=== PATIENT | male | born 1950 | race Caucasian/White ===

== ENCOUNTER 2020-05-14 08:51 | Observation (INO) | payer MEDICARE, SELFPAY ==
[2020-05-14] VITALS (10 sets, daily range): BP systolic 122–142; BP diastolic 54–70; PULSE 54–64; RESP 16–18; TEMP 36.4–36.8; O2SAT 98–100; BMI 31.7
--- NOTE | ~2020-05-14 | US_ITS ---
US renal BI 05/15/2020 07:55 Procedure: Realtime transabdominal ultrasound of the kidneys and bladder. Indication: Renal failure. Comparison: Ultrasound dated 04/18/2019 Findings: Left kidney is congenitally absent. There is compensatory hypertrophy of the right kidney. There are multiple right renal cysts, largest measuring 6.8 cm maximum dimension. There is mild right hydronephrosis. Right renal length is 16 cm. Prostate gland is mildly enlarged. Bladder wall is unre markable, although not well distended. Impression: 1: Mild right hydronephrosis. Multiple right renal cysts. 2: Congenitally absent left kidney. Reviewed, dictated and finalized at location A. Impression: 1: Mild right hydronephrosis. Multiple right renal cysts. 2: Congenitally absent left kidney.
--- NOTE | ~2020-05-14 | XR_ITS ---
EXAMINATION: XR chest 1V portable DATE: 05/14/2020 09:30 INDICATION: Right hemiparesis. Dyspnea. TECHNIQUE: A single frontal view of the chest was obtained. COMPARISON: Chest 2 views 04/18/2019, chest CT 10/20/2019 FINDINGS: There is mild atelectasis in the lower lung zones. No pleural effusion or pneumothorax. The heart size is normal. Calcified right hilar lymph nodes are consistent with old granulomatous diseas e. IMPRESSION: 1. Mild atelectasis in the lower lung zones. Reviewed, dictated and finalized at location A.
--- NOTE | ~2020-05-14 | MR_ITS ---
EXAMINATION: MR brain/brain stem wo con DATE: 05/14/2020 20:36 INDICATION: Weakness. Altered mental status. TECHNIQUE: Magnetic resonance imaging (MRI) of the brain and brainstem was performed without intraven ous contrast. Sequences included sagittal and axial T1-weighted SE, axial diffusion-weighted FS SE, a xial T2*-weighted GRE, axial T2-weighted FLAIR, and axial T2-weighted FSE. Apparent diffusion coeffic ient (ADC) maps were created. COMPARISON: Brain MR dated 04/18/2019 FINDINGS: There are no areas of restricted diffusion to suggest acute infarction. No intracranial hemorrhage or abnormal intracranial mass lesion. There are scattered areas of nonspecific increased T2-weighted si gnal intensity in the cerebral white matter, predominantly involving the deep and periventricular whi te matter. There are no intraparenchymal signal abnormalities seen on the other pulse sequences. The ventricles are symmetric and normal in size. There are no abnormal extra-axial fluid collections. Elmer w voids are seen in the cerebral arteries on the T2-weighted sequences consistent with their expected patency. Changes of right intraocular lens replacement. Visualized orbits and soft tissues are unrem arkable. IMPRESSION: 1. No acute intracranial process. 2. Unchanged moderate nonspecific periventricular predominant cerebral white matter T2 hyperintensity likely sequela of chronic small vessel ischemic disease. Reviewed, dictated and finalized at location A. IMPRESSION: 1. No acute intracranial process. 2. Unchanged moderate nonspecific periventricular predominant cerebral white ma tter T2 hyperintensity likely sequela of chronic small vessel ischemic disease.
--- NOTE | ~2020-05-14 | CT_ITS ---
EXAMINATION: CT brain wo con DATE: 05/14/2020 11:16 INDICATION: Weakness. Altered mental status. TECHNIQUE: Computed tomography (CT) of the head was performed without intravenous contrast. The mA wa s adjusted according to patient size. Iterative reconstruction technique was employed. The dose-lengt h product was 681.00 mGy-cm. COMPARISON: Head CT 04/17/2019 FINDINGS: There is no intracranial hemorrhage, acute infarction, or abnormal intracranial mass lesion . The ventricles are normal in size. There are likely changes of right ocular lens replacement surger y. There is mild mucosal thickening in the paranasal sinuses. The mastoid air cells are normal. IMPRESSION: 1. Normal brain. Reviewed, dictated and finalized at location A. IMPRESSION: 1. Normal brain.
--- NOTE | ~2020-05-14 | US_ITS ---
EXAMINATION: US carotid duplex BI DATE: 05/15/2020 07:55 INDICATION: Carotid stenosis. Weakness. TECHNIQUE: Grayscale, color Doppler, and pulsed Doppler images of the cervical carotid arteries were obtained. The degree of vessel stenosis is placed in one of the following categories: normal, <50%, 5 0-69%, >=70% but less than near-occlusion, near-occlusion, or total occlusion. Note that percent sten osis relative to normal distal artery lumen diameter is indirectly measured from velocity measurement s as described by Brandon, et al. Radiology 2003; 229:340-346. Notes: Normal: Peak systolic velocity <125 centimeters/sec and no plaque <50%. Peak systolic velocity <125 ( EDV <40; ICA/CCA PSV ratio <2.0; used these factors only a tandem lesions or low cardiac output or co ntralateral disease) 50-69 %: PSV 125-230 (EDV 40-100; ratio 2-4) >= 70% but less than near occlusion: PSV greater than 230 (EDV > 100; ratio> 4.0) Near Occlusion: PSV that is variable; markedly narrowed lumen Occlusion: Absent flow on color/spectral Doppler and no lumen on amor scale. COMPARISON: None. FINDINGS: RIGHT: The right common carotid artery (CCA) peak systolic velocity (PSV) is 74 cm/s. The right internal car otid artery (ICA) PSV is 55 cm/s. The right ICA end-diastolic velocity (EDV) is 13 cm/s. The right IC A/CCA PSV ratio is 0.7. The external carotid artery (ECA) PSV is 78 cm/s. There is antegrade flow in the right vertebral artery. LEFT: The left CCA PSV is 95 cm/s. The left ICA PSV is 60 cm/s. The left ICA EDV is 17 cm/s. The left ICA/C CA PSV ratio is 0.6. The ECA PSV is 76 cm/s. There is antegrade flow in the left vertebral artery. IMPRESSION: 1. Less than 50% stenosis in the right internal carotid artery by sonographic criteria. 2. Less than 50% stenosis in the left internal carotid artery by sonographic criteria. Reviewed, dictated and finalized at Location A. Reviewed, dictated and finalized at location A. IMPRESSION: 1. Less than 50% stenosis in the right internal carotid artery by sonographic c cris. 2. Less than 50% stenosis in the left internal carotid artery by sonographic ivonne fernandez.
--- NOTE | 2020-05-14 08:56 | ECG_ITS ---
Measurements Intervals [place] Rate: 55 P: 78 VA: 270 QRS: -33 QRSD: 182 T: 105 QT: 542 QTc: 522 Interpretive Statements SINUS BRADYCARDIA WITH FIRST DEGREE AV BLOCK LEFT AXIS DEVIATION LEFT BUNDLE BRANCH BLOCK ABNORMAL ECG Electronically Signed On 05-14-2020 10:45:34 CDT by Bin Awad D.O.
--- NOTE | 2020-05-14 08:58 | ED.GENADULT ---
HPI - General Adult General Chief complaint: Weakness Stated complaint: weakness Source: RN notes reviewed History of Present Illness HPI narrative: Patient presents emergency department from home via EMS for weakness. Patient states he has been more weak for the past 2 days. States he had lab work done recently and was called and told he was in renal failure need to go the emergency department he states that this was supposed to have happened yesterday. He denies any fevers or chills chest pain shortness of breath abdominal pain nausea vomiting diarrhea or any other symptoms. States he is followed by Dr. Saul for nephrology patient denies any other symptoms at this time Related Data Home Medications Medication Instructions Recorded Confirmed carbidopa 50 mg-levodopa 200 2 tablet PO BID 05/12/20 05/14/20 mg-entacapone 200 mg tablet fluticasone furoate 100 1 inhalation INHALATION DAILY 05/12/20 05/14/20 mcg-vilanterol 25 mcg/dose inhalation powder glipizide 5 mg-metformin 500 mg 2 tablet PO BID 05/12/20 05/14/20 tablet pantoprazole 40 mg tablet,delayed 40 mg PO QAM PRN 05/12/20 05/14/20 release trazodone 100 mg tablet 50 mg PO PRN PRN tablet 05/12/20 05/14/20 albuterol sulfate [ProAir HFA] 2 puff BID 05/14/20 05/14/20 alprazolam See Rx Instructions .ROUTE .COMPLEX 05/14/20 05/14/20 atorvastatin 5 mg HS 05/14/20 05/14/20 carvedilol 12.5 mg PO BID 05/14/20 05/14/20 cholecalciferol (vitamin D3) 1 unit PO DAILY 05/14/20 05/14/20 [D3-1999] donepezil 10 mg PO BID 05/14/20 05/14/20 escitalopram oxalate 20 mg DAILY 05/14/20 05/14/20 lisinopril 10 mg PO DAILY 05/14/20 05/14/20 magnesium oxide 400 mg BID 05/14/20 05/14/20 oxybutynin chloride 5 mg BID 05/14/20 05/14/20 oxycodone 10 mg TID 05/14/20 05/14/20 Allergies Allergy/AdvReac Type Severity Reaction Status Date / Time fentanyl Allergy Unknown Hives Verified 05/14/20 09:24 meperidine Allergy Unknown Hives Verified 05/14/20 09:24 midazolam Allergy Unknown Hives Verified 05/14/20 09:24 diphenhydramine AdvReac Intermediate AGITATION, Verified 05/14/20 09:24 ANTSY Review of Systems Review of Systems: Narrative: Gen.: Denies fevers or chills ENT: Denies congestion Respiratory: Denies shortness of breath or cough CV: Denies chest pain or palpitations GI: Denies abdominal pain nausea, emesis or diarrhea ports history of renal insufficiency Musculoskeletal: Denies back pain or muscle pain Neuro: Denies numbness, tingling, weakness or focal weakness Skin: Denies rash Except as documented, all other systems reviewed and negative [facility] Past Medical History Medical History (Updated 05/14/20 @ 18:26 by Davide Del Real DO) Borderline hyperlipidemia Cardiomyopathy Cataract Chronic narcotic dependence Dementia Depression Previous suicide attempt 2012 DM2 (diabetes mellitus, type 2) GERD (gastroesophageal reflux disease) HTN (hypertension) Kidney congenitally absent, left Migraine DAVID (obstructive sleep apnea) The patient has tried oral apparatus and CPAP and has not been able to tolerated. Parkinsons Pilonidal cyst Prostatic hyperplasia Surgical History Surgical History (Updated 05/14/20 @ 16:52 by Nena Juarez NP) H/O left cataract extraction H/O repair of rotator cuff On the right History of nasal septoplasty History of repair of ACL Bilateral History of surgical removal of pilonidal cyst Hx of cardiac catheterization Hx of cholecystectomy Hx of tonsillectomy Family History Family History Father Family history of cardiovascular disease Malignant neoplasm of prostate Mother Breast cancer Family history of chronic obstructive pulmonary disease Acute myocardial infarction Chronic obstructive pulmonary disease Sibling Prostate carcinoma Social History Social History (Updated 05/14/20 @ 16:55 by Nena Juarez NP) Social History: 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
[2020-05-14 09:29] LABS: Basophils Percent Auto 0.2 % (0.2-1.2); Hematocrit 43.4 % (42.0-52.0); Hemoglobin 14.7 g/dL (14.0-18.0); Immature Granulocyte Absolute 0.07 K/mm3 (0.00-0.031); Immature Granulocyte Percent A 0.6 % (0-0.5); Lymphocytes Absolute Auto 0.81 K/mm3 (0.9-3.2); Lymphocytes Percent Auto 6.6 % (18.3-44.2); Mean Corpuscular HGB Conc 33.9 g/dl (32-36); Mean Corpuscular Hemoglobin 30.9 pg (26-34); Mean Corpuscular Volume 91.2 fl (80-100); Mean Platelet Volume 8.8 fl (7.4-10.4); Monocytes Absolute Auto 0.9 K/mm3 (0.1-0.6); Monocytes Percent Auto 6.9 % (2.6-8.5); Neutrophils Absolute Auto 10.6 K/mm3 (1.3-6.7); Neutrophils Percent Auto 85.7 % (45.5-73.1); Platelet Count Result 330 k/mm3 (150-375); Red Blood Count 4.76 M/mm3 (4.6-6.20); Red Cell Distribution Width 13.5 % (11.5-14.5); White Blood Count 12.3 K/mm3 (4.5-10.0)
[2020-05-14 09:39] LABS: INR 1.3; Prothrombin Time 15.5 Seconds (11.1-14.7)
[2020-05-14 09:40] LABS: Partial Thromboplastin Time 37.1 SECONDS (22.3-36.8)
[2020-05-14 09:43] LABS: Alanine Aminotransferase 12 U/L (4-50); Albumin Level 4.1 g/dL (3.5-5.1); Alkaline Phosphatase 118 U/L (38-126); Aspartate Amino Transferase 206 U/L (17-59); Bilirubin,Total 1.1 mg/dL (0.2-1.3); Blood Urea Nitrogen 51 mg/dL (9-20); Calcium 9.3 mg/dL (8.4-10.2); Carbon Dioxide 18 mmol/L (22-30); Chloride 104 mmol/L (98-107); Estimated Glomerular Filt Rate 24; Glucose 226 mg/dL (75-110); Lactic Acid Reflex 2.5 mmol/L (0.7-2.1); Magnesium 3.1 mg/dL (1.6-2.3); Phosphorus 3.8 mg/dL (2.5-4.5); Potassium 5.3 mmol/L (3.4-5.0); Sodium 135 mmol/L (137-145)
[2020-05-14] MEDS: SODIUM CHLORIDE 0.9% IV 1,000 ML 999 ML IV CONT (10:15)
[2020-05-14 10:43] LABS: Add Urine Microscopic? YES; Appearance Urine Clear (Clear); Bacteria Urine Trace /hpf; Bilirubin Urine Negative (Negative); Blood Urine 3+ (Negative); Color Urine Yellow (Yellow); Glucose Urine UA Negative (Negative); Ketones Urine 1+ mg/dL (Negative); Leukocyte Esterase Ur Negative LEU/UL (Negative); Mucus Urine Rare /lpf; Nitrate Urine Negative (Negative); Protein Urine 2+ mg/dL (Negative); Specific Grav Ur 1.015 (1.001-1.035); Urobilinogen Urine Negative mg/dL (<2.0); WBC Urine 0-3 /hpf
[2020-05-14 12:27] LABS: Reflex Lactic Acid Yes or No Add Lactic
[2020-05-14 13:12] LABS: Lactic Acid 2.1 mmol/L (0.7-2.1)
--- NOTE | 2020-05-14 13:15 | PC.NURSE ---
This patient, Mohamud Diaz, was admitted to 2 Medical Room 251-01. Patient/family oriented to hospital policies and general routines including ID bracelet, bed and alarms, visiting hours, pain management, procedures, bathroom and other care routines, personal items, smoking policy, room service/diet, and visiting hours. Valuables list has been completed. Information on how to activate the Rapid Response Team has been discussed. Patient/Family are encouraged to report perceived risks to care and to ask questions if they do not understand what they are told or what they should do.
[2020-05-14] MEDS: SODIUM CHLORIDE 0.9% IV 1,000 ML 100 ML IV CONT (13:32)
[2020-05-14 14:22] LABS: Glucose Point of Care 178 (65-105)
--- NOTE | 2020-05-14 16:40 | PM.IMHP ---
H&P: HPI History of Present Illness Chief complaint: Acute renal insufficiency/weakness Narrative: Mohamud Diaz is a 69 year old male who lives home alone. He has a history of Parkinson's. He states that he has a call word button and that his son-in-law comes to help him as well. Patient tells me that he has been feeling weak for at least the last 2 days. He had his son-in-law Chris over tried to help him get up off the couch in go to the bathroom. The patient stated that he slid to the floor and has an abrasion to the right side of his head now. He stated that he has had a decreased oral intake. The patient had some lab work done recently and was called was told he is in renal failure and needed to come to the emergency room. Is fungal occurred yesterday and he did come to the hospital at that time. He does not have any fever chills. No chest pain or palpitations. No shortness of breath. No nausea no vomiting no diarrhea. Patient is followed by Dr. Saul for Nephrology. Patient has a pathological absent kidney. White count was noted to be 12.3. Potassium 5.3. BUN 51 creatinine 2.7. Last lab values his BUN was 28 creatinine 1.7 approximately a year ago. GFR is now 20 for and last year was 40. His blood sugars in the 100s. The patient stated he was too weak to ambulate on his own. The patient does have an abrasion to the right side of his temporal area. Mild atelectasis in the lower lung zones. Head CT was read as a normal brain. The patient was started on IV fluids. When I saw the patient the patient had been leaning towards his right side. Date of service 05/14/2020 Review of Systems Review of Systems: All systems reviewed & are unremarkable except as noted in HPI and below Constitutional: Constitutional: Reports as per HPI and Reports no additional constitutional complaints Eyes: Eyes: Reports as per HPI and Reports no additional eye complaints ENT: Reports system reviewed and no additional complaints, except as documented and Reports Normal hearing present Cardiovascular: Cardiovascular: Reports no additional cardiovascular complaints Respiratory: Respiratory: Reports no additional respiratory complaints and Reports no additional respiratory complaints Gastrointestinal: Gastrointestinal: Reports as per HPI and Reports no additional gastrointestinal complaints Musculoskeletal: Musculoskeletal: Reports no additional musculoskeletal complaints Integumentary/Breasts: Skin/Breast: Reports system reviewed and no additional complaints, except as docu and Reports as per HPI Neurologic: Reports system reviewed and no additional complaints, except as documented, Reports as per HPI and Reports Normal hearing present Psychiatric: Psychiatric: Reports no additional psychiatric complaints and Reports as per HPI Endocrine: Endocrine: Reports no additional endocrine complaints Hematologic/Lymphatic: Hematologic/Lymphatic: Reports no additional hematologic/lymphatic complaints Allergic/Immunologic: Allergic/Immunologic: Reports no additional allergic/immunologic complaints [facility] Past Medical History Medical History (Updated 05/14/20 @ 17:06 by Nena Juarez NP) Borderline hyperlipidemia Cardiomyopathy Cataract Chronic narcotic dependence Dementia Depression Previous suicide attempt 2012 DM2 (diabetes mellitus, type 2) GERD (gastroesophageal reflux disease) HTN (hypertension) Kidney congenitally absent, left Migraine DAVID (obstructive sleep apnea) The patient has tried oral apparatus and CPAP and has not been able to tolerated. Parkinsons Pilonidal cyst Prostatic hyperplasia Surgical History Surgical History (Updated 05/14/20 @ 16:52 by Nena Juarez NP) H/O left cataract extraction H/O repair of rotator cuff On the right History of nasal septoplasty History of repair of ACL Bilateral History of surgical removal of pilonidal cyst Hx of cardiac catheterization Hx of cholecystectomy Hx of to
[2020-05-14 16:48] LABS: Glucose Point of Care 252 (65-105)
[2020-05-14] MEDS: INSULIN ASPART (*BKC) 100 UNITS/ML SUB-Q (16:56)
[2020-05-14] MEDS: carvediloL 12.5 MG TABLET PO (17:08)
[2020-05-14] MEDS: CARBIDOPA/LEVODOPA 25/100 MG TABLET 4 TABLET PO (17:08)
[2020-05-14] MEDS: MAGNESIUM OXIDE 400 MG TABLET BY MOUTH (17:08)
[2020-05-14] MEDS: OXYBUTYNIN CHLORIDE 5 MG TABLET BY MOUTH (17:08)
[2020-05-14] MEDS: ENTACAPONE 200 MG TABLET 400 MG PO (17:09)
[2020-05-14] MEDS: ATORVASTATIN 5 MG TABLET PO (20:52)
[2020-05-14] MEDS: DONEPEZIL HCL 10 MG TABLET PO (20:52)
[2020-05-14] MEDS: TRAZODONE HCL 50 MG TABLET PO (20:54)
[2020-05-14 21:31] LABS: Glucose Point of Care 204 (65-105)
[2020-05-15] VITALS (12 sets, daily range): BP systolic 118–151; BP diastolic 55–68; PULSE 51–66; RESP 18–20; TEMP 36.1–36.7; O2SAT 93–99
--- NOTE | 2020-05-15 | ECHO_ITS ---
Patient Info Name: Mohamud Diaz Age: 69 years : 1950 Gender: Male Ht: 72 in Wt: 233 lbs BSA: 2.35 m2 HR: 61 bpm BP: 151 / 56 mmHg Technical Quality: Poor Exam Date: 05/15/2020 8:52 AM Exam Location: [facility] Patient Status: Inpatient Admit Date: 05/14/2020 Staff Ordering Physician: Nena Juarez NP Poacher Operator: Alla Bradford RDCS Attending Provider: Roel Black MD Referring Physician: Ann APODACA; Exam Type: CA echo dop color flow w con Study Info Complete two-dimensional, color flow and Doppler transthoracic echocardiogram is performed with contrast to opacify the left ventricle and to improve the deliniation of the left ventricle endocardial borders. Contrast/Agitated Saline Contrast/Ag. Saline: Definity Amount: 3.00 ml Summary 1. There is mildly increased left ventricular wall thickness. 2. Left ventricular systolic function is normal, estimated at 65-70%. 3. The left ventricular diastolic function is grade I diastolic dysfunction. 4. Right ventricular chamber dimension is normal. 5. Right ventricular systolic function is normal. 6. Normal inferior vena cava with >50% collapse upon inspiration consistent with normal right atrial pressure, 3 mmHg. Left Ventricle Left ventricular chamber dimension is normal. Left ventricular systolic function is normal, estimated at 65-70%. There is mildly increased left ventricular wall thickness. Left ventricular septal wall motion is normal. The left ventricular diastolic function is grade I diastolic dysfunction. Right Ventricle Right ventricular chamber dimension is normal. Right ventricular systolic function is normal. Left Atria Left atrial chamber dimension is normal. Right Atria Right atrial chamber dimension is normal. Aortic Valve The aortic valve is trileaflet. There is no aortic valve stenosis. There is no aortic valve regurgitation. Pulmonic Valve The pulmonic valve is not well visualized. There is no pulmonic valve stenosis. There is no pulmonic regurgitation. Mitral Valve The mitral valve has normal leaflets. There is no mitral valve stenosis. There is no mitral valve regurgitation. Tricuspid Valve The tricuspid valve leaflets are normal. There is no significant tricuspid valve stenosis. There is no tricuspid valve regurgitation. No pulmonary hypertension, estimated pulmonary arterial systolic pressure is 27 mmHg. Pericardium/Pleural There is no pericardial effusion. Inferior Vena Cava Normal inferior vena cava with >50% collapse upon inspiration consistent with normal right atrial pressure, 3 mmHg. Left Ventricular Outflow Tract Name Value Normal LVOT 2D LVOT Diameter 2.45 cm LVOT Doppler LVOT Peak Gradient 3 mmHg LVOT Mean Gradient 1 mmHg LVOT VTI 16.03 cm LVOT VTI/AV VTI Ratio 0.53 LVOT Stroke Volume 75.48 ml LVOT CO 4.16 l/min LVOT CI
[2020-05-15] MEDS: SODIUM CHLORIDE 0.9% IV 1,000 ML 100 ML IV CONT (03:35)
[2020-05-15 06:01] LABS: Basophils Percent Auto 0.4 % (0.2-1.2); Eosinophils Absolute Auto 0.1 K/mm3 (0-0.3); Eosinophils Percent Auto 0.9 % (0-4.4); Hematocrit 38.2 % (42.0-52.0); Hemoglobin 12.9 g/dL (14.0-18.0); Immature Granulocyte Absolute 0.05 K/mm3 (0.00-0.031); Immature Granulocyte Percent A 0.5 % (0-0.5); Lymphocytes Absolute Auto 1.24 K/mm3 (0.9-3.2); Lymphocytes Percent Auto 11.9 % (18.3-44.2); Mean Corpuscular HGB Conc 33.8 g/dl (32-36); Mean Corpuscular Hemoglobin 30.2 pg (26-34); Mean Corpuscular Volume 89.5 fl (80-100); Mean Platelet Volume 8.6 fl (7.4-10.4); Monocytes Absolute Auto 1.2 K/mm3 (0.1-0.6); Monocytes Percent Auto 11.2 % (2.6-8.5); Neutrophils Absolute Auto 7.8 K/mm3 (1.3-6.7); Neutrophils Percent Auto 75.1 % (45.5-73.1); Platelet Count Result 274 k/mm3 (150-375); Red Blood Count 4.27 M/mm3 (4.6-6.20); Red Cell Distribution Width 13.6 % (11.5-14.5); White Blood Count 10.4 K/mm3 (4.5-10.0)
[2020-05-15 07:23] LABS: Alanine Aminotransferase 12 U/L (4-50); Albumin Level 3.1 g/dL (3.5-5.1); Alkaline Phosphatase 94 U/L (38-126); Aspartate Amino Transferase 126 U/L (17-59); Bilirubin,Total 0.7 mg/dL (0.2-1.3); Blood Urea Nitrogen 42 mg/dL (9-20); Calcium 8.9 mg/dL (8.4-10.2); Carbon Dioxide 22 mmol/L (22-30); Chloride 106 mmol/L (98-107); Estimated CRCL calculation 41 ml/min; Estimated Glomerular Filt Rate 33; Glucose 179 mg/dL (75-110); Magnesium 2.6 mg/dL (1.6-2.3); Potassium 4.4 mmol/L (3.4-5.0); Sodium 137 mmol/L (137-145)
[2020-05-15 08:04] LABS: Glucose Point of Care 175 (65-105)
[2020-05-15] MEDS: ESCITALOPRAM OXALATE 10 MG TABLET 20 MG BY MOUTH (08:18)
[2020-05-15] MEDS: DONEPEZIL HCL 10 MG TABLET PO ×2 (08:19→20:30)
[2020-05-15] MEDS: CARBIDOPA/LEVODOPA 25/100 MG TABLET 4 TABLET PO ×2 (08:19→18:04)
[2020-05-15] MEDS: OXYBUTYNIN CHLORIDE 5 MG TABLET BY MOUTH ×2 (08:19→18:03)
[2020-05-15] MEDS: MAGNESIUM OXIDE 400 MG TABLET BY MOUTH ×2 (08:19→18:02)
[2020-05-15] MEDS: CHOLECALCIFEROL 1,000 UNIT TABLET 2000 UNITS PO (08:19)
[2020-05-15] MEDS: carvediloL 12.5 MG TABLET PO ×2 (08:19→18:07)
[2020-05-15] MEDS: ENTACAPONE 200 MG TABLET 400 MG PO ×2 (08:20→18:03)
[2020-05-15 08:31] LABS: Thyroid Stimulating Hormone Reflex 0.608 uIU/mL (0.465-4.68)
--- NOTE | 2020-05-15 09:03 | P.PNIM_ITS ---
Progress Note: A&P Assessment and Plan (1) Weakness: Code(s): R53.1 - Weakness Status: Acute Assessment and Plan: * Patient with Parkinson's presents with worsening generalized weakness x 2 days. * MRI brain shows no acute intracranial findings. Carotid dopplers are within normal limits. Echocardiogram pending. * Worsening of symptoms could be in part related to dehydration vs. progression of Parksinons. * His neurologist is Dr Moffett; neurology consulted and appreciate input. PT/OT dwight appreciated; pt lives home alone. (2) Acute on chronic renal failure: Qualifiers: Acute renal failure type: unspecified Chronic kidney disease stage: stage 3 (moderate) Qualified Code(s): N17.9 - Acute kidney failure, unspecified; N18.3 - Chronic kidney disease, stage 3 (moderate) Code(s): N17.9 - Acute kidney failure, unspecified; N18.9 - Chronic kidney disease, unspecified Status: Acute Assessment and Plan: * Patient notes he had labs drawn outpatient and someone contacted him advising him to present to the ER because he was in kidney failure. * Cr yesterday 2.7 now down to 2.0 this AM with IV hydration. Compared to Cr 1.03 November 2018 he appears to be back near his baseline. * Renal US demonstrates mild hydronephrosis on R, multiple R renal cysts and congenitally absent L kidney. * He follows with Dr Saul at [facility] - recommend following up with him after discharge. * Continue gentle IV hydration; home lisinopril and metformin are held; monitor renal function while he is here. (3) DM2 (diabetes mellitus, type 2): Qualifiers: Diabetes mellitus complication status: without complication Diabetes mellitus care home insulin use: without terminal operator use Qualified Code(s): E11.9 - Type 2 diabetes mellitus without complications Code(s): E11.9 - Type 2 diabetes mellitus without complications Status: Chronic Assessment and Plan: * Home Metformin held due to renal function. Monitor accu-cheks and cover with SSI. (4) Parkinsons: Code(s): G20 - Parkinson's disease Status: Chronic Assessment and Plan: * Maintained on his home Sinemet and donezepil. His neurologist is Dr Moffett. * Appreciate neurology consultation. (5) HTN (hypertension): Qualifiers: Hypertension type: unspecified Qualified Code(s): I10 - Essential (primary) hypertension Code(s): I10 - Essential (primary) hypertension Status: Chronic Assessment and Plan: * Last BP 127/68; his home lisinopril is held. Continue with his home carvedilol. Monitor BP and adjust treatment as needed. (6) GERD (gastroesophageal reflux disease): Qualifiers: Esophagitis presence: without esophagitis Qualified Code(s): K21.9 - Gastro-esophageal reflux disease without esophagitis Code(s): K21.9 - Gastro-esophageal reflux disease without esophagitis Status: Chronic Assessment and Plan: * Continue with Protonix. No acute issues. (7) Depression: Qualifiers: Depression Type: unspecified Qualified Code(s): F32.9 - Major depressive disorder, single episode, unspecified Code(s): F32.9 - Major depressive disorder, single episode, unspecified Status: Chronic Assessment and Plan: * Continue with his home xanax PRN as well as trazodone and Lexapro. (8) Chronic narcotic dependence:
--- NOTE | 2020-05-15 09:03 | PM.IMPN ---
Progress Note: A&P Assessment and Plan (1) Weakness: Code(s): R53.1 - Weakness Status: Acute Assessment and Plan: Patient with Parkinson's presents with worsening generalized weakness x 2 days. MRI brain shows no acute intracranial findings. Carotid dopplers are within normal limits. Echocardiogram pending. Worsening of symptoms could be in part related to dehydration vs. progression of Parksinons. His neurologist is Dr Moffett; neurology consulted and appreciate input. PT/OT evals appreciated; pt lives home alone. (2) Acute on chronic renal failure: Qualifiers: Acute renal failure type: unspecified Chronic kidney disease stage: stage 3 (moderate) Qualified Code(s): N17.9 - Acute kidney failure, unspecified; N18.3 - Chronic kidney disease, stage 3 (moderate) Code(s): N17.9 - Acute kidney failure, unspecified; N18.9 - Chronic kidney disease, unspecified Status: Acute Assessment and Plan: Patient notes he had labs drawn outpatient and someone contacted him advising him to present to the ER because he was in kidney failure. Cr yesterday 2.7 now down to 2.0 this AM with IV hydration. Compared to Cr 1.03 November 2018 he appears to be back near his baseline. Renal US demonstrates mild hydronephrosis on R, multiple R renal cysts and congenitally absent L kidney. He follows with Dr Saul at [facility] - recommend following up with him after discharge. Continue gentle IV hydration; home lisinopril and metformin are held; monitor renal function while he is here. (3) DM2 (diabetes mellitus, type 2): Qualifiers: Diabetes mellitus complication status: without complication Diabetes mellitus usp insulin use: without regional intermodal truck driver use Qualified Code(s): E11.9 - Type 2 diabetes mellitus without complications Code(s): E11.9 - Type 2 diabetes mellitus without complications Status: Chronic Assessment and Plan: Home Metformin held due to renal function. Monitor accu-cheks and cover with SSI. (4) Parkinsons: Code(s): G20 - Parkinson's disease Status: Chronic Assessment and Plan: Maintained on his home Sinemet and donezepil. His neurologist is Dr Moffett. Appreciate neurology consultation. (5) HTN (hypertension): Qualifiers: Hypertension type: unspecified Qualified Code(s): I10 - Essential (primary) hypertension Code(s): I10 - Essential (primary) hypertension Status: Chronic Assessment and Plan: Last BP 127/68; his home lisinopril is held. Continue with his home carvedilol. Monitor BP and adjust treatment as needed. (6) GERD (gastroesophageal reflux disease): Qualifiers: Esophagitis presence: without esophagitis Qualified Code(s): K21.9 - Gastro-esophageal reflux disease without esophagitis Code(s): K21.9 - Gastro-esophageal reflux disease without esophagitis Status: Chronic Assessment and Plan: Continue with Protonix. No acute issues. (7) Depression: Qualifiers: Depression Type: unspecified Qualified Code(s): F32.9 - Major depressive disorder, single episode, unspecified Code(s): F32.9 - Major depressive disorder, single episode, unspecified Status: Chronic Assessment and Plan: Continue with his home xanax PRN as well as trazodone and Lexapro. (8) Chronic narcotic dependence: Code(s): F11.20 - Opioid dependence, uncomplicated Status: Chronic Assessment and Plan: Continue with home oxycodone. (9) Borderline hyperlipidemia: Code(s): E78.5 - Hyperlipidemia, unspecified Status: Chronic Assessment and Plan: Continue with atorvastatin. Subjective
[2020-05-15] MEDS: ALPRAZOLAM 0.5 MG TABLET PO ×3 (10:42→20:30)
[2020-05-15 11:32] LABS: Glucose Point of Care 245 (65-105)
[2020-05-15] MEDS: INSULIN ASPART (*BKC) 100 UNITS/ML SUB-Q (11:41)
--- NOTE | 2020-05-15 15:19 | CONS_ITS ---
DATE OF CONSULTATION: 05/14/2020 HISTORY OF PRESENT ILLNESS: A 69-year-old right-handed male has been admitted to the hospital for the complaint of acute renal insufficiency with generalized weakness. The patient has ongoing history of Parkinson's disease. He has been feeling extremely weak over the last 48 hours. His son-in-law came to help him, get up off the couch and go to the bathroom, but he slid to the floor, sustain an abrasion to the right side of his head. He had decreased oral intake by history. His lab was done recently as an outpatient and was told that he has renal insufficiency. He gave no history of associated chest discomfort, palpitation, or any generalized symptomatology. He was seen by Dr. Saul, the supervisor instrument maintenance. He does have absent kidney, because of the pathological reason. He was noted to have leukocytosis with WBC 12.3, potassium 5.3, BUN 51, creatinine 2.7, though his last lab with BUN 28 with creatinine 1.7 and that was 1 year ago. His GFR now is only 20, though it was 40 last year. He was too weak to ambulate on his own. CT scan of the head was done, which was normal. He was started on the IV fluids. PAST MEDICAL HISTORY: Borderline hyperlipidemia, cardiomyopathy, dementia, depression, type 2 diabetes mellitus, GERD, hypertension, congenitally absent left kidney. migraine, obstructive sleep apnea, Parkinson disease, and prostatic hyperplasia with pilonidal cyst. PAST SURGICAL HISTORY: He has undergone multiple surgeries such as left cataract, right rotator cuff repair, nasal septoplasty, ACL repair bilaterally, pilonidal cyst removal, cardiac catheterization, cholecystectomy, and tonsillectomy. He is a never smoker, former drinker. MEDICATIONS: At the time of admission to the hospital, he was takin. Carbidopa-levodopa 50/200 two tablets b.i.d. along with trazodone 150 mg p.r.n. 2. Donepezil 10 mg twice a day. 3. Escitalopram 20 mg daily. 4. Oxycodone 10 mg 3 times a day in addition to the other medication. ALLERGIES: HE IS ALLERGIC TO FENTANYL, MEPERIDINE, MIDAZOLAM AND DIPHENHYDRAMINE. PHYSICAL EXAMINATION: VITAL SIGNS: He is notedly afebrile with pulse 54, 58, respiration normal, blood pressure 126/62, pulse ox 100%. GENERAL: At this stage, he is awake, alert, cooperative, in no obvious acute distress. HEENT: Head normocephalic with no cranial bruit. He is oriented to x3. His speech not dysphasic, not dysarthric, not dysphonic. Ear, nose, and throat examination is normal. NECK: Supple with no cervical bruit. No thyromegaly. No lymphadenopathy. HEART: Regular. LUNGS: Clear. ABDOMEN: Soft. NEUROLOGICAL: He is awake and alert. Pupils round, regular. Cody of vision full. Extraocular movements full. Face symmetrical. Tongue midline. Motor examination revealed him to have fairly symmetrical strength decrease, sluggish reflexes and plantars are downgoing. There is no evidence of gross cerebellar deficit. LABORATORY DATA: Evaluation includes the CBC which revealed WBC 12.3, hemoglobin 14.7, platelet count 330. Basic metabolic panel with sodium 135, potassium 5.3, BUN 51, creatinine 2.7, and glucose 226. Hepatic enzymes normal, except AST of 206. UA with 2+ protein. Chest x-ray negative, except the mild atelectasis in the left lower lung zone. CT of the brain normal. IMPRESSION: Renal insufficiency with the history of absent left kidney and complained of generalized weakness in addition to the ongoing Parkinson's disease and type 2 diabetes mellitus. The medication what he is taking is carbidopa-levodopa. At this stage, dose is enough, it is not causing any overreaction, dystonia and does not have any significant cogwheeling or rigidity or resting tremor. He will be continued as such. Once the kidney status
[2020-05-15 16:41] LABS: Glucose Point of Care 171 (65-105)
[2020-05-15] MEDS: SODIUM CHLORIDE 0.9% IV 1,000 ML 80 ML IV CONT (20:30)
[2020-05-15] MEDS: ATORVASTATIN 5 MG TABLET PO (20:30)
[2020-05-15] MEDS: TRAZODONE HCL 50 MG TABLET PO (20:30)
[2020-05-15 21:23] LABS: Glucose Point of Care 216 (65-105)
[2020-05-16] VITALS (11 sets, daily range): BP systolic 118–145; BP diastolic 60–73; PULSE 53–81; RESP 18–20; TEMP 36.4–36.8; O2SAT 96–99
[2020-05-16] MEDS: ALPRAZOLAM 0.5 MG TABLET PO (03:00)
[2020-05-16 06:02] LABS: Basophils Percent Auto 0.3 % (0.2-1.2); Eosinophils Absolute Auto 0.2 K/mm3 (0-0.3); Eosinophils Percent Auto 1.9 % (0-4.4); Hematocrit 40.4 % (42.0-52.0); Hemoglobin 13.3 g/dL (14.0-18.0); Immature Granulocyte Absolute 0.07 K/mm3 (0.00-0.031); Immature Granulocyte Percent A 0.7 % (0-0.5); Lymphocytes Percent Auto 12.2 % (18.3-44.2); Mean Corpuscular HGB Conc 32.9 g/dl (32-36); Mean Corpuscular Hemoglobin 30.4 pg (26-34); Mean Corpuscular Volume 92.2 fl (80-100); Mean Platelet Volume 8.9 fl (7.4-10.4); Monocytes Absolute Auto 1.3 K/mm3 (0.1-0.6); Monocytes Percent Auto 11.7 % (2.6-8.5); Neutrophils Absolute Auto 7.8 K/mm3 (1.3-6.7); Neutrophils Percent Auto 73.2 % (45.5-73.1); Platelet Count Result 255 k/mm3 (150-375); Red Blood Count 4.38 M/mm3 (4.6-6.20); Red Cell Distribution Width 13.3 % (11.5-14.5); White Blood Count 10.7 K/mm3 (4.5-10.0)
[2020-05-16 06:20] LABS: Blood Urea Nitrogen 33 mg/dL (9-20); Calcium 9.1 mg/dL (8.4-10.2); Carbon Dioxide 26 mmol/L (22-30); Chloride 101 mmol/L (98-107); Estimated CRCL calculation 47 ml/min; Estimated Glomerular Filt Rate 40; Glucose 172 mg/dL (75-110); Magnesium 2.2 mg/dL (1.6-2.3); Sodium 135 mmol/L (137-145)
[2020-05-16 07:38] LABS: Glucose Point of Care 173 (65-105)
[2020-05-16] MEDS: DONEPEZIL HCL 10 MG TABLET PO ×2 (07:56→20:24)
[2020-05-16] MEDS: CHOLECALCIFEROL 1,000 UNIT TABLET 2000 UNITS PO (07:56)
[2020-05-16] MEDS: CARBIDOPA/LEVODOPA 25/100 MG TABLET 4 TABLET PO ×2 (07:56→16:52)
[2020-05-16] MEDS: ENTACAPONE 200 MG TABLET 400 MG PO ×2 (07:56→16:52)
[2020-05-16] MEDS: ESCITALOPRAM OXALATE 10 MG TABLET 20 MG BY MOUTH (07:57)
[2020-05-16] MEDS: MAGNESIUM OXIDE 400 MG TABLET BY MOUTH ×2 (07:57→16:52)
[2020-05-16] MEDS: OXYBUTYNIN CHLORIDE 5 MG TABLET BY MOUTH ×2 (07:57→16:52)
[2020-05-16] MEDS: carvediloL 12.5 MG TABLET PO ×2 (07:57→16:53)
--- NOTE | 2020-05-16 09:22 | P.PNIM_ITS ---
Progress Note: A&P Assessment and Plan (1) Weakness: Code(s): R53.1 - Weakness Status: Acute Assessment and Plan: * Patient with Parkinson's presents with worsening generalized weakness x 2 days. * MRI brain shows no acute intracranial findings. Carotid dopplers are within normal limits. Echocardiogram reviewed, normal. * Worsening of symptoms could be in part related to dehydration vs. progression of Parksinons. * His neurologist is Dr Moffett; neurology consulted and appreciate input. PT/OT evals appreciated. He describes neck and back pain today. * Pt lives home alone; dispo is SNF. Anticipate discharge 05/16. (2) Acute on chronic renal failure: Qualifiers: Acute renal failure type: unspecified Chronic kidney disease stage: stage 3 (moderate) Qualified Code(s): N17.9 - Acute kidney failure, unspecified; N18.3 - Chronic kidney disease, stage 3 (moderate) Code(s): N17.9 - Acute kidney failure, unspecified; N18.9 - Chronic kidney disease, unspecified Status: Acute Assessment and Plan: * Patient notes he had labs drawn outpatient and someone contacted him advising him to present to the ER because he was in kidney failure. * Cr yesterday 2.7 now down to 1.7 this AM with IV hydration. Compared to Cr 1.03 November 2018 he appears to be back near his baseline. * Renal US demonstrates mild hydronephrosis on R, multiple R renal cysts and congenitally absent L kidney. * He follows with Dr Saul at [facility] - recommend following up with him after discharge. * Tolerating oral intake okay can stop IV fluids; home lisinopril and metformin are held; check BMP in AM. (3) DM2 (diabetes mellitus, type 2): Qualifiers: Diabetes mellitus complication status: without complication Diabetes mellitus residential insulin use: without residential use Qualified Code(s): E11.9 - Type 2 diabetes mellitus without complications Code(s): E11.9 - Type 2 diabetes mellitus without complications Status: Chronic Assessment and Plan: * Home Metformin held due to renal function. Monitor accu-cheks and cover with SSI. (4) Parkinsons: Code(s): G20 - Parkinson's disease Status: Chronic Assessment and Plan: * Maintained on his home Sinemet and donezepil. His neurologist is Dr Moffett. * Appreciate neurology consultation. (5) HTN (hypertension): Qualifiers: Hypertension type: unspecified Qualified Code(s): I10 - Essential (primary) hypertension Code(s): I10 - Essential (primary) hypertension Status: Chronic Assessment and Plan: * Last BP 145/61; his home lisinopril is held. Continue with his home carvedilol. Monitor BP and adjust treatment as needed. (6) GERD (gastroesophageal reflux disease): Qualifiers: Esophagitis presence: without esophagitis Qualified Code(s): K21.9 - Gastro-esophageal reflux disease without esophagitis Code(s): K21.9 - Gastro-esophageal reflux disease without esophagitis Status: Chronic Assessment and Plan: * Continue with Protonix. No acute issues. (7) Depression: Qualifiers: Depression Type: unspecified Qualified Code(s): F32.9 - Major depressive disorder, single episode, unspecified Code(s): F32.9 - Major depressive disorder, single episode, unspecified Status: Chronic Assessment and Plan: * Continue with his home Xanax PRN as well as trazo
--- NOTE | 2020-05-16 09:22 | PM.IMPN ---
Progress Note: A&P Assessment and Plan (1) Weakness: Code(s): R53.1 - Weakness Status: Acute Assessment and Plan: Patient with Parkinson's presents with worsening generalized weakness x 2 days. MRI brain shows no acute intracranial findings. Carotid dopplers are within normal limits. Echocardiogram reviewed, normal. Worsening of symptoms could be in part related to dehydration vs. progression of Parksinons. His neurologist is Dr Moffett; neurology consulted and appreciate input. PT/OT evals appreciated. He describes neck and back pain today. Pt lives home alone; dispo is SNF. Anticipate discharge 05/16. (2) Acute on chronic renal failure: Qualifiers: Acute renal failure type: unspecified Chronic kidney disease stage: stage 3 (moderate) Qualified Code(s): N17.9 - Acute kidney failure, unspecified; N18.3 - Chronic kidney disease, stage 3 (moderate) Code(s): N17.9 - Acute kidney failure, unspecified; N18.9 - Chronic kidney disease, unspecified Status: Acute Assessment and Plan: Patient notes he had labs drawn outpatient and someone contacted him advising him to present to the ER because he was in kidney failure. Cr yesterday 2.7 now down to 1.7 this AM with IV hydration. Compared to Cr 1.03 November 2018 he appears to be back near his baseline. Renal US demonstrates mild hydronephrosis on R, multiple R renal cysts and congenitally absent L kidney. He follows with Dr Saul at [facility] - recommend following up with him after discharge. Tolerating oral intake okay can stop IV fluids; home lisinopril and metformin are held; check BMP in AM. (3) DM2 (diabetes mellitus, type 2): Qualifiers: Diabetes mellitus complication status: without complication Diabetes mellitus fpc insulin use: without fpc use Qualified Code(s): E11.9 - Type 2 diabetes mellitus without complications Code(s): E11.9 - Type 2 diabetes mellitus without complications Status: Chronic Assessment and Plan: Home Metformin held due to renal function. Monitor accu-cheks and cover with SSI. (4) Parkinsons: Code(s): G20 - Parkinson's disease Status: Chronic Assessment and Plan: Maintained on his home Sinemet and donezepil. His neurologist is Dr Moffett. Appreciate neurology consultation. (5) HTN (hypertension): Qualifiers: Hypertension type: unspecified Qualified Code(s): I10 - Essential (primary) hypertension Code(s): I10 - Essential (primary) hypertension Status: Chronic Assessment and Plan: Last BP 145/61; his home lisinopril is held. Continue with his home carvedilol. Monitor BP and adjust treatment as needed. (6) GERD (gastroesophageal reflux disease): Qualifiers: Esophagitis presence: without esophagitis Qualified Code(s): K21.9 - Gastro-esophageal reflux disease without esophagitis Code(s): K21.9 - Gastro-esophageal reflux disease without esophagitis Status: Chronic Assessment and Plan: Continue with Protonix. No acute issues. (7) Depression: Qualifiers: Depression Type: unspecified Qualified Code(s): F32.9 - Major depressive disorder, single episode, unspecified Code(s): F32.9 - Major depressive disorder, single episode, unspecified Status: Chronic Assessment and Plan: Continue with his home Xanax PRN as well as trazodone and Lexapro. (8) Chronic narcotic dependence: Code(s): F11.20 - Opioid dependence, uncomplicated Status: Chronic Assessment and Plan: Continue with home oxycodone. He is having neck and back pain today. (9) Borderline hyperlipidemia: Code(s): E78.5 - Hyperlipidemia, unspecified
[2020-05-16 11:37] LABS: Glucose Point of Care 214 (65-105)
[2020-05-16] MEDS: INSULIN ASPART (*BKC) 100 UNITS/ML SUB-Q (11:57)
[2020-05-16 16:25] LABS: Glucose Point of Care 190 (65-105)
[2020-05-16] MEDS: ATORVASTATIN 5 MG TABLET PO (20:24)
[2020-05-16 20:37] LABS: Glucose Point of Care 196 (65-105)
[2020-05-17] VITALS (7 sets, daily range): BP systolic 129–144; BP diastolic 61–64; PULSE 56–79; RESP 16–20; TEMP 36.7; O2SAT 98
[2020-05-17 05:32] LABS: Blood Urea Nitrogen 32 mg/dL (9-20); Calcium 8.7 mg/dL (8.4-10.2); Carbon Dioxide 29 mmol/L (22-30); Chloride 100 mmol/L (98-107); Estimated CRCL calculation 47 ml/min; Estimated Glomerular Filt Rate 40; Glucose 180 mg/dL (75-110); Magnesium 2.1 mg/dL (1.6-2.3); Potassium 4.2 mmol/L (3.4-5.0); Sodium 132 mmol/L (137-145)
[2020-05-17] MEDS: ALPRAZOLAM 0.5 MG TABLET PO ×2 (08:04→13:05)
[2020-05-17 08:20] LABS: Glucose Point of Care 159 (65-105)
[2020-05-17] MEDS: CHOLECALCIFEROL 1,000 UNIT TABLET 2000 UNITS PO (08:40)
[2020-05-17] MEDS: CARBIDOPA/LEVODOPA 25/100 MG TABLET 4 TABLET PO (08:40)
[2020-05-17] MEDS: carvediloL 12.5 MG TABLET PO (08:40)
[2020-05-17] MEDS: DONEPEZIL HCL 10 MG TABLET PO (08:41)
[2020-05-17] MEDS: ENTACAPONE 200 MG TABLET 400 MG PO (08:41)
[2020-05-17] MEDS: MAGNESIUM OXIDE 400 MG TABLET BY MOUTH (08:42)
[2020-05-17] MEDS: ESCITALOPRAM OXALATE 10 MG TABLET 20 MG BY MOUTH (08:42)
[2020-05-17] MEDS: OXYBUTYNIN CHLORIDE 5 MG TABLET BY MOUTH (08:42)
--- NOTE | 2020-05-17 08:53 | ECG_ITS ---
Measurements Intervals [place] Rate: 66 P: -1 VA: 239 QRS: -34 QRSD: 165 T: 78 QT: 454 QTc: 476 Interpretive Statements SINUS RHYTHM WITH FIRST DEGREE AV BLOCK LEFT AXIS DEVIATION LEFT BUNDLE BRANCH BLOCK ANTEROSEPTAL INFARCT OR DUE TO LBBB INFERIOR INFARCT OR DUE TO LBBB BASELINE ARTIFACT- AVF ABNORMAL ECG Electronically Signed On 05-17-2020 11:23:47 CDT by Bin Awad D.O.
[2020-05-17] MEDS: polyethylene glycoL 3350 17 GM POWD.PACK PO (11:44)
[2020-05-17] MEDS: BISACODYL 5 MG TABLET EC PO (11:44)
--- NOTE | 2020-05-17 14:13 | PM.DS ---
DS: Admitting Diagnosis Admitting Diagnosis Admitting Diagnosis: Weakness DS: Discharge Diagnosis Discharge Diagnosis (1) Weakness: Code(s): R53.1 - Weakness Status: Acute Assessment and Plan: Date of Service 05/17/20 Mr. Diaz is a 69yo M with Parkinson's disease, chronic kidney disease stage 3, type 2 diabetes mellitus, and hypertension who presented to the ED for evaluation of worsening weakness over the last 2 days prior to arrival. He also noted that he recently had outpatient labwork done and his shuttle fixer, Dr Guthrie, called instructing him to go to the hospital since his renal function was worse on this lab work. Dr Guthrie noted to the patient that his creatinine was 3.4 on those outpatient labs. On arrival here, his creatinine was 2.7 and BUN 51. He was treated with IV hydration and creatinine improved to 1.7. MRI brain demonstrated no acute intracranial findings to explain his weakness. Carotid dopplers were within normal limits. Echocardiogram is detailed below. Patient does have chronic back pain. Demonstrated no red flag symptoms including bowel or bladder incontinence/retention or constipation or saddle anesthesia. He was afebrile with no leukocytosis or meningeal signs. His neurologist is Dr Moffett and he was seen by Dr Gandhi here. He was instructed to follow up with Dr Moffett's office after discharge. Ultimately, it is felt that his dehydration in combination with his Parkinsonism contributed to his weakness. At home, he takes a combination glipizide-metformin, which was held due to renal function. He was restarted on glipizide at discharge, follow up with PCP. He worked with PT/OT and was felt to be safest to discharge to SNF for rehabilitation and continued therapy prior to returning home or with family. He was hemodynamically stable for discharge 05/17/20. Patient with Parkinson's presents with worsening generalized weakness x 2 days. MRI brain shows no acute intracranial findings. Carotid dopplers are within normal limits. Echocardiogram reviewed, normal. Worsening of symptoms could be in part related to dehydration vs. progression of Parksinons. His neurologist is Dr Moffett; neurology consulted and appreciate input. PT/OT evals appreciated. PT/OT; discharge to SNF. (2) Acute on chronic renal failure: Qualifiers: Acute renal failure type: unspecified Chronic kidney disease stage: stage 3 (moderate) Qualified Code(s): N17.9 - Acute kidney failure, unspecified; N18.3 - Chronic kidney disease, stage 3 (moderate) Code(s): N17.9 - Acute kidney failure, unspecified; N18.9 - Chronic kidney disease, unspecified Status: Acute Assessment and Plan: Patient notes he had labs drawn outpatient and someone contacted him advising him to present to the ER because he was in kidney failure. Cr on arrival 2.7 now down to 1.7 prior to discharge after IV hydration. Compared to Cr 1.03 November 2018 he appears to be back near his baseline. Renal US demonstrates mild hydronephrosis on R, multiple R renal cysts and congenitally absent L kidney. He follows with Dr Saul at [facility] - recommend following up with him after discharge. (3) DM2 (diabetes mellitus, type 2): Qualifiers: Diabetes mellitus usp insulin use: without terminal operations manager use Diabetes mellitus complication status: without complication Qualified Code(s): E11.9 - Type 2 diabetes mellitus without complications Code(s): E11.9 - Type 2 diabetes mellitus without complications Status: Chronic Assessment and Plan: Home Metformin- glipizide combo held due to renal function. Restart on just glipizide at discharge and follow up with PCP. Blood sugars stable. (4) Parkinsons: Code(s): G20 - Parkinson's disease Status: Chronic Assessment and Plan: Maintained on his home S
--- NOTE | 2020-05-17 15:10 | PCCCNOTE ---
On 05/17/20, the student, [Nani Smith], provided care and [facility]. I have reviewed the student's documentation and agree with the findings.
[2020-05-18 03:43] LABS: Glucose Point of Care 200 (65-105)
== END 2020-05-17 16:02 ==
LOC: ANHED 11:49 → ANH2MED 12:58
PROVIDERS: Nurse Practitioner; Admitting Provider Internal Medicine; Emergency Provider Emergency Medicine; PCP Internal Medicine; Visit Provider Physician Assistant
DX: N17.9 Acute kidney failure, unspecified (principal); E86.0 Dehydration; R53.1 Weakness; G20 Parkinson's disease; F02.80 Dementia in other diseases classified elsewhere, unspecified severity, without behavioral disturbance, psychotic disturbance, mood disturbance, and anxiety; E11.22 Type 2 diabetes mellitus with diabetic chronic kidney disease; I12.9 Hypertensive chronic kidney disease with stage 1 through stage 4 chronic kidney disease, or unspecified chronic kidney disease; N18.3 Chronic kidney disease, stage 3 (moderate); Q60.0 Renal agenesis, unilateral; G47.33 Obstructive sleep apnea (adult) (pediatric); K21.9 Gastro-esophageal reflux disease without esophagitis; F32.9 Major depressive disorder, single episode, unspecified; N40.0 Benign prostatic hyperplasia without lower urinary tract symptoms; F11.20 Opioid dependence, uncomplicated; E78.5 Hyperlipidemia, unspecified; Z79.899 Other long term (current) drug therapy
CPT/HCPCS: 36415; 51701; 70450; 70551; 71045; 76775; 80048; 80053; 81001; 83605; 83735; 84100; 84443; 85025; 85610; 85730; 93005; 93880; 94640; 96360; 96361; 97110; 97161; 97166; 97535; 99285; A9270; C8929; G0378; J1815; J7030; Q9957

== ENCOUNTER 2021-01-28 01:57 | Inpatient (IN) | payer MEDICARE, SELFPAY ==
[2021-01-28] VITALS (17 sets, daily range): BP systolic 102–157; BP diastolic 53–104; PULSE 62–74; RESP 12–20; TEMP 36.1–37.7; O2SAT 91–100; BMI 30.2
--- NOTE | ~2021-01-28 | XR_ITS ---
EXAMINATION: XR femur RT min 2V DATE: 01/28/2021 02:43 INDICATION: Right hip pain. TECHNIQUE: 2 views of right femur on 4 radiographs were obtained. COMPARISON: None. FINDINGS: There is an intertrochanteric fracture of proximal right femur. The distal fracture fragmen t demonstrates 25 degrees varus angulation. There is an interference screw in distal right femur. The re is mild right hip osteoarthritis. There is at least moderate right knee osteoarthritis, but the kn ee is not well evaluated. IMPRESSION: 1. Intertrochanteric fracture of proximal right femur. 2. Polyarticular osteoarthritis. Reviewed, dictated and finalized at location A. S DEPARTMENT SUPERVISOR
--- NOTE | ~2021-01-28 | XR_ITS ---
EXAMINATION: XR hip RT 2V w AP pelvis DATE: 01/28/2021 02:43 INDICATION: Right hip pain. Fall. TECHNIQUE: An anteroposterior view of the pelvis and 3 views of right hip were obtained. COMPARISON: None. FINDINGS: There is an intertrochanteric fracture of proximal right femur. The distal fracture fragmen t demonstrates 25 degrees varus angulation and 9 mm anterior displacement. There is mild osteoarthrit is of the hips. There is moderate lumbar spondylosis. IMPRESSION: 1. Intertrochanteric fracture of proximal right femur. 2. Mild osteoarthritis of the hips. Reviewed, dictated and finalized at location A. TER SKI EDGE
--- NOTE | ~2021-01-28 | XR_ITS ---
EXAMINATION: XR surgery orthopedic EXAM DATE: 01/28/2021 16:33 INDICATION: Right hip gamma nail insertion. TECHNIQUE: Fluoroscopy used during XR surgery orthopedic performed by Dr. Kannan Cortez MD. T he DAP for this procedure was 0.58 mGym2. FINDINGS: Images demonstrate reduction previously seen right hip intertrochanteric fracture, and ins ertion of a gamma nail, hardware in expected position. Correlate with procedure note. IMPRESSION: Fluoroscopy used during right hip gamma nail insertion. Reviewed, dictated and finalized at location A. OENGRAVING HELPER
--- NOTE | ~2021-01-28 | XR_ITS ---
EXAMINATION: XR chest 1V portable DATE: 01/28/2021 03:20 INDICATION: Acute on chronic renal failure. TECHNIQUE: A single frontal view of the chest was obtained. COMPARISON: Chest single view 05/14/2020, chest CT 10/20/2019 FINDINGS: The chest demonstrates clear lungs without pneumonia, pleural effusion, or pneumothorax. Th e heart size is normal. Calcified right hilar lymph nodes are consistent with old granulomatous disea se. IMPRESSION: 1. No acute cardiopulmonary disease. Reviewed, dictated and finalized at location A. ETING OPERATIONS INTERN
--- NOTE | 2021-01-28 02:05 | ECG_ITS ---
Measurements Intervals [place] Rate: 64 P: -65 ME: 234 QRS: -42 QRSD: 174 T: 133 QT: 494 QTc: 511 Interpretive Statements SINUS RHYTHM WITH FIRST DEGREE AV BLOCK LEFT AXIS DEVIATION LEFT BUNDLE BRANCH BLOCK BASELINE ARTIFACT- I, II, III, AVR, AVL, AVF, V1-V6 ABNORMAL ECG Electronically Signed On 01-28-2021 7:00:48 [employer] by Bin Awad D.O.
[2021-01-28] MEDS: ONDANSETRON INJ 4 MG/2 ML VIAL IV PUSH (02:19)
[2021-01-28] MEDS: MORPHINE SULFATE (*CRX) 4 MG/ML INJ IV PUSH (02:19)
[2021-01-28 02:26] LABS: Basophils Percent Auto 0.2 % (0.2-1.2); Eosinophils Percent Auto 0.1 % (0-4.4); Hematocrit 42.5 % (42.0-52.0); Hemoglobin 14.6 g/dL (14.0-18.0); Immature Granulocyte Absolute 0.13 K/mm3 (0.00-0.031); Immature Granulocyte Percent A 0.7 % (0-0.5); Lymphocytes Absolute Auto 0.93 K/mm3 (0.9-3.2); Lymphocytes Percent Auto 5.1 % (18.3-44.2); Mean Corpuscular HGB Conc 34.4 g/dl (32-36); Mean Corpuscular Hemoglobin 31.7 pg (26-34); Mean Corpuscular Volume 92.2 fl (80-100); Monocytes Absolute Auto 1.4 K/mm3 (0.1-0.6); Monocytes Percent Auto 7.7 % (2.6-8.5); Neutrophils Absolute Auto 15.6 K/mm3 (1.3-6.7); Neutrophils Percent Auto 86.2 % (45.5-73.1); Platelet Count Result 302 k/mm3 (150-375); Red Blood Count 4.61 M/mm3 (4.6-6.20); Red Cell Distribution Width 12.6 % (11.5-14.5); White Blood Count 18.1 K/mm3 (4.5-10.0)
[2021-01-28 02:39] LABS: Partial Thromboplastin Time 37.4 SECONDS (22.3-36.8)
[2021-01-28 02:44] LABS: INR 1.2; Prothrombin Time 15.7 Seconds (11.1-14.7)
[2021-01-28 02:53] LABS: Alanine Aminotransferase 13 U/L (4-50); Albumin Level 4.2 g/dL (3.5-5.1); Alkaline Phosphatase 92 U/L (38-126); Anion Gap 14 mmol/L (8-16); Aspartate Amino Transferase 27 U/L (17-59); Bilirubin,Total 1.6 mg/dL (0.2-1.3); Blood Urea Nitrogen 44 mg/dL (9-20); Carbon Dioxide 20 mmol/L (22-30); Chloride 101 mmol/L (98-107); Creatine Kinase 103 U/L (55-170); Estimated CRCL calculation 29 ml/min; Estimated Glomerular Filt Rate 24; Glucose 192 mg/dL (75-110); Potassium 3.9 mmol/L (3.4-5.0); Sodium 135 mmol/L (137-145)
--- NOTE | 2021-01-28 02:58 | ED.LOWEXIN ---
HPI - Extremity Injury (Lower) General Chief Complaint: Extremity Injury, Lower Stated Complaint: fall-r hip pain Time Seen by Provider: 01/28/21 02:00 Source: patient Mode of arrival: EMS Limitations: no limitations History of Present Illness HPI Narrative: This is a 70 year old male who presents from for evaluation of right hip pain s/p fall. He fell in the bathroom and he fell onto his buttocks. He was unable to get up so he was trying to crawl for help since 11p . He reports severe right hip pain. He denies numbness or tingling. He denies hitting his head or LOC. He denies neck pain or back pain. Related Data Home Medications Medication Instructions Recorded Confirmed carbidopa 50 mg-levodopa 200 2 tablet PO BID 05/12/20 09/21/20 mg-entacapone 200 mg tablet pantoprazole 40 mg tablet,delayed 40 mg PO QAM PRN 05/12/20 09/21/20 release trazodone 100 mg tablet 50 mg PO PRN PRN tablet 05/12/20 01/28/21 atorvastatin 5 mg HS 05/14/20 09/21/20 carvedilol 12.5 mg PO BID 05/14/20 09/21/20 cholecalciferol (vitamin D3) 1 unit PO DAILY 05/14/20 09/21/20 [D3-2000] donepezil 10 mg PO BID 05/14/20 01/28/21 escitalopram oxalate 20 mg DAILY 05/14/20 01/28/21 lisinopril 10 mg PO DAILY 05/14/20 09/21/20 magnesium oxide 400 mg BID 05/14/20 01/28/21 oxybutynin chloride 5 mg BID 05/14/20 01/28/21 Allergies Allergy/AdvReac Type Severity Reaction Status Date / Time fentanyl Allergy Unknown Hives Verified 09/21/20 09:30 meperidine Allergy Unknown Hives Verified 09/21/20 09:30 midazolam Allergy Unknown Hives Verified 09/21/20 09:30 diphenhydramine AdvReac Intermediate AGITATION, Verified 09/21/20 09:30 ANTSY Review of Systems Review of Systems: All systems reviewed & are unremarkable except as noted in HPI and below Constitutional: Constitutional: Denies chills and Denies fever(s) PMFSH Past Medical History Medical History Borderline hyperlipidemia Cardiomyopathy Cataract Chronic narcotic dependence Dementia Depression Previous suicide attempt 2012 DM2 (diabetes mellitus, type 2) GERD (gastroesophageal reflux disease) HTN (hypertension) Kidney congenitally absent, left Migraine DAVID (obstructive sleep apnea) The patient has tried oral apparatus and CPAP and has not been able to tolerated. Parkinsons Pilonidal cyst Prostatic hyperplasia Surgical History Surgical History H/O left cataract extraction H/O repair of rotator cuff On the right History of nasal septoplasty History of repair of ACL Bilateral History of surgical removal of pilonidal cyst Hx of cardiac catheterization Hx of cholecystectomy Hx of tonsillectomy Family History Family History Father Family history of cardiovascular disease Malignant neoplasm of prostate Mother Breast cancer Family history of chronic obstructive pulmonary disease Acute myocardial infarction Chronic obstructive pulmonary disease Sibling Prostate carcinoma Social History Social History Social History: The patient is they have 1 son and he has 2 step children as well. 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 Gender identity (if verbalized by the patient): Male Sexual Orientation (if Verbalized by the Patient): Straight or Heterosexual Spiritual care concerns: No Exam Const: General: alert Orientation/consciousness: patient oriented x3 HENMT: Head: normocephalic and atraumatic Face and sinus: face symmetri
[2021-01-28] MEDS: HYDROmorphone HCL INJ (*CRX) 1 MG/ML SYR IV PUSH ×5 (03:25→23:45)
--- NOTE | 2021-01-28 04:52 | ADMGEN ---
This patient, Mohamud Diaz, was admitted to 3 [facility] Surg Room 315-02. Patient/family oriented to hospital policies and general routines including ID bracelet, bed and alarms, visiting hours, pain management, procedures, bathroom and other care routines, personal items, smoking policy, room service/diet, and visiting hours. Information on how to activate the Rapid Response Team has been discussed. Patient/Family are encouraged to report perceived risks to care and to ask questions if they do not understand what they are told or what they should do.
[2021-01-28] MEDS: SODIUM CHLORIDE 0.9% IV 1,000 ML 125 ML IV CONT ×3 (06:08→18:06)
--- NOTE | 2021-01-28 08:14 | PM.IMHP ---
H&P: HPI History of Present Illness Date/Time: 01/28/21 08:14 Chief Complaint: Fall Narrative: Mohamud Diaz is a 70 year old male with PMHx significant for COPD/Asthma well controlled, Parkinson's disease, HTN, T2DM diet and oral meds controlled, hyperlipidemia, has been in his usual state of health was carrying a box around in his house and somehow he trip a fell backwards landed on his bottom when he tried to get up noticed a popping sound coming from his hip and was unable to get up was also very painful he was able to crawl across the room 15 feet or so and got a hold of his phone to call for help, he was brought to ED. Preliminary work up was significant for for a fracture R hip also blood work significant for leukocytosis, chest xr non significant for acute disease. Patient denies any LOC, dizziness, sob, cough, sputum production, n/v/abdominal or diarrhea, no pnd, orthopnea or leg swelling, no syncope or near syncope, no focal weakness, no fevers, rigors or chills. He has been taking all his meds as usual. Review of Systems Review of Systems: Narrative: Mechanical fall. Constitutional: Comments: no fevers, no rigors, no chills. Cardiovascular: Comments: no pnd, orthopnea or leg swelling. Respiratory: Comments: no sob, cough, sputum production Gastrointestinal: Comments: no n/v/abdominal pain Genitourinary: Comments: no pain or burning with urination. Musculoskeletal: Comments: fall, R hip pain, deformity Integumentary/Breasts: Comments: no rashes. Neurologic: Comments: no focal sensory motor deficit. [facility] Past Medical History Medical History Borderline hyperlipidemia Cardiomyopathy Cataract Chronic narcotic dependence Dementia Depression Previous suicide attempt 2012 DM2 (diabetes mellitus, type 2) GERD (gastroesophageal reflux disease) HTN (hypertension) Kidney congenitally absent, left Migraine DAVID (obstructive sleep apnea) The patient has tried oral apparatus and CPAP and has not been able to tolerated. Parkinsons Pilonidal cyst Prostatic hyperplasia Surgical History Surgical History H/O left cataract extraction H/O repair of rotator cuff On the right History of nasal septoplasty History of repair of ACL Bilateral History of surgical removal of pilonidal cyst Hx of cardiac catheterization Hx of cholecystectomy Hx of tonsillectomy Family History Family History Father Family history of cardiovascular disease Malignant neoplasm of prostate Mother Breast cancer Family history of chronic obstructive pulmonary disease Acute myocardial infarction Chronic obstructive pulmonary disease Sibling Prostate carcinoma Social History Social History Social History: The patient is they have 1 son and he has 2 step children as well. 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 Gender identity (if verbalized by the patient): Male Sexual Orientation (if Verbalized by the Patient): Straight or Heterosexual Spiritual care concerns: No Meds Home Medications and Allergies Home Medications Medication Instructions Recorded Confirmed Type carbidopa 50 mg-levodopa 200 2 tablet PO BID 05/12/20 09/21/20 History mg-entacapone 200 mg tablet pantoprazole 40 mg tablet,delayed 40 mg PO QAM PRN 05/12/20 09/21/20 History release trazodone 100 mg tablet 50 mg PO PRN PRN tablet 05/12/20 01/28/21 History atorvastatin 5 mg HS 05/14/20 09/21/20 History carvedilol
--- NOTE | 2021-01-28 10:54 | PC.NURSE ---
Spoke w/Dr. Norton re Dr. Sellers wanting to do surgery this afternoon if Ok w/her. Dr. Norton states she cannot see a reason why he could not have surgery, Dr. Norton reminded of WBC 18.1. Message relayed to Dr. Sellers in OR. States he will call daughter Ghislaine MUELLER and talk w/patient.
--- NOTE | 2021-01-28 11:57 | PM.CNOR ---
Assessment and Plan Additional Plan 70-year-old male with multiple medical comorbidities fell at home yesterday. Complains of acute right hip pain. No previous symptoms. Denies any fever or other medical symptoms prior. The fracture is displaced and unstable. Will benefit from internal fixation. Risks, benefits, and alternatives discussed with the patient and his son and daughter. After thorough discussion they wished to proceed. They understand that due to his multiple medical issues there is a risk of significant complications including infection . Discussed the risks that the bone would not hold the implants reading to collapse and further morbidity or surgery. Proceed with ORIF right hip with cephalomedullary nail. History of Present Illness HPI Consult date: 01/28/21 Chief complaint: right hip fracture, acute on chronic renal failure Narrative: Patient complains of acute hip pain. Fell from standing height. Admitted through the emergency room for definitive managemenet. No previous hip pain. Comfortable at rest. No numbness, tingling, or other associated symptoms. Review of Systems Review of Systems: Narrative: Denies loss of consciousness. Denies fevers chills or sweats. No recent illness. Second COVID-19 vaccination injection given yesterday. No bowel or bladder complaints. Indwelling catheter placed. All systems reviewed & are unremarkable except as noted in HPI and below PMFSH Past Medical History Medical History Borderline hyperlipidemia Cardiomyopathy Cataract Chronic narcotic dependence Dementia Depression Previous suicide attempt 2012 DM2 (diabetes mellitus, type 2) GERD (gastroesophageal reflux disease) HTN (hypertension) Kidney congenitally absent, left Migraine DAVID (obstructive sleep apnea) The patient has tried oral apparatus and CPAP and has not been able to tolerated. Parkinsons Pilonidal cyst Prostatic hyperplasia Surgical History Surgical History H/O left cataract extraction H/O repair of rotator cuff On the right History of nasal septoplasty History of repair of ACL Bilateral History of surgical removal of pilonidal cyst Hx of cardiac catheterization Hx of cholecystectomy Hx of tonsillectomy Family History Family History Father Family history of cardiovascular disease Malignant neoplasm of prostate Mother Breast cancer Family history of chronic obstructive pulmonary disease Acute myocardial infarction Chronic obstructive pulmonary disease Sibling Prostate carcinoma Social History Social History Social History: The patient is they have 1 son and he has 2 step children as well. 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 Gender identity (if verbalized by the patient): Male Sexual Orientation (if Verbalized by the Patient): Straight or Heterosexual Spiritual care concerns: No Meds Home Medications and Allergies Home Medications Medication Instructions Recorded Confirmed Type carbidopa 50 mg-levodopa 200 2 tablet PO BID 05/12/20 09/21/20 History mg-entacapone 200 mg tablet pantoprazole 40 mg tablet,delayed 40 mg PO QAM PRN 05/12/20 09/21/20 History release trazodone 100 mg tablet 50 mg PO PRN PRN tablet 05/12/20 01/28/21 History atorvastatin 5 mg HS 05/14/20 09/21/20 History carvedilol 12.5 mg PO BID 05/14/20 09/21/20 History cholecalciferol (vitamin D3) 1 unit PO DAILY 05/14/20 09/21/20 History [D3
[2021-01-28 12:40] LABS: Glucose Point of Care 145 (65-105)
[2021-01-28] MEDS: lisinopriL 10 MG TABLET PO (13:02)
[2021-01-28] MEDS: carvediloL 12.5 MG TABLET PO ×2 (13:02→17:55)
[2021-01-28] MEDS: ESCITALOPRAM OXALATE 10 MG TABLET 20 MG BY MOUTH (13:02)
[2021-01-28] MEDS: DONEPEZIL HCL 10 MG TABLET PO ×2 (13:02→17:56)
[2021-01-28] MEDS: MAGNESIUM OXIDE 400 MG TABLET BY MOUTH ×2 (13:02→17:57)
--- NOTE | 2021-01-28 13:52 | PHAR ---
PT'S HOME MED SINEMET CR 50-200 MG (CARBIDOPA/LEVODOPA) TABS VERIFIED BY PHARMACY
--- NOTE | 2021-01-28 14:00 | PC.NURSE ---
To OR per bed, IV on standby. Report given to RN, surg SBAR faxed.
[2021-01-28] MEDS: TRANEXAMIC ACID 1,000MG/ISO100 1,000 MG/100 ML BAG 200 MG IVPB (14:37)
--- NOTE | 2021-01-28 14:42 | WPDANESEPPF ---
Anes - Initial Pre Proc Eval Procedure: Operation Date: 01/28/21 15:30 Proposed Procedures p Right Gamma Nail(Right) - Kannan Cotrez MD Date/Time: 01/28/21 14:42 Surgeon: Carlene Johnson DO Pre Op Diagnosis: right hip fracture, acute on chronic renal failure Patient Data Age: 70 Gender: M Height: 6 ft Weight: 101.2 kg Last Vital Signs Temp 37.7 C H 01/28/21 14:25 Pulse 70 01/28/21 14:25 Resp 16 01/28/21 14:25 BP 110/64 01/28/21 14:25 Pulse Ox 93 01/28/21 14:25 Allergies Allergy/AdvReac Type Severity Reaction Status Date / Time fentanyl Allergy Unknown Hives Verified 09/21/20 09:30 meperidine Allergy Unknown Hives Verified 09/21/20 09:30 midazolam Allergy Unknown Hives Verified 09/21/20 09:30 diphenhydramine AdvReac Intermediate AGITATION, Verified 09/21/20 09:30 ANTSY Home Medications Medication Instructions Recorded Confirmed Type carbidopa 50 mg-levodopa 200 2 tablet PO BID 05/12/20 09/21/20 History mg-entacapone 200 mg tablet pantoprazole 40 mg tablet,delayed 40 mg PO QAM PRN 05/12/20 09/21/20 History release trazodone 100 mg tablet 50 mg PO PRN PRN tablet 05/12/20 01/28/21 History atorvastatin 5 mg HS 05/14/20 09/21/20 History carvedilol 12.5 mg PO BID 05/14/20 09/21/20 History cholecalciferol (vitamin D3) 1 unit PO DAILY 05/14/20 09/21/20 History [D3-2000] donepezil 10 mg PO BID 05/14/20 01/28/21 History escitalopram oxalate 20 mg DAILY 05/14/20 01/28/21 History lisinopril 10 mg PO DAILY 05/14/20 09/21/20 History magnesium oxide 400 mg BID 05/14/20 01/28/21 History oxybutynin chloride 5 mg BID 05/14/20 01/28/21 History alprazolam See Rx Instructions .ROUTE 05/17/20 09/21/20 Rx .COMPLEX PRN #30 tablet glipizide 5 mg PO DAILY 30 Days #30 tablet 05/17/20 01/28/21 Rx oxycodone 10 mg PO TID #30 tablet 05/17/20 09/21/20 Rx polyethylene glycol 3350 [Miralax] 17 g PO QAM #30 each 05/17/20 09/21/20 Rx fluticasone furoate 100 1 inh INHALATION DAILY #60 ea 09/21/20 01/28/21 Rx mcg-vilanterol 25 mcg/dose inhalation powder peak flow meter #1 ea 09/21/20 09/21/20 Rx Laboratory Tests 01/28/21 01/28/21 01/28/21 02:15 02:15 02:15 WBC 18.1 K/mm3 H K/mm3 (4.5-10.0) RBC 4.61 M/mm3 M/mm3 (4.6-6.20) Hgb 14.6 g/dL g/dL (14.0-18.0) Hct 42.5 % % (42.0-52.0) MCV 92.2 fl fl (80-100) MCH 31.7 pg pg (26-34) MCHC 34.4 g/dl g/dl (32-36) RDW 12.6 % % (11.5-14.5) Plt Count 302 k/mm3 k/mm3 (150-375) MPV 9.0 fl fl (7.4-10.4) Immature Gran % (Auto) 0.7 % H % (0-0.5) Neut % (Auto) 86.2 % H % (45.5-73.1) Lymph % (Auto) 5.1 % L % (18.3-44.2) [place] % (Auto) 7.7 % % (2.6-8.5) Eos % (Auto) 0.1 % % (0-4.4) Baso % (Auto) 0.2 % % (0.2-1.2) Lymph # (Auto) 0.93 K/mm3 K/mm3 (0.9-3.2) [place] # (Auto) 1.4 K/mm3 H K/mm3 (0.1-0.6) Eos # (Auto) 0.0 K/mm3 K/mm3 (0-0.3) Baso # (Auto) 0.0 K/mm3 K/mm3 (0.0-0.1) Abs Immat Gran (auto) 0.13 K/mm3 H K/mm3 (0.00-0.031) Absolute Neuts (auto) 15.6 K/mm3 H K/mm3 (1.3-6.7) Absolute Nucleated RBC 0.0 K/mm3 K/mm3 (0.0-0.012) Nucleated RBC % 0.0 % % (0.0-0.2) PT 15.7 Seconds H Seconds (11.1-14.7) INR 1.2 APTT 37.4 SECONDS H SECONDS (22.3-36.8) Sodium 135 mmol/L L mmol/L (137-145) Potassium 3.9 mmol/L mmol/L (3.4-5.0) Chloride 101 mmol/L mmol/L (98-107) Carbon Dioxide 20 mmol/L L mmol/L (22-30) Anion Gap 14 mmol/L mmol/L (8-16) BUN 44 mg/dL H D mg/dL (9-20) Creatinine 2.70 mg/dL H mg/dL (0.7-1.3) Estim Creat Clear Calc 29 ml/min ml/min Estimated GFR 24 L (59 - ) Glucose 192 mg/dL H mg/dL (75-110) POC Capillary Glucose
[2021-01-28] MEDS: LACTATED RINGERS 1,000 ML 30 ML IV CONT (14:47)
--- NOTE | 2021-01-28 15:03 | WPDHPUPDATE1 ---
History and Physical Update Update Date/Time: 01/28/21 15:03 History and Physical has been reviewed, including an updated exam of the patient. There are NO changes in the patient's condition. Risks, benefits, and alternatives have been discussed and questions answered. Patient agrees to proceed with procedure.
--- NOTE | 2021-01-28 16:45 | PC.NURSE ---
Returned from OR per bed. Report received from Bon.
--- NOTE | 2021-01-28 16:47 | P.OP_ITS ---
Procedure Note - Detailed Date of procedure: 01/28/21 Pre-op diagnosis: right hip fracture, acute on chronic renal failure Post-op diagnosis: same Procedure performed: ORIF right hip fracture with cephalomedullary nail. Implants: Lyle Gamma nail, short 11mm diameter; 100mm lag screw. Anesthesia: YASMANIA Surgeon: Kannan Cortez MD Jump Iron Machine Presser: Vee Fortune PA-C Estimated blood loss (mL): 200 Drains: No Complications: None Condition: stable Disposition: PACU Findings: Physician resident assistant cna necessary for patient positioning on the fracture table; assistance with fracture reduction and maintenance of bony apposition during the reaming and nail placement; maintaining a dry surgical field; closure of the deep and superficial wounds; assisting transfer of the patient off of the fracture table. Operative details. The patient was given a general anesthetic, then carefully placed in fracture table. Sterile prep and drape performed in the usual fashion. Sterile curtain was used. Gentle traction was utilized to reduce the fracture. Fluoroscopy was used to confirm anatomic reduction and a proper placement of the implants. A longitudinal incision was created at the tip of the trochanter. The deep fascia was incised. The cannulated awl was used to open the proximal femur. The guidewire was placed across the fracture. The reamer was used to open the canal. The gamma nail was placed across the fracture site. A separate incision was made for placement of the cannulated guide sleeve. The guide pin was placed in the center of the femoral head, slightly inferior. Appropriate measurement was taken. The pin was over reamed. The screw was placed with excellent purchase. The set screw was placed proximally and backed out a quater turn. Distal locking was accomplished through the jig. The jig was removed. The wounds were irrigated. The deep fascia was closed with #1 Vicryl suture followed by 2-0 Vicryl suture and lizett. Sterile dressing was applied. The patient was transferred to the recovery room in stable condition. There were no complications.
--- NOTE | 2021-01-28 17:00 | PC.NURSE ---
In room from OR, awake and alert, denies pain or discomfort at present. dsg to right hip d/i, ice placed to area. IVFs restarted at 125ml/hr. sneed patent draining clear yellow urine. sneed clamped to collect urine for c/s. resting quietly, no c/o's.
[2021-01-28] MEDS: DOCUSATE SODIUM 100 MG CAPSULE PO (17:58)
[2021-01-28] MEDS: ENTACAPONE 200 MG TABLET PO (21:21)
[2021-01-28] MEDS: CARBIDOPA/LEVODOPA 25/100 MG CR TABLET 2 TABLET PO (21:25)
[2021-01-28 21:38] LABS: Add Urine Microscopic? YES; Appearance Urine Clear (Clear); Bilirubin Urine Negative (Negative); Blood Urine 1+ (Negative); Color Urine Yellow (Yellow); Glucose Urine UA Negative (Negative); Ketones Urine Trace mg/dL (Negative); Leukocyte Esterase Ur Negative LEU/UL (Negative); Mucus Urine Rare /lpf; Nitrate Urine Negative (Negative); Protein Urine Negative (Negative); Specific Grav Ur 1.016 (1.001-1.035); Urobilinogen Urine Negative mg/dL (<2.0); WBC Urine 0-3 /hpf
[2021-01-29] VITALS (8 sets, daily range): BP systolic 98–110; BP diastolic 45–56; PULSE 58–70; RESP 18; TEMP 36.3–36.7; O2SAT 93–97
[2021-01-29] MEDS: SODIUM CHLORIDE 0.9% IV 1,000 ML 125 ML IV CONT ×3 (03:57→18:45)
[2021-01-29] MEDS: HYDROmorphone HCL INJ (*CRX) 1 MG/ML SYR IV PUSH ×5 (03:57→23:16)
[2021-01-29] MEDS: ALPRAZolam (*CRX) 0.5 MG TABLET BY MOUTH ×3 (06:51→20:44)
[2021-01-29 07:02] LABS: Basophils Percent Auto 0.1 % (0.2-1.2); Hematocrit 36.3 % (42.0-52.0); Hemoglobin 12.2 g/dL (14.0-18.0); Immature Granulocyte Absolute 0.11 K/mm3 (0.00-0.031); Immature Granulocyte Percent A 0.9 % (0-0.5); Lymphocytes Absolute Auto 0.65 K/mm3 (0.9-3.2); Lymphocytes Percent Auto 5.6 % (18.3-44.2); Mean Corpuscular HGB Conc 33.6 g/dl (32-36); Mean Corpuscular Hemoglobin 31.3 pg (26-34); Mean Corpuscular Volume 93.1 fl (80-100); Mean Platelet Volume 9.3 fl (7.4-10.4); Monocytes Percent Auto 8.6 % (2.6-8.5); Neutrophils Absolute Auto 9.8 K/mm3 (1.3-6.7); Neutrophils Percent Auto 84.8 % (45.5-73.1); Platelet Count Result 190 k/mm3 (150-375); Red Cell Distribution Width 12.9 % (11.5-14.5); White Blood Count 11.6 K/mm3 (4.5-10.0)
[2021-01-29 07:19] LABS: Albumin Level 3.1 g/dL (3.5-5.1); Alkaline Phosphatase 69 U/L (38-126); Anion Gap 7 mmol/L (8-16); Aspartate Amino Transferase 16 U/L (17-59); Bilirubin,Total 0.8 mg/dL (0.2-1.3); Blood Urea Nitrogen 36 mg/dL (9-20); Calcium 8.2 mg/dL (8.4-10.2); Carbon Dioxide 23 mmol/L (22-30); Chloride 104 mmol/L (98-107); Estimated CRCL calculation 36 ml/min; Estimated Glomerular Filt Rate 30; Glucose 148 mg/dL (75-110); Potassium 3.8 mmol/L (3.4-5.0); Sodium 134 mmol/L (137-145)
[2021-01-29 07:52] LABS: Alanine Aminotransferase < 6 U/L (4-50)
[2021-01-29] MEDS: CHOLECALCIFEROL 1,000 UNITS TABLET 2000 UNITS PO (08:24)
[2021-01-29] MEDS: CARBIDOPA/LEVODOPA 25/100 MG CR TABLET 2 TABLET PO ×2 (08:24→20:40)
[2021-01-29] MEDS: ENTACAPONE 200 MG TABLET PO ×2 (08:25→20:40)
[2021-01-29] MEDS: DONEPEZIL HCL 10 MG TABLET PO ×2 (08:25→17:29)
[2021-01-29] MEDS: DOCUSATE SODIUM 100 MG CAPSULE PO ×2 (08:25→17:28)
[2021-01-29] MEDS: MAGNESIUM OXIDE 400 MG TABLET BY MOUTH ×2 (08:26→17:29)
[2021-01-29] MEDS: ENOXAPARIN 40 MG/0.4 ML SYRINGE SUB-Q (08:26)
[2021-01-29] MEDS: polyethylene glycoL 3350 17 GM POWD.PACK PO (08:26)
[2021-01-29] MEDS: ESCITALOPRAM OXALATE 10 MG TABLET 20 MG BY MOUTH (08:27)
--- NOTE | 2021-01-29 08:42 | PC.NURSE ---
Shabbir, Pharmacist with poison control called for update.Gave most current INR and PT. Shabbir says will continue to monitor him as long as he is in hospital. No new orders or recommendations.
[2021-01-29 08:46] LABS: Glucose Point of Care 142 (65-105)
--- NOTE | 2021-01-29 10:31 | WPDANESPN ---
Anes - Prog Note Post-Op Date/Time: 01/29/21 10:31 Cardiovascular status: normal Respiratory status: normal Airway patency: baseline Mental status: baseline Post-Op hydration status: normal Vital Signs: Last Vital Signs Temp 36.3 C L 01/29/21 08:00 Pulse 65 01/29/21 08:00 Resp 18 01/29/21 08:00 BP 107/45 L 01/29/21 08:00 Pulse Ox 97 01/29/21 08:00 Pain Score (VAS): 10 I/O: Intake & Output 01/28/21 01/29/21 01/29/21 23:59 07:59 15:59 Intake Total 1050 1550 360 Output Total 450 Balance 1050 1100 360 Laboratory Tests 01/29/21 06:31 01/29/21 06:31 01/28/21 01/28/21 01/29/21 12:30 21:16 06:31 WBC 11.6 H RBC 3.90 L Hgb 12.2 L Hct 36.3 L MCV 93.1 MCH 31.3 MCHC 33.6 RDW 12.9 Plt Count 190 MPV 9.3 Immature Gran % (Auto) 0.9 H Neut % (Auto) 84.8 H Lymph % (Auto) 5.6 L [place] % (Auto) 8.6 H Eos % (Auto) 0.0 Baso % (Auto) 0.1 L Lymph # (Auto) 0.65 L [place] # (Auto) 1.0 H Eos # (Auto) 0.0 Baso # (Auto) 0.0 Abs Immat Gran (auto) 0.11 H Absolute Neuts (auto) 9.8 H Absolute Nucleated RBC 0.0 Nucleated RBC % 0.0 Sodium Potassium Chloride Carbon Dioxide Anion Gap BUN Creatinine Estim Creat Clear Calc Estimated GFR Glucose POC Capillary Glucose 145 H Calcium Total Bilirubin AST ALT Alkaline Phosphatase Total Protein Albumin Urine Color Yellow Urine Appearance Clear Urine pH 5.0 Ur Specific [place] 1.016 Urine Protein Negative Urine Glucose (UA) Negative Urine Ketones Trace Ur Blood (Man) 1+ H Urine Nitrate Negative Urine Bilirubin Negative Urine Urobilinogen Negative Leukocyte Esterase Rfl Negative Urine RBC 3-5 H Urine WBC 0-3 Urine Mucus Rare 01/29/21 01/29/21 06:31 08:42 WBC RBC Hgb Hct MCV MCH MCHC RDW Plt Count MPV Immature Gran % (Auto) Neut % (Auto) Lymph % (Auto) [place] % (Auto) Eos % (Auto) Baso % (Auto) Lymph # (Auto) [place] # (Auto) Eos # (Auto) Baso # (Auto) Abs Immat Gran (auto) Absolute Neuts (auto) Absolute Nucleated RBC Nucleated RBC % Sodium 134 L Potassium 3.8 Chloride 104 Carbon Dioxide 23 Anion Gap 7 L BUN 36 H Creatinine 2.20 H Estim Creat Clear Calc 36 Estimated GFR 30 L Glucose 148 H POC Capillary Glucose 142 H Calcium 8.2 L Total Bilirubin 0.8 AST 16 L ALT < 6 Alkaline Phosphatase 69 Total Protein 6.0 L Albumin 3.1 L Urine Color Urine Appearance Urine pH Ur Specific Dwight Urine Protein Urine Glucose (UA) Urine Ketones Ur Blood (Man) Urine Nitrate Urine Bilirubin Urine Urobilinogen Leukocyte Esterase Rfl Urine RBC Urine WBC Urine Mucus Post-procedural complaints: none Patient Feedback: Patient satisfied with anesthetic care.
[2021-01-29] MEDS: oxyCODONE HCL (*CRX) 5 MG TAB IR 10 MG PO ×3 (11:51→20:40)
[2021-01-29 12:26] LABS: Glucose Point of Care 196 (65-105)
--- NOTE | 2021-01-29 13:52 | PM.PNORT ---
Progress Note: A&P Assessment and Plan (1) Closed intertrochanteric fracture of right femur: Qualifiers: Encounter type: initial encounter Fracture alignment: displaced Qualified Code(s): S72.141A - Displaced intertrochanteric fracture of right femur, initial encounter for closed fracture Code(s): S72.141A - Displaced intertrochanteric fracture of right femur, initial encounter for closed fracture Status: Acute Assessment and Plan: Patient is postoperative day 1 ORIF right hip fracture with cephalomedullary nail. Patient is progressing well. Postoperative pain control is an issue due to patient's chronic narcotic use. Patient's pain is controlled at the time of my visit. Pain is worse with movement. I spoke with the physical therapist who states he is cooperating well with physical therapy and that once he is up on his feet his pain improves. He has been able to take a few small steps. Discussed postoperative expectations and restrictions. Discussed postoperative wound care. Patient shows good understanding. Patient will need to be discharged to [facility] / rehab facility. Subjective Subjective Date/Time Seen: 01/29/21 13:52 Patient is postoperative day 1 ORIF right hip fracture with cephalomedullary nail. Overall patient is doing well. He states he has had trouble with pain control. He has been up with physical therapy. No numbness or tingling in his toes. No calf or thigh tenderness. Review of Systems Review of Systems: All systems reviewed & are unremarkable except as noted in HPI and below Exam Narrative: Exam Narrative: Pleasant 70-year-old male. Patient is alert and oriented X3. Resting comfortably in bed. No acute distress. No erythema or ecchymosis. No rashes or lesions noted. Warm, normal appearing skin. Dressings dry and intact with no drainage. Tenderness at left hip. Leg lengths appear equal. Calf and thigh nontender. Distal pulses palpable. Normal capillary refill. Patient able to move and wiggle toes. Light touch sensation intact. Objective Data Vital Signs Vital Signs: Vital Signs - 24 hr 01/28/21 14:00 01/28/21 14:25 01/28/21 16:48 Temperature 97.8 F 99.9 F H 97 F L Pulse Rate 67 70 72 Respiratory Rate 16 16 14 Blood Pressure 124/66 110/64 102/53 L Pulse Oximetry 94 93 100 01/28/21 17:00 01/28/21 17:15 01/28/21 17:30 Temperature 97.0 F L Pulse Rate 68 66 70 Respiratory Rate 18 12 13 Blood Pressure 130/57 L 122/68 106/57 L Pulse Oximetry 96 97 94 01/28/21 17:36 01/28/21 17:55 01/28/21 18:35 Temperature 97.1 F L Pulse Rate 69 70 73 Respiratory Rate 12 20 Blood Pressure 115/56 L 135/63 Pulse Oximetry 94 94 01/28/21 18:45 01/28/21 19:00 01/28/21 23:42 Temperature 97.6 F 97.7 F 98.0 F Pulse Rate 65 74 62 Respiratory Rate 18 20 18 Blood Pressure 120/58 L 120/62 104/54 L Pulse Oximetry 95 91 94 01/29/21 04:00 01/29/21 08:00 01/29/21 12:00 Temperature 97.9 F 97.4 F L 97.3 F L Pulse Rate 58 L 65 66 Respiratory Rate 18 18 18 Blood Pressure 107/56 L 107/45 L 101/49 L Pulse Oximetry 93 97 95 Intake/Output Intake/Output: Intake & Output 01/26/21 01/27/21 01/28/21 01/29/21 23:59 23:59 23:59 23:59 Intake Total 2150 3200 Output Total 450 Balance 2150 2750 Meds/Results Medications: Active Medications Generic Name Dose Route Start Last Admin Trade Name Freq PRN Reason Stop Dose Admin Alprazolam 0.5 mg 01/28/21 08:41 01/29/21 11:50 Alprazolam (*Crx) 0.5 Mg Tablet BY MOUTH 0.5 mg 5 TIMES DAILY PRN Administration Anxiety Budesonide/Formoterol Fumarate 2 puff 01/28/21 20:00 01/29/21 11:03 Budesonide/Form 160-4.5 Mcg (*Sp) INHALATION 2 puff Q12HRT LAI Administration Carbidopa/Levodopa 2 tablet 01/28/21 21:00 01/29/21 08:24 Carbidopa/Levodopa 25/100 Mg Cr Tablet PO 2 tablet Q12HR LAI Administration Carvedilol 12.5 mg 01/28/21 09:00 01/29/21 11:04 C
--- NOTE | 2021-01-29 15:51 | PM.IMPN ---
Progress Note: A&P Assessment and Plan (1) Closed intertrochanteric fracture of right femur: Qualifiers: Encounter type: initial encounter Fracture alignment: displaced Qualified Code(s): S72.141A - Displaced intertrochanteric fracture of right femur, initial encounter for closed fracture Code(s): S72.141A - Displaced intertrochanteric fracture of right femur, initial encounter for closed fracture Status: Acute Assessment and Plan: Post op S/p ORIF Pain control PT/OT Appreciate Ortho note (2) Leukocytosis: Code(s): D72.829 - Elevated white blood cell count, unspecified Status: Acute Assessment and Plan: Likely reactive will trend Continue to monitor (3) DAVID (obstructive sleep apnea): Code(s): G47.33 - Obstructive sleep apnea (adult) (pediatric) Status: Acute Assessment and Plan: CPAP at night time (4) Acute on chronic renal failure: Code(s): N17.9 - Acute kidney failure, unspecified; N18.9 - Chronic kidney disease, unspecified Status: Acute Assessment and Plan: Will monitor Good po intake Daily BMP (5) Chronic narcotic dependence: Code(s): F11.20 - Opioid dependence, uncomplicated Status: Chronic Assessment and Plan: Unchanged On [place] and Dilaudid (6) DM2 (diabetes mellitus, type 2): Qualifiers: Diabetes mellitus manager terminal insulin use: without snf use Diabetes mellitus complication status: without complication Qualified Code(s): E11.9 - Type 2 diabetes mellitus without complications Code(s): E11.9 - Type 2 diabetes mellitus without complications Status: Chronic Assessment and Plan: Continue to monitor Accu checks ACHS ISS as needed (7) Parkinsons: Code(s): G20 - Parkinson's disease Status: Chronic Assessment and Plan: Continue Levodopa/Carvidopa/Entacapone (8) Prostatic hyperplasia: Code(s): N40.0 - Benign prostatic hyperplasia without lower urinary tract symptoms Status: Chronic Assessment and Plan: Straight cath as needed (9) GERD (gastroesophageal reflux disease): Qualifiers: Esophagitis presence: without esophagitis Qualified Code(s): K21.9 - Gastro-esophageal reflux disease without esophagitis Code(s): K21.9 - Gastro-esophageal reflux disease without esophagitis Status: Chronic Assessment and Plan: On no meds Continue to monitor (10) HTN (hypertension): Qualifiers: Hypertension type: unspecified Qualified Code(s): I10 - Essential (primary) hypertension Code(s): I10 - Essential (primary) hypertension Status: Chronic Assessment and Plan: Continue to monitor Subjective Date/time seen: 01/29/21 15:51 States that he is feeling much better Review of Systems Review of Systems: Narrative: Having some pain in the surgical site, no new issues overnight Exam Narrative: Exam Narrative: lying in bed Const: General: comfortable, no acute distress, alert, awake and Physically active Nutritional Appearance: average body habitus Orientation/consciousness: patient oriented x3 Other: R hip surgery HENMT: Head: normocephalic Ears: hearing grossly normal bilaterally General nose exam: Normal external nose present Face and sinus: normal facial exam Eyes: General: appearance normal, both eyes and all related structures Pupils: Equal, round and reactive pupils present EOM: EOMs intact bilaterally Neck: Neck: no lymphadenopathy, supple and no JVD Resp: Effort & Inspection: normal respiratory effort and able to speak in complete sentences Auscultation: clear to auscultation bilaterally Cardio: Jugular venous distension: no JVD Rate: regular rate Rhythm: regular rhythm GI: GI Palp: Yes Soft to palpation and Yes No hepatosplenomegaly present Skin: Wounds: wounds noted (R hip surical wound) Neuro: General: patient oriented x3 and CN's II-XI intact
[2021-01-29 17:00] LABS: Glucose Point of Care 187 (65-105)
--- NOTE | 2021-01-29 17:56 | PC.NURSE ---
Anne removed at 1730. Pt tolerated well.
[2021-01-29] MEDS: traZODone HCL 50 MG TABLET PO (20:40)
[2021-01-29 21:22] LABS: Glucose Point of Care 209 (65-105)
[2021-01-30] MEDS: HYDROmorphone HCL INJ (*CRX) 1 MG/ML SYR IV PUSH ×5 (03:43→20:42)
[2021-01-30 05:40] VITALS: BP 101/53; PULSE 55; RESP 17; TEMP 36.5; O2SAT 93
[2021-01-30 06:48] LABS: Glucose Point of Care 127 (65-105)
[2021-01-30] MEDS: ENOXAPARIN 40 MG/0.4 ML SYRINGE SUB-Q (08:18)
[2021-01-30] MEDS: oxyCODONE HCL (*CRX) 5 MG TAB IR 10 MG PO ×2 (08:18→20:32)
[2021-01-30] MEDS: CARBIDOPA/LEVODOPA 25/100 MG CR TABLET 2 TABLET PO ×2 (08:18→20:33)
[2021-01-30] MEDS: DONEPEZIL HCL 10 MG TABLET PO ×2 (08:18→17:13)
[2021-01-30] MEDS: DOCUSATE SODIUM 100 MG CAPSULE PO ×2 (08:18→17:13)
[2021-01-30] MEDS: polyethylene glycoL 3350 17 GM POWD.PACK PO (08:18)
[2021-01-30] MEDS: CHOLECALCIFEROL 1,000 UNITS TABLET 2000 UNITS PO (08:19)
[2021-01-30] MEDS: ESCITALOPRAM OXALATE 10 MG TABLET 20 MG BY MOUTH (08:19)
[2021-01-30] MEDS: MAGNESIUM OXIDE 400 MG TABLET BY MOUTH ×2 (08:20→17:13)
[2021-01-30] MEDS: ENTACAPONE 200 MG TABLET PO ×2 (08:20→20:33)
[2021-01-30 08:46] LABS: Glucose Point of Care 117 (65-105)
--- NOTE | 2021-01-30 11:39 | PM.IMPN ---
Progress Note: A&P Assessment and Plan (1) Closed intertrochanteric fracture of right femur: Qualifiers: Encounter type: initial encounter Fracture alignment: displaced Qualified Code(s): S72.141A - Displaced intertrochanteric fracture of right femur, initial encounter for closed fracture Code(s): S72.141A - Displaced intertrochanteric fracture of right femur, initial encounter for closed fracture Status: Acute Assessment and Plan: S/p ORIF Participating with PT/OT in therapy sessions. Supportive care (2) Leukocytosis: Code(s): D72.829 - Elevated white blood cell count, unspecified Status: Acute Assessment and Plan: Will trend Likely to be reactive as clinically no signs of infection (3) DAVID (obstructive sleep apnea): Code(s): G47.33 - Obstructive sleep apnea (adult) (pediatric) Status: Acute Assessment and Plan: CPAP at night time (4) Acute on chronic renal failure: Code(s): N17.9 - Acute kidney failure, unspecified; N18.9 - Chronic kidney disease, unspecified Status: Acute Assessment and Plan: Likely to be pr renal Patient eating and drinking well Will monitor (5) Weakness: Code(s): R53.1 - Weakness Status: Acute Assessment and Plan: PT/OT Likely secondary to debilitating disease patient has Parkinson's (6) Chronic narcotic dependence: Code(s): F11.20 - Opioid dependence, uncomplicated Status: Chronic Assessment and Plan: Unchanged Follow up in the outpatient setting. (7) DM2 (diabetes mellitus, type 2): Qualifiers: Diabetes mellitus long-term insulin use: without rn long term care use Diabetes mellitus complication status: without complication Qualified Code(s): E11.9 - Type 2 diabetes mellitus without complications Code(s): E11.9 - Type 2 diabetes mellitus without complications Status: Chronic Assessment and Plan: Continue to monitor 1800 calorie restricted diet (8) Parkinsons: Code(s): G20 - Parkinson's disease Status: Chronic Assessment and Plan: Continue Carvidopa/Levodopa/Entacapone (9) GERD (gastroesophageal reflux disease): Qualifiers: Esophagitis presence: without esophagitis Qualified Code(s): K21.9 - Gastro-esophageal reflux disease without esophagitis Code(s): K21.9 - Gastro-esophageal reflux disease without esophagitis Status: Chronic Assessment and Plan: PPI as needed (10) HTN (hypertension): Qualifiers: Hypertension type: unspecified Qualified Code(s): I10 - Essential (primary) hypertension Code(s): I10 - Essential (primary) hypertension Status: Chronic Assessment and Plan: Holding meds as BP has been on the lower side. Subjective Date/time seen: 01/30/21 11:39 States that 'he feels well Review of Systems Review of Systems: Narrative: No new issues. Exam Narrative: Exam Narrative: Lying in bed Const: General: comfortable, no acute distress, alert, awake and Physically active Nutritional Appearance: average body habitus Orientation/consciousness: patient oriented x3 HENMT: Head: normal to inspection and normocephalic Ears: hearing grossly normal bilaterally General nose exam: Normal external nose present Face and sinus: normal facial exam Eyes: General: appearance normal, both eyes and all related structures Pupils: Equal, round and reactive pupils present EOM: EOMs intact bilaterally Neck: Neck: no lymphadenopathy, supple and no JVD Resp: Effort & Inspection: normal respiratory effort and able to speak in complete sentences Auscultation: clear to auscultation bilaterally Cardio: Jugular venous distension: no JVD Rate: regular rate Rhythm: regular rhythm GI: Inspection: normal to inspection GI Palp: Yes Soft to palpation and Yes No hepatosplenomegaly present Skin: Rashes: no rashes Trauma: no lacerations or abrasions Wounds: woun
[2021-01-30 12:23] LABS: Basophils Percent Auto 0.2 % (0.2-1.2); Eosinophils Absolute Auto 0.4 K/mm3 (0-0.3); Eosinophils Percent Auto 5.3 % (0-4.4); Hematocrit 33.5 % (42.0-52.0); Hemoglobin 11.3 g/dL (14.0-18.0); Immature Granulocyte Absolute 0.04 K/mm3 (0.00-0.031); Immature Granulocyte Percent A 0.5 % (0-0.5); Lymphocytes Absolute Auto 1.43 K/mm3 (0.9-3.2); Lymphocytes Percent Auto 17.1 % (18.3-44.2); Mean Corpuscular HGB Conc 33.7 g/dl (32-36); Mean Corpuscular Hemoglobin 31.6 pg (26-34); Mean Corpuscular Volume 93.6 fl (80-100); Mean Platelet Volume 9.1 fl (7.4-10.4); Monocytes Absolute Auto 0.9 K/mm3 (0.1-0.6); Monocytes Percent Auto 11.3 % (2.6-8.5); Neutrophils Absolute Auto 5.5 K/mm3 (1.3-6.7); Neutrophils Percent Auto 65.6 % (45.5-73.1); Platelet Count Result 157 k/mm3 (150-375); Red Blood Count 3.58 M/mm3 (4.6-6.20); White Blood Count 8.3 K/mm3 (4.5-10.0)
[2021-01-30 12:32] LABS: Glucose Point of Care 181 (65-105)
[2021-01-30 12:34] LABS: Anion Gap 4 mmol/L (8-16); Blood Urea Nitrogen 32 mg/dL (9-20); Calcium 8.1 mg/dL (8.4-10.2); Carbon Dioxide 26 mmol/L (22-30); Chloride 102 mmol/L (98-107); Estimated CRCL calculation 39 ml/min; Estimated Glomerular Filt Rate 33; Glucose 182 mg/dL (75-110); Potassium 3.3 mmol/L (3.4-5.0); Sodium 132 mmol/L (137-145)
[2021-01-30 14:00] VITALS: BP 103/61; PULSE 68; RESP 18; TEMP 36.4; O2SAT 97
--- NOTE | 2021-01-30 14:14 | PM.PNORT ---
Progress Note: A&P Assessment and Plan (1) Closed intertrochanteric fracture of right femur: Qualifiers: Encounter type: initial encounter Fracture alignment: displaced Qualified Code(s): S72.141A - Displaced intertrochanteric fracture of right femur, initial encounter for closed fracture Code(s): S72.141A - Displaced intertrochanteric fracture of right femur, initial encounter for closed fracture Status: Acute Assessment and Plan: Status post IM nailing intertrochanteric fracture. Progressing well. Mobilizing appropriately. Discharge planning in progress. Subjective Subjective Date/Time Seen: 01/30/21 14:17 Interval history: Exam Narrative: Exam Narrative: Alert oriented. Comfortable. Wound without drainage. Mobilizing well. Neurovascular status intact. Afebrile. Objective Data Vital Signs Vital Signs: Vital Signs - 24 hr 01/30/21 14:00 01/30/21 21:30 01/31/21 05:45 Temperature 36.4 C 36.7 C 36.9 C Pulse Rate 68 63 61 Respiratory Rate 18 20 20 Blood Pressure 103/61 114/63 128/67 Pulse Oximetry 97 93 96 Intake/Output Intake/Output: Intake & Output 01/28/21 01/29/21 01/30/21 01/31/21 23:59 23:59 23:59 23:59 Intake Total 2150 5180 2640 500 Output Total 900 1250 1700 Balance 2150 4280 1390 -1200 Meds/Results Medications: Active Medications Generic Name Dose Route Start Last Admin Trade Name Freq PRN Reason Stop Dose Admin Alprazolam 0.5 mg 01/28/21 08:41 01/29/21 20:44 Alprazolam (*Crx) 0.5 Mg Tablet BY MOUTH 0.5 mg 5 TIMES DAILY PRN Administration Anxiety Budesonide/Formoterol Fumarate 2 puff 01/28/21 20:00 01/30/21 20:33 Budesonide/Form 160-4.5 Mcg (*Sp) INHALATION 2 puff Q12HRT ALI Administration Carbidopa/Levodopa 2 tablet 01/28/21 21:00 01/30/21 20:33 Carbidopa/Levodopa 25/100 Mg Cr Tablet PO 2 tablet Q12HR LAI Administration Carvedilol 12.5 mg 01/28/21 09:00 01/30/21 16:21 Carvedilol 12.5 Mg Tablet PO Not Given BID [facility] Docusate Sodium 100 mg 01/28/21 17:00 01/30/21 17:13 Docusate Sodium 100 Mg Capsule PO 100 mg BID [facility] Administration Donepezil HCl 10 mg 01/28/21 09:00 01/30/21 17:13 Donepezil Hcl 10 Mg Tablet PO 10 mg BID [facility] Administration Enoxaparin Sodium 40 mg 01/29/21 09:00 01/30/21 08:18 Enoxaparin 40 Mg/0.4 Ml Syringe SUB-Q 40 mg DAILY [facility] Administration Entacapone 200 mg 01/28/21 21:00 01/30/21 20:33 Entacapone 200 Mg Tablet PO 200 mg Q12HR [facility] Administration Escitalopram Oxalate 20 mg 01/28/21 09:00 01/30/21 08:19 Escitalopram Oxalate 10 Mg Tablet BY MOUTH 20 mg DAILY [facility] Administration Hydromorphone HCl 1 mg 01/28/21 03:32 01/31/21 05:30 Hydromorphone Hcl Inj (*Crx) 1 Mg/Ml Syr IV PUSH 1 mg Q4H PRN Administration Pain Rated 7-10 Lisinopril 10 mg 01/28/21 09:00 01/30/21 08:20 Lisinopril 10 Mg Tablet PO Not Given DAILY [facility] Magnesium Hydroxide 30 ml 01/28/21 15:03 Magnesium Hydroxide Susp 30 Ml Udc PO BID PRN Constipation Magnesium Oxide 400 mg 01/28/21 09:00 01/30/21 17:13 Magnesium Oxide 400 Mg Tablet BY MOUTH 400 mg BID [facility] Administration Naloxone HCl 0.1 mg 01/28/21 15:03 Naloxone Hcl 0.4 Mg/Ml Vial IV PUSH Q2M PRN Opiate Reversal Ondansetron HCl 4 mg 01/28/21 03:32 Ondansetron Inj 4 Mg/2 Ml Vial IV PUSH Q4H PRN Nausea Oxycodone HCl 10 mg 01/28/21 09:00 01/30/21 20:32 Oxycodone Hcl (*Crx) 5 Mg Tab Ir PO 10 mg Q12HR LAI Administration Pantoprazole Sodium 40 mg 01/28/21 08:41 Pantoprazole 40 Mg Tablet PO QAM PRN acid reflux Polyethylene Glycol 17 gm 01/28/21 09:00 01/30/21 08:18 Polyethylene Glycol 3350 17 Gm Powd.Pack PO 17 gm QAM LAI Administration Tobramycin/Dexamethasone 1 drop 01/30/21 13:00 01/30/21 20:33 Tobramycin/Dexamethasone Op 2.5 Ml Btl EACH EYE 1 drop QID LAI Admini
[2021-01-30] MEDS: TOBRAMYCIN/DEXAMETHASONE OP 2.5 ML BTL 1 DROP EACH EYE ×3 (16:03→20:33)
[2021-01-30 17:45] LABS: Glucose Point of Care 155 (65-105)
[2021-01-30 21:30] VITALS: BP 114/63; PULSE 63; RESP 20; TEMP 36.7; O2SAT 93
[2021-01-30 21:41] LABS: Glucose Point of Care 180 (65-105)
[2021-01-31] MEDS: HYDROmorphone HCL INJ (*CRX) 1 MG/ML SYR IV PUSH ×5 (01:34→21:45)
[2021-01-31 05:45] VITALS: BP 128/67; PULSE 61; RESP 20; TEMP 36.9; O2SAT 96
[2021-01-31 07:43] LABS: Glucose Point of Care 135 (65-105)
[2021-01-31 08:16] VITALS: PULSE 80
[2021-01-31] MEDS: carvediloL 12.5 MG TABLET PO ×2 (08:16→17:06)
[2021-01-31] MEDS: CARBIDOPA/LEVODOPA 25/100 MG CR TABLET 2 TABLET PO ×2 (08:16→20:58)
[2021-01-31] MEDS: DONEPEZIL HCL 10 MG TABLET PO ×2 (08:17→17:06)
[2021-01-31] MEDS: CHOLECALCIFEROL 1,000 UNITS TABLET 2000 UNITS PO (08:17)
[2021-01-31] MEDS: DOCUSATE SODIUM 100 MG CAPSULE PO ×2 (08:17→17:06)
[2021-01-31] MEDS: ENOXAPARIN 40 MG/0.4 ML SYRINGE SUB-Q (08:17)
[2021-01-31] MEDS: ESCITALOPRAM OXALATE 10 MG TABLET 20 MG BY MOUTH (08:18)
[2021-01-31] MEDS: lisinopriL 10 MG TABLET PO (08:18)
[2021-01-31] MEDS: oxyCODONE HCL (*CRX) 5 MG TAB IR 10 MG PO (08:18)
[2021-01-31] MEDS: ENTACAPONE 200 MG TABLET PO ×2 (08:18→20:59)
[2021-01-31] MEDS: MAGNESIUM OXIDE 400 MG TABLET BY MOUTH ×2 (08:18→17:07)
[2021-01-31] MEDS: polyethylene glycoL 3350 17 GM POWD.PACK PO (08:19)
[2021-01-31] MEDS: TOBRAMYCIN/DEXAMETHASONE OP 2.5 ML BTL 1 DROP EACH EYE ×4 (08:19→20:59)
[2021-01-31 09:42] VITALS: BMI 10.0
[2021-01-31 14:00] VITALS: BP 125/61; PULSE 87; RESP 18; TEMP 36.7; O2SAT 100
--- NOTE | 2021-01-31 16:49 | PM.PNORT ---
Progress Note: A&P Assessment and Plan (1) Closed intertrochanteric fracture of right femur: Qualifiers: Encounter type: initial encounter Fracture alignment: displaced Qualified Code(s): S72.141A - Displaced intertrochanteric fracture of right femur, initial encounter for closed fracture Code(s): S72.141A - Displaced intertrochanteric fracture of right femur, initial encounter for closed fracture Status: Acute Assessment and Plan: Patient is postoperative day 3 ORIF right hip fracture with cephalomedullary nail. Patient is progressing well. Postoperative pain control is an issue due to patient's chronic narcotic use. Patient's pain is controlled at the time of my visit. Pain is worse with movement. He has been able to take a few steps. Discussed postoperative expectations and restrictions. Discussed postoperative wound care. Patient shows good understanding. Discharge planning in progress. Patient will need to be discharged to [facility] / rehab facility. Subjective Subjective Date/Time Seen: 01/31/21 12:49 Patient is postoperative day 3 ORIF right hip fracture with cephalomedullary nail. Overall patient is doing well. He states he has had trouble with pain control. He has been up with physical therapy. No numbness or tingling in his toes. No calf or thigh tenderness. He has had multiple bowel movements. Review of Systems Review of Systems: All systems reviewed & are unremarkable except as noted in HPI and below Exam Narrative: Exam Narrative: Pleasant 70-year-old male. Patient is alert and oriented X3. Resting comfortably in bed. No acute distress. No erythema or ecchymosis. No rashes or lesions noted. Warm, normal appearing skin. Dressings dry and intact with no drainage. Tenderness at left hip. Leg lengths appear equal. Calf and thigh nontender. Distal pulses palpable. Normal capillary refill. Patient able to move and wiggle toes. Light touch sensation intact. Objective Data Vital Signs Vital Signs: Vital Signs - 24 hr 01/30/21 21:30 01/31/21 05:45 01/31/21 08:16 Temperature 98.0 F 98.4 F Pulse Rate 63 61 80 Respiratory Rate 20 20 Blood Pressure 114/63 128/67 Pulse Oximetry 93 96 Intake/Output Intake/Output: Intake & Output 01/28/21 01/29/21 01/30/21 01/31/21 23:59 23:59 23:59 23:59 Intake Total 2150 5180 2640 980 Output Total 900 1250 1700 Balance 2150 4280 1390 -635 Meds/Results Medications: Active Medications Generic Name Dose Route Start Last Admin Trade Name Freq PRN Reason Stop Dose Admin Alprazolam 0.5 mg 01/28/21 08:41 01/29/21 20:44 Alprazolam (*Crx) 0.5 Mg Tablet BY MOUTH 0.5 mg 5 TIMES DAILY PRN Administration Anxiety Budesonide/Formoterol Fumarate 2 puff 01/28/21 20:00 01/31/21 08:23 Budesonide/Form 160-4.5 Mcg (*Sp) INHALATION 2 puff Q12HRT LAI Administration Carbidopa/Levodopa 2 tablet 01/28/21 21:00 01/31/21 08:16 Carbidopa/Levodopa 25/100 Mg Cr Tablet PO 2 tablet Q12HR LAI Administration Carvedilol 12.5 mg 01/28/21 09:00 01/31/21 08:16 Carvedilol 12.5 Mg Tablet PO 12.5 mg BID LAI Administration Docusate Sodium 100 mg 01/28/21 17:00 01/31/21 08:17 Docusate Sodium 100 Mg Capsule PO 100 mg BID LAI Administration Donepezil HCl 10 mg 01/28/21 09:00 01/31/21 08:17 Donepezil Hcl 10 Mg Tablet PO 10 mg BID LAI Administration Enoxaparin Sodium 40 mg 01/29/21 09:00 01/31/21 08:17 Enoxaparin 40 Mg/0.4 Ml Syringe SUB-Q 40 mg DAILY LAI Administration Entacapone 200 mg 01/28/21 21:00 01/31/21 08:18 Entacapone 200 Mg Tablet PO 200 mg Q12HR LAI Administration Escitalopram Oxalate 20 mg 01/28/21 09:00 01/31/21 08:18 Escitalopram Oxalate 10 Mg Tablet BY MOUTH 20 mg DAILY LAI Administration Hydromorphone HCl 1 mg 01/28/21 03:32 01/31/21 13:37 Hydromorphone Hcl Inj (*Crx) 1 Mg/Ml Syr IV PUSH 1 mg Q4H PRN
[2021-01-31 17:06] VITALS: PULSE 68
[2021-01-31 17:17] LABS: Glucose Point of Care 165 (65-105)
--- NOTE | 2021-01-31 17:17 | PM.IMPN ---
Progress Note: A&P Assessment and Plan (1) Closed intertrochanteric fracture of right femur: Qualifiers: Encounter type: initial encounter Fracture alignment: displaced Qualified Code(s): S72.141A - Displaced intertrochanteric fracture of right femur, initial encounter for closed fracture Code(s): S72.141A - Displaced intertrochanteric fracture of right femur, initial encounter for closed fracture Status: Acute Assessment and Plan: S/p ORIF Participating with PT/OT in therapy sessions Rehabilitation upon discharge Appreciate Ortho note. (2) Leukocytosis: Code(s): D72.829 - Elevated white blood cell count, unspecified Status: Acute Assessment and Plan: Likely reactive Will repeat. No clinical signs of infection (3) DAVID (obstructive sleep apnea): Code(s): G47.33 - Obstructive sleep apnea (adult) (pediatric) Status: Acute Assessment and Plan: CPAP at night (4) Acute on chronic renal failure: Code(s): N17.9 - Acute kidney failure, unspecified; N18.9 - Chronic kidney disease, unspecified Status: Acute Assessment and Plan: Bun/Cr at patient's baseline. (5) Chronic narcotic dependence: Code(s): F11.20 - Opioid dependence, uncomplicated Status: Chronic Assessment and Plan: Started Toradol (6) DM2 (diabetes mellitus, type 2): Qualifiers: Diabetes mellitus intermediate insulin use: without intermediate use Diabetes mellitus complication status: without complication Qualified Code(s): E11.9 - Type 2 diabetes mellitus without complications Code(s): E11.9 - Type 2 diabetes mellitus without complications Status: Chronic Assessment and Plan: Continue to monitor ISS as needed (7) Parkinsons: Code(s): G20 - Parkinson's disease Status: Chronic Assessment and Plan: Continue Levodopa/Carvidopa/Entacapone. (8) GERD (gastroesophageal reflux disease): Qualifiers: Esophagitis presence: without esophagitis Qualified Code(s): K21.9 - Gastro-esophageal reflux disease without esophagitis Code(s): K21.9 - Gastro-esophageal reflux disease without esophagitis Status: Chronic Assessment and Plan: PPI (9) HTN (hypertension): Qualifiers: Hypertension type: unspecified Qualified Code(s): I10 - Essential (primary) hypertension Code(s): I10 - Essential (primary) hypertension Status: Chronic Assessment and Plan: Continue home meds. Subjective Date/time seen: 01/31/21 17:17 States that he feels ok. Review of Systems Review of Systems: Narrative: Having pain. No other issues. Exam Narrative: Exam Narrative: Lying in bed Const: General: comfortable, no acute distress, alert and awake Nutritional Appearance: average body habitus Orientation/consciousness: patient oriented x3 HENMT: Head: normal to inspection and normocephalic Ears: hearing grossly normal bilaterally General nose exam: Normal external nose present Face and sinus: normal facial exam Eyes: General: appearance normal, both eyes and all related structures Pupils: Equal, round and reactive pupils present EOM: EOMs intact bilaterally Neck: Neck: no lymphadenopathy, supple and no JVD Resp: Effort & Inspection: able to speak in complete sentences Auscultation: clear to auscultation bilaterally Cardio: Jugular venous distension: no JVD Rate: regular rate Rhythm: regular rhythm GI: GI Palp: Yes Soft to palpation Skin: Rashes: no rashes Wounds: wounds noted (R hip surgical wound.) Neuro: General: patient oriented x3 and CN's II-XI intact bilaterally Cranial nerves: Yes CN's II-XII intact bilaterally and Yes Equal, round and reactive pupils present Cognition (Neuro): normal cognition Gait exam (Neuro): Normal gait present Motor exam (neuro): 5/5 motor strength present throughout Extrem: General: no pedal edema Objective Data Vital Signs Vital S
[2021-01-31 17:28] LABS: Glucose Point of Care 155 (65-105)
[2021-01-31 17:45] LABS: Basophils Percent Auto 0.5 % (0.2-1.2); Eosinophils Absolute Auto 0.4 K/mm3 (0-0.3); Hematocrit 35.1 % (42.0-52.0); Hemoglobin 11.6 g/dL (14.0-18.0); Immature Granulocyte Absolute 0.02 K/mm3 (0.00-0.031); Immature Granulocyte Percent A 0.3 % (0-0.5); Lymphocytes Absolute Auto 1.24 K/mm3 (0.9-3.2); Lymphocytes Percent Auto 21.4 % (18.3-44.2); Mean Corpuscular Hemoglobin 31.3 pg (26-34); Mean Corpuscular Volume 94.6 fl (80-100); Mean Platelet Volume 9.5 fl (7.4-10.4); Monocytes Absolute Auto 0.8 K/mm3 (0.1-0.6); Monocytes Percent Auto 14.5 % (2.6-8.5); Neutrophils Absolute Auto 3.3 K/mm3 (1.3-6.7); Neutrophils Percent Auto 57.3 % (45.5-73.1); Platelet Count Result 179 k/mm3 (150-375); Red Blood Count 3.71 M/mm3 (4.6-6.20); Red Cell Distribution Width 13.2 % (11.5-14.5); White Blood Count 5.8 K/mm3 (4.5-10.0)
[2021-01-31 17:58] LABS: Anion Gap 4 mmol/L (8-16); Blood Urea Nitrogen 28 mg/dL (9-20); Calcium 8.4 mg/dL (8.4-10.2); Carbon Dioxide 27 mmol/L (22-30); Chloride 103 mmol/L (98-107); Estimated CRCL calculation 43 ml/min; Estimated Glomerular Filt Rate 38; Glucose 134 mg/dL (75-110); Sodium 134 mmol/L (137-145)
[2021-01-31 18:02] LABS: SARS-CoV-2 RNA PCR Negative
[2021-01-31 21:50] LABS: Glucose Point of Care 175 (65-105)
[2021-01-31 22:00] VITALS: BP 122/62; PULSE 64; RESP 18; TEMP 36.3; O2SAT 96
[2021-02-01] MEDS: HYDROmorphone HCL INJ (*CRX) 1 MG/ML SYR IV PUSH ×2 (02:03→06:03)
[2021-02-01 06:00] VITALS: BP 145/71; PULSE 62; RESP 18; TEMP 36.3; O2SAT 95
[2021-02-01 08:10] LABS: Glucose Point of Care 125 (65-105)
[2021-02-01 08:31] VITALS: PULSE 60
[2021-02-01] MEDS: CARBIDOPA/LEVODOPA 25/100 MG CR TABLET 2 TABLET PO ×2 (08:31→20:39)
[2021-02-01] MEDS: carvediloL 12.5 MG TABLET PO ×2 (08:31→16:26)
[2021-02-01] MEDS: CHOLECALCIFEROL 1,000 UNITS TABLET 2000 UNITS PO (08:32)
[2021-02-01] MEDS: MAGNESIUM OXIDE 400 MG TABLET BY MOUTH ×2 (08:33→16:27)
[2021-02-01] MEDS: ENTACAPONE 200 MG TABLET PO ×2 (08:33→20:38)
[2021-02-01] MEDS: DONEPEZIL HCL 10 MG TABLET PO ×2 (08:33→16:27)
[2021-02-01] MEDS: ENOXAPARIN 40 MG/0.4 ML SYRINGE SUB-Q (08:33)
[2021-02-01] MEDS: ESCITALOPRAM OXALATE 10 MG TABLET 20 MG BY MOUTH (08:33)
[2021-02-01] MEDS: lisinopriL 10 MG TABLET PO (08:33)
[2021-02-01] MEDS: TOBRAMYCIN/DEXAMETHASONE OP 2.5 ML BTL 1 DROP EACH EYE ×4 (08:34→20:38)
[2021-02-01] MEDS: oxyCODONE HCL (*CRX) 5 MG TAB IR 10 MG PO ×4 (08:34→20:39)
[2021-02-01 08:42] LABS: Hematocrit 34.3 % (42.0-52.0); Hemoglobin 11.5 g/dL (14.0-18.0); Mean Corpuscular HGB Conc 33.5 g/dl (32-36); Mean Corpuscular Hemoglobin 31.3 pg (26-34); Mean Corpuscular Volume 93.5 fl (80-100); Mean Platelet Volume 9.2 fl (7.4-10.4); Platelet Count Result 186 k/mm3 (150-375); Red Blood Count 3.67 M/mm3 (4.6-6.20); Red Cell Distribution Width 13.1 % (11.5-14.5); White Blood Count 6.2 K/mm3 (4.5-10.0)
[2021-02-01 08:50] LABS: Anion Gap 3 mmol/L (8-16); Blood Urea Nitrogen 24 mg/dL (9-20); Calcium 8.4 mg/dL (8.4-10.2); Carbon Dioxide 30 mmol/L (22-30); Chloride 103 mmol/L (98-107); Estimated CRCL calculation 43 ml/min; Estimated Glomerular Filt Rate 38; Glucose 127 mg/dL (75-110); Potassium 3.9 mmol/L (3.4-5.0); Sodium 136 mmol/L (137-145)
--- NOTE | 2021-02-01 11:54 | PM.DS ---
DS: Admitting Diagnosis Admitting Diagnosis Admitting Diagnosis: Right hip fracture DS: Discharge Diagnosis Discharge Diagnosis (1) Closed intertrochanteric fracture of right femur: Qualifiers: Encounter type: initial encounter Fracture alignment: displaced Qualified Code(s): S72.141A - Displaced intertrochanteric fracture of right femur, initial encounter for closed fracture Code(s): S72.141A - Displaced intertrochanteric fracture of right femur, initial encounter for closed fracture Status: Acute Assessment and Plan: POD 4 S/p ORIF. Patient tells me today has been his best day yet in regards to pain. Plan for discharge to SNF, hopefully today or tomorrow if okay with Ortho Post op care, pain management, PT/OT, DVT ppx per orthopedic surgery Discharge to SNF hopefully today or tomorrow if okay with ortho F/u with Ortho (2) Leukocytosis: Code(s): D72.829 - Elevated white blood cell count, unspecified Status: Acute Assessment and Plan: Likely reactive. Resolved. No clinical signs of infection (3) DAVID (obstructive sleep apnea): Code(s): G47.33 - Obstructive sleep apnea (adult) (pediatric) Status: Acute Assessment and Plan: CPAP at night (4) Acute on chronic renal failure: Code(s): N17.9 - Acute kidney failure, unspecified; N18.9 - Chronic kidney disease, unspecified Status: Acute Assessment and Plan: Bun/Cr at patient's baseline. Cr 2.00 today F/u with PCP or Computer Operations Analyst if established (5) Chronic narcotic dependence: Code(s): F11.20 - Opioid dependence, uncomplicated Status: Chronic Assessment and Plan: Further management per Ortho in setting of recent right hip repair (6) DM2 (diabetes mellitus, type 2): Qualifiers: Diabetes mellitus complication status: without complication Diabetes mellitus group home insulin use: without director long term care use Qualified Code(s): E11.9 - Type 2 diabetes mellitus without complications Code(s): E11.9 - Type 2 diabetes mellitus without complications Status: Chronic Assessment and Plan: BGL 120s today. Glipizide held during stay Accuchecks ACHS, hypoglycemia protocol, correctional insulin, diabetic diet during stay Resume home medications at discharge (7) Parkinsons: Code(s): G20 - Parkinson's disease Status: Chronic Assessment and Plan: Continue Levodopa/Carvidopa/Entacapone. (8) GERD (gastroesophageal reflux disease): Qualifiers: Esophagitis presence: without esophagitis Qualified Code(s): K21.9 - Gastro-esophageal reflux disease without esophagitis Code(s): K21.9 - Gastro-esophageal reflux disease without esophagitis Status: Chronic Assessment and Plan: Continue PPI (9) HTN (hypertension): Qualifiers: Hypertension type: unspecified Qualified Code(s): I10 - Essential (primary) hypertension Code(s): I10 - Essential (primary) hypertension Status: Chronic Assessment and Plan: BP 140s sys most recently, otherwise has been well controlled during stay Continue home meds. DS: Summary Hospital Course Reason for hospitalization: Right Hip fracture Hospital Course: Date of arrival: 01/28/21 Date of discharge: 02/01/21 Patient is a 70 year old male with PMHx significant for COPD/Asthma well controlled, Parkinson's disease, HTN, T2DM, hyperlipidemia, who presented to the ED on 01/28 after having right hip pain after sustaining a mechanical fall when he tripped and fell backwards, landing on his bottom at home. While in the ED, he was found to have a
[2021-02-01 12:10] LABS: Glucose Point of Care 172 (65-105)
--- NOTE | 2021-02-01 12:13 | PM.PNORT ---
Progress Note: A&P Assessment and Plan (1) Closed intertrochanteric fracture of right femur: Qualifiers: Encounter type: initial encounter Fracture alignment: displaced Qualified Code(s): S72.141A - Displaced intertrochanteric fracture of right femur, initial encounter for closed fracture Code(s): S72.141A - Displaced intertrochanteric fracture of right femur, initial encounter for closed fracture Status: Acute Assessment and Plan: Patient is postoperative day 4 ORIF right hip fracture with cephalomedullary nail. Patient is progressing well. Postoperative pain control is an issue due to patient's chronic narcotic use. He will stop IV Dilaudid today and switch to oral Oxycodone. He is unable to take Tylenol due to Kidney function. Patient's pain is controlled at the time of my visit. Pain is worse with movement. He has been able to take a few steps. Discussed postoperative expectations and restrictions. Discussed postoperative wound care. Patient shows good understanding. Discharge planning in progress. Okay for d/c from Ortho. Patient will need to be discharged to snf / rehab facility. Will give Oxycodone at discharge. Lovenox for DVT prophylaxis. F/u in office in 4-6 weeks. Subjective Subjective Date/Time Seen: 02/01/21 07:55 Patient is postoperative day 4 ORIF right hip fracture with cephalomedullary nail. Overall patient is doing well. He states he has had trouble with pain control. He has been up with physical therapy. No numbness or tingling in his toes. No calf or thigh tenderness. He has had multiple bowel movements. Review of Systems Review of Systems: All systems reviewed & are unremarkable except as noted in HPI and below Exam Narrative: Exam Narrative: Pleasant 70-year-old male. Patient is alert and oriented X3. Resting comfortably in bed. No acute distress. No erythema or ecchymosis. No rashes or lesions noted. Warm, normal appearing skin. Dressings dry and intact with no drainage. Tenderness at left hip. Leg lengths appear equal. Calf and thigh nontender. Distal pulses palpable. Normal capillary refill. Patient able to move and wiggle toes. Light touch sensation intact. Objective Data Vital Signs Vital Signs: Vital Signs - 24 hr 01/31/21 14:00 01/31/21 17:06 01/31/21 22:00 Temperature 98.0 F 97.4 F L Pulse Rate 87 68 64 Respiratory Rate 18 18 Blood Pressure 125/61 122/62 Pulse Oximetry 100 96 02/01/21 06:00 02/01/21 08:31 Temperature 97.4 F L Pulse Rate 62 60 Respiratory Rate 18 Blood Pressure 145/71 H Pulse Oximetry 95 Intake/Output Intake/Output: Intake & Output 01/29/21 01/30/21 01/31/21 02/01/21 23:59 23:59 23:59 23:59 Intake Total 5180 2640 1645 390 Output Total 900 1250 2300 500 Balance 4280 1390 -655 -110 Meds/Results Medications: Active Medications Generic Name Dose Route Start Last Admin Trade Name Freq PRN Reason Stop Dose Admin Alprazolam 0.5 mg 01/28/21 08:41 01/29/21 20:44 Alprazolam (*Crx) 0.5 Mg Tablet BY MOUTH 0.5 mg 5 TIMES DAILY PRN Administration Anxiety Budesonide/Formoterol Fumarate 2 puff 01/28/21 20:00 02/01/21 08:30 Budesonide/Form 160-4.5 Mcg (*Sp) INHALATION 2 puff Q12HRT LAI Administration Carbidopa/Levodopa 2 tablet 01/28/21 21:00 02/01/21 08:31 Carbidopa/Levodopa 25/100 Mg Cr Tablet PO 2 tablet Q12HR LAI Administration Carvedilol 12.5 mg 01/28/21 09:00 02/01/21 08:31 Carvedilol 12.5 Mg Tablet PO 12.5 mg BID LAI Administration Docusate Sodium 100 mg 01/28/21 17:00 02/01/21 08:32 Docusate Sodium 100 Mg Capsule PO Not Given BID LAI Donepezil HCl 10 mg 01/28/21 09:00 02/01/21 08:33 Donepezil Hcl 10 Mg Tablet PO 10 mg BID LAI Administration Enoxaparin Sodium 40 mg 01/29/21 09:00 02/01/21 08:33 Enoxaparin 40 Mg/0.4 Ml Syringe SUB-Q 40 mg DAILY LAI Administration Entacapone 200 mg 01/28/21
[2021-02-01] MEDS: ALPRAZolam (*CRX) 0.5 MG TABLET BY MOUTH ×3 (12:29→21:51)
--- NOTE | 2021-02-01 13:36 | PC.NURSE ---
Report called to [facility] at [place].
[2021-02-01 14:00] VITALS: BP 113/61; PULSE 55; RESP 18; TEMP 36.4; O2SAT 98
[2021-02-01 16:26] VITALS: PULSE 68
[2021-02-01 17:45] LABS: Glucose Point of Care 149 (65-105)
--- NOTE | 2021-02-01 23:37 | PC.NURSE ---
Patient discharged via ambulance. Patient loaded with belongings and medication. Patient states readiness for discharge. Pt has no questions or concerns at this time.
[2021-02-02 02:48] LABS: Glucose Point of Care 154 (65-105)
== END 2021-02-01 23:35 | DRG 481 ==
LOC: ANHED 03:16 → ANH3MEDSUR 06:48
PROVIDERS: Internal Medicine; Orthopaedic Surgery; Admitting Provider Internal Medicine; Emergency Provider General Practice; PCP Internal Medicine; Visit Provider Physician Assistant
PROC: 0QS606Z Reposition Right Upper Femur with Intramedullary Internal Fixation Device, Open Approach (ICD-10-PCS; CPT 27245; principal; 2021-01-28 15:30)
DX: S72.141A Displaced intertrochanteric fracture of right femur, initial encounter for closed fracture (principal); N17.9 Acute kidney failure, unspecified; W19.XXXA Unspecified fall, initial encounter; G20 Parkinson's disease; J44.9 Chronic obstructive pulmonary disease, unspecified; E78.5 Hyperlipidemia, unspecified; E11.9 Type 2 diabetes mellitus without complications; G47.33 Obstructive sleep apnea (adult) (pediatric); F03.90 Unspecified dementia, unspecified severity, without behavioral disturbance, psychotic disturbance, mood disturbance, and anxiety; K21.9 Gastro-esophageal reflux disease without esophagitis; I12.9 Hypertensive chronic kidney disease with stage 1 through stage 4 chronic kidney disease, or unspecified chronic kidney disease; E11.22 Type 2 diabetes mellitus with diabetic chronic kidney disease; N18.9 Chronic kidney disease, unspecified; Z20.822 Contact with and (suspected) exposure to COVID-19
CPT/HCPCS: 36415; 71045; 73502; 73552; 80048; 80053; 81001; 82550; 82948; 83735; 85025; 85027; 85610; 85730; 93005; 94640; 96374; 96375; 97110; 97116; 97161; 97166; 97530; 97535; 99285; A9270; C1713; C1769; C9803; J0330; J0690; J1100; J1170; J1650; J2270; J2370; J2405; J2704; J3010; J7030; J7120; U0003; U0005

== ENCOUNTER 2021-03-06 21:07 | Observation (INO) | payer MEDICARE, SELFPAY ==
[2021-03-06] VITALS (14 sets, daily range): BP systolic 111–130; BP diastolic 57–69; PULSE 63–72; RESP 11–20; TEMP 36.5; O2SAT 93–100
--- NOTE | ~2021-03-06 | XR_ITS ---
EXAMINATION: XR shoulder LT min 2V EXAM DATE: 03/06/2021 21:43 INDICATION: Fall today with left shoulder pain. TECHNIQUE: The following left shoulder projections obtained: frontal projection with internal rotatio n, frontal projection with external rotation, Grashey, and scapular Y view (4+ views). Comparison is made to prior examination from 10/04/2019. FINDINGS: No evidence of left shoulder rotator cuff calcific tendinosis. There is moderate left latoya ulder primary osteoarthritis. There are no acute fractures or dislocations identified. There is no s ubcutaneous gas. The soft tissue is unremarkable. There are no radiopaque foreign bodies. IMPRESSION: 1. Left shoulder exam without acute osseous findings. 2. Moderate osteoarthritis. Reviewed, dictated and finalized at location A.
--- NOTE | ~2021-03-06 | XR_ITS ---
EXAMINATION: XR chest 1V portable EXAM DATE: 03/06/2021 22:30 INDICATION: fall, left shoulder, right hip pain. Initial encounter. TECHNIQUE: Portable AP frontal chest x-ray was obtained. Comparison is made to prior examination from 01/28/2021. FINDINGS: The lungs are clear. There are no pleural effusions. Cardiomediastinal silhouette is norm al. There is no pneumothorax suspected. There are bony degenerative changes. IMPRESSION: No acute cardiopulmonary findings. Reviewed, dictated and finalized at location A.
--- NOTE | ~2021-03-06 | CT_ITS ---
EXAMINATION: CT brain wo con EXAM DATE: 03/06/2021 21:47 INDICATION: Fall, head injury. Confusion. TECHNIQUE: Spiral CT of the head was performed without contrast. Axial, coronal and sagittal images were reviewed. The dose-length product (DLP) for this examination was 681.00 mGy-cm. The exposure w as tailored according to patient size, and iterative reconstruction (ASIR) was used as additional dos e reduction technique. Comparison is made to prior examination from 05/14/2020. FINDINGS: There is no acute intraparenchymal hemorrhage. No evidence of intraparenchymal brain mass lesion. No evidence of acute infarction. Please note that initial head CT has limited sensitivity f or small or acute infarctions. There is mild periventricular and subcortical hypodensity, nonspecific but probably related to small vessel ischemic disease. There is mild prominence of the sulci and v entricles related to cerebral atrophy. There is intracranial carotid arteriosclerosis. There are n o extra-axial collections. There is no mass effect or midline shift. Patient has had right-sided oc ular lens surgery. Soft tissue is unremarkable. The visualized sinuses and mastoid air cells are we ll aerated. IMPRESSION: 1. No acute intracranial findings. 2. Chronic age related findings. Reviewed, dictated and finalized at location A.
--- NOTE | ~2021-03-06 | XR_ITS ---
EXAMINATION: XR hip RT 2V w AP pelvis EXAM DATE: 03/06/2021 21:43 INDICATION: Fall, recent right hip fracture, generalized pain. TECHNIQUE: Right hip frontal, 'frog leg' projections for interpretation. Frontal projection pelvis. There is no prior study for comparison. FINDINGS: There is a right hip gamma nail intact. Healing right hip intertrochanteric fracture in donna tomic alignment. No new fracture identified. Pelvis is intact. Moderate bilateral hip primary osteoar thritis. IMPRESSION: Surgically fixed healing right hip intertrochanteric fracture. Reviewed, dictated and finalized at location A.
--- NOTE | 2021-03-06 21:34 | ED.FALL ---
HPI - Fall General Chief Complaint: Fall Stated Complaint: fall hip pain Time Seen by Provider: 03/06/21 21:18 Source: RN notes reviewed History of Present Illness HPI Narrative: Patient presents emergency department from home via EMS for fall. Patient states that he had had his right hip fractured and surgically repaired approximately a week ago. He states he was at home today and wheelchair and gotten up to get something when he tripped and fell he states that on the fall he injured his left shoulder and is complaining of pain in his left upper shoulder he denies striking his head or loss of consciousness he does not believe he injured his right hip he denies any chest pain shortness of breath abdominal pain numbness or tingling in the extremities or any other symptoms denies any use of blood thinner Related Data Home Medications Medication Instructions Recorded Confirmed carbidopa 50 mg-levodopa 200 2 tablet PO BID 05/12/20 09/21/20 mg-entacapone 200 mg tablet pantoprazole 40 mg tablet,delayed 40 mg PO QAM PRN 05/12/20 09/21/20 release trazodone 100 mg tablet 50 mg PO PRN PRN tablet 05/12/20 01/28/21 atorvastatin 5 mg PO HS 05/14/20 01/29/21 carvedilol 12.5 mg PO BID 05/14/20 09/21/20 cholecalciferol (vitamin D3) 1 unit PO DAILY 05/14/20 09/21/20 [D3-2000] donepezil 10 mg PO BID 05/14/20 01/28/21 escitalopram oxalate 20 mg DAILY 05/14/20 01/28/21 lisinopril 10 mg PO DAILY 05/14/20 09/21/20 magnesium oxide 400 mg BID 05/14/20 01/28/21 oxybutynin chloride 5 mg BID 05/14/20 01/28/21 Allergies Allergy/AdvReac Type Severity Reaction Status Date / Time fentanyl Allergy Unknown Hives Verified 09/21/20 09:30 meperidine Allergy Unknown Hives Verified 09/21/20 09:30 midazolam Allergy Unknown Hives Verified 09/21/20 09:30 diphenhydramine AdvReac Intermediate AGITATION, Verified 09/21/20 09:30 ANTSY Review of Systems Review of Systems: Narrative: Gen.: Denies fevers or chills Eyes: Denies eye pain or visual change ENT: Denies congestion Respiratory: Denies shortness of breath or cough CV: Denies chest pain or palpitations GI: Denies abdominal pain nausea, emesis or diarrhea Musculoskeletal: See HPI Neuro: Denies numbness, tingling, weakness or focal weakness Skin: Denies rash Except as documented, all other systems reviewed and negative [facility] Past Medical History Medical History Borderline hyperlipidemia Cardiomyopathy Cataract Chronic narcotic dependence Dementia Depression Previous suicide attempt 2012 DM2 (diabetes mellitus, type 2) GERD (gastroesophageal reflux disease) HTN (hypertension) Kidney congenitally absent, left Migraine DAVID (obstructive sleep apnea) The patient has tried oral apparatus and CPAP and has not been able to tolerated. Parkinsons Pilonidal cyst Prostatic hyperplasia Surgical History Surgical History H/O left cataract extraction H/O repair of rotator cuff On the right History of nasal septoplasty History of repair of ACL Bilateral History of surgical removal of pilonidal cyst Hx of cardiac catheterization Hx of cholecystectomy Hx of tonsillectomy Family History Family History Father Family history of cardiovascular disease Malignant neoplasm of prostate Mother Breast cancer Family history of chronic obstructive pulmonary disease Acute myocardial infarction Chronic obstructive pulmonary disease Sibling Prostate carcinoma Social History Social History Social History: The patient is they have 1 son and he has 2 step children as well. 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
--- NOTE | 2021-03-06 22:04 | PC.NURSE ---
Pt resting comfortably with eyes closed. No distress. No shortening or rotation of extremity.
[2021-03-06 22:44] LABS: Basophils Percent Auto 0.2 % (0.2-1.2); Eosinophils Absolute Auto 0.1 K/mm3 (0-0.3); Eosinophils Percent Auto 0.7 % (0-4.4); Hematocrit 32.5 % (42.0-52.0); Hemoglobin 10.9 g/dL (14.0-18.0); Immature Granulocyte Absolute 0.02 K/mm3 (0.00-0.031); Immature Granulocyte Percent A 0.2 % (0-0.5); Lymphocytes Absolute Auto 1.84 K/mm3 (0.9-3.2); Lymphocytes Percent Auto 20.8 % (18.3-44.2); Mean Corpuscular HGB Conc 33.5 g/dl (32-36); Mean Corpuscular Hemoglobin 30.4 pg (26-34); Mean Corpuscular Volume 90.5 fl (80-100); Mean Platelet Volume 8.9 fl (7.4-10.4); Monocytes Absolute Auto 1.1 K/mm3 (0.1-0.6); Neutrophils Absolute Auto 5.9 K/mm3 (1.3-6.7); Neutrophils Percent Auto 66.1 % (45.5-73.1); Platelet Count Result 267 k/mm3 (150-375); Red Blood Count 3.59 M/mm3 (4.6-6.20); Red Cell Distribution Width 12.5 % (11.5-14.5); White Blood Count 8.9 K/mm3 (4.5-10.0)
[2021-03-06 22:54] LABS: INR 1.4; Prothrombin Time 17.5 Seconds (11.1-14.7)
[2021-03-06 22:56] LABS: Alanine Aminotransferase 10 U/L (4-50); Albumin Level 3.4 g/dL (3.5-5.1); Alkaline Phosphatase 98 U/L (38-126); Anion Gap 5 mmol/L (8-16); Aspartate Amino Transferase 36 U/L (17-59); Blood Urea Nitrogen 38 mg/dL (9-20); Calcium 9.7 mg/dL (8.4-10.2); Carbon Dioxide 29 mmol/L (22-30); Chloride 103 mmol/L (98-107); Estimated CRCL calculation 32 ml/min; Estimated Glomerular Filt Rate 26; Glucose 124 mg/dL (75-110); Partial Thromboplastin Time 45.8 SECONDS (22.3-36.8); Potassium 3.3 mmol/L (3.4-5.0); Sodium 137 mmol/L (137-145)
[2021-03-06 23:03] LABS: Add Urine Microscopic? YES; Appearance Urine Clear (Clear); Bilirubin Urine Negative (Negative); Blood Urine Negative (Negative); Color Urine Yellow (Yellow); Glucose Urine UA Negative (Negative); Ketones Urine Trace mg/dL (Negative); Leukocyte Esterase Ur Negative LEU/UL (Negative); Mucus Urine Rare /lpf; Nitrate Urine Negative (Negative); Protein Urine 1+ mg/dL (Negative); RBC Urine 0-2 /hpf (0-2); Specific Grav Ur 1.017 (1.001-1.035); Urobilinogen Urine Negative mg/dL (<2.0); WBC Urine 0-3 /hpf
[2021-03-06] MEDS: POTASSIUM CHLORIDE 20 MEQ TABLET PO (23:33)
[2021-03-06] MEDS: SODIUM CHLORIDE 0.9% IV 1,000 ML 999 ML IV CONT (23:33)
[2021-03-07] VITALS (8 sets, daily range): BP systolic 105–150; BP diastolic 54–66; PULSE 56–74; RESP 16–20; TEMP 36.3–36.7; O2SAT 93–100; BMI 30.7
--- NOTE | 2021-03-07 00:30 | PC.NURSE ---
Pt was asked what he has eaten today. Pt reports no food in the fridge at home but his son in law brought him a sandwich. Pt reports he usually orders food for delivery.
--- NOTE | 2021-03-07 01:52 | PC.NURSE ---
This patient, Mohamud Daiz, was admitted to 3 Med Surg Room 306-01 @ 00:52. Patient/family oriented to hospital policies and general routines including ID bracelet, bed and alarms, visiting hours, pain management, procedures, bathroom and other care routines, personal items, smoking policy, room service/diet, and visiting hours. Information on how to activate the Rapid Response Team has been discussed. Patient/Family are encouraged to report perceived risks to care and to ask questions if they do not understand what they are told or what they should do. Medications taken from external med rec based on last filled prescriptions due to patients exhausted state. -DENA FIGUEROA
[2021-03-07] MEDS: SODIUM CHLORIDE 0.9% IV 1,000 ML 125 ML IV CONT ×3 (02:24→22:28)
[2021-03-07 06:18] LABS: Basophils Percent Auto 0.4 % (0.2-1.2); Eosinophils Absolute Auto 0.2 K/mm3 (0-0.3); Eosinophils Percent Auto 1.8 % (0-4.4); Hematocrit 34.1 % (42.0-52.0); Immature Granulocyte Absolute 0.03 K/mm3 (0.00-0.031); Immature Granulocyte Percent A 0.4 % (0-0.5); Lymphocytes Absolute Auto 2.24 K/mm3 (0.9-3.2); Lymphocytes Percent Auto 27.5 % (18.3-44.2); Mean Corpuscular HGB Conc 32.3 g/dl (32-36); Mean Corpuscular Hemoglobin 29.7 pg (26-34); Mean Corpuscular Volume 92.2 fl (80-100); Mean Platelet Volume 9.1 fl (7.4-10.4); Monocytes Absolute Auto 0.9 K/mm3 (0.1-0.6); Monocytes Percent Auto 10.9 % (2.6-8.5); Neutrophils Absolute Auto 4.8 K/mm3 (1.3-6.7); Platelet Count Result 284 k/mm3 (150-375); Red Cell Distribution Width 12.6 % (11.5-14.5); White Blood Count 8.2 K/mm3 (4.5-10.0)
[2021-03-07 06:32] LABS: Anion Gap 6 mmol/L (8-16); Blood Urea Nitrogen 39 mg/dL (9-20); Carbon Dioxide 27 mmol/L (22-30); Chloride 106 mmol/L (98-107); Estimated CRCL calculation 38 ml/min; Estimated Glomerular Filt Rate 31; Glucose 119 mg/dL (75-110); Potassium 3.5 mmol/L (3.4-5.0); Sodium 139 mmol/L (137-145)
--- NOTE | 2021-03-07 07:22 | PM.IMHP ---
H&P: HPI History of Present Illness Date/Time: 03/07/21 07:22 This is a 70-year-old male with past medical history significant for Parkinson's disease, dyslipidemia, COPD/asthma, hip fracture status post hip replacement recently patient went to rehabilitation center and then home patient was using a wheelchair and walker states that things are not going well he has not been able to walk on his own yesterday while he was trying to get up from his wheelchair he fell there was no loss of consciousness, no dizziness, no chest pain, no palpitations, no syncope or near syncope no fevers, no chills, no cough, no sputum production, no shortness of breath, no nausea, no vomiting, no diarrhea, no abdominal pain, he states that he might and struck his shoulder on the way down as well. He is complaining of neck pain and hip pain on the side of the total arthroplasty. Preliminary workup performed in emergency room was significant for slight elevation of creatinine shoulder x-ray and hip x-ray and CT scan of the head where irrelevant in regards to fracture or acute abnormality. Patient has been admitted to regular medical floor. Chief Complaint: Fall Review of Systems Review of Systems: Narrative: Patient was brought to the emergency room after he fell while trying to get up from his wheelchair Constitutional: Constitutional: Reports frequent falls and Reports weakness Comments: No fevers no rigors no chills Eyes: Comments: No vision change ENT: Comments: No earache no nasal discharge no sore throat Cardiovascular: Comments: No chest pain no palpitations no PND no orthopnea Respiratory: Comments: No cough no sputum production no shortness of breath Gastrointestinal: Comments: No nausea no vomiting no abdominal pain no diarrhea Genitourinary: Comments: No pain or burning with urination Musculoskeletal: Musculoskeletal: Reports arthralgias ( right hip) Integumentary/Breasts: Comments: No rashes Neurologic: Comments: No sensorimotor deficit Endocrine: Comments: No heat or cold intolerance no polydipsia polyphagia polyuria Hematologic/Lymphatic: Comments: No lymphadenopathy PMFSH Past Medical History Medical History Borderline hyperlipidemia Cardiomyopathy Cataract Chronic narcotic dependence Dementia Depression Previous suicide attempt 2012 DM2 (diabetes mellitus, type 2) GERD (gastroesophageal reflux disease) HTN (hypertension) Kidney congenitally absent, left Migraine DAVID (obstructive sleep apnea) The patient has tried oral apparatus and CPAP and has not been able to tolerated. Parkinsons Pilonidal cyst Prostatic hyperplasia Surgical History Surgical History H/O left cataract extraction H/O repair of rotator cuff On the right History of nasal septoplasty History of repair of ACL Bilateral History of surgical removal of pilonidal cyst Hx of cardiac catheterization Hx of cholecystectomy Hx of tonsillectomy Family History Family History Father Family history of cardiovascular disease Malignant neoplasm of prostate Mother Breast cancer Family history of chronic obstructive pulmonary disease Acute myocardial infarction Chronic obstructive pulmonary disease Sibling Prostate carcinoma Social History Social History Social History: The patient is they have 1 son and he has 2 step children as well. 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 Gender identity (if verbalized by the patient):
[2021-03-07 07:54] LABS: Glucose Point of Care 124 (65-105)
[2021-03-07] MEDS: oxyCODONE HCL (*CRX) 5 MG TAB IR 10 MG PO ×3 (09:57→17:25)
[2021-03-07] MEDS: carvediloL 12.5 MG TABLET PO ×2 (10:22→20:48)
[2021-03-07] MEDS: DONEPEZIL HCL 10 MG TABLET PO ×2 (10:22→20:48)
[2021-03-07] MEDS: OXYBUTYNIN CHLORIDE 5 MG TABLET BY MOUTH ×2 (10:22→20:48)
[2021-03-07] MEDS: ESCITALOPRAM OXALATE 10 MG TABLET 20 MG BY MOUTH (10:22)
[2021-03-07] MEDS: CARBIDOPA/LEVODOPA 25/100 MG TABLET 4 TABLET PO ×2 (10:22→20:48)
[2021-03-07] MEDS: MAGNESIUM OXIDE 400 MG TABLET BY MOUTH ×2 (10:23→17:25)
[2021-03-07] MEDS: ENTACAPONE 200 MG TABLET 400 MG PO ×2 (10:23→20:48)
[2021-03-07] MEDS: ALPRAZolam (*CRX) 0.5 MG TABLET PO ×2 (12:08→20:53)
[2021-03-07 13:12] LABS: Glucose Point of Care 178 (65-105)
[2021-03-07 17:33] LABS: Glucose Point of Care 130 (65-105)
[2021-03-07] MEDS: BUDESONIDE/FORMOTEROL (*SP) 160-4.5 MCG 6 GM INH 2 PUFF INHALATION (20:47)
--- NOTE | 2021-03-07 22:21 | PC.NURSE ---
patient called front end web developer x4 since 20:00 asking for his q4 pain meds, unclear as to why they are not on his MAR, talked to Nena Juarez and due to low BP we are doing 1x tramadol order to alleviate patients pain and will go from there. -DENA RN
[2021-03-07] MEDS: traMADol HCL (*CRX) 25 MG TABLET PO (22:28)
--- NOTE | 2021-03-08 03:58 | PC.NURSE ---
patient woke up requesting pain pill, did not want IV tylenol ordered at 00:00 due to fear over kidney complications, he is VERY frustrated that he cannot have his q4 oxycodone but stated he won't complain to me (Katherin) about it since I am just the messenger.. . Nena ordered another 1x dose of ultram to get him through the night.. Will discuss with AM nurse on better plan to manage pain starting tomorrow. -AEW RN
[2021-03-08] MEDS: ALPRAZolam (*CRX) 0.5 MG TABLET PO ×3 (04:06→20:06)
[2021-03-08] MEDS: traMADol HCL (*CRX) 25 MG TABLET PO ×2 (04:06→21:39)
[2021-03-08 06:00] VITALS: BP 125/56; PULSE 60; RESP 20; TEMP 36.9; O2SAT 96
[2021-03-08] MEDS: SODIUM CHLORIDE 0.9% IV 1,000 ML 125 ML IV CONT ×2 (06:29→17:09)
[2021-03-08 08:28] LABS: Glucose Point of Care 113 (65-105)
[2021-03-08 08:52] VITALS: PULSE 60
[2021-03-08] MEDS: oxyCODONE HCL (*CRX) 5 MG TAB IR 10 MG PO ×3 (08:52→17:09)
[2021-03-08] MEDS: carvediloL 12.5 MG TABLET PO (08:52)
[2021-03-08] MEDS: CARBIDOPA/LEVODOPA 25/100 MG TABLET 4 TABLET PO ×2 (08:52→19:53)
[2021-03-08] MEDS: ESCITALOPRAM OXALATE 10 MG TABLET 20 MG BY MOUTH (08:52)
[2021-03-08] MEDS: ENTACAPONE 200 MG TABLET 400 MG PO ×2 (08:52→19:58)
[2021-03-08] MEDS: OXYBUTYNIN CHLORIDE 5 MG TABLET BY MOUTH ×2 (08:52→19:58)
[2021-03-08] MEDS: DONEPEZIL HCL 10 MG TABLET PO ×2 (08:52→19:58)
[2021-03-08] MEDS: MAGNESIUM OXIDE 400 MG TABLET BY MOUTH ×2 (08:52→17:09)
[2021-03-08] MEDS: BUDESONIDE/FORMOTEROL (*SP) 160-4.5 MCG 6 GM INH 2 PUFF INHALATION ×2 (08:55→19:59)
[2021-03-08 09:03] LABS: Hematocrit 29.4 % (42.0-52.0); Hemoglobin 9.7 g/dL (14.0-18.0); Mean Corpuscular Hemoglobin 30.4 pg (26-34); Mean Corpuscular Volume 92.2 fl (80-100); Mean Platelet Volume 8.8 fl (7.4-10.4); Platelet Count Result 198 k/mm3 (150-375); Red Blood Count 3.19 M/mm3 (4.6-6.20); Red Cell Distribution Width 12.6 % (11.5-14.5); White Blood Count 7.6 K/mm3 (4.5-10.0)
[2021-03-08 09:23] LABS: Anion Gap 2 mmol/L (8-16); Blood Urea Nitrogen 30 mg/dL (9-20); Calcium 8.3 mg/dL (8.4-10.2); Carbon Dioxide 28 mmol/L (22-30); Chloride 108 mmol/L (98-107); Estimated CRCL calculation 41 ml/min; Estimated Glomerular Filt Rate 35; Glucose 109 mg/dL (75-110); Potassium 3.6 mmol/L (3.4-5.0); Sodium 138 mmol/L (137-145)
--- NOTE | 2021-03-08 10:24 | PM.IMPN ---
Progress Note: A&P Assessment and Plan (1) Fall: Code(s): W19.XXXA - Unspecified fall, initial encounter Status: Acute Assessment and Plan: The patient is status post right hip total arthroplasty after hip fracture Patient had been discharged to rehabilitation however patient has been unable to walk and fell while trying to get out of the wheelchair PT OT Will likely benefit from going to nursing home home facility with rehabilitation Continue to participate in therapies sessions (2) Weakness: Code(s): R53.1 - Weakness Status: Acute Assessment and Plan: Likely secondary to being unable to walk is status post right hip surgery due to hip fracture and arthroplasty Patient has been using wheelchair and walker at home (3) Gait instability: Code(s): R26.81 - Unsteadiness on feet Status: Acute Assessment and Plan: Patient with Parkinson's disease as well Continue physical therapy and occupational therapy (4) Contusion of left shoulder: Code(s): S40.012A - Contusion of left shoulder, initial encounter Status: Acute Assessment and Plan: X-ray noted no fracture (5) Closed intertrochanteric fracture of right femur: Qualifiers: Encounter type: initial encounter Fracture alignment: displaced Qualified Code(s): S72.141A - Displaced intertrochanteric fracture of right femur, initial encounter for closed fracture Code(s): S72.141A - Displaced intertrochanteric fracture of right femur, initial encounter for closed fracture Status: Acute Assessment and Plan: Status post arthroplasty (6) DAVID (obstructive sleep apnea): Code(s): G47.33 - Obstructive sleep apnea (adult) (pediatric) Status: Acute Assessment and Plan: CPAP at nighttime (7) Acute on chronic renal failure: Code(s): N17.9 - Acute kidney failure, unspecified; N18.9 - Chronic kidney disease, unspecified Status: Acute Assessment and Plan: BUN and creatinine now is back to patient's baseline Chlorthalidone has been resumed however patient with borderline hypotensive episode yesterday Continue to monitor (8) Parkinsons: Code(s): G20 - Parkinson's disease Status: Chronic Assessment and Plan: Continue levodopa and carbidopa (9) GERD (gastroesophageal reflux disease): Qualifiers: Esophagitis presence: without esophagitis Qualified Code(s): K21.9 - Gastro-esophageal reflux disease without esophagitis Code(s): K21.9 - Gastro-esophageal reflux disease without esophagitis Status: Chronic Assessment and Plan: PPI as needed (10) HTN (hypertension): Qualifiers: Hypertension type: unspecified Qualified Code(s): I10 - Essential (primary) hypertension Code(s): I10 - Essential (primary) hypertension Status: Chronic Assessment and Plan: Continue to monitor Resume home meds Subjective Date/time seen: 03/08/21 10:25 I feel much better Review of Systems Review of Systems: Narrative: Patient was brought to the hospital after he had a fall while trying to get up from his wheelchair patient is status post right hip total arthroplasty after fracture states that he has not really been doing well after the has not been able to has been using walker and wheelchair at home there was no loss of consciousness Constitutional: Comments: No fevers no rigors no chills Eyes: Comments: No vision changes ENT: Comments: No earache no nose discharge no sore throat Cardiovascular: Comments: No chest pain no PND no orthopnea Respiratory: Comments: No shortness of breath no cough no sputum production Gastrointestinal: Comments: No nausea no vomiting no diarrhea no constipation no abdominal pain Musculoskeletal: Comments: Right hip pain, muscle weakness. Integumentary/Breasts: Comments: No rashes Neurologic: Comments: Tremors Exam Narrative: Exam Narrative: Patien
[2021-03-08 12:15] LABS: Glucose Point of Care 155 (65-105)
[2021-03-08 14:00] VITALS: BP 100/51; PULSE 59; RESP 16; TEMP 36.2; O2SAT 100
[2021-03-08 15:48] LABS: SARS-CoV-2 RNA PCR Negative
--- NOTE | 2021-03-08 20:01 | PC.NURSE ---
HR at 54 during 20:00 med pass, holding Coreg until later in the evening and will reassess accordingly. -DENA RN
[2021-03-08 21:38] VITALS: PULSE 52
[2021-03-08 22:00] VITALS: BP 118/64; PULSE 72; RESP 16; TEMP 36.3; O2SAT 98
[2021-03-08 22:49] VITALS: PULSE 57; O2SAT 98
[2021-03-09] MEDS: SODIUM CHLORIDE 0.9% IV 1,000 ML 125 ML IV CONT ×2 (01:31→09:46)
[2021-03-09] MEDS: traMADol HCL (*CRX) 25 MG TABLET PO (02:50)
[2021-03-09] MEDS: ALPRAZolam (*CRX) 0.5 MG TABLET PO ×2 (02:50→12:54)
[2021-03-09 06:00] VITALS: BP 124/62; PULSE 64; RESP 18; TEMP 36.4; O2SAT 99
[2021-03-09 08:01] LABS: Glucose Point of Care 102 (65-105)
[2021-03-09 08:02] VITALS: PULSE 62; O2SAT 98
[2021-03-09] MEDS: MAGNESIUM OXIDE 400 MG TABLET BY MOUTH ×2 (09:40→16:30)
[2021-03-09] MEDS: CARBIDOPA/LEVODOPA 25/100 MG TABLET 4 TABLET PO (09:40)
[2021-03-09] MEDS: ENTACAPONE 200 MG TABLET 400 MG PO (09:40)
[2021-03-09] MEDS: oxyCODONE HCL (*CRX) 5 MG TAB IR 10 MG PO ×2 (09:40→13:58)
[2021-03-09 09:41] VITALS: PULSE 56
[2021-03-09] MEDS: carvediloL 12.5 MG TABLET PO (09:41)
[2021-03-09] MEDS: ESCITALOPRAM OXALATE 10 MG TABLET 20 MG BY MOUTH (09:41)
[2021-03-09] MEDS: DONEPEZIL HCL 10 MG TABLET PO (09:41)
[2021-03-09] MEDS: CHLORTHALIDONE 25 MG TABLET PO (09:41)
[2021-03-09] MEDS: OXYBUTYNIN CHLORIDE 5 MG TABLET BY MOUTH (09:44)
[2021-03-09] MEDS: BUDESONIDE/FORMOTEROL (*SP) 160-4.5 MCG 6 GM INH 2 PUFF INHALATION (09:45)
--- NOTE | 2021-03-09 10:49 | PM.DS ---
DS: Admitting Diagnosis Admitting Diagnosis Admitting Diagnosis: (1) Fall: (2) Gait instability: (3) Contusion of left shoulder: (4) Aftercare following surgery of the musculoskeletal system: (5) Weakness: (6) Acute on chronic renal failure: (7) GERD (gastroesophageal reflux disease): (8) Prostatic hyperplasia: (9) HTN (hypertension): (10) Depression: (11) DAVID (obstructive sleep apnea): (12) DM2 (diabetes mellitus, type 2): DS: Discharge Diagnosis Discharge Diagnosis (1) Fall: Code(s): W19.XXXA - Unspecified fall, initial encounter Status: Acute Assessment and Plan: Patient has been participating with PT OT in therapy sessions (2) Weakness: Code(s): R53.1 - Weakness Status: Acute Assessment and Plan: Likely secondary to fall with hip fracture status post arthroplasty patient went to rehabilitation center however when back and was not able to walk was mainly using a walker and wheelchair (3) Gait instability: Code(s): R26.81 - Unsteadiness on feet Status: Acute Assessment and Plan: Likely secondary to Parkinson's disease (4) Contusion of left shoulder: Code(s): S40.012A - Contusion of left shoulder, initial encounter Status: Acute Assessment and Plan: X-ray show no fractures (5) DAVID (obstructive sleep apnea): Code(s): G47.33 - Obstructive sleep apnea (adult) (pediatric) Status: Acute Assessment and Plan: CPAP at night time (6) Acute on chronic renal failure: Code(s): N17.9 - Acute kidney failure, unspecified; N18.9 - Chronic kidney disease, unspecified Status: Acute Assessment and Plan: Patient received IV fluid hydration and has improved to patient's baseline (7) DM2 (diabetes mellitus, type 2): Qualifiers: Diabetes mellitus care home insulin use: without care home use Diabetes mellitus complication status: without complication Qualified Code(s): E11.9 - Type 2 diabetes mellitus without complications Code(s): E11.9 - Type 2 diabetes mellitus without complications Status: Chronic Assessment and Plan: Patient on oral agents Continue to monitor Accu-Cheks AC and HS (8) Parkinsons: Code(s): G20 - Parkinson's disease Status: Chronic Assessment and Plan: Continue carbidopa -levodopa (9) GERD (gastroesophageal reflux disease): Qualifiers: Esophagitis presence: without esophagitis Qualified Code(s): K21.9 - Gastro-esophageal reflux disease without esophagitis Code(s): K21.9 - Gastro-esophageal reflux disease without esophagitis Status: Chronic Assessment and Plan: PPI as needed (10) HTN (hypertension): Qualifiers: Hypertension type: unspecified Qualified Code(s): I10 - Essential (primary) hypertension Code(s): I10 - Essential (primary) hypertension Status: Chronic Assessment and Plan: Well controlled DS: Summary Hospital Course Reason for hospitalization: Fall Hospital Course: This is a 70-year-old male with past medical history significant for Parkinson's disease, patient had fall on a prior admission to the hospice where he was found to have right hip fracture patient underwent arthroplasty and was discharged to rehabilitation center. Patient comes back after he was at home he had not been walking and he had been using a wheelchair and a walker he stated that things were not really going well. This time around he was found to have some acute on chronic renal failure he received gentle hydration for this and his BUN and creatinine returned to his usual. He participated in therapy sessions with PT and OT He had some issues with pain control for which he has being started on gabapentin will be monitored in the outpatient. Consults obtained: No consults Procedures: No procedures Pat
[2021-03-09 11:53] LABS: Glucose Point of Care 125 (65-105)
[2021-03-09 14:00] VITALS: BP 127/58; PULSE 57; RESP 24; TEMP 36.4; O2SAT 96
[2021-03-09 17:37] LABS: Glucose Point of Care 117 (65-105)
== END 2021-03-09 18:30 | disposition home health service (06) ==
LOC: ANHED 23:29 → ANH3MEDSUR 03-07 02:07
PROVIDERS: Admitting Provider Internal Medicine; Emergency Provider Emergency Medicine; PCP Internal Medicine; Visit Provider Internal Medicine
DX: R53.1 Weakness (principal); W19.XXXA Unspecified fall, initial encounter; S40.012A Contusion of left shoulder, initial encounter; R26.81 Unsteadiness on feet; I12.9 Hypertensive chronic kidney disease with stage 1 through stage 4 chronic kidney disease, or unspecified chronic kidney disease; N17.9 Acute kidney failure, unspecified; N18.9 Chronic kidney disease, unspecified; G20 Parkinson's disease; Z96.641 Presence of right artificial hip joint; E11.22 Type 2 diabetes mellitus with diabetic chronic kidney disease; E78.5 Hyperlipidemia, unspecified; G47.33 Obstructive sleep apnea (adult) (pediatric); J44.9 Chronic obstructive pulmonary disease, unspecified; Z20.822 Contact with and (suspected) exposure to COVID-19
CPT/HCPCS: 36415; 51701; 70450; 71045; 73030; 73502; 80048; 80053; 81001; 82948; 85025; 85027; 85610; 85730; 96361; 96374; 97110; 97116; 97161; 97166; 97530; 97535; 99285; A9270; C9803; G0378; J0131; J7030; U0003; U0005

== ENCOUNTER 2021-09-14 12:02 | Emergency (ER) | payer MEDICARE, SELFPAY ==
--- NOTE | ~2021-09-14 | XR_ITS ---
EXAMINATION: XR chest 2V DATE: 09/14/2021 13:16 INDICATION: Cough and fever. TECHNIQUE: Frontal and lateral views of the chest were obtained. COMPARISON: Chest single view 03/06/2021, chest CT 10/20/2019 FINDINGS: There is no pneumonia, pleural effusion, or pneumothorax. The heart size is normal. Calcifi ed right hilar lymph nodes are consistent with old granulomatous disease. There is a small hiatal her karine. IMPRESSION: 1. No acute cardiopulmonary disease. 2. Small hiatal hernia. Reviewed, dictated and finalized at location A.
[2021-09-14 12:28] VITALS: BP 104/59; PULSE 72; RESP 20; TEMP 37.9; O2SAT 99
--- NOTE | 2021-09-14 12:43 | ED.URI ---
HPI - URI/Sore Throat General Chief Complaint: Upper Respiratory Infection Stated Complaint: Chest Congestion,Cough Time Seen by Provider: 09/14/21 12:44 Source: patient Mode of arrival: ambulatory Limitations: no limitations History of Present Illness HPI Narrative: Mohamud Diaz is a 71-year-old male with a PMH of COPD, high cholesterol, Parkinson's, depression, who comes with general complaints of feel like he might have pneumonia and today complains about shortness of breath and just not feeling well he has a low grade fever. He has been ill since Sunday Related Data Home Medications Medication Instructions Recorded Confirmed carbidopa 50 mg-levodopa 200 2.5 tablet PO TID 05/12/20 09/14/21 mg-entacapone 200 mg tablet atorvastatin 5 mg PO HS 05/14/20 09/14/21 carvedilol 12.5 mg PO BID 05/14/20 09/14/21 cholecalciferol (vitamin D3) 2,000 unit PO DAILY 05/14/20 09/14/21 [D3-1999] escitalopram oxalate 20 mg DAILY 05/14/20 09/14/21 magnesium oxide 400 mg BID 05/14/20 09/14/21 oxybutynin chloride 5 mg BID 05/14/20 09/14/21 chlorthalidone 25 mg PO DAILY 03/07/21 09/14/21 donepezil 10 mg PO BID 03/07/21 09/14/21 hydrocodone-acetaminophen 1 tablet PO TID 09/14/21 09/14/21 Allergies Allergy/AdvReac Type Severity Reaction Status Date / Time fentanyl Allergy Unknown Hives Verified 09/14/21 13:01 meperidine Allergy Unknown Hives Verified 09/14/21 13:01 midazolam Allergy Unknown Hives Verified 09/14/21 13:01 diphenhydramine AdvReac Intermediate AGITATION, Verified 09/14/21 13:01 ANTSY Review of Systems Review of Systems: CONSTITUTIONAL: Denies fever, chills, sweats. He looks ill but is pretty nondescript about symptoms EYES: Denies visual changes, redness, discharge. ENT: Denies rhinorrhea, mild congestion, mild sore throat, otalgia. CARDIOVASCULAR: Mild chest pain-states feels like pneumonia, palpitations, edema. RESPIRATORY: Denies dyspnea, denies wheezing, mild cough GASTROINTESTINAL: Denies abdominal pain, nausea, vomiting, diarrhea. GENITOURINARY: Denies dysuria, hematuria, abnormal discharge SKIN: Denies rash or itching. NEUROLOGIC: Denies numbness, or focal weakness. PSYCHIATRIC: Denies anxiety or depression. [facility] Past Medical History Medical History (Updated 09/14/21 @ 13:54 by Mignon Pereyra CNP) Borderline hyperlipidemia Cardiomyopathy Cataract Chronic narcotic dependence COPD (chronic obstructive pulmonary disease) Dementia Depression Previous suicide attempt 2012 DM2 (diabetes mellitus, type 2) GERD (gastroesophageal reflux disease) HTN (hypertension) Kidney congenitally absent, left Migraine DAVID (obstructive sleep apnea) The patient has tried oral apparatus and CPAP and has not been able to tolerated. Parkinsons Pilonidal cyst Prostatic hyperplasia Surgical History Surgical History H/O left cataract extraction H/O repair of rotator cuff On the right History of nasal septoplasty History of repair of ACL Bilateral History of surgical removal of pilonidal cyst Hx of cardiac catheterization Hx of cholecystectomy Hx of tonsillectomy Family History Family History Father Family history of cardiovascular disease Malignant neoplasm of prostate Mother Breast cancer Family history of chronic obstructive pulmonary disease Acute myocardial infarction Chronic obstructive pulmonary disease Sibling Prostate carcinoma Social History Social History Social History: The patient is they have 1 son and he has 2 step children as well. 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
== END 2021-09-14 13:57 | disposition home or self-care (01) ==
PROVIDERS: Emergency Provider Nurse Practitioner; PCP Internal Medicine
DX: R05.9 Cough, unspecified (principal); R50.9 Fever, unspecified; Z20.822 Contact with and (suspected) exposure to COVID-19; I42.9 Cardiomyopathy, unspecified; J44.9 Chronic obstructive pulmonary disease, unspecified; F32.A Depression, unspecified; E11.9 Type 2 diabetes mellitus without complications; K21.9 Gastro-esophageal reflux disease without esophagitis; G47.33 Obstructive sleep apnea (adult) (pediatric); G20 Parkinson's disease; F02.80 Dementia in other diseases classified elsewhere, unspecified severity, without behavioral disturbance, psychotic disturbance, mood disturbance, and anxiety; Z98.42 Cataract extraction status, left eye
CPT/HCPCS: 71046; 87426; 87804; 99213; C9803; G0463

== ENCOUNTER 2021-09-21 11:16 | Inpatient (IN) | payer MEDICARE, SELFPAY ==
[2021-09-21] VITALS (18 sets, daily range): BP systolic 88–126; BP diastolic 46–59; PULSE 53–74; RESP 11–20; TEMP 36.1–36.7; O2SAT 93–100; BMI 31.8
--- NOTE | 2021-09-21 | ECG_ITS ---
Measurements Intervals [place] Rate: 55 P: 80 GA: 282 QRS: -35 QRSD: 180 T: 69 QT: 558 QTc: 537 Interpretive Statements SINUS BRADYCARDIA WITH FIRST DEGREE AV BLOCK LEFT AXIS DEVIATION LEFT BUNDLE BRANCH BLOCK ABNORMAL ECG Electronically Signed On 09-21-2021 16:01:53 CDT by Bin Awad D.O.
--- NOTE | ~2021-09-21 | XR_ITS ---
EXAMINATION: XR chest 1V DATE: 09/21/2021 13:15 INDICATION: Cough. TECHNIQUE: A single frontal view of the chest was obtained. COMPARISON: Chest 2 views 09/14/2021, CT abdomen and pelvis 04/07/2019 FINDINGS: There is no pneumonia, pleural effusion, or pneumothorax. The heart size is normal. Calcifi ed right hilar lymph nodes are consistent with old granulomatous disease. There is a small hiatal her karine. IMPRESSION: 1. Small hiatal hernia. Reviewed, dictated and finalized at location A. IMPRESSION: 1. Small hiatal hernia.
--- NOTE | ~2021-09-21 | XR_ITS ---
EXAMINATION: XR femur RT min 2V DATE: 09/21/2021 13:14 INDICATION: Right thigh erythema and wound. TECHNIQUE: 2 views of right femur on 5 radiographs were obtained. COMPARISON: Pelvis and right hip radiographs 06/24/2021 FINDINGS: There is a healed intertrochanteric fracture of right femoral neck with internal fixation w ith antegrade intramedullary uri, distal interlocking screw, and femoral head/neck screw. There are c hanges of anterior cruciate ligament reconstruction with interference screw in distal femur and stapl e in proximal tibia. There is severe right knee osteoarthritis and mild right hip osteoarthritis. No knee joint effusion. IMPRESSION: 1. Polyarticular osteoarthritis. Reviewed, dictated and finalized at location A.
--- NOTE | ~2021-09-21 | US_ITS ---
EXAMINATION: US venous doppler LE EXAM DATE: 09/21/2021 12:05 INDICATION: Right leg pain. TECHNIQUE: Multiple grayscale, color flow and Doppler images of the right lower extremity deep venous system were obtained and reviewed. Comparison is made to prior examination from 04/18/2019. FINDINGS: The right common femoral, femoral and profunda veins demonstrate normal color flow, respira tory variation, augmentation and compressibility. Compressibility, color flow confirmed within the r ight popliteal, posterior tibial, peroneal, and greater saphenous veins. IMPRESSION: 1. No right lower extremity deep venous thrombosis. Reviewed, dictated and finalized at location B.
[2021-09-21] MEDS: SODIUM CHLORIDE 0.9% IV 1,000 ML 999 ML IV CONT ×2 (12:18→14:50)
[2021-09-21 12:25] LABS: Basophils Absolute Auto 0.1 K/mm3 (0.0-0.1); Basophils Percent Auto 0.3 % (0.2-1.2); Hematocrit 30.9 % (42.0-52.0); Hemoglobin 10.1 g/dL (14.0-18.0); Immature Granulocyte Absolute 0.63 K/mm3 (0.00-0.031); Immature Granulocyte Percent A 2.3 % (0-0.5); Lymphocytes Absolute Auto 1.68 K/mm3 (0.9-3.2); Lymphocytes Percent Auto 6.3 % (18.3-44.2); Mean Corpuscular HGB Conc 32.7 g/dl (32-36); Mean Corpuscular Hemoglobin 30.7 pg (26-34); Mean Corpuscular Volume 93.9 fl (80-100); Mean Platelet Volume 8.2 fl (7.4-10.4); Monocytes Absolute Auto 2.3 K/mm3 (0.1-0.6); Monocytes Percent Auto 8.5 % (2.6-8.5); Neutrophils Absolute Auto 22.1 K/mm3 (1.3-6.7); Neutrophils Percent Auto 82.6 % (45.5-73.1); Platelet Count Result 411 k/mm3 (150-375); Red Blood Count 3.29 M/mm3 (4.6-6.20); Red Cell Distribution Width 13.8 % (11.5-14.5); White Blood Count 26.8 K/mm3 (4.5-10.0)
[2021-09-21 12:36] LABS: Lactic Acid Reflex 1.4 mmol/L (0.7-2.1)
[2021-09-21 12:37] LABS: Alanine Aminotransferase 8 U/L (4-50); Albumin Level 3.8 g/dL (3.5-5.1); Alkaline Phosphatase 114 U/L (38-126); Anion Gap 12 mmol/L (8-16); Aspartate Amino Transferase 30 U/L (17-59); Bilirubin,Total 0.7 mg/dL (0.2-1.3); Blood Urea Nitrogen 39 mg/dL (9-20); Calcium 9.5 mg/dL (8.4-10.2); Carbon Dioxide 21 mmol/L (22-30); Chloride 100 mmol/L (98-107); Estimated CRCL calculation 27 ml/min; Estimated Glomerular Filt Rate 25; Glucose 177 mg/dL (65-110); INR 1.3; Potassium 4.2 mmol/L (3.4-5.0); Prothrombin Time 16.1 Seconds (11.1-14.7); Sodium 133 mmol/L (137-145)
--- NOTE | 2021-09-21 13:52 | ED.WEAKNESS ---
HPI - Weakness General Chief complaint: Weakness Stated complaint: WEAKNESS,CELLULITIS Time Seen by Provider: 09/21/21 11:18 Source: RN notes reviewed History of Present Illness HPI Narrative: Patient presents emergency department from home via EMS for weakness. Patient states he been feeling progressively more weak for the past 1 week he also states for the past 3 days he has been having redness to his right leg with swelling he states he has a history of cellulitis in that leg and feels like is similar episodes of cellulitis he denies any fevers or chills chest pain shortness of breath abdominal pain nausea vomiting. Patient states he is on antibiotics at this time states he normally walks with a cane Related Data Home Medications Medication Instructions Recorded Confirmed alprazolam 09/21/21 atorvastatin 09/21/21 carbidopa-levodopa tablet PO 09/21/21 chlorthalidone 09/21/21 cholecalciferol (vitamin D3) 09/21/21 [Vitamin D3] donepezil mg 09/21/21 escitalopram oxalate mg 09/21/21 fluticasone furoate-vilanterol INHALATION 09/21/21 [Breo Ellipta] glipizide-metformin tablet 09/21/21 hydrocodone-acetaminophen tablet 09/21/21 magnesium oxide mg 09/21/21 oxybutynin chloride mg PO 09/21/21 Allergies Allergy/AdvReac Type Severity Reaction Status Date / Time No Known Allergies Allergy Verified 09/21/21 11:25 Review of Systems Review of Systems: Gen.: Denies fevers or chills ENT: Denies congestion Respiratory: Denies shortness of breath or cough CV: Denies chest pain or palpitations GI: Denies abdominal pain nausea, emesis or diarrhea Musculoskeletal: Denies back pain or muscle pain Neuro: Reports weakness Skin: Reports redness of right leg Except as documented, all other systems reviewed and negative [facility] Past Medical History Medical History Borderline hyperlipidemia Cardiomyopathy Cataract Chronic narcotic dependence COPD (chronic obstructive pulmonary disease) Dementia Depression Previous suicide attempt 2012 DM2 (diabetes mellitus, type 2) GERD (gastroesophageal reflux disease) HTN (hypertension) Kidney congenitally absent, left Migraine DAVID (obstructive sleep apnea) The patient has tried oral apparatus and CPAP and has not been able to tolerated. Parkinsons Pilonidal cyst Prostatic hyperplasia Surgical History Surgical History H/O left cataract extraction H/O repair of rotator cuff On the right History of nasal septoplasty History of repair of ACL Bilateral History of surgical removal of pilonidal cyst Hx of cardiac catheterization Hx of cholecystectomy Hx of tonsillectomy Family History Family History Father Family history of cardiovascular disease Malignant neoplasm of prostate Mother Breast cancer Family history of chronic obstructive pulmonary disease Acute myocardial infarction Chronic obstructive pulmonary disease Sibling Prostate carcinoma Social History Social History Social History: The patient is they have 1 son and he has 2 step children as well. 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 Gender identity (if verbalized by the patient): Male Sexual Orientation (if Verbalized by the Patient): Straight or Heterosexual Spiritual care concerns: No Exam Narrative: APPEARANCE: No acute distress, nontoxic, resting in bed EYES: EOMI HEENT: Normocephalic, atraumatic, OMM RESPIRATORY: No respiratory distress Clear to
[2021-09-21 14:13] LABS: Add Urine Microscopic? YES; Appearance Urine Cloudy (Clear); Bilirubin Urine Negative (Negative); Blood Urine Negative (Negative); Color Urine Amber (Yellow); Glucose Urine UA Negative (Negative); Ketones Urine Trace mg/dL (Negative); Leukocyte Esterase Ur Negative LEU/UL (Negative); Mucus Urine Rare /lpf; Nitrate Urine Negative (Negative); Protein Urine 1+ mg/dL (Negative); Squamous Epithelial Cell Urine Rare /hpf (Few); Urobilinogen Urine Negative mg/dL (<2.0); WBC Urine 0-3 /hpf
--- NOTE | 2021-09-21 16:23 | PM.IMHP ---
H&P: HPI History of Present Illness Date/Time: 09/21/21 16:23 this is a 71-year-old male patient who resides home alone with Alzheimer's and dementia. The patient came to the emergency room for complaints of weakness. The patient was seen in the urgent care 1 week ago for an upper respiratory infection but states he was never given any antibiotics. The patient stated that he had redness and swelling to his right leg but never showed of his right leg in the urgent care. The patient has multiple bruising and redness to his right leg. Patient has bruises to his left leg is well-known. The patient apparently has been falling. He denies any fever chills. His white count is noted to be 26.8. Blood cultures were obtained. 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 Chest x-ray was read as small hiatal hernia. Venous Doppler was read as no right lower extremity DVT. The patient is diabetic therefore he was started on Primaxin and vancomycin as per diabetic cellulitis antibiotic stewardship. H&H is 10.1 and 30.9. Creatinine is 2.6 with a baseline somewhere between 1.8 and 2.7. Glucose is 177. Patient is being admitted to observation status the date of service of 09/21/2020 Chief Complaint: Weakness Review of Systems Review of Systems: All systems reviewed & are unremarkable except as noted in HPI and below Constitutional: Constitutional: Reports as per HPI and Reports no additional constitutional complaints Eyes: Eyes: Reports as per HPI and Reports no additional eye complaints ENT: Reports system reviewed and no additional complaints, except as documented and Reports Normal hearing present Cardiovascular: Cardiovascular: Reports no additional cardiovascular complaints Respiratory: Respiratory: Reports no additional respiratory complaints and Reports no additional respiratory complaints Gastrointestinal: Gastrointestinal: Reports as per HPI and Reports no additional gastrointestinal complaints Musculoskeletal: Musculoskeletal: Reports no additional musculoskeletal complaints Integumentary/Breasts: Skin/Breast: Reports system reviewed and no additional complaints, except as docu and Reports as per HPI Neurologic: Reports system reviewed and no additional complaints, except as documented, Reports as per HPI and Reports Normal hearing present Psychiatric: Psychiatric: Reports no additional psychiatric complaints and Reports as per HPI Endocrine: Endocrine: Reports no additional endocrine complaints Hematologic/Lymphatic: Hematologic/Lymphatic: Reports no additional hematologic/lymphatic complaints Allergic/Immunologic: Allergic/Immunologic: Reports no additional allergic/immunologic complaints [facility] Past Medical History Medical History Borderline hyperlipidemia Cardiomyopathy Cataract Chronic narcotic dependence COPD (chronic obstructive pulmonary disease) Dementia Depression Previous suicide attempt 2012 DM2 (diabetes mellitus, type 2) GERD (gastroesophageal reflux disease) HTN (hypertension) Kidney congenitally absent, left Migraine DAVID (obstructive sleep apnea) The patient has tried oral apparatus and CPAP and has not been able to tolerated. Parkinsons Pilonidal cyst Prostatic hyperplasia Surgical History Surgical History H/O left cataract extraction H/O repair of rotator cuff On the right History of nasal septoplasty History of repair of ACL Bilateral History of surgical removal of pilonidal cyst Hx of cardiac catheterization Hx of cholecystectomy Hx of tonsillectomy Family History Family History Father Family history of cardiovascular disease Malignant neoplasm of prostate Mother Breast cancer Family history of chronic obstructive pulmonary disease Acute myocardial infarction Chronic obstructive pulmonary disease Sib
[2021-09-21] MEDS: SODIUM CHLORIDE 0.9% IV 1,000 ML 100 ML IV CONT (18:43)
[2021-09-21 22:10] LABS: Glucose Point of Care 163 mg/dl (65-105)
[2021-09-22] MEDS: HYDROcodone/acetaminophen (*CRX) 10-325 MG TABLET 1 TAB PO ×3 (00:31→13:39)
[2021-09-22] MEDS: ALPRAZolam (*CRX) 0.5 MG TABLET PO ×4 (00:32→20:39)
[2021-09-22] MEDS: CARBIDOPA/LEVODOPA 25/100 MG CR TABLET 2 TABLET PO ×3 (01:58→17:07)
[2021-09-22 05:27] LABS: Glucose Point of Care 143 mg/dl (65-105)
[2021-09-22] MEDS: SODIUM CHLORIDE 0.9% IV 1,000 ML 100 ML IV CONT ×2 (05:45→17:17)
[2021-09-22 06:00] VITALS: BP 113/65; PULSE 65; RESP 18; TEMP 36.4; O2SAT 97
[2021-09-22 06:23] LABS: Basophils Absolute Auto 0.1 K/mm3 (0.0-0.1); Basophils Percent Auto 0.2 % (0.2-1.2); Eosinophils Absolute Auto 0.1 K/mm3 (0-0.3); Eosinophils Percent Auto 0.3 % (0-4.4); Hematocrit 27.9 % (42.0-52.0); Hemoglobin 8.7 g/dL (14.0-18.0); Immature Granulocyte Percent A 1.8 % (0-0.5); Lymphocytes Absolute Auto 2.08 K/mm3 (0.9-3.2); Lymphocytes Percent Auto 9.6 % (18.3-44.2); Mean Corpuscular HGB Conc 31.2 g/dl (32-36); Mean Corpuscular Hemoglobin 30.1 pg (26-34); Mean Corpuscular Volume 96.5 fl (80-100); Mean Platelet Volume 8.4 fl (7.4-10.4); Monocytes Absolute Auto 1.9 K/mm3 (0.1-0.6); Monocytes Percent Auto 8.6 % (2.6-8.5); Neutrophils Absolute Auto 17.3 K/mm3 (1.3-6.7); Neutrophils Percent Auto 79.5 % (45.5-73.1); Platelet Count Result 361 k/mm3 (150-375); Red Blood Count 2.89 M/mm3 (4.6-6.20); White Blood Count 21.8 K/mm3 (4.5-10.0)
[2021-09-22 06:25] LABS: Albumin Level 2.7 g/dL (3.5-5.1); Alkaline Phosphatase 83 U/L (38-126); Anion Gap 12 mmol/L (8-16); Aspartate Amino Transferase 19 U/L (17-59); Bilirubin,Total 0.4 mg/dL (0.2-1.3); Blood Urea Nitrogen 34 mg/dL (9-20); Calcium 8.8 mg/dL (8.4-10.2); Carbon Dioxide 18 mmol/L (22-30); Chloride 104 mmol/L (98-107); Estimated CRCL calculation 38 ml/min; Estimated Glomerular Filt Rate 31; Glucose 139 mg/dL (65-110); Potassium 4.2 mmol/L (3.4-5.0); Sodium 134 mmol/L (137-145)
[2021-09-22 07:39] LABS: Alanine Aminotransferase < 4 U/L (4-50)
[2021-09-22 07:44] LABS: Glucose Point of Care 139 mg/dl (65-105)
[2021-09-22] MEDS: MAGNESIUM OXIDE 400 MG TABLET PO ×2 (08:46→17:08)
[2021-09-22] MEDS: ESCITALOPRAM OXALATE 10 MG TABLET 20 MG PO (08:46)
[2021-09-22] MEDS: CHOLECALCIFEROL 1,000 UNITS TABLET 2000 UNITS PO (08:46)
[2021-09-22] MEDS: DONEPEZIL HCL 10 MG TABLET PO ×2 (08:47→17:07)
[2021-09-22 11:50] LABS: Glucose Point of Care 181 mg/dl (65-105)
--- NOTE | 2021-09-22 12:14 | WPDNEURCNPN ---
Assessment and Plan Additional Plan in addition to multiple comorbid condition patient is Parkinson has been taking carbidopa levodopa 50/200 ER 2 tablets b.i.d. in addition to donepezil 10 mg b.i.d. for the memory dysfunction and decided low prime 20 mg daily for ongoing depression medications will be continued as such further adjustment will be made accordingly if on repeat examination he is found to have need for 8 Consult date: 09/22/21 HPI: Mohamud Diaz is a 71 year old male admitted to the hospital for the complaints of generalized weakness reportedly he was in the urgent care 1 week ago for an upper respiratory infection though he never received the antibiotics he was noted to have the redness and swelling to his right lower extremity which he had never show to the urgent care he was found here multiple bruising redness to the right lower extremity and bruises to his left lower extremity were also known before gave no history of fever or chills white cell count was 26.8 blood cultures were obtained the x-ray of the femur on the right side revealed polyarticular osteoarthritis chest x-ray was with small hiatal hernia Doppler study of the right lower extremity were negative for DVT was started on primaxin because he is diabetic also vancomycin. Patient does have in in the past history of cardiomyopathy chronic narcotic dependence COPD dementia or depression type 2 diabetes mellitus hypertension congenitally absent left kidney obstructive sleep apnea Parkinson's disease paranoid will cyst and prostatic hyperplasia, x-ray of the femur compatible with poly articular osteoarthritis, negative did Doppler study of the veins and chest x-ray with small hiatal hernia Review of Systems Review of Systems: All systems reviewed & are unremarkable except as noted in HPI and below PMFSH Past Medical History Medical History Borderline hyperlipidemia Cardiomyopathy Cataract Chronic narcotic dependence COPD (chronic obstructive pulmonary disease) Dementia Depression Previous suicide attempt 2012 DM2 (diabetes mellitus, type 2) GERD (gastroesophageal reflux disease) HTN (hypertension) Kidney congenitally absent, left Migraine DAVID (obstructive sleep apnea) The patient has tried oral apparatus and CPAP and has not been able to tolerated. Parkinsons Pilonidal cyst Prostatic hyperplasia Surgical History Surgical History H/O left cataract extraction H/O repair of rotator cuff On the right History of nasal septoplasty History of repair of ACL Bilateral History of surgical removal of pilonidal cyst Hx of cardiac catheterization Hx of cholecystectomy Hx of tonsillectomy Family History Family History Father Family history of cardiovascular disease Malignant neoplasm of prostate Mother Breast cancer Family history of chronic obstructive pulmonary disease Acute myocardial infarction Chronic obstructive pulmonary disease Sibling Prostate carcinoma Social History Social History Social History: The patient is they have 1 son and he has 2 step children as well. 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 Lifelong nonsmoker Code status full code Smoking status: Never smoker Second hand tobacco smoke exposure: No Alcohol intake: former Substance use: never Substance use type: does not use Last use: 08/2019 Additional living arrangements comments: He states that his son comes and checks up on him. Gender identity (if verbalized by the patient): Male Sexual Orientation (if Verbalized by the Patient): Straight or Heterosexual Spiritual care concerns: No Meds Home Medications and Allergies Home Medications Medication Instructions Recorded Con
[2021-09-22] MEDS: MUPIROCIN 2% OINT 22 GM TUBE 1 APPLIC TOPICAL ×2 (13:38→20:39)
[2021-09-22 14:00] VITALS: BP 112/60; PULSE 89; RESP 18; TEMP 36.4; O2SAT 100
--- NOTE | 2021-09-22 15:40 | PM.IMPN ---
Progress Note: A&P Assessment and Plan (1) Cellulitis of leg, right: Code(s): L03.115 - Cellulitis of right lower limb Status: Acute Assessment and Plan: Patient was started on Primaxin and Rocephin. Pending blood cultures. 09/22 Interval history patient with history of Parkinson's and has been taking carbidopa levodopa 50/200 ER 2 tabs twice a day and donepezil 10 mg b.i.d. patient with his memory dysfunction and unsteady gaite, patient is seen by neurologist and further recommendation to follow, has been folling presented emergency depart with redness swelling of right lower extremity, DVT is negative, for cellulitis was started on primaxin because he is diabetic also vancomycin. patient blood sugar close to normal will do the hemoglobin A1c, will have PT OT evaluate the patient and further recommendation to follow (2) Acute on chronic renal insufficiency: Code(s): N28.9 - Disorder of kidney and ureter, unspecified; N18.9 - Chronic kidney disease, unspecified Status: Acute Assessment and Plan: Continue with IV fluids for tonight please re-evaluate the need for IV fluids tomorrow. Repeat labs in the a.m.. Patient's creatinine is slightly worse than normal. Avoid any nephrotoxic medication. Hold diuretic (3) DM2 (diabetes mellitus, type 2): Qualifiers: Diabetes mellitus nursing home insulin use: without nursing home use Diabetes mellitus complication status: without complication Qualified Code(s): E11.9 - Type 2 diabetes mellitus without complications Code(s): E11.9 - Type 2 diabetes mellitus without complications Status: Chronic Assessment and Plan: Accu-Cheks AC and HS. Sliding scale insulin. Hold metformin. (4) Parkinsons: Code(s): G20 - Parkinson's disease Status: Chronic Assessment and Plan: Continue with Parkinson's medicine. The patient has been falling at home and did ask for chronic care nurse consult for possible rehab placement. PT and OT evaluation with greatly be appreciated. (5) Prostatic hyperplasia: Code(s): N40.0 - Benign prostatic hyperplasia without lower urinary tract symptoms Status: Chronic Assessment and Plan: Continue with home medications. (6) GERD (gastroesophageal reflux disease): Qualifiers: Esophagitis presence: without esophagitis Qualified Code(s): K21.9 - Gastro-esophageal reflux disease without esophagitis Code(s): K21.9 - Gastro-esophageal reflux disease without esophagitis Status: Chronic Assessment and Plan: Continue with home medications. (7) HTN (hypertension): Qualifiers: Hypertension type: unspecified Qualified Code(s): I10 - Essential (primary) hypertension Code(s): I10 - Essential (primary) hypertension Status: Chronic Assessment and Plan: Hold diuretics (8) Depression: Qualifiers: Depression Type: unspecified Qualified Code(s): F32.9 - Major depressive disorder, single episode, unspecified Code(s): F32.9 - Major depressive disorder, single episode, unspecified Status: Chronic Assessment and Plan: Continue with Lexapro Subjective Date/time seen: 09/22/21 15:40 this is a 71-year-old male patient who resides home alone with Alzheimer's and dementia. The patient came to the emergency room for complaints of weakness. The patient was seen in the urgent care 1 week ago for an upper respiratory infection but states he was never given any antibiotics. The patient stated that he had redness and swelling to his right leg but never showed of his right leg in the urgent care. The patient has multiple bruising and redness to his right leg. Patient has bruises to his left leg is well-known. The patient apparently has been falling. He denies any fever chills. His white count is noted to be 26.8. Blood cultures were obtained. 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
[2021-09-22 16:50] LABS: Glucose Point of Care 230 mg/dl (65-105)
[2021-09-22] MEDS: INSULIN ASPART (*BKC) 100 UNITS/ML SUB-Q (17:09)
[2021-09-22] MEDS: MORPHINE SULFATE (*CRX) 2 MG/ML INJ IV PUSH ×2 (17:16→22:26)
[2021-09-22 20:25] VITALS: O2SAT 94
[2021-09-22] MEDS: ATORVASTATIN 5 MG TABLET PO (20:39)
[2021-09-22 22:00] VITALS: BP 121/62; PULSE 56; RESP 21; TEMP 36.2; O2SAT 100
[2021-09-22 22:01] LABS: Glucose Point of Care 130 mg/dl (65-105)
[2021-09-23] MEDS: MORPHINE SULFATE (*CRX) 2 MG/ML INJ IV PUSH ×4 (02:27→18:40)
[2021-09-23] MEDS: HYDROcodone/acetaminophen (*CRX) 10-325 MG TABLET 1 TAB PO (04:48)
[2021-09-23] MEDS: SODIUM CHLORIDE 0.9% IV 1,000 ML 100 ML IV CONT ×2 (04:49→15:02)
[2021-09-23 06:00] VITALS: BP 115/59; PULSE 57; RESP 20; TEMP 36.7; O2SAT 98
[2021-09-23 06:27] LABS: Hematocrit 27.2 % (42.0-52.0); Hemoglobin 8.7 g/dL (14.0-18.0); Mean Corpuscular Hemoglobin 30.5 pg (26-34); Mean Corpuscular Volume 95.4 fl (80-100); Mean Platelet Volume 8.6 fl (7.4-10.4); Platelet Count Result 366 k/mm3 (150-375); Red Blood Count 2.85 M/mm3 (4.6-6.20); White Blood Count 14.3 K/mm3 (4.5-10.0)
[2021-09-23 07:06] LABS: Anion Gap 11 mmol/L (8-16); Blood Urea Nitrogen 30 mg/dL (9-20); Calcium 8.3 mg/dL (8.4-10.2); Carbon Dioxide 18 mmol/L (22-30); Chloride 104 mmol/L (98-107); Estimated CRCL calculation 46 ml/min; Estimated Glomerular Filt Rate 40; Glucose 146 mg/dL (65-110); Potassium 4.5 mmol/L (3.4-5.0); Sodium 133 mmol/L (137-145)
[2021-09-23 07:50] LABS: Glucose Point of Care 120 mg/dl (65-105)
[2021-09-23 08:00] VITALS: PULSE 57; RESP 20; O2SAT 98
[2021-09-23] MEDS: CHOLECALCIFEROL 1,000 UNITS TABLET 2000 UNITS PO (09:32)
[2021-09-23] MEDS: CARBIDOPA/LEVODOPA 25/100 MG CR TABLET 2 TABLET PO ×2 (09:32→16:58)
[2021-09-23] MEDS: MUPIROCIN 2% OINT 22 GM TUBE 1 APPLIC TOPICAL ×2 (09:32→21:03)
[2021-09-23] MEDS: DONEPEZIL HCL 10 MG TABLET PO ×2 (09:32→17:10)
[2021-09-23] MEDS: ESCITALOPRAM OXALATE 10 MG TABLET 20 MG PO (09:32)
[2021-09-23] MEDS: ALPRAZolam (*CRX) 0.5 MG TABLET PO ×3 (09:33→16:58)
[2021-09-23] MEDS: MAGNESIUM OXIDE 400 MG TABLET PO ×2 (09:33→16:59)
[2021-09-23 12:33] LABS: Glucose Point of Care 160 mg/dl (65-105)
--- NOTE | 2021-09-23 12:51 | WPDNEUROPN ---
Progress Note: A&P Additional Plan considering the stable status as far as the Parkinson's is concern treatment will be continued as such he will benefit from the conditioning exercises for the ongoing Parkinson's disease Time Spent With Patient Time with patient: less than 15 minutes Subjective Date/time seen: 09/23/21 12:51 71 years old with ongoing diagnosis of Parkinson's disease for which he is taking carbidopa levodopa 50/200 extended release 2 tablets twice a day in addition to donepezil 10 mg b.i.d. for the memory dysfunction ultrasound of the venous Doppler right lower extremity revealed no DVT, routine labs with leukocytosis hemoglobin 8.7, SARS-CoV-2 COVID negative, Review of Systems Review of Systems: All systems reviewed & are unremarkable except as noted in HPI and below Exam Narrative: remains awake alert cooperative follows instructions very well, his speech not dysphasic not dysarthric nor dysphonic extraocular movements are full with no nystagmus, no restriction of the gaze in the vertical directions face symmetric tongue midline with no fasciculation motor examination revealed him to have generalized deconditioning with subtle cogwheeling reflexes are symmetrical Objective Data Vital Signs Vital Signs: Vital Signs - 24 hr 09/22/21 14:00 09/22/21 20:25 09/22/21 22:00 Temperature 36.4 C L 36.2 C L Pulse Rate 89 56 L Respiratory Rate 18 21 H Blood Pressure 112/60 121/62 Pulse Oximetry 100 94 100 09/23/21 06:00 09/23/21 08:00 Temperature 36.7 C Pulse Rate 57 L 57 L Respiratory Rate 20 20 Blood Pressure 115/59 L Pulse Oximetry 98 98 Intake/Output Intake/Output: Intake & Output 09/20/21 09/21/21 09/22/21 09/23/21 23:59 23:59 23:59 23:59 Intake Total 2890 3812 1810 Output Total 400 950 Balance 2890 3412 860 Meds/Results Medications: Active Medications Generic Name Dose Route Start Last Admin Trade Name Freq PRN Reason Stop Dose Admin Hydrocodone Bitart/Acetaminophen 1 tab 09/22/21 00:22 09/23/21 04:48 Hydrocodone/Acetaminophen (*Crx) 10-325 Mg Tablet PO 1 tab TID PRN Administration Pain Rated 4-6 Alprazolam 0.5 mg 09/21/21 22:58 09/23/21 09:33 Alprazolam (*Crx) 0.5 Mg Tablet PO 0.5 mg TID PRN Administration Anxiety Atorvastatin Calcium 5 mg 09/22/21 21:00 09/22/21 20:39 Atorvastatin 5 Mg Tablet PO 5 mg HS LAI Administration Budesonide/Formoterol Fumarate 2 puff 09/22/21 08:00 09/23/21 10:25 Budesonide/Form 160-4.5 Mcg (*Sp) INHALATION 2 puff Q12HRT LAI Administration Carbidopa/Levodopa 2 tablet 09/22/21 08:00 09/23/21 09:32 Carbidopa/Levodopa 25/100 Mg Cr Tablet PO 2 tablet BIDWM LAI Administration Dextrose 12.5 gm 09/21/21 16:56 Dextrose 50% 25 Gm/50 Ml Syringe IV PUSH PRN PRN Hypoglycemia Protocol Donepezil HCl 10 mg 09/22/21 09:00 09/23/21 09:32 Donepezil Hcl 10 Mg Tablet PO 10 mg BID LAI Administration Escitalopram Oxalate 20 mg 09/22/21 09:00 09/23/21 09:32 Escitalopram Oxalate 10 Mg Tablet PO 20 mg DAILY LAI Administration Glucagon 1 mg 09/21/21 16:56 Glucagon For Inj 1 Mg Vial IM PRN PRN Hypoglycemia Protocol Glucose 15 gm 09/21/21 16:56 Glucose Oral Gel 15 Gm Of Glucse In 37.5 Gm Tube PO PRN PRN Hypoglycemia Protocol Imipenem/Cilastatin Sodium 500 mg in 100 mls @ 300 mls/hr 09/22/21 02:00 09/23/21 02:55 Primaxin 500 Mg/D5w 100 Ml IVPB Infused Q12H LAI Infusion Sodium Chloride 1,000 mls @ 100 mls/hr 09/21/21 13:40 09/23/21 04:49 Normal Saline Iv IV CONT 100 mls/hr .Q10H LAI Administration Vancomycin HCl 1,500 mg in 500 mls @ 333.333 mls/hr 09/22/21 14:00 09/22/21 16:00 Vancomycin 1,500 Mg/D5w 500 Ml IVPB Infused Q24H LAI Infusion Dextrose 1,000 mls @ 100 mls/hr 09/21/21 16:56 Dextrose 5% 1,000 Ml IVPB PRN PRN Hypoglycemia Protocol Insulin Aspart 2 - 5 un
--- NOTE | 2021-09-23 13:37 | PM.IMPN ---
Progress Note: A&P Assessment and Plan (1) Cellulitis of leg, right: Code(s): L03.115 - Cellulitis of right lower limb Status: Acute Assessment and Plan: Patient was started on Primaxin and Rocephin. Pending blood cultures. 09/22 Interval history patient with history of Parkinson's and has been taking carbidopa levodopa 50/200 ER 2 tabs twice a day and donepezil 10 mg b.i.d. patient with his memory dysfunction and unsteady gaite, patient is seen by neurologist and further recommendation to follow, has been folling presented emergency depart with redness swelling of right lower extremity, DVT is negative, for cellulitis was started on primaxin because he is diabetic also vancomycin. patient blood sugar close to normal will do the hemoglobin A1c, will have PT OT evaluate the patient and further recommendation to follow. 09/23 Interval history patient states pain, redness and swelling has not improved much, x-ray of the femur showed polyarticular arthritis, patient being treated with a imipenem and vancomycin, his white counts are trending down he has no fever and blood culture no growth so far, seen by neurologist recommending continue present management for Parkinson disease, and patient will benefit with PT OT, will continue to monitor and further recommendation to follow (2) Acute on chronic renal insufficiency: Code(s): N28.9 - Disorder of kidney and ureter, unspecified; N18.9 - Chronic kidney disease, unspecified Status: Acute Assessment and Plan: Continue with IV fluids for tonight please re-evaluate the need for IV fluids tomorrow. Repeat labs in the a.m.. Patient's creatinine is slightly worse than normal. Avoid any nephrotoxic medication. 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 Sliding scale insulin. Hold metformin. (4) Parkinsons: Code(s): G20 - Parkinson's disease Status: Chronic Assessment and Plan: Continue with Parkinson's medicine. The patient has been falling at home and did ask for career resource technician consult for possible rehab placement. PT and OT evaluation with greatly be appreciated. (5) Prostatic hyperplasia: Code(s): N40.0 - Benign prostatic hyperplasia without lower urinary tract symptoms Status: Chronic Assessment and Plan: Continue with home medications. (6) GERD (gastroesophageal reflux disease): Qualifiers: Esophagitis presence: without esophagitis Qualified Code(s): K21.9 - Gastro-esophageal reflux disease without esophagitis Code(s): K21.9 - Gastro-esophageal reflux disease without esophagitis Status: Chronic Assessment and Plan: Continue with home medications. (7) HTN (hypertension): Qualifiers: Hypertension type: unspecified Qualified Code(s): I10 - Essential (primary) hypertension Code(s): I10 - Essential (primary) hypertension Status: Chronic Assessment and Plan: Hold diuretics (8) Depression: Qualifiers: Depression Type: unspecified Qualified Code(s): F32.9 - Major depressive disorder, single episode, unspecified Code(s): F32.9 - Major depressive disorder, single episode, unspecified Status: Chronic Assessment and Plan: Continue with Lexapro Subjective Date/time seen: 09/23/21 13:37 09/22 Interval history patient with history of Parkinson's and has been taking carbidopa levodopa 50/200 ER 2 tabs twice a day and donepezil 10 mg b.i.d. patient with his memory dysfunction and unsteady gaite, patient is seen by neurologist and further recommendation t
[2021-09-23 14:00] VITALS: BP 143/69; PULSE 58; RESP 20; TEMP 36.3; O2SAT 99
[2021-09-23 15:28] LABS: Vancomycin Trough 11.3 ug/mL (10.0-20.0)
[2021-09-23] MEDS: INSULIN ASPART (*BKC) 100 UNITS/ML SUB-Q (17:00)
[2021-09-23 17:02] LABS: Glucose Point of Care 212 mg/dl (65-105)
[2021-09-23 20:12] VITALS: PULSE 62; RESP 20
[2021-09-23] MEDS: ATORVASTATIN 5 MG TABLET PO (21:03)
[2021-09-23 22:00] VITALS: BP 126/63; PULSE 63; RESP 16; TEMP 36.3; O2SAT 99
[2021-09-24] MEDS: MORPHINE SULFATE (*CRX) 2 MG/ML INJ IV PUSH ×5 (00:36→22:30)
[2021-09-24] MEDS: SODIUM CHLORIDE 0.9% IV 1,000 ML 100 ML IV CONT ×2 (03:20→16:40)
[2021-09-24 06:00] VITALS: BP 150/66; PULSE 59; RESP 16; TEMP 36.2; O2SAT 99
[2021-09-24] MEDS: ALPRAZolam (*CRX) 0.5 MG TABLET PO ×3 (06:17→21:22)
[2021-09-24 07:17] LABS: Hematocrit 29.5 % (42.0-52.0); Hemoglobin 9.3 g/dL (14.0-18.0); Mean Corpuscular HGB Conc 31.5 g/dl (32-36); Mean Corpuscular Hemoglobin 30.1 pg (26-34); Mean Corpuscular Volume 95.5 fl (80-100); Mean Platelet Volume 8.2 fl (7.4-10.4); Platelet Count Result 428 k/mm3 (150-375); Red Blood Count 3.09 M/mm3 (4.6-6.20); Red Cell Distribution Width 13.9 % (11.5-14.5); White Blood Count 12.4 K/mm3 (4.5-10.0)
[2021-09-24 07:29] LABS: Anion Gap 9 mmol/L (8-16); Blood Urea Nitrogen 27 mg/dL (9-20); Calcium 8.9 mg/dL (8.4-10.2); Carbon Dioxide 21 mmol/L (22-30); Chloride 107 mmol/L (98-107); Estimated CRCL calculation 52 ml/min; Estimated Glomerular Filt Rate 46; Glucose 124 mg/dL (65-110); Potassium 4.7 mmol/L (3.4-5.0); Sodium 137 mmol/L (137-145)
[2021-09-24 07:47] LABS: Glucose Point of Care 120 mg/dl (65-105)
[2021-09-24] MEDS: ESCITALOPRAM OXALATE 10 MG TABLET 20 MG PO (09:43)
[2021-09-24] MEDS: CHOLECALCIFEROL 1,000 UNITS TABLET 2000 UNITS PO (09:44)
[2021-09-24] MEDS: MAGNESIUM OXIDE 400 MG TABLET PO ×2 (09:44→16:13)
[2021-09-24] MEDS: CARBIDOPA/LEVODOPA 25/100 MG CR TABLET 2 TABLET PO ×2 (09:44→16:13)
[2021-09-24] MEDS: MUPIROCIN 2% OINT 22 GM TUBE 1 APPLIC TOPICAL ×2 (09:44→20:45)
[2021-09-24] MEDS: DONEPEZIL HCL 10 MG TABLET PO ×2 (09:44→16:13)
--- NOTE | 2021-09-24 09:57 | PM.IMPN ---
Progress Note: A&P Assessment and Plan (1) Cellulitis of leg, right: Code(s): L03.115 - Cellulitis of right lower limb Status: Acute Assessment and Plan: 09/24/21 09:58 09/22 Interval history patient with history of Parkinson's and has been taking carbidopa levodopa 50/200 ER 2 tabs twice a day and donepezil 10 mg b.i.d. patient with his memory dysfunction and unsteady gaite, patient is seen by neurologist and further recommendation to follow, has been folling presented emergency depart with redness swelling of right lower extremity, DVT is negative, for cellulitis was started on primaxin because he is diabetic also vancomycin. patient blood sugar close to normal will do the hemoglobin A1c, will have PT OT evaluate the patient and further recommendation to follow. 09/23 Interval history patient states pain, redness and swelling has not improved much, x-ray of the femur showed polyarticular arthritis, patient being treated with a imipenem and vancomycin, his white counts are trending down he has no fever and blood culture no growth so far, seen by neurologist recommending continue present management for Parkinson disease, and patient will benefit with PT OT, will continue to monitor and further recommendation to follow. 09/24 Interval history today patient states the pain, redness and swelling is much better, denies any fever or chills, patient white counts are trending down, culture no growth so far. patient is participating in physical therapy, if remains clinically stable has no new complaint will discharge the patient on Sunday. (2) Acute on chronic renal insufficiency: Code(s): N28.9 - Disorder of kidney and ureter, unspecified; N18.9 - Chronic kidney disease, unspecified Status: Acute Assessment and Plan: Continue with IV fluids for tonight please re-evaluate the need for IV fluids tomorrow. Repeat labs in the a.m.. Patient's creatinine is slightly worse than normal. Avoid any nephrotoxic medication. Hold diuretic (3) DM2 (diabetes mellitus, type 2): Qualifiers: Diabetes mellitus terminal operations supervisor insulin use: without terminal operations supervisor use Diabetes mellitus complication status: without complication Qualified Code(s): E11.9 - Type 2 diabetes mellitus without complications Code(s): E11.9 - Type 2 diabetes mellitus without complications Status: Chronic Assessment and Plan: Accu-Cheks AC and HS. Sliding scale insulin. Hold metformin. (4) Parkinsons: Code(s): G20 - Parkinson's disease Status: Chronic Assessment and Plan: Continue with Parkinson's medicine. The patient has been falling at home and did ask for team primary care physician consult for possible rehab placement. PT and OT evaluation with greatly be appreciated. (5) Prostatic hyperplasia: Code(s): N40.0 - Benign prostatic hyperplasia without lower urinary tract symptoms Status: Chronic Assessment and Plan: Continue with home medications. (6) GERD (gastroesophageal reflux disease): Qualifiers: Esophagitis presence: without esophagitis Qualified Code(s): K21.9 - Gastro-esophageal reflux disease without esophagitis Code(s): K21.9 - Gastro-esophageal reflux disease without esophagitis Status: Chronic Assessment and Plan: Continue with home medications. (7) HTN (hypertension): Qualifiers: Hypertension type: unspecified Qualified Code(s): I10 - Essential (primary) hypertension Code(s): I10 - Essential (primary) hypertension Status: Chronic Assessment and Plan: Hold diuretics (8) Depression: Qualifiers: Depression Type: unspecified Qualified Code(s): F32.9 - Major depressive disorder, single episode, unspecified Code(s): F32.9 - Major depressive disorder, single episode, unspecified Status: Chronic Assessment and Plan: Continue with Lexapro Subjective Date/time seen: 09/24/21 09:58 09/22
[2021-09-24 11:32] LABS: Glucose Point of Care 249 mg/dl (65-105)
[2021-09-24] MEDS: INSULIN ASPART (*BKC) 100 UNITS/ML SUB-Q (12:18)
[2021-09-24 14:00] VITALS: BP 131/72; PULSE 71; RESP 20; TEMP 36.3; O2SAT 97
[2021-09-24 16:04] LABS: Glucose Point of Care 134 mg/dl (65-105)
[2021-09-24 20:30] VITALS: PULSE 74
[2021-09-24 20:31] VITALS: O2SAT 96
[2021-09-24] MEDS: ATORVASTATIN 5 MG TABLET PO (20:44)
[2021-09-24] MEDS: HYDROcodone/acetaminophen (*CRX) 10-325 MG TABLET 1 TAB PO (20:45)
[2021-09-24 22:00] VITALS: BP 147/69; PULSE 57; RESP 16; TEMP 36.5; O2SAT 98
[2021-09-25 02:27] LABS: Glucose Point of Care 129 mg/dl (65-105)
[2021-09-25] MEDS: SODIUM CHLORIDE 0.9% IV 1,000 ML 100 ML IV CONT ×2 (03:37→14:13)
[2021-09-25] MEDS: MORPHINE SULFATE (*CRX) 2 MG/ML INJ IV PUSH ×5 (04:18→22:32)
[2021-09-25 06:00] VITALS: BP 135/73; PULSE 56; RESP 16; TEMP 36.4; O2SAT 98
[2021-09-25 06:21] LABS: Hematocrit 30.5 % (42.0-52.0); Hemoglobin 9.7 g/dL (14.0-18.0); Mean Corpuscular HGB Conc 31.8 g/dl (32-36); Mean Corpuscular Hemoglobin 29.7 pg (26-34); Mean Corpuscular Volume 93.3 fl (80-100); Mean Platelet Volume 8.2 fl (7.4-10.4); Platelet Count Result 465 k/mm3 (150-375); Red Blood Count 3.27 M/mm3 (4.6-6.20); Red Cell Distribution Width 13.7 % (11.5-14.5); White Blood Count 12.2 K/mm3 (4.5-10.0)
[2021-09-25 06:35] LABS: Anion Gap 7 mmol/L (8-16); Blood Urea Nitrogen 25 mg/dL (9-20); Calcium 9.1 mg/dL (8.4-10.2); Carbon Dioxide 25 mmol/L (22-30); Chloride 103 mmol/L (98-107); Estimated CRCL calculation 52 ml/min; Estimated Glomerular Filt Rate 46; Glucose 157 mg/dL (65-110); Potassium 4.4 mmol/L (3.4-5.0); Sodium 135 mmol/L (137-145)
[2021-09-25 07:46] LABS: Glucose Point of Care 91 mg/dl (65-105)
[2021-09-25] MEDS: CHOLECALCIFEROL 1,000 UNITS TABLET 2000 UNITS PO (09:00)
[2021-09-25] MEDS: ESCITALOPRAM OXALATE 10 MG TABLET 20 MG PO (09:00)
[2021-09-25] MEDS: DONEPEZIL HCL 10 MG TABLET PO ×2 (09:01→18:11)
[2021-09-25] MEDS: CARBIDOPA/LEVODOPA 25/100 MG CR TABLET 2 TABLET PO ×2 (09:01→18:10)
[2021-09-25] MEDS: MAGNESIUM OXIDE 400 MG TABLET PO ×2 (09:01→18:09)
[2021-09-25] MEDS: MUPIROCIN 2% OINT 22 GM TUBE 1 APPLIC TOPICAL ×2 (09:01→21:55)
--- NOTE | 2021-09-25 10:03 | PM.IMPN ---
Progress Note: A&P Assessment and Plan (1) Cellulitis of leg, right: Code(s): L03.115 - Cellulitis of right lower limb Status: Acute Assessment and Plan: 09/25/21 10:03 09/22 Interval history patient with history of Parkinson's and has been taking carbidopa levodopa 50/200 ER 2 tabs twice a day and donepezil 10 mg b.i.d. patient with his memory dysfunction and unsteady gaite, patient is seen by neurologist and further recommendation to follow, has been folling presented emergency depart with redness swelling of right lower extremity, DVT is negative, for cellulitis was started on primaxin because he is diabetic also vancomycin. patient blood sugar close to normal will do the hemoglobin A1c, will have PT OT evaluate the patient and further recommendation to follow. 09/23 Interval history patient states pain, redness and swelling has not improved much, x-ray of the femur showed polyarticular arthritis, patient being treated with a imipenem and vancomycin, his white counts are trending down he has no fever and blood culture no growth so far, seen by neurologist recommending continue present management for Parkinson disease, and patient will benefit with PT OT, will continue to monitor and further recommendation to follow. 09/24 Interval history today patient states the pain, redness and swelling is much better, denies any fever or chills, patient white counts are trending down, culture no growth so far. patient is participating in physical therapy, if remains clinically stable has no new complaint will discharge the patient on Sunday. 09/25 Interval history: today patient states the pain, redness and swelling is much better, he is able to do his ADLs, and he able to do things he use to before coming to the hospital, denies any fever or chills, patient white counts are trending down, culture no growth so far. patient is participating in physical therapy, if remains clinically stable has no new complaint will discharge the patient on Sunday. (2) Acute on chronic renal insufficiency: Code(s): N28.9 - Disorder of kidney and ureter, unspecified; N18.9 - Chronic kidney disease, unspecified Status: Acute Assessment and Plan: Continue with IV fluids for tonight please re-evaluate the need for IV fluids tomorrow. Repeat labs in the a.m.. Patient's creatinine is slightly worse than normal. Avoid any nephrotoxic medication. Hold diuretic (3) DM2 (diabetes mellitus, type 2): Qualifiers: Diabetes mellitus intermission coordinator insulin use: without intermission coordinator use Diabetes mellitus complication status: without complication Qualified Code(s): E11.9 - Type 2 diabetes mellitus without complications Code(s): E11.9 - Type 2 diabetes mellitus without complications Status: Chronic Assessment and Plan: Accu-Cheks AC and HS. Sliding scale insulin. Hold metformin. (4) Parkinsons: Code(s): G20 - Parkinson's disease Status: Chronic Assessment and Plan: Continue with Parkinson's medicine. The patient has been falling at home and did ask for respiratory care instructor consult for possible rehab placement. PT and OT evaluation with greatly be appreciated. (5) Prostatic hyperplasia: Code(s): N40.0 - Benign prostatic hyperplasia without lower urinary tract symptoms Status: Chronic Assessment and Plan: Continue with home medications. (6) GERD (gastroesophageal reflux disease): Qualifiers: Esophagitis presence: without esophagitis Qualified Code(s): K21.9 - Gastro-esophageal reflux disease without esophagitis Code(s): K21.9 - Gastro-esophageal reflux disease without esophagitis Status: Chronic Assessment and Plan: Continue with home medications. (7) HTN (hypertension): Qualifiers: Hypertension type: unspecified Qualified Code(s): I10 - Essential (primary) hypertension Code(s): I10 - Essential (primary) hypertension Status:
[2021-09-25] MEDS: ALPRAZolam (*CRX) 0.5 MG TABLET PO ×2 (10:42→18:10)
[2021-09-25 12:03] LABS: Glucose Point of Care 131 mg/dl (65-105)
[2021-09-25 14:00] VITALS: BP 145/74; PULSE 65; RESP 21; TEMP 36.4; O2SAT 95
[2021-09-25 16:29] LABS: Glucose Point of Care 159 mg/dl (65-105)
[2021-09-25 20:00] VITALS: PULSE 59; RESP 18; O2SAT 98
[2021-09-25 21:22] VITALS: BP 145/72; PULSE 59; RESP 18; TEMP 36.7; O2SAT 98
[2021-09-25 21:27] LABS: Vancomycin Trough 21.4 ug/mL (10.0-20.0)
[2021-09-25] MEDS: ATORVASTATIN 5 MG TABLET PO (21:55)
[2021-09-26 00:31] LABS: Glucose Point of Care 114 mg/dl (65-105)
[2021-09-26] MEDS: SODIUM CHLORIDE 0.9% IV 1,000 ML 100 ML IV CONT (03:17)
[2021-09-26] MEDS: MORPHINE SULFATE (*CRX) 2 MG/ML INJ IV PUSH (03:18)
[2021-09-26] MEDS: ALPRAZolam (*CRX) 0.5 MG TABLET PO ×2 (03:18→09:43)
[2021-09-26 05:54] LABS: Hematocrit 28.6 % (42.0-52.0); Hemoglobin 9.1 g/dL (14.0-18.0); Mean Corpuscular HGB Conc 31.8 g/dl (32-36); Mean Corpuscular Hemoglobin 29.9 pg (26-34); Mean Corpuscular Volume 94.1 fl (80-100); Platelet Count Result 411 k/mm3 (150-375); Red Blood Count 3.04 M/mm3 (4.6-6.20); Red Cell Distribution Width 13.6 % (11.5-14.5); White Blood Count 12.2 K/mm3 (4.5-10.0)
[2021-09-26 05:56] VITALS: BP 170/84; PULSE 59; RESP 18; TEMP 36.2; O2SAT 99
[2021-09-26 06:07] LABS: Anion Gap 6 mmol/L (8-16); Blood Urea Nitrogen 22 mg/dL (9-20); Calcium 8.8 mg/dL (8.4-10.2); Carbon Dioxide 24 mmol/L (22-30); Chloride 106 mmol/L (98-107); Estimated CRCL calculation 52 ml/min; Estimated Glomerular Filt Rate 46; Glucose 130 mg/dL (65-110); Potassium 4.5 mmol/L (3.4-5.0); Sodium 136 mmol/L (137-145)
[2021-09-26 08:27] LABS: Glucose Point of Care 140 mg/dl (65-105)
[2021-09-26 08:32] VITALS: O2SAT 97
--- NOTE | 2021-09-26 09:40 | P.CDI_ITS ---
CDI Query Clarification Request 1) -Cellulitis of right leg has been documented -Diabetes Mellitus has been documented Please clarify if cellulitis: * Is a diabetic skin complication * Not a skin complication of diabetes * Unable to determine 2) -Acute on chronic renal insufficiency has been documented -On arrival, creatinine 2.60. 11 creatinine is 1.50 which is greater than 1.5 times increase -Renal insufficiency codes to a non specific code with low risk or mortality With a change in creatinine of greater than 1.5 times, please clarify if a more specific diagnosis might be appropriate.
[2021-09-26] MEDS: HYDROcodone/acetaminophen (*CRX) 10-325 MG TABLET 1 TAB PO ×2 (09:42→14:33)
[2021-09-26] MEDS: DONEPEZIL HCL 10 MG TABLET PO (09:42)
[2021-09-26] MEDS: ESCITALOPRAM OXALATE 10 MG TABLET 20 MG PO (09:43)
[2021-09-26] MEDS: MAGNESIUM OXIDE 400 MG TABLET PO (09:43)
[2021-09-26] MEDS: CHOLECALCIFEROL 1,000 UNITS TABLET 2000 UNITS PO (09:43)
[2021-09-26] MEDS: CARBIDOPA/LEVODOPA 25/100 MG CR TABLET 2 TABLET PO (09:43)
[2021-09-26] MEDS: MUPIROCIN 2% OINT 22 GM TUBE 1 APPLIC TOPICAL (09:44)
[2021-09-26 14:00] LABS: Glucose Point of Care 156 mg/dl (65-105)
[2021-09-26 15:04] VITALS: BP 138/77; PULSE 61; RESP 18; TEMP 36.3; O2SAT 97
--- NOTE | 2021-09-26 15:18 | PM.DS ---
DS: Admitting Diagnosis Discharge Date 12/06/2020 Admitting Diagnosis Right lower extremity cellulitis DS: Discharge Diagnosis Discharge Diagnosis (1) Cellulitis of leg, right: Code(s): L03.115 - Cellulitis of right lower limb Status: Acute (2) Acute on chronic renal insufficiency: Code(s): N28.9 - Disorder of kidney and ureter, unspecified; N18.9 - Chronic kidney disease, unspecified Status: Acute (3) Obesity (BMI 30-39.9): Code(s): E66.9 - Obesity, unspecified Status: Acute DS: Summary Hospital Course Reason for hospitalization: Cellulitis Hospital Course: 71-year-old male with past medical history significant for hypertension, hyperlipidemia, type 2 diabetes mellitus, CKD, BPH, GERD and depression presented with complaints of weakness. Was managed as a case of right lower extremity cellulitis possibly secondary to diabetic skin complications and DEEPTHI on CKD. Continue to improve and was receiving IV vancomycin and imipenem. He is now being discharged in stable condition on p.o. clindamycin and p.o. levofloxacin q.48h (adjusted to renal function). He is being discharged and suggested to go home with home health care however he is refusing any would like to go home by himself. Status at Discharge Overall status at discharge: patient is progressing back to baseline Time Spent with Patient Time attestation: Total time spent providing and/or coordinating discharge services: Time spent: Greater than 30 minutes Exam Narrative: Moderately obese Patient is comfortable, NAD HEENT: eyes are clear and none icteric LUNGS:CTA HEART: RR S1S2 ABD: distended Lower extremities: right lower extremity with edema and erythematous SKIN: nonjaundiced Neuro: grossly intact DS: Data Data Completed and Pending Labs on day of discharge: Labs from last 24 hours 09/26/21 09/26/21 09/26/21 11:44 08:00 05:22 WBC RBC Hgb Hct MCV MCH MCHC RDW Plt Count MPV Sodium 136 L Potassium 4.5 Chloride 106 Carbon Dioxide 24 Anion Gap 6 L BUN 22 H Creatinine 1.50 H Estim Creat Clear Calc 52 Estimated GFR 46 L Glucose 130 H POC Capillary Glucose 156 H 140 H Calcium 8.8 Vancomycin Trough 09/26/21 09/25/21 09/25/21 05:22 22:05 20:45 WBC 12.2 H RBC 3.04 L Hgb 9.1 L Hct 28.6 L MCV 94.1 MCH 29.9 MCHC 31.8 L RDW 13.6 Plt Count 411 H MPV 8.0 Sodium Potassium Chloride Carbon Dioxide Anion Gap BUN Creatinine Estim Creat Clear Calc Estimated GFR Glucose POC Capillary Glucose 114 H Calcium Vancomycin Trough 21.4 H 09/25/21 16:17 WBC RBC Hgb Hct MCV MCH MCHC RDW Plt Count MPV Sodium Potassium Chloride Carbon Dioxide Anion Gap BUN Creatinine Estim Creat Clear Calc Estimated GFR Glucose POC Capillary Glucose 159 H Calcium Vancomycin Trough Preliminary micro results at discharge 09/21/21 12:13 Blood Culture - Preliminary Blood 09/21/21 12:14 Blood Culture - Preliminary Blood Discharge Plan Discharge Attending physician on discharge: Samara Pierre Consulting providers: Augie Gandhi Discharging Clinician: Samara Pierre Anticipated Discharge Date/Time: 09/26/21 14:16 Patient Disposition: Home, Self-Care Activity: as tolerated Diet: heart healthy and diabetic Patient Instructions: Antibiotic Form, Heart Failure (DC), Pain Management in Older Adults (DC) Stand Alone Forms: General Discharge Information Follow-up/Referrals: Tucker,Lyo Mehta MD [Primary Care Provider] - 1 Week Discharge Medications: New mupirocin 2 % Ointment 1 applic topical Q12HR 30 Days Qty: 1 RF: 3 clindamycin HCl 300 mg capsule 300 mg PO Q6H 14 Days Qty: 56 RF: 0 levofloxacin 750 mg tablet 750 mg PO Q48H 14 Days Qty: 7 RF: 0 oxycodone 10 mg tablet 10 mg PO Q6H AK
== END 2021-09-26 15:51 | disposition home or self-care (01) | DRG 638 ==
LOC: ANHED 11:26 → ANH3MEDSUR 14:33
PROVIDERS: Internal Medicine; Admitting Provider Internal Medicine; Emergency Provider Emergency Medicine; PCP Internal Medicine; Visit Provider Family Medicine
DX: E11.628 Type 2 diabetes mellitus with other skin complications (principal); I42.9 Cardiomyopathy, unspecified; Q60.0 Renal agenesis, unilateral; L03.115 Cellulitis of right lower limb; E78.5 Hyperlipidemia, unspecified; H26.9 Unspecified cataract; J44.9 Chronic obstructive pulmonary disease, unspecified; K21.9 Gastro-esophageal reflux disease without esophagitis; G43.909 Migraine, unspecified, not intractable, without status migrainosus; G47.33 Obstructive sleep apnea (adult) (pediatric); G20 Parkinson's disease; N40.0 Benign prostatic hyperplasia without lower urinary tract symptoms; E11.22 Type 2 diabetes mellitus with diabetic chronic kidney disease; N18.9 Chronic kidney disease, unspecified; G30.9 Alzheimer's disease, unspecified; F02.80 Dementia in other diseases classified elsewhere, unspecified severity, without behavioral disturbance, psychotic disturbance, mood disturbance, and anxiety; M15.9 Polyosteoarthritis, unspecified; K44.9 Diaphragmatic hernia without obstruction or gangrene; F32.9 Major depressive disorder, single episode, unspecified; I12.9 Hypertensive chronic kidney disease with stage 1 through stage 4 chronic kidney disease, or unspecified chronic kidney disease; E66.9 Obesity, unspecified; Z68.31 Body mass index [BMI] 31.0-31.9, adult; Z91.81 History of falling; Z79.84 Long term (current) use of oral hypoglycemic drugs
CPT/HCPCS: 36415; 71045; 73552; 80048; 80053; 80202; 81001; 82948; 83605; 85025; 85027; 85610; 85730; 87040; 93005; 93971; 94640; 96361; 96365; 96366; 96375; 96376; 97110; 97116; 97161; 97166; 97535; 99285; A9270; G0378; J0743; J1815; J2270; J3370; J7030

== ENCOUNTER 2021-11-06 10:39 | Inpatient (IN) | payer MEDICARE, SELFPAY ==
--- NOTE | ~2021-11-06 | CT_ITS ---
EXAMINATION: CT brain wo con EXAM DATE: 11/06/2021 15:20 INDICATION: confusion TECHNIQUE: Spiral CT of the head was performed without contrast. Axial, coronal and sagittal images were reviewed. The dose-length product (DLP) for this examination was 756.67 mGy-cm. The exposure w as tailored according to patient size, and iterative reconstruction (ASIR) was used as additional dos e reduction technique. Comparison is made to prior examination from 03/06/2021. FINDINGS: There is no acute intraparenchymal hemorrhage. No evidence of intraparenchymal brain mass lesion. No evidence of acute infarction. Please note that initial head CT has limited sensitivity f or small or acute infarctions. There is mild periventricular and subcortical hypodensity, nonspecific but probably related to small vessel ischemic disease. There is mild prominence of the sulci and v entricles related to cerebral atrophy. There is intracranial carotid arteriosclerosis. There are n o extra-axial collections. There is no mass effect or midline shift. Patient has had right-sided oc ular lens surgery. Soft tissue is unremarkable. The visualized sinuses and mastoid air cells are we ll aerated. IMPRESSION: 1. No acute intracranial findings. 2. Chronic age related findings. Reviewed, dictated and finalized at location A. MAINFRAME DEVELOPER
--- NOTE | ~2021-11-06 | XR_ITS ---
EXAMINATION: XR lumbar spine 2-3V EXAM DATE: 11/06/2021 16:46 INDICATION: fall,confusion, chronic back pain. TECHNIQUE: Lumber spine frontal, lateral, lateral L5-S1 projections for interpretation. Comparison is made to prior examination from 12/28/2014. FINDINGS: Development of mild to moderate burst fracture of L2 without significant retropulsion. This had sclerosis on CT consistent with subacute age. There is advanced mid and lower cervical arthropat hy. There is 3 mm retrolisthesis L2 on L3 and L3 on L4. No acute fracture line identified. Mild to mo derate lumbar disc disease. Sacrum, sacroiliac joints, sacral arcuate lines are intact. Paraspinal so ft tissue is unremarkable. IMPRESSION: 1. Subacute L2 burst fracture. 2. Advanced lumbar spondylosis. Reviewed, dictated and finalized at location A. R HELPER
--- NOTE | ~2021-11-06 | XR_ITS ---
EXAMINATION: XR chest 1V portable EXAM DATE: 11/06/2021 14:22 INDICATION: Confusion. Poor historian. TECHNIQUE: Portable AP frontal chest x-ray was obtained. Comparison is made to prior examination from 09/21/21. FINDINGS: The lungs are clear. There are no pleural effusions. Cardiac silhouette is prominent but magnified on this AP technique. There is no pneumothorax suspected. There is moderate sliding gastr oesophageal hiatal hernia. The bones are osteopenic. There are bony degenerative changes. IMPRESSION: Moderate hiatal hernia. Reviewed, dictated and finalized at location A. URNIST PHYSICIAN IMPRESSION: Moderate hiatal hernia.
--- NOTE | ~2021-11-06 | CT_ITS ---
EXAMINATION: CT cervical spine wo con EXAM DATE: 11/06/2021 16:49 INDICATION: Fall, confusion. TECHNIQUE: Spiral CT of the cervical spine was performed without contrast. Axial images were reviewe d. Coronal and sagittal reformatted images cervical spine were also reviewed. The dose-length produc t (DLP) for this examination was 625.67 mGy-cm. The exposure was tailored according to patient size (auto mA exposure control), and iterative reconstruction (ASIR) was used as additional dose reduction technique. Comparison is made to prior examination from 12/28/2014. FINDINGS: There is no evidence of acute cervical fracture. The odontoid process is intact. Pre-dens space is normal. Prevertebral soft tissue is normal. There are no soft tissue abnormalities identi fied. There is no disc space widening or traumatic vertebral body subluxation suspected. Moderate c ervical spondylosis. A detailed level by level evaluation of spondylosis can be added as addendum if requested. IMPRESSION: No acute cervical fracture. Moderate spondylosis. Reviewed, dictated and finalized at location A. ING ENFORCEMENT SPECIALIST
--- NOTE | ~2021-11-06 | XR_ITS ---
MODIFIED ESOPHAGRAM HISTORY: Dysphagia. TECHNIQUE: Modified barium esophagram was performed on 11/07/2021. I administered fluoroscopy and per formed the exam with speech pathologist. Patient was seated for lateral fluoroscopic imaging for ing estion of thin liquids, pudding, solids and quantified amounts, followed by thin liquids in uncontrol led amounts. This was recorded on tape. A single fluoroscopic spot image was also recorded. The DAP f or this procedure was 1.939 Gycm2. The amount of fluoroscopy time used during this procedure was 2.1 minutes. FINDINGS: Oral stage: Adequate function. Pharyngeal stage: Adequate function. Cervical/esophageal stage: Adequate function. IMPRESSION: Patient tolerated regular consistency oral feedings in the upright position. Please elham elate with speech pathologist findings and specific feeding recommendations. Reviewed, dictated and finalized at location A. ENSER OPERATOR IMPRESSION: Patient tolerated regular consistency oral feedings in the upright position. Please correlate with speech pathologist findings and specific feedi ng recommendations.
--- NOTE | ~2021-11-06 | CT_ITS ---
EXAMINATION: CT abdomen pelvis wo con EXAM DATE: 11/06/2021 16:49 INDICATION: Abdominal, pelvic pain after fall. Confusion. TECHNIQUE: Spiral CT of the abdomen and pelvis was performed without contrast. Axial, coronal and s agittal images of the abdomen and pelvis were reviewed. The dose-length product (DLP) for this exami [facility] was 1487.71 mGy-cm. The exposure was tailored according to patient size (auto mA exposure con trol), and iterative reconstruction (ASIR) was used as additional dose reduction technique. Compariso n is made to prior examination from 04/07/2019. FINDINGS: No solid organ laceration. The liver, spleen, adrenal glands and pancreas are unremarkable . Gallbladder is unremarkable. No biliary obstruction. There is absent left kidney. There are mult iple left renal lesions, some fluid density and some higher in density consistent with hemorrhagic cy st. Some are intermediate density probably also hemorrhagic cysts although solid mass not excludable. Many of these have increased in size compared to prior study. The prostate is unremarkable. The bl adder is unremarkable. There is no retroperitoneal or pelvic lymphadenopathy. There is mild scatte red arteriosclerotic disease. The appendix is normal. There is mild scattered colonic diverticulosis. There is no adjacent inflamm atory change to suggest diverticulitis. There is moderate-sized gastroesophageal hiatal hernia. Ther e is colonic fluid, correlate for diarrhea. No free intraperitoneal gas. The heart is normal in s ize. There are no pericardial or pleural effusions. The lung bases are unremarkable. There is suba cute burst fracture of the L2 vertebral body, mild loss of the height posteriorly, mild to moderate l oss centrally and anteriorly. Minimal if any retropulsion. There is subacute left L2 transverse proce ss fracture. Sacrum, hips are intact. Right hip gamma nail. Old left rib fractures posteriorly. IMPRESSION: 1. No posttraumatic intra-abdominal findings. 2. Subacute L2 burst fracture without significant retropulsion. Subacute left L2 transverse process fracture. 3. Colonic fluid. Mild diverticulosis. 4. Moderate hiatal hernia. Reviewed, dictated and finalized at location A. TAL CONTENT MARKETING MANAGER
--- NOTE | ~2021-11-06 | XR_ITS ---
EXAMINATION: XR thoracic spine 2V EXAM DATE: 11/06/2021 16:45 INDICATION: Multiple falls, confusion, hx chronic back pain. TECHNIQUE: Frontal and lateral projections of the thoracic spine as well as lateral swimmers projecti on of the upper thoracic spine for interpretation. There is no prior study for comparison. FINDINGS: Patient has diffuse idiopathic skeletal hyperostosis (DISH). No acute fracture line identi fied through this enthesopathy or of the vertebral bodies which have heights maintained. Disc heights also maintained. Paraspinal soft tissue is unremarkable. IMPRESSION: Diffuse idiopathic skeletal hyperostosis. Reviewed, dictated and finalized at location A. MATCHER
--- NOTE | ~2021-11-06 | XR_ITS ---
EXAMINATION: XR hip RT 2V w AP pelvis EXAM DATE: 11/06/2021 16:46 INDICATION: fall,pain when in lateral position,hip surgery date unknown. TECHNIQUE: Right hip frontal, 'frog leg' no prior projections for interpretation. Frontal projection pelvis. There is no prior study for comparison. FINDINGS: There is right hip gamma nail, intact. There is moderate symmetric bilateral hip primary os teoarthritis. There are no acute fractures identified. IMPRESSION: Intact right hip gamma nail. Reviewed, dictated and finalized at location A. RVISOR STENO POOL
[2021-11-06 10:48] VITALS: BP 142/99; PULSE 91; RESP 16; TEMP 36.3; O2SAT 100
[2021-11-06 14:42] VITALS: BP 168/94; PULSE 85; RESP 16; O2SAT 100
[2021-11-06] MEDS: SODIUM CHLORIDE 0.9% IV 1,000 ML 999 ML IV CONT ×2 (14:43→16:05)
--- NOTE | 2021-11-06 14:46 | ECG_ITS ---
Measurements Intervals [place] Rate: 83 P: 16 CA: 216 QRS: -40 QRSD: 167 T: 126 QT: 417 QTc: 490 Interpretive Statements SINUS RHYTHM WITH FIRST DEGREE AV BLOCK LEFT AXIS DEVIATION LEFT BUNDLE BRANCH BLOCK BASELINE ARTIFACT- II, III, V6 ABNORMAL ECG Electronically Signed On 11-08-2021 14:16:54 [employer] SUPERVIS[employer] by Bin Awad D.O.
[2021-11-06 15:01] LABS: Basophils Percent Auto 0.1 % (0.2-1.2); Hematocrit 46.5 % (42.0-52.0); Hemoglobin 14.8 g/dL (14.0-18.0); Immature Granulocyte Absolute 0.04 K/mm3 (0.00-0.031); Immature Granulocyte Percent A 0.3 % (0-0.5); Lymphocytes Absolute Auto 1.51 K/mm3 (0.9-3.2); Lymphocytes Percent Auto 10.9 % (18.3-44.2); Mean Corpuscular HGB Conc 31.8 g/dl (32-36); Mean Corpuscular Hemoglobin 30.1 pg (26-34); Mean Corpuscular Volume 94.5 fl (80-100); Mean Platelet Volume 9.2 fl (7.4-10.4); Monocytes Absolute Auto 1.5 K/mm3 (0.1-0.6); Monocytes Percent Auto 10.9 % (2.6-8.5); Neutrophils Absolute Auto 10.7 K/mm3 (1.3-6.7); Neutrophils Percent Auto 77.8 % (45.5-73.1); Platelet Count Result 402 k/mm3 (150-375); Red Blood Count 4.92 M/mm3 (4.6-6.20); Red Cell Distribution Width 14.3 % (11.5-14.5); White Blood Count 13.8 K/mm3 (4.5-10.0)
[2021-11-06 15:08] LABS: Add Urine Microscopic? YES; Appearance Urine Clear (Clear); Bilirubin Urine Negative (Negative); Blood Urine Negative (Negative); Color Urine Yellow (Yellow); Glucose Urine UA Negative (Negative); Ketones Urine Negative (Negative); Leukocyte Esterase Ur Negative LEU/UL (Negative); Mucus Urine Rare /lpf; Nitrate Urine Negative (Negative); Protein Urine 2+ mg/dL (Negative); RBC Urine 0-2 /hpf (0-2); Specific Grav Ur 1.023 (1.001-1.035); Squamous Epithelial Cell Urine Rare /hpf (Few); Urobilinogen Urine Negative mg/dL (<2.0); WBC Urine 0-3 /hpf
[2021-11-06 15:30] LABS: Alanine Aminotransferase 20 U/L (4-50); Albumin Level 5.1 g/dL (3.5-5.1); Alkaline Phosphatase 100 U/L (38-126); Anion Gap 16 mmol/L (8-16); Aspartate Amino Transferase 45 U/L (17-59); Bilirubin,Total 1.4 mg/dL (0.2-1.3); Blood Urea Nitrogen 71 mg/dL (9-20); Calcium 10.3 mg/dL (8.4-10.2); Carbon Dioxide 16 mmol/L (22-30); Chloride 109 mmol/L (98-107); Estimated CRCL calculation 27 ml/min; Estimated Glomerular Filt Rate 22; Glucose 194 mg/dL (65-110); Potassium 5.1 mmol/L (3.4-5.0); Sodium 141 mmol/L (137-145)
--- NOTE | 2021-11-06 15:56 | ED.GENADULT ---
HPI - General Adult General Chief complaint: Altered Mental Status Stated complaint: increased confusion Time Seen by Provider: 11/06/21 14:09 Source: patient and RN notes reviewed History of Present Illness HPI narrative: Patient brought to the emergency room by ambulance from home because of confusion of unknown duration. Patient lives alone. No significant other at the bedside. Patient is telling me that he have chronic back pain and abdominal pain Related Data Home Medications Medication Instructions Recorded Confirmed Breo Ellipta 1 ea INHALATION DAILY 09/21/21 09/21/21 alprazolam 0.5 mg PO TID PRN 09/21/21 09/21/21 atorvastatin 5 mg PO HS 09/21/21 09/21/21 carbidopa-levodopa 2 tablet PO BID 09/21/21 09/21/21 cholecalciferol (vitamin D3) 50 mcg PO DAILY 09/21/21 09/21/21 [Vitamin D3] donepezil 10 mg PO BID 09/21/21 09/21/21 escitalopram oxalate 20 mg PO DAILY 09/21/21 09/21/21 glipizide-metformin 1 tablet PO BID 09/21/21 09/21/21 hydrocodone-acetaminophen 1 tablet PO TID PRN 09/21/21 09/21/21 magnesium oxide 400 mg PO BID 09/21/21 09/21/21 oxybutynin chloride 10 mg PO BID 09/21/21 09/21/21 Allergies Allergy/AdvReac Type Severity Reaction Status Date / Time No Known Allergies Allergy Verified 09/21/21 15:52 Review of Systems Review of Systems: ROS unobtainable: Yes unobtainable due to mental status PMFSH Past Medical History Medical History Borderline hyperlipidemia Cardiomyopathy Cataract Chronic narcotic dependence COPD (chronic obstructive pulmonary disease) Dementia Depression Previous suicide attempt 2012 DM2 (diabetes mellitus, type 2) GERD (gastroesophageal reflux disease) HTN (hypertension) Kidney congenitally absent, left Migraine DAVID (obstructive sleep apnea) The patient has tried oral apparatus and CPAP and has not been able to tolerated. Parkinsons Pilonidal cyst Prostatic hyperplasia Surgical History Surgical History H/O left cataract extraction H/O repair of rotator cuff On the right History of nasal septoplasty History of repair of ACL Bilateral History of surgical removal of pilonidal cyst Hx of cardiac catheterization Hx of cholecystectomy Hx of tonsillectomy Family History Family History Father Family history of cardiovascular disease Malignant neoplasm of prostate Mother Breast cancer Family history of chronic obstructive pulmonary disease Acute myocardial infarction Chronic obstructive pulmonary disease Sibling Prostate carcinoma Social History Social History Social History: The patient is and lives in his own home in [place]. 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 Lifelong nonsmoker. No alcohol or illicit substance abuse. Smoking status: Never smoker Second hand tobacco smoke exposure: No Alcohol intake: former Substance use: never Substance use type: does not use Last use: 08/2019 Additional living arrangements comments: He states that his son comes and checks up on him. Gender identity (if verbalized by the patient): Male Sexual Orientation (if Verbalized by the Patient): Straight or Heterosexual Spiritual care concerns: No Exam Narrative: General appearance: Well-developed, well-nourished, poor hygiene, Skin: Normal color Head: Normocephalic, nontraumatic Eyes: Clear conjunctiva ENT: Dry mouth Neck: Supple Chest and respiratory: Airway patent, no respiratory distress, no accessory muscle use Heart: Regular rate/rhythm Abdomen: Soft, mild tenderness lower abdomen, no guarding or rebound, quiet bowel sounds Vascular: Normal peripheral pulses, normal capillary refill. Musculoskeletal: Difficulty, painful, moving lower extremity mainly right hip Neurologic: Alert and oriented ?3, NOTCH GRINDER
--- NOTE | 2021-11-06 16:12 | PC.NURSE ---
Called Lab at 1613 spoke with Bernie, agreed to add CK to tubes in lab
[2021-11-06 16:32] LABS: EDCOVIDSCREEN Negative (Negative)
[2021-11-06 16:32] LABS: Creatine Kinase 49 U/L (55-170)
--- NOTE | 2021-11-06 17:20 | PM.IMHP ---
H&P: HPI History of Present Illness Date/Time: 11/06/21 17:20 Chief Complaint: Confusion. Narrative: This is a 71-year-old male with Parkinson's disease, diabetes, chronic kidney disease, and COPD presented to the emergency department earlier today via EMS from home for evaluation of confusion. According to family members he has been increasingly confused and weak over the past couple of days and today he was much more confused and he was brought in for evaluation. Family members were concerned that perhaps he had a urinary tract infection as he reportedly smelled heavily of malodorous urine on EMS arrival though his urinalysis was unremarkable aside from 2+ protein. The patient tells me that there were cats in the house urinating all over him though I can not confirm whether not there are indeed cats in his home. He has multiple bruises on his upper extremities and a large healing abrasion on his right forearm and he tells me that he fell in the bathroom within the last week. At the time my evaluation his only complaint is of that of his chronic back pain and he is asking for his hydrocodone (he has been on oxycodone for many years due to chronic pain but patient reports his doctor has been trying to wean him off of opiates). His back pain is not any worse than usual any does not think he has injured his back recently. He denies fever, chills, sweats, cold and flu symptoms, chest pain, shortness of breath, nausea, vomiting, diarrhea, dysuria, saddle anesthesia, urinary retention, incontinence, head trauma, and loss of consciousness. Review of Systems Review of Systems: Twelve systems were reviewed and are negative except for as per HPI. [facility] Past Medical History Medical History (Updated 11/07/21 @ 00:43 by Gwendolyn Taylor PA-C) Anxiety Benign prostatic hyperplasia Borderline hyperlipidemia Cardiomyopathy Poorly documented history. Chronic back pain Chronic kidney disease Creatinine has fluctuated over the years in baseline seems to be between 1.50 and 2.10. Chronic narcotic dependence Chronic obstructive pulmonary disease Congenital absence of left kidney Dementia Depression Previous suicide attempt in 2012. Gastroesophageal reflux disease History of aspiration pneumonia Hypertension Kidney congenitally absent, left Left bundle branch block Migraine Obstructive sleep apnea The patient has tried oral apparatus and CPAP and has not been able to tolerated. Parkinsons Prostatic hyperplasia Type 2 diabetes mellitus Surgical History Surgical History (Updated 11/06/21 @ 17:29 by Gwendolyn Taylor PA-C) History of cardiac catheterization History of cholecystectomy History of left cataract extraction History of nasal septoplasty History of open reduction and internal fixation (ORIF) procedure Gamma nail right hip fracture. History of repair of ACL Bilateral History of repair of right rotator cuff History of surgical removal of pilonidal cyst History of tonsillectomy Family History Family History Father Family history of cardiovascular disease Malignant neoplasm of prostate Mother Breast cancer Family history of chronic obstructive pulmonary disease Acute myocardial infarction Chronic obstructive pulmonary disease Sibling Prostate carcinoma Social History Social History (Updated 11/07/21 @ 00:36 by Gwendolyn Taylor PA-C) Social History: The patient is and lives in his own home in [place]. 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 Lifelong nonsmoker. Former heavy drinker, has not drank in years. No drug use. Healthcare power of civil rights attorney: Kristie Sousa, daughter. Code status: Full code. Meds Home Medications and Allergies Home Medications Medication Instructions Recorded Confirmed Type Breo Ellipta 1 ea INHALATION DAILY 09/21/21 09/21/21 History alprazolam 0.5
--- NOTE | 2021-11-06 18:26 | ADMGEN ---
This patient, Mohamud Diaz, was admitted to 2 Medical Room 240-01. Patient/family oriented to hospital policies and general routines including ID bracelet, bed and alarms, visiting hours, pain management, procedures, bathroom and other care routines, personal items, smoking policy, room service/diet, and visiting hours. Information on how to activate the Rapid Response Team has been discussed. Patient/Family are encouraged to report perceived risks to care and to ask questions if they do not understand what they are told or what they should do.
[2021-11-06 18:43] LABS: Hemoglobin A1C 5.5 % (<5.7)
[2021-11-06 18:47] LABS: Anion Gap 12 mmol/L (8-16); Blood Urea Nitrogen 65 mg/dL (9-20); Calcium 9.6 mg/dL (8.4-10.2); Carbon Dioxide 17 mmol/L (22-30); Chloride 115 mmol/L (98-107); Estimated CRCL calculation 29 ml/min; Estimated Glomerular Filt Rate 23; Glucose 154 mg/dL (65-110); Magnesium 2.5 mg/dL (1.6-2.3); Potassium 3.8 mmol/L (3.4-5.0); Sodium 144 mmol/L (137-145)
[2021-11-06 19:20] LABS: Thyroid Stimulating Hormone Reflex 0.326 uIU/mL (0.465-4.68)
[2021-11-06] MEDS: SODIUM CHLORIDE 0.9% IV 1,000 ML 125 ML IV CONT (19:31)
[2021-11-06 19:52] LABS: Free T4 Free Thyroxine Reflex 1.58 ng/dL (0.78-2.19)
[2021-11-06 20:32] VITALS: BMI 32.1
[2021-11-06 20:50] LABS: Total Triiodothyronine (T3) 0.96 NG/ML (0.97-1.69)
[2021-11-06 21:13] VITALS: PULSE 74
[2021-11-06 21:15] LABS: Glucose Point of Care 167 mg/dl (65-105)
[2021-11-06 22:00] VITALS: BP 152/74; PULSE 74; RESP 20; TEMP 36.8; O2SAT 99
[2021-11-07] VITALS (9 sets, daily range): BP systolic 160–168; BP diastolic 75–86; PULSE 66–90; RESP 16–20; TEMP 36.3–36.7; O2SAT 99–100
[2021-11-07] MEDS: SODIUM CHLORIDE 0.9% IV 1,000 ML 125 ML IV CONT (03:19)
[2021-11-07 06:32] LABS: Alanine Aminotransferase 13 U/L (4-50); Albumin Level 3.8 g/dL (3.5-5.1); Alkaline Phosphatase 90 U/L (38-126); Anion Gap 14 mmol/L (8-16); Aspartate Amino Transferase 18 U/L (17-59); Bilirubin,Total 0.8 mg/dL (0.2-1.3); Blood Urea Nitrogen 57 mg/dL (9-20); Calcium 9.4 mg/dL (8.4-10.2); Carbon Dioxide 15 mmol/L (22-30); Chloride 118 mmol/L (98-107); Estimated CRCL calculation 34 ml/min; Estimated Glomerular Filt Rate 28; Glucose 160 mg/dL (65-110); Magnesium 2.4 mg/dL (1.6-2.3); Potassium 3.5 mmol/L (3.4-5.0); Sodium 147 mmol/L (137-145)
[2021-11-07 07:27] LABS: Hematocrit 38.3 % (42.0-52.0); Hemoglobin 12.3 g/dL (14.0-18.0); Mean Corpuscular HGB Conc 32.1 g/dl (32-36); Mean Corpuscular Hemoglobin 29.9 pg (26-34); Mean Platelet Volume 9.1 fl (7.4-10.4); Platelet Count Result 315 k/mm3 (150-375); Red Blood Count 4.12 M/mm3 (4.6-6.20); White Blood Count 10.3 K/mm3 (4.5-10.0)
[2021-11-07 07:57] LABS: Glucose Point of Care 133 mg/dl (65-105)
--- NOTE | 2021-11-07 10:28 | PCSTNOTE ---
Please refer to the Bedside Swallow Evaluation in the EMR. Please note, silent aspiration cannot be ruled out at bedside.
[2021-11-07] MEDS: SODIUM CHLORIDE 0.9% IV 1,000 ML 100 ML IV CONT (11:47)
[2021-11-07 11:55] LABS: Glucose Point of Care 195 mg/dl (65-105)
--- NOTE | 2021-11-07 13:12 | PM.IMPN ---
Progress Note: A&P Assessment and Plan (1) Metabolic encephalopathy: Code(s): G93.41 - Metabolic encephalopathy Status: Acute Assessment and Plan: No obvious source of infection at this time. May be due to worsening renal function and uremia. There is no documented history of dementia however he is on donepezil at home. Head CT unremarkable. Seems to be improving, he is A&Ox3 on my evaluation. Continue to monitor neurologic status closely (2) Acute on chronic renal failure: Code(s): N17.9 - Acute kidney failure, unspecified; N18.9 - Chronic kidney disease, unspecified Status: Acute Assessment and Plan: Baseline creatinine appears fluctuant, 1.5-1.7. Creatinine elevated at 2.9 on presentation and has improved with IV fluids down to 2.3 today. IV fluid rehydration. Monitor renal function closely. Renally dose medications and avoid nephrotoxins. Monitor intake and output. Consider renal ultrasound if no further improvement with fluid (3) Dehydration: Code(s): E86.0 - Dehydration Status: Acute Assessment and Plan: Continue with IV fluid hydration as above (4) Burst fracture of lumbar vertebra: Code(s): S32.001A - Stable burst fracture of unspecified lumbar vertebra, initial encounter for closed fracture Status: Acute Assessment and Plan: CT a/p showed subacute L2 burst fracture without significant retropulsion, also evident on lumbar x-ray. Thoracic x-ray without acute findings. He does have chronic back pain and it is unclear if there has been any change. Etiology for this fracture is unclear but was likely related to a fall. Supportive care. Ice or heat as needed. Analgesics prn. PT/OT eval appreciated. (5) Type 2 diabetes mellitus: Code(s): E11.9 - Type 2 diabetes mellitus without complications Status: Acute Assessment and Plan: A1c is 5.5. Continue Accu-Cheks, sliding scale insulin, hypoglycemic protocol. Home metformin-glipizide is on hold. (6) Chronic obstructive pulmonary disease: Code(s): J44.9 - Chronic obstructive pulmonary disease, unspecified Status: Acute Assessment and Plan: No acute issues. Albuterol as needed (7) Parkinsons: Code(s): G20 - Parkinson's disease Status: Chronic Assessment and Plan: Continue carbidopa levodopa. He had a bedside swallow study this morning and will proceed with modified barium swallow. Continue fall precautions and aspiration precautions. Noted to have Bedside swallow in a.m.. Fall precautions initiated. (8) Chronic pain: Code(s): G89.29 - Other chronic pain Status: Acute Assessment and Plan: Continue hydrocodone as needed. Doubt confusion related to narcotics as he has been on these for quite some time. Subjective Date/time seen: 11/07/21 13:12 Interval history: Date of service: 11/07/2021 Mohamud Diaz is 71-year-old male with a history of Parkinson's disease, BPH, CKD with congenital absence of left kidney, COPD, dementia, hypertension, DAVID, type 2 diabetes mellitus. He is a very unreliable historian. When I was asking him questions, he at 1 point responded with ?I could answer yes to anything? and then he stated that all of his symptoms have been ?so fleeting. From what I could gather, his main complaint is pain in his lower back but he reports is 7/10, but has been up to a 10/10. Since improved to about 4/10 pain medication. He stated the pain radiated towards his right side. He is unsure about pain his buttocks or legs. He endorses chronic tingling of his lower extremities secondary to neuropathy but denies numbness, saddle anesthesia, loss of bowel or bladder control. He tells me he thinks he is feeling a little confused. He does answer all questions appropriately but as noted I am unsure how much of his history if accurate. He denies shortness of breath, cough, chest pain, or palpitat
--- NOTE | 2021-11-07 14:54 | PCPTNOTE ---
gone for testing.
--- NOTE | 2021-11-07 15:28 | PCSTNOTE ---
Please refer to the Modified Barium Swallow Evaluation in the EMR.
[2021-11-07 17:06] LABS: Glucose Point of Care 146 mg/dl (65-105)
[2021-11-07] MEDS: HYDROcodone/acetaminophen (*CRX) 5-325 MG TABLET 1 TAB PO (17:20)
[2021-11-07] MEDS: ATORVASTATIN 5 MG TABLET PO (21:11)
[2021-11-07] MEDS: DONEPEZIL HCL 10 MG TABLET PO (21:11)
[2021-11-07] MEDS: CARBIDOPA/LEVODOPA 25/100 MG CR TABLET 2 TABLET PO (21:11)
[2021-11-07] MEDS: FLUTICASONE/SALMETEROL 115-21 MCG INHALER 1 PUFF 2 PUFF INHALATION (22:27)
[2021-11-08] VITALS (10 sets, daily range): BP systolic 156–167; BP diastolic 73–87; PULSE 65–108; RESP 17–20; TEMP 36–36.6; O2SAT 96–98
[2021-11-08] MEDS: SODIUM CHLORIDE 0.9% IV 1,000 ML 100 ML IV CONT ×3 (00:20→22:48)
[2021-11-08 00:33] LABS: Glucose Point of Care 132 mg/dl (65-105)
[2021-11-08 05:30] LABS: Hematocrit 35.7 % (42.0-52.0); Hemoglobin 11.3 g/dL (14.0-18.0); Mean Corpuscular HGB Conc 31.7 g/dl (32-36); Mean Corpuscular Hemoglobin 30.2 pg (26-34); Mean Corpuscular Volume 95.5 fl (80-100); Mean Platelet Volume 9.3 fl (7.4-10.4); Platelet Count Result 246 k/mm3 (150-375); Red Blood Count 3.74 M/mm3 (4.6-6.20); Red Cell Distribution Width 13.9 % (11.5-14.5); White Blood Count 9.1 K/mm3 (4.5-10.0)
[2021-11-08] MEDS: HYDROcodone/acetaminophen (*CRX) 5-325 MG TABLET 1 TAB PO ×3 (05:46→18:55)
[2021-11-08 05:55] LABS: Alanine Aminotransferase 7 U/L (4-50); Albumin Level 3.4 g/dL (3.5-5.1); Alkaline Phosphatase 77 U/L (38-126); Anion Gap 10 mmol/L (8-16); Aspartate Amino Transferase 20 U/L (17-59); Bilirubin,Total 0.7 mg/dL (0.2-1.3); Blood Urea Nitrogen 40 mg/dL (9-20); Calcium 9.1 mg/dL (8.4-10.2); Carbon Dioxide 16 mmol/L (22-30); Chloride 114 mmol/L (98-107); Estimated CRCL calculation 41 ml/min; Estimated Glomerular Filt Rate 35; Glucose 150 mg/dL (65-110); Potassium 3.4 mmol/L (3.4-5.0); Sodium 140 mmol/L (137-145)
[2021-11-08 07:49] LABS: Glucose Point of Care 138 mg/dl (65-105)
[2021-11-08] MEDS: ESCITALOPRAM OXALATE 10 MG TABLET 20 MG PO (08:27)
[2021-11-08] MEDS: DONEPEZIL HCL 10 MG TABLET PO ×2 (08:27→22:48)
[2021-11-08] MEDS: CARBIDOPA/LEVODOPA 25/100 MG CR TABLET 2 TABLET PO ×2 (08:27→22:49)
[2021-11-08] MEDS: CHOLECALCIFEROL 1,000 UNITS TABLET 2000 UNITS PO (08:27)
[2021-11-08] MEDS: FLUTICASONE/SALMETEROL 115-21 MCG INHALER 1 PUFF 2 PUFF INHALATION ×2 (08:52→20:45)
[2021-11-08 11:24] LABS: Glucose Point of Care 227 mg/dl (65-105)
[2021-11-08] MEDS: INSULIN ASPART (*BKC) 100 UNITS/ML SUB-Q (11:55)
--- NOTE | 2021-11-08 14:25 | PM.IMPN ---
Progress Note: A&P Assessment and Plan (1) Metabolic encephalopathy: Code(s): G93.41 - Metabolic encephalopathy Status: Acute Assessment and Plan: Resolved. May have been related to worsening renal function and uremia. No evidence of underlying infectious etiology. There is no documented history of dementia however he is on donepezil at home. Head CT unremarkable. He is A&O x4 today and answering all questions appropriately (2) Acute on chronic renal failure: Code(s): N17.9 - Acute kidney failure, unspecified; N18.9 - Chronic kidney disease, unspecified Status: Acute Assessment and Plan: Likely prerenal secondary to dehydration. Baseline creatinine appears fluctuant, 1.5-1.7. Creatinine elevated at 2.9 on presentation and has improved with IV fluids down to 1.9 today. BUN has improved from 70-40. Continue IV fluid rehydration, monitoring volume status closely. Monitor intake and output. Repeat BMP tomorrow. (3) Dehydration: Code(s): E86.0 - Dehydration Status: Acute Assessment and Plan: Resolving. Continue with IV fluid hydration as above (4) Burst fracture of lumbar vertebra: Code(s): S32.001A - Stable burst fracture of unspecified lumbar vertebra, initial encounter for closed fracture Status: Acute Assessment and Plan: CT a/p showed subacute L2 burst fracture without significant retropulsion, also evident on lumbar x-ray. Thoracic x-ray without acute findings. This may have been related to a fall, the patient states he fell in the shower. He does have chronic back pain and at this time, his pain is consistent with his baseline. Supportive care. Ice or heat as needed. Analgesics prn. Continue PT/OT. (5) Type 2 diabetes mellitus: Code(s): E11.9 - Type 2 diabetes mellitus without complications Status: Acute Assessment and Plan: A1c is 5.5. Continue Accu-Cheks, sliding scale insulin, hypoglycemic protocol. Home metformin-glipizide is on hold. (6) Chronic obstructive pulmonary disease: Code(s): J44.9 - Chronic obstructive pulmonary disease, unspecified Status: Acute Assessment and Plan: No acute issues. Albuterol as needed (7) Parkinsons: Code(s): G20 - Parkinson's disease Status: Chronic Assessment and Plan: Continue carbidopa levodopa. Bedside swallow study and modified barium swallow study performed, with no evidence of aspiration and no dietary changes recommended. He was provided with safe swallowing exercises. Continue fall precautions and aspiration precautions. (8) Chronic pain: Code(s): G89.29 - Other chronic pain Status: Acute Assessment and Plan: Continue hydrocodone as needed. Additional Plan Home health was discussed, however patient declined. He does have a private duty caregiver who comes in 2-3 times per week. 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 He seems to be doing much better today. He is no longer exhibiting any confusion and is able to provide clear history. He states that he is feeling better. His back pain is less severe than yesterday, though he still rates it as 7/10. States it has improved with medication. He was able to get up and walk around with therapy today and felt that he did well with this. He says that he still needs a little bit of assistance to get up from the bed prior to going to the bathroom, but he is able to ambulate to the restroom. He denies pain in the legs. Denies nausea, vomiting, fevers, or chills. He is eating well. Denies dizziness or lightheadedness. Denies shortness of breath or cough, chest pain, palpitations. He denies dysuria, hematuri
[2021-11-08 16:33] LABS: Glucose Point of Care 129 mg/dl (65-105)
[2021-11-08] MEDS: ATORVASTATIN 5 MG TABLET PO (22:48)
[2021-11-09] VITALS (8 sets, daily range): BP systolic 148–164; BP diastolic 72–94; PULSE 58–81; RESP 17; TEMP 36.6–37.1; O2SAT 98–100
[2021-11-09] MEDS: HYDROcodone/acetaminophen (*CRX) 5-325 MG TABLET 1 TAB PO ×2 (01:04→08:33)
[2021-11-09 01:11] LABS: Glucose Point of Care 108 mg/dl (65-105)
[2021-11-09 06:33] LABS: Hematocrit 35.5 % (42.0-52.0); Hemoglobin 11.3 g/dL (14.0-18.0); Mean Corpuscular HGB Conc 31.8 g/dl (32-36); Mean Corpuscular Hemoglobin 29.7 pg (26-34); Mean Corpuscular Volume 93.2 fl (80-100); Mean Platelet Volume 9.4 fl (7.4-10.4); Platelet Count Result 236 k/mm3 (150-375); Red Blood Count 3.81 M/mm3 (4.6-6.20); Red Cell Distribution Width 13.6 % (11.5-14.5); White Blood Count 8.4 K/mm3 (4.5-10.0)
[2021-11-09 06:44] LABS: Anion Gap 9 mmol/L (8-16); Blood Urea Nitrogen 31 mg/dL (9-20); Calcium 8.8 mg/dL (8.4-10.2); Carbon Dioxide 16 mmol/L (22-30); Chloride 117 mmol/L (98-107); Estimated CRCL calculation 47 ml/min; Estimated Glomerular Filt Rate 43; Glucose 139 mg/dL (65-110); Potassium 3.3 mmol/L (3.4-5.0); Sodium 142 mmol/L (137-145)
[2021-11-09 08:02] LABS: Glucose Point of Care 123 mg/dl (65-105)
[2021-11-09] MEDS: FLUTICASONE/SALMETEROL 115-21 MCG INHALER 1 PUFF 2 PUFF INHALATION ×2 (08:15→21:46)
[2021-11-09] MEDS: CHOLECALCIFEROL 1,000 UNITS TABLET 2000 UNITS PO (08:29)
[2021-11-09] MEDS: ESCITALOPRAM OXALATE 10 MG TABLET 20 MG PO (08:29)
[2021-11-09] MEDS: DONEPEZIL HCL 10 MG TABLET PO ×2 (08:29→20:09)
[2021-11-09] MEDS: CARBIDOPA/LEVODOPA 25/100 MG CR TABLET 2 TABLET PO ×2 (08:29→20:09)
[2021-11-09] MEDS: SODIUM BICARBONATE TAB 650 MG TABLET PO ×2 (09:45→16:57)
[2021-11-09] MEDS: POTASSIUM CHLORIDE 20 MEQ TABLET 40 MEQ PO (09:45)
[2021-11-09] MEDS: LACTATED RINGERS 1,000 ML 100 ML IV CONT (09:45)
--- NOTE | 2021-11-09 10:33 | PM.IMPN ---
Progress Note: A&P Assessment and Plan (1) Metabolic encephalopathy: Code(s): G93.41 - Metabolic encephalopathy Status: Acute Assessment and Plan: Resolved. Likely due to worsening renal function and uremia. -No evidence of underlying infectious etiology. CXR no acute abnormalities, UA neg for infection. (no blood cx indicated). Pt has been afebrile -There is no documented history of dementia however he is on donepezil at home. Head CT unremarkable - He is A&O x4 today and answering all questions appropriately (2) Acute on chronic renal failure: Code(s): N17.9 - Acute kidney failure, unspecified; N18.9 - Chronic kidney disease, unspecified Status: Acute Assessment and Plan: Resolved. Likely prerenal secondary to dehydration - Baseline creatinine appears fluctuant, 1.5-1.7. -Creatinine elevated at 2.9 on presentation and has improved with IV fluids. Okay to stop this afternoon -BUN has improved from 70 to 31 -Co2 has been quiet low likely due to DEEPTHI. Will stop NaCL and switched to LR and add oral bicarb. okay to d/c once this has improved. (3) Dehydration: Code(s): E86.0 - Dehydration Status: Acute Assessment and Plan: resolved (4) Burst fracture of lumbar vertebra: Code(s): S32.001A - Stable burst fracture of unspecified lumbar vertebra, initial encounter for closed fracture Status: Acute Assessment and Plan: CT a/p showed subacute L2 burst fracture without significant retropulsion, also evident on lumbar x-ray. Thoracic x-ray without acute findings. This may have been related to a fall, the patient states he fell in the shower. -He continues to have significant pain and request something different. Will up norco from 5mg to 7.5 -Will order heating pad (5) Type 2 diabetes mellitus: Code(s): E11.9 - Type 2 diabetes mellitus without complications Status: Acute Assessment and Plan: A1c is 5.5 -will stop metformin due to CKD at d/c and continue with diet control (6) Chronic obstructive pulmonary disease: Code(s): J44.9 - Chronic obstructive pulmonary disease, unspecified Status: Acute Assessment and Plan: No acute issues. Albuterol as needed (7) Parkinsons: Code(s): G20 - Parkinson's disease Status: Chronic Assessment and Plan: Continue carbidopa levodopa. Bedside swallow study and modified barium swallow study performed, with no evidence of aspiration and no dietary changes recommended. He was provided with safe swallowing exercises. Continue fall precautions and aspiration precautions. (8) Chronic pain: Code(s): G89.29 - Other chronic pain Status: Acute Assessment and Plan: Continue hydrocodone as needed. (9) Metabolic acidosis: Code(s): E87.2 - Acidosis Status: Acute Assessment and Plan: Likely due to DEEPTHI +/- metformin at home (but has not been taking it while hospitalized and it is still low) -will stop NaCl and do LR. Add oral bicarb -stop metformin at d/c -once improved okay to go home Additional Plan Home health was discussed, however patient declined. He does have a private duty caregiver who comes in 2-3 times per week. Time Spent With Patient Time with patient: 25 - 35 minutes Subjective Date/time seen: 11/09/21 10:33 Interval history: Pt is a 71-year-old male here for altered mental status and DEEPTHI. Patient was seen today and is doing okay. He says he still has significant back pain from his fall and the medication helps but does not take it away. He has no numbness or tingling with this. He states he is eating and drinking okay. He denies SOB, CP, fevers, chills, nausea, vomiting, or abdominal pain. Review of Systems Review of Systems: All systems reviewed & are unremarkable except as noted in HPI and below Exam Narrative: General: Well developed well nourished
[2021-11-09] MEDS: INSULIN ASPART (*BKC) 100 UNITS/ML SUB-Q (11:43)
[2021-11-09 11:49] LABS: Glucose Point of Care 209 mg/dl (65-105)
--- NOTE | 2021-11-09 13:02 | PCOTNOTE ---
On 11/09/21, the student, Rosa Maria Maravilla, provided care and completed [facility] documentation on this patient. I have reviewed the student's documentation and agree with the findings.
[2021-11-09] MEDS: HYDROcodone/acetaminophen (*CRX) 7.5-325 MG TABLET 1 TAB PO (14:29)
[2021-11-09 16:35] LABS: Glucose Point of Care 161 mg/dl (65-105)
[2021-11-09] MEDS: ATORVASTATIN 5 MG TABLET PO (20:09)
[2021-11-09 21:27] LABS: Glucose Point of Care 146 mg/dl (65-105)
[2021-11-10] MEDS: HYDROcodone/acetaminophen (*CRX) 7.5-325 MG TABLET 1 TAB PO ×2 (02:30→13:46)
[2021-11-10 02:36] VITALS: BP 159/85; PULSE 94; RESP 18; TEMP 36.8; O2SAT 95
[2021-11-10 06:11] LABS: Anion Gap 5 mmol/L (8-16); Blood Urea Nitrogen 24 mg/dL (9-20); Calcium 9.1 mg/dL (8.4-10.2); Carbon Dioxide 18 mmol/L (22-30); Chloride 113 mmol/L (98-107); Estimated CRCL calculation 48 ml/min; Estimated Glomerular Filt Rate 43; Glucose 141 mg/dL (65-110); Magnesium 1.5 mg/dL (1.6-2.3); Potassium 3.5 mmol/L (3.4-5.0); Sodium 136 mmol/L (137-145)
[2021-11-10 06:27] LABS: Vitamin D 25 Hydroxy 50.4 ng/mL
[2021-11-10 07:48] LABS: Glucose Point of Care 132 mg/dl (65-105)
[2021-11-10 07:57] VITALS: O2SAT 95
[2021-11-10] MEDS: FLUTICASONE/SALMETEROL 115-21 MCG INHALER 1 PUFF 2 PUFF INHALATION (07:57)
[2021-11-10] MEDS: MAGNESIUM SULF 2 GM/WATER 50ML 2 GM/50 ML BAG IVPB (08:37)
[2021-11-10] MEDS: CHOLECALCIFEROL 1,000 UNITS TABLET 2000 UNITS PO (08:37)
[2021-11-10] MEDS: ESCITALOPRAM OXALATE 10 MG TABLET 20 MG PO (08:37)
[2021-11-10] MEDS: SODIUM BICARBONATE TAB 650 MG TABLET PO (08:37)
[2021-11-10] MEDS: CARBIDOPA/LEVODOPA 25/100 MG CR TABLET 2 TABLET PO (08:37)
[2021-11-10] MEDS: DONEPEZIL HCL 10 MG TABLET PO (08:37)
[2021-11-10] MEDS: POTASSIUM CHLORIDE 20 MEQ TABLET PO (08:37)
--- NOTE | 2021-11-10 09:39 | PM.DS ---
DS: Admitting Diagnosis Discharge Date 11/10/21 Admitting Diagnosis confusion, deepthi DS: Discharge Diagnosis Discharge Diagnosis (1) Metabolic encephalopathy: Code(s): G93.41 - Metabolic encephalopathy Status: Acute Assessment and Plan: Resolved. Likely due to worsening renal function and uremia. -No evidence of underlying infectious etiology. CXR no acute abnormalities, UA neg for infection. (no blood cx indicated). Pt has been afebrile -There is no documented history of dementia however he is on donepezil at home. Head CT unremarkable - He is A&O x4 today and answering all questions appropriately (2) Acute on chronic renal failure: Code(s): N17.9 - Acute kidney failure, unspecified; N18.9 - Chronic kidney disease, unspecified Status: Acute Assessment and Plan: Resolved. Likely prerenal secondary to dehydration - Baseline creatinine appears fluctuant, 1.5-1.7. -Creatinine elevated at 2.9 on presentation and has improved with IV fluids. -BUN has improved from 70 to 24 -Co2 has been quiet low likely due to DEEPTHI. He was given a few days of sodium bicarb until his renal function recovers. (3) Dehydration: Code(s): E86.0 - Dehydration Status: Acute Assessment and Plan: resolved (4) Burst fracture of lumbar vertebra: Code(s): S32.001A - Stable burst fracture of unspecified lumbar vertebra, initial encounter for closed fracture Status: Acute Assessment and Plan: CT a/p showed subacute L2 burst fracture without significant retropulsion, also evident on lumbar x-ray. Thoracic x-ray without acute findings. This may have been related to a fall, the patient states he fell in the shower. -spoke with ortho who recommended brace -follow up with Dr. Cortez outpt (5) Type 2 diabetes mellitus: Code(s): E11.9 - Type 2 diabetes mellitus without complications Status: Acute Assessment and Plan: A1c is 5.5 -these medications stopped at discharge and will continue with diabetic diet only. I spoke with the primary care physician about this plan and he agrees. (6) Chronic obstructive pulmonary disease: Code(s): J44.9 - Chronic obstructive pulmonary disease, unspecified Status: Acute Assessment and Plan: No acute issues. Albuterol as needed (7) Parkinsons: Code(s): G20 - Parkinson's disease Status: Chronic Assessment and Plan: Continue carbidopa levodopa. Bedside swallow study and modified barium swallow study performed, with no evidence of aspiration and no dietary changes recommended. He was provided with safe swallowing exercises. Continue fall precautions and aspiration precautions. (8) Chronic pain: Code(s): G89.29 - Other chronic pain Status: Acute Assessment and Plan: Continue hydrocodone as needed. (9) Metabolic acidosis: Code(s): E87.2 - Acidosis Status: Acute Assessment and Plan: Improving, Likely due to DEEPTHI +/- metformin at home (but has not been taking it while hospitalized and it is still low) -metformin stopped at discharge -he was given a few days of sodium bicarb until his renal function improves DS: Summary Hospital Course Hospital Course: DOS 11/10/21 Patient is a 71-year-old male with a history of diabetes chronic kidney disease and Parkinson's who presented to the emergency room on 11/06/2021 for confusion. Labs revealed significant dehydration with DEEPTHI with a creatinine of 2.9 and a BUN of 71. Electrolytes were sodium 141, potassium 5.1, chloride 109, CO2 16. Chest x-ray was negative for acute pathology. Head CT and cervical spine CT showed no acute findings. Abdominal pelvis CT showed a subacute L2 burst fracture without significant retropulsion in the subacute left L2 transverse process fracture. Patient was admitted to the hospitalist service and given IV fluids. His kidney functi
[2021-11-10 11:48] LABS: Glucose Point of Care 162 mg/dl (65-105)
--- NOTE | 2021-11-10 13:09 | PCOTNOTE ---
On 11/10/21, the student, Rosa Maria Maravilla, provided care and completed [facility] documentation on this patient. I have reviewed the student's documentation and agree with the findings.
[2021-11-10 14:30] VITALS: BP 151/83; PULSE 83; RESP 18; TEMP 37.3; O2SAT 98
== END 2021-11-10 16:40 | disposition home or self-care (01) | DRG 682 ==
LOC: ANHED 17:05 → ANH2MED 17:16
PROVIDERS: Physician Assistant; Admitting Provider Internal Medicine; Emergency Provider Emergency Medicine; PCP Internal Medicine; Visit Provider Internal Medicine
DX: N17.9 Acute kidney failure, unspecified (principal); G93.41 Metabolic encephalopathy; S32.021A Stable burst fracture of second lumbar vertebra, initial encounter for closed fracture; E87.2 Acidosis; W18.2XXA Fall in (into) shower or empty bathtub, initial encounter; Z20.822 Contact with and (suspected) exposure to COVID-19; N18.9 Chronic kidney disease, unspecified; E86.0 Dehydration; J44.9 Chronic obstructive pulmonary disease, unspecified; E11.22 Type 2 diabetes mellitus with diabetic chronic kidney disease; I12.9 Hypertensive chronic kidney disease with stage 1 through stage 4 chronic kidney disease, or unspecified chronic kidney disease; S40.022A Contusion of left upper arm, initial encounter; S40.021A Contusion of right upper arm, initial encounter; S50.811A Abrasion of right forearm, initial encounter; G20 Parkinson's disease; G89.29 Other chronic pain; F03.90 Unspecified dementia, unspecified severity, without behavioral disturbance, psychotic disturbance, mood disturbance, and anxiety; G47.33 Obstructive sleep apnea (adult) (pediatric); N40.0 Benign prostatic hyperplasia without lower urinary tract symptoms; K21.9 Gastro-esophageal reflux disease without esophagitis; Z90.49 Acquired absence of other specified parts of digestive tract; Z98.42 Cataract extraction status, left eye
CPT/HCPCS: 36415; 51701; 70450; 71045; 72070; 72100; 72125; 73502; 74176; 80048; 80053; 80076; 81001; 82306; 82550; 82607; 82948; 83036; 83735; 84439; 84443; 84480; 85025; 85027; 87426; 92610; 92611; 93005; 94640; 96361; 96374; 97110; 97116; 97161; 97165; 97530; 97535; 99285; A9270; C9803; G0378; J0131; J1815; J2060; J3475; J7030; J7120

== ENCOUNTER 2022-06-28 12:04 | Inpatient (IN) | payer MEDICARE, SELFPAY ==
[2022-06-28] VITALS (22 sets, daily range): BP systolic 101–134; BP diastolic 57–73; PULSE 69–92; RESP 11–24; TEMP 36.6; O2SAT 95–100
--- NOTE | ~2022-06-28 | CT_ITS ---
EXAMINATION: CT brain wo con DATE: 06/28/2022 12:49 INDICATION: Weakness. TECHNIQUE: Computed tomography (CT) of the head was performed without intravenous contrast. The mA wa s adjusted according to patient size. Iterative reconstruction technique was employed. The dose-lengt h product was 681.00 mGy-cm. COMPARISON: Head CT 11/06/2021, brain MRI 05/14/2020. FINDINGS: There are scattered areas of low attenuation in the cerebral white matter. There is no intr acranial hemorrhage, acute infarction, or abnormal intracranial mass lesion. The ventricles are wilberto l in size. There are likely changes of right ocular lens replacement surgery. There is mild mucosal t hickening in the paranasal sinuses. The mastoid air cells are normal. There is cerumen in the externa l auditory canals. IMPRESSION: 1. Stable moderate nonspecific cerebral white matter disease, which likely represents chronic small v essel ischemic disease. Reviewed, dictated and finalized at location A. IMPRESSION: 1. Stable moderate nonspecific cerebral white matter disease, which likely repr esents chronic small vessel ischemic disease.
--- NOTE | ~2022-06-28 | XR_ITS ---
EXAMINATION: XR chest 1V portable DATE: 06/28/2022 13:10 INDICATION: Altered mental status. Weakness and diarrhea. TECHNIQUE: A single frontal view of the chest was obtained. COMPARISON: Chest single view 11/06/2021, CT abdomen and pelvis 11/06/2021 FINDINGS: There is no pneumonia, pleural effusion, or pneumothorax. The heart size is normal. There i s a moderate-sized hiatal hernia. IMPRESSION: 1. Moderate-sized hiatal hernia. Reviewed, dictated and finalized at location A.
--- NOTE | ~2022-06-28 | US_ITS ---
US renal BI 06/29/2022 09:48 Procedure: Realtime transabdominal ultrasound of the kidneys and bladder. Indication: Acute renal insufficiency Comparison: Ultrasound dated 05/15/2020 Findings: Renal echotexture is normal bilaterally without hydronephrosis, contour deforming mass or r enal calculus. There are right renal cysts, largest measuring 8.7 x 7.4 x 8.3 cm. There is a mild pel viectasis. The left kidney is congenitally absent. Bladder not well evaluated due to Anne catheteriz ation. Impression: 1: Enlarged right kidney containing multiple cysts measuring up to 8.7 cm. Mild right pelviectasis. Reviewed, dictated and finalized at location A. Impression: 1: Enlarged right kidney containing multiple cysts measuring up to 8.7 cm. Mild right pelviectasis.
--- NOTE | ~2022-06-28 | CT_ITS ---
EXAMINATION: CT abdomen pelvis wo con DATE: 06/28/2022 14:22 INDICATION: abd pain TECHNIQUE: Computed tomography (CT) of the abdomen and pelvis was performed without intravenous contr ast. Automated exposure control and iterative reconstruction technique were employed. The dose-length product was 1450.64 mGy-cm. COMPARISON: 11/06/2021. FINDINGS: Lower thorax: Stable scattered granulomas. Large hiatal hernia. Coronary artery calcification. Liver: Normal. Biliary/Gallbladder: Gallbladder is absent. No bile duct dilation. Pancreas: No mass or duct dilation. Spleen: Normal. Adrenals:No mass. Kidneys: Left kidney absent. Multiple right simple renal cysts, largest measuring 9.3 cm. Multiple ad ditional intermediate density and hypodense cysts/renal lesions, several exhibit interval growth. GI tract: No small or large bowel dilation. Normal appendix. Diverticulosis without diverticulitis. Mesentery/Peritoneum: No ascites, mass, or free air. Retroperitoneum: No mass. Pelvis: Mild prostatomegaly. Tubular dilated structure in the left pelvis associated with the left se hitesh vesicles, possibly a dilated gonadal vein and/or residual ureter, unchanged since 2018. Soft Tissues: Soft tissues and body wall unremarkable. Bones: No acute osseous finding. Mildly increased concave osteoporotic superior endplate deformity o f L4. Left proximal femoral fixation hardware. Stable L2 burst fracture. IMPRESSION: Large hiatal hernia. No acute abdominopelvic process. Multiple indeterminate density right renal lesi ons, may represent hemorrhagic cysts but a solid renal mass cannot be excluded with this examination. Reviewed, dictated and finalized at location K. IMPRESSION: Large hiatal hernia. No acute abdominopelvic process. Multiple indeterminate de nsity right renal lesions, may represent hemorrhagic cysts but a solid renal ma ss cannot be excluded with this examination.
--- NOTE | 2022-06-28 12:07 | ECG_ITS ---
Measurements Intervals [place] Rate: 85 P: -39 [place]: 268 QRS: -49 QRSD: 190 T: 126 QT: 437 QTc: 521 Interpretive Statements SINUS RHYTHM WITH FIRST DEGREE AV BLOCK WITH OCCASIONAL SUPRAVENTRICULAR PREMATURE COMPLEXES LEFT AXIS DEVIATION LEFT BUNDLE BRANCH BLOCK ABNORMAL ECG COMPARED TO ECG 11/06/2021 14:46:35 NO SIGNIFICANT CHANGES Electronically Signed On 06-28-2022 13:03:59 CDT by Chester Cantor M.D.
--- NOTE | 2022-06-28 12:32 | ED.WEAKNESS ---
HPI - Weakness General Chief complaint: Weakness Stated complaint: weakness, high bs Time Seen by Provider: 06/28/22 12:14 Source: RN notes reviewed History of Present Illness HPI Narrative: Patient presents emergency department from home via EMS for weakness. Patient states has been feeling generally weak for the past 3 days with progressively worsening weakness he is called for lift assist today and at that time was transported for further evaluation his blood sugar was noted to be high. Patient states he does have diabetes but does not believe he is on any medication at this time states he has been having several loose bowel movements but denies having any fevers or chills chest pain shortness of breath abdominal pain nausea vomiting or any other symptoms. He denies any unilateral weakness Related Data Home Medications Medication Instructions Recorded Confirmed atorvastatin 10 mg tablet 5 mg PO HS 09/21/21 12/19/21 cholecalciferol (vitamin D3) 50 50 mcg PO DAILY 09/21/21 12/19/21 mcg (2,000 unit) capsule (Vitamin D3) donepezil 10 mg tablet 10 mg PO BID 09/21/21 12/19/21 escitalopram oxalate 20 mg tablet 20 mg PO DAILY 09/21/21 12/19/21 fluticasone furoate 100 1 ea inhalation DAILY 09/21/21 12/19/21 mcg-vilanterol 25 mcg/dose inhalation powder (Breo Ellipta) magnesium oxide 400 mg (241.3 mg 400 mg PO BID 09/21/21 12/19/21 magnesium) tablet oxybutynin chloride 10 mg 10 mg PO BID 09/21/21 12/19/21 tablet,extended release 24 hr alprazolam 0.5 mg tablet mg 06/28/22 carvedilol 12.5 mg tablet mg 06/28/22 oxycodone 10 mg tablet mg 06/28/22 sodium bicarbonate 650 mg tablet mg 06/28/22 Allergies Allergy/AdvReac Type Severity Reaction Status Date / Time No Known Allergies Allergy Verified 06/28/22 14:03 Review of Systems Review of Systems: Gen.: Denies fevers or chills ENT: Denies congestion Respiratory: Denies shortness of breath or cough CV: Denies chest pain or palpitations reports Abdomen: Denies abdominal pain nausea or vomiting: Reports diarrhea Musculoskeletal: Denies back pain or muscle pain Neuro: Reports weakness Skin: Denies rash Except as documented, all other systems reviewed and negative PMFSH Past Medical History Medical History Anxiety Benign prostatic hyperplasia Borderline hyperlipidemia Cardiomyopathy Poorly documented history. Chronic back pain Chronic kidney disease Creatinine has fluctuated over the years in baseline seems to be between 1.50 and 2.10. Chronic narcotic dependence Chronic obstructive pulmonary disease Congenital absence of left kidney Dementia Depression Previous suicide attempt in 2013. Gastroesophageal reflux disease History of aspiration pneumonia Hypertension Kidney congenitally absent, left Left bundle branch block Migraine Obstructive sleep apnea The patient has tried oral apparatus and CPAP and has not been able to tolerated. Parkinsons Prostatic hyperplasia Type 2 diabetes mellitus Surgical History Surgical History History of cardiac catheterization History of cholecystectomy History of left cataract extraction History of nasal septoplasty History of open reduction and internal fixation (ORIF) procedure Gamma nail right hip fracture. History of repair of ACL Bilateral History of repair of right rotator cuff History of surgical removal of pilonidal cyst History of tonsillectomy Family History Family History Father Family history of cardiovascular disease Malignant neoplasm of prostate Mother Breast cancer Family history of chronic obstructive pulmonary disease Acute myocardial infarction Chronic obstructive pulmonary disease Sibling Prostate carcinoma Social History Social History Social His
[2022-06-28] MEDS: SODIUM CHLORIDE 0.9% IV 1,000 ML 999 ML IV CONT ×3 (12:41→15:00)
[2022-06-28 12:43] LABS: Basophils Percent Auto 0.1 % (0.2-1.2); Hemoglobin 12.4 g/dL (14.0-18.0); Immature Granulocyte Absolute 0.09 K/mm3 (0.00-0.031); Immature Granulocyte Percent A 0.6 % (0-0.5); Lymphocytes Absolute Auto 0.65 K/mm3 (0.9-3.2); Lymphocytes Percent Auto 4.6 % (18.3-44.2); Mean Corpuscular HGB Conc 32.6 g/dl (32-36); Mean Corpuscular Volume 82.6 fl (80-100); Mean Platelet Volume 10.5 fl (7.4-10.4); Monocytes Absolute Auto 0.8 K/mm3 (0.1-0.6); Monocytes Percent Auto 5.6 % (2.6-8.5); Neutrophils Absolute Auto 12.5 K/mm3 (1.3-6.7); Neutrophils Percent Auto 89.1 % (45.5-73.1); Platelet Count Result 402 k/mm3 (150-375); Red Cell Distribution Width 13.8 % (11.5-14.5)
[2022-06-28 12:43] LABS: Glucose Point of Care > 500 mg/dl (65-105)
[2022-06-28 12:46] LABS: Appearance Urine Clear (Clear); Bilirubin Urine Negative (Negative); Blood Urine 1+ (Negative); Color Urine Yellow (Yellow); Glucose Urine UA 3+ mg/dL (Negative); Ketones Urine Negative (Negative); Leukocyte Esterase Ur Negative LEU/UL (Negative); Nitrate Urine Negative (Negative); Protein Urine 1+ mg/dL (Negative); Specific Grav Ur <= 1.005 (1.001-1.035); Urobilinogen Urine 0.2 mg/dL (<2.0); pH Urine 5.5 (5.0-9.0)
[2022-06-28 12:54] LABS: Mucus Urine Rare /lpf; RBC Urine 0-2 /hpf (0-2); WBC Urine 0-3 /hpf
[2022-06-28 12:56] LABS: Add Urine Microscopic? YES
[2022-06-28 13:31] LABS: Alanine Aminotransferase 19 U/L (6-50); Albumin Level 3.9 g/dL (3.5-5.1); Alkaline Phosphatase 227 U/L (38-126); Anion Gap 21 mmol/L (8-16); Aspartate Amino Transferase 20 U/L (17-59); Bilirubin,Total 1.1 mg/dL (0.2-1.3); Blood Urea Nitrogen 45 mg/dL (9-20); Calcium 8.2 mg/dL (8.4-10.2); Carbon Dioxide 17 mmol/L (22-30); Chloride 70 mmol/L (98-107); Creatine Kinase 162 U/L (55-170); Estimated CRCL calculation 25 ml/min; Estimated Glomerular Filt Rate 19; Glucose 1423 mg/dL (65-110); Lipase 133 U/L (23-300); Magnesium 2.2 mg/dL (1.6-2.3); Potassium 4.9 mmol/L (3.4-5.0); Sodium 108 mmol/L (137-145)
[2022-06-28 13:38] LABS: Partial Thromboplastin Time 35.4 SECONDS (22.3-36.8); Prothrombin Time 21.9 Seconds (11.1-14.7)
[2022-06-28] MEDS: INSULIN HUMAN REGULAR (*BKC) 100 UNITS in SODIUM CHLORIDE 0.9% IV 99 ML 27 UNITS IV CONT (13:53)
[2022-06-28] MEDS: SODIUM CHLORIDE 0.9% IV 1,000 ML 125 ML IV CONT (13:54)
[2022-06-28 13:55] LABS: Alveolar/Arterial O2 Gradient 39.8 mmHg; Base Excess ABG -7.7 mEq/l (+/-2.0); Carboxyhemoglobin 0.3 % THb (0-2.0); Fractional Inspired Oxygen 21 %; HCO3 ABG 17.2 mEq/l (22.0-26.0); Methemoglobin ABG 0.3 %THb (0-1.5); Oxygen Content ABG 15.8 %vol (16.0-22.0); Oxygen Saturation ABG 93.2 % (95.0-100.0); Oxyhemoglobin 91.6 % THb (90.0-100.0); PCO2 ABG 33.3 mmHg (35.0-45.0); PO2 ABG 70.1 mmHg (80.0-100.0); PO2 FiO2 Ratio Arterial Blood 3.34 %; Reduced Hemoglobin 7.8 %THb (0-5.0); Total Hemoglobin 12.2 g/dL (12.0-18.0); pH ABG 7.332 (7.350-7.450)
[2022-06-28 13:56] LABS: Device ROOM AIR; Modified Allen's Test Pass; Site Drawn RIGHT RADIAL
--- NOTE | 2022-06-28 14:16 | PC.NURSE ---
Pt in CT
[2022-06-28 14:48] LABS: Beta-Hydroxybutyrate/Acetoacetate 0.95 mmol/L (0.02-0.27)
[2022-06-28 15:06] LABS: Glucose Point of Care > 500 mg/dl (65-105)
--- NOTE | 2022-06-28 15:12 | PM.IMHP ---
H&P: HPI History of Present Illness Date/Time: 06/28/22 15:12 Chief Complaint: Nausea with vomiting Narrative: 71-year-old male with past medical history significant for Parkinson's, diabetes, chronic foot drop, lumbar spondylosis, GERD and hyperlipidemia is presenting with nausea, vomiting, malaise generalized fatigue. He states the symptoms started about 2-3 days ago and have gotten progressively worse. He noted some associated diarrhea, but no fevers or chills, shortness of breath or chest pain. He did not have any abdominal pain. In the ER, he was found to have a glucose greater than a 1000 with ketones at 0.9. pH was 7.33. He was started on an insulin drip and admitted to the ICU with critical care consultation. Sodium was 118 but when it was corrected for the glucose that was 129. Potassium was 3 and creatinine was 2.9 with a baseline closer to 1.5. Lactic acid was also elevated at 5. Urinalysis and chest x-ray were not indicative of infection. There was a renal abnormality noted on CT of the abdomen and pelvis concerning for underlying mass. Renal ultrasound was ordered and is pending. EKG did show a left axis deviation with left bundle-branch block as well as first-degree AV block, this is not new when compared to an EKG from October 2021. Review of Systems Review of Systems: 12 point review of systems was assessed and was negative except as noted in the HPI [facility] Past Medical History Medical History Anxiety Benign prostatic hyperplasia Borderline hyperlipidemia Cardiomyopathy Poorly documented history. Chronic back pain Chronic kidney disease Creatinine has fluctuated over the years in baseline seems to be between 1.50 and 2.10. Chronic narcotic dependence Chronic obstructive pulmonary disease Congenital absence of left kidney Dementia Depression Previous suicide attempt in 2013. Gastroesophageal reflux disease History of aspiration pneumonia Hypertension Kidney congenitally absent, left Left bundle branch block Migraine Obstructive sleep apnea The patient has tried oral apparatus and CPAP and has not been able to tolerated. Parkinsons Prostatic hyperplasia Type 2 diabetes mellitus Surgical History Surgical History History of cardiac catheterization History of cholecystectomy History of left cataract extraction History of nasal septoplasty History of open reduction and internal fixation (ORIF) procedure Gamma nail right hip fracture. History of repair of ACL Bilateral History of repair of right rotator cuff History of surgical removal of pilonidal cyst History of tonsillectomy Family History Family History Father Family history of cardiovascular disease Malignant neoplasm of prostate Mother Breast cancer Family history of chronic obstructive pulmonary disease Acute myocardial infarction Chronic obstructive pulmonary disease Sibling Prostate carcinoma Social History Social History Social History: The patient is and lives in his own home in [place]. 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 Lifelong nonsmoker. Former heavy drinker, has not drank in years. No drug use. Healthcare power of trademark attorney: Kristie Sousa, daughter. Code status: Full code. Smoking status: Never smoker Spiritual care concerns: Yes Meds Home Medications and Allergies Home Medications Medication Instructions Recorded Confirmed Type atorvastatin 10 mg tablet 10 mg PO DAILY 09/21/21 06/28/22 History cholecalciferol (vitamin D3) 50 5,000 unit PO DAILY 09/21/21 06/28/22 History mcg (2,000 unit) capsule (Vitamin D3) donepezil 10 mg tablet 10 mg PO BID 09/21/21 06/28/22 History escitalopram oxalate 20 mg
[2022-06-28 15:28] LABS: SARS-CoV-2 RNA PCR Negative
[2022-06-28 16:10] LABS: Anion Gap 20 mmol/L (8-16); Blood Urea Nitrogen 41 mg/dL (9-20); Calcium 7.7 mg/dL (8.4-10.2); Carbon Dioxide 12 mmol/L (22-30); Chloride 86 mmol/L (98-107); Estimated CRCL calculation 27 ml/min; Estimated Glomerular Filt Rate 22; Glucose 925 mg/dL (65-110); Sodium 118 mmol/L (137-145)
[2022-06-28] MEDS: SODIUM CHLORIDE 0.9% IV 1,000 ML 150 ML IV CONT (16:20)
[2022-06-28 16:23] LABS: Reflex Lactic Acid Yes or No Add Lactic
--- NOTE | 2022-06-28 16:25 | ADMGEN ---
This patient, Mohamud Diaz, was admitted to Intensive Care Unit-2 at 1456. Patient/family oriented to hospital policies and general routines including ID bracelet, bed and alarms, visiting hours, pain management, procedures, bathroom and other care routines, personal items, smoking policy, room service/diet, and visiting hours. Information on how to activate the Rapid Response Team has been discussed. Patient/Family are encouraged to report perceived risks to care and to ask questions if they do not understand what they are told or what they should do.
[2022-06-28] MEDS: POTASSIUM CHLORIDE 20 MEQ TABLET 40 MEQ PO (16:53)
[2022-06-28] MEDS: POTASSIUM CHLORIDE INJ 40 MEQ in SODIUM CHLORIDE 0.9% IV 500 ML 130 MEQ IVPB (16:54)
[2022-06-28 17:18] LABS: Glucose Point of Care > 500 mg/dl (65-105)
[2022-06-28 17:47] LABS: Lactic Acid 5.1 mmol/L (0.7-2.0)
--- NOTE | 2022-06-28 17:50 | PC.NURSE ---
Obtained POC Glucose at 1500, resulted as >500, so we obtained a BMP that didn't result until 1555. Adjusted insulin drip at 1600.
[2022-06-28 17:56] LABS: Anion Gap 17 mmol/L (8-16); Blood Urea Nitrogen 41 mg/dL (9-20); Calcium 8.4 mg/dL (8.4-10.2); Carbon Dioxide 15 mmol/L (22-30); Chloride 90 mmol/L (98-107); Estimated CRCL calculation 28 ml/min; Estimated Glomerular Filt Rate 23; Phosphorus 3.9 mg/dL (2.5-4.5); Potassium 2.9 mmol/L (3.4-5.0); Sodium 122 mmol/L (137-145)
[2022-06-28 18:01] LABS: Glucose 624 mg/dL (65-110)
[2022-06-28] MEDS: INSULIN HUMAN REGULAR (*BKC) 100 UNITS in SODIUM CHLORIDE 0.9% IV 99 ML 16.9 UNITS IV CONT ×2 (18:20→18:34)
[2022-06-28] MEDS: LACTATED RINGERS 500 ML 999 ML IV CONT (18:30)
[2022-06-28] MEDS: LACTATED RINGERS 500 ML 999 ML (18:30)
[2022-06-28 18:58] LABS: Glucose Point of Care > 500 mg/dl (65-105)
[2022-06-28] MEDS: DONEPEZIL HCL 10 MG TABLET PO (20:03)
[2022-06-28] MEDS: PRIMIDONE 50 MG TABLET PO (20:03)
[2022-06-28 20:04] LABS: Glucose Point of Care 333 mg/dl (65-105)
[2022-06-28] MEDS: ALPRAZolam (*CRX) 0.5 MG TABLET PO (20:05)
[2022-06-28] MEDS: oxyCODONE HCL (*CRX) 5 MG TAB IR 10 MG PO (20:05)
[2022-06-28 21:10] LABS: Glucose Point of Care 201 mg/dl (65-105)
[2022-06-28] MEDS: KCL 20 MEQ/D5/0.45% SOD CHL 1,000 ML 150 ML IV CONT (21:32)
[2022-06-28 22:06] LABS: Glucose Point of Care 192 mg/dl (65-105)
[2022-06-28 22:24] LABS: Appearance Urine Clear (Clear); Bilirubin Urine Negative (Negative); Blood Urine 2+ (Negative); Color Urine Yellow (Yellow); Glucose Urine UA 3+ mg/dL (Negative); Ketones Urine Negative (Negative); Leukocyte Esterase Ur Negative LEU/UL (NEGATIVE); Nitrate Urine Negative (Negative); Protein Urine 1+ mg/dL (Negative); Urobilinogen Urine 0.2 mg/dL (<2.0)
[2022-06-28 22:27] LABS: Bacteria Urine Trace /hpf; Mucus Urine Rare /lpf; RBC Urine 0-2 /hpf (0-2); WBC Urine 0-3 /hpf (0-3)
[2022-06-28 22:39] LABS: Add Urine Microscopic? YES
[2022-06-28 23:06] LABS: Glucose Point of Care 169 mg/dl (65-105)
[2022-06-29] VITALS (13 sets, daily range): BP systolic 102–159; BP diastolic 57–75; PULSE 62–81; RESP 13–21; TEMP 36.6–37.1; O2SAT 97–100; BMI 33.3
[2022-06-29 00:09] LABS: Glucose Point of Care 167 mg/dl (65-105)
[2022-06-29 00:38] LABS: Anion Gap 14 mmol/L (8-16); Blood Urea Nitrogen 41 mg/dL (9-20); Calcium 8.4 mg/dL (8.4-10.2); Carbon Dioxide 17 mmol/L (22-30); Chloride 99 mmol/L (98-107); Estimated CRCL calculation 28 ml/min; Estimated Glomerular Filt Rate 23; Glucose 129 mg/dL (65-110); Potassium 3.7 mmol/L (3.4-5.0); Sodium 130 mmol/L (137-145)
[2022-06-29 01:18] LABS: Glucose Point of Care 116 mg/dl (65-105)
[2022-06-29 02:13] LABS: Glucose Point of Care 89 mg/dl (65-105)
[2022-06-29 03:12] LABS: Glucose Point of Care 104 mg/dl (65-105)
[2022-06-29] MEDS: KCL 20 MEQ/D5/0.45% SOD CHL 1,000 ML 150 ML IV CONT (04:17)
[2022-06-29 04:21] LABS: Glucose Point of Care 124 mg/dl (65-105)
[2022-06-29] MEDS: ALPRAZolam (*CRX) 0.5 MG TABLET PO ×3 (04:25→22:08)
[2022-06-29] MEDS: oxyCODONE HCL (*CRX) 5 MG TAB IR 10 MG PO ×3 (04:26→22:06)
[2022-06-29 05:17] LABS: Glucose Point of Care 157 mg/dl (65-105)
[2022-06-29 05:32] LABS: Hemoglobin A1C > 14.0 % (<5.7)
[2022-06-29 05:37] LABS: Basophils Absolute Auto 0.1 K/mm3 (0.0-0.1); Basophils Percent Auto 0.4 % (0.2-1.2); Eosinophils Absolute Auto 0.2 K/mm3 (0-0.3); Eosinophils Percent Auto 1.2 % (0-4.4); Hematocrit 32.4 % (42.0-52.0); Immature Granulocyte Absolute 0.07 K/mm3 (0.00-0.031); Immature Granulocyte Percent A 0.4 % (0-0.5); Lymphocytes Absolute Auto 3.43 K/mm3 (0.9-3.2); Lymphocytes Percent Auto 20.8 % (18.3-44.2); Mean Corpuscular Hemoglobin 27.5 pg (26-34); Mean Platelet Volume 9.7 fl (7.4-10.4); Monocytes Absolute Auto 1.7 K/mm3 (0.1-0.6); Monocytes Percent Auto 10.4 % (2.6-8.5); Neutrophils Percent Auto 66.8 % (45.5-73.1); Platelet Count Result 362 k/mm3 (150-375); Red Cell Distribution Width 13.2 % (11.5-14.5); White Blood Count 16.5 K/mm3 (4.5-10.0)
[2022-06-29 05:51] LABS: Alanine Aminotransferase 6 U/L (6-50); Alkaline Phosphatase 129 U/L (38-126); Anion Gap 9 mmol/L (8-16); Aspartate Amino Transferase 17 U/L (17-59); Bilirubin,Total 0.6 mg/dL (0.2-1.3); Blood Urea Nitrogen 42 mg/dL (9-20); Calcium 8.4 mg/dL (8.4-10.2); Carbon Dioxide 21 mmol/L (22-30); Chloride 97 mmol/L (98-107); Estimated CRCL calculation 27 ml/min; Estimated Glomerular Filt Rate 22; Glucose 154 mg/dL (65-110); Magnesium 2.1 mg/dL (1.6-2.3); Potassium 3.7 mmol/L (3.4-5.0); Sodium 127 mmol/L (137-145)
[2022-06-29 06:13] LABS: Glucose Point of Care 154 mg/dl (65-105)
[2022-06-29] MEDS: INSULIN GLARGINE (*BKC) 100 UNITS/ML 20 UNITS SUB-Q (06:26)
[2022-06-29 07:28] LABS: Glucose Point of Care 163 mg/dl (65-105)
[2022-06-29 07:50] LABS: Creatine Kinase 103 U/L (55-170)
[2022-06-29] MEDS: FLUTICASONE/SALMETEROL 115-21 MCG INHALER 1 PUFF 2 PUFF INHALATION ×3 (08:11→20:30)
--- NOTE | 2022-06-29 08:23 | WPDCNINT ---
Assessment and Plan Assessment and plan (1) Diabetic hyperosmolar non-ketotic state: Code(s): E11.00 - Type 2 diabetes mellitus with hyperosmolarity without nonketotic hyperglycemic-hyperosmolar coma ([facility]) Status: Acute Assessment and Plan: Patient presented with generalized weakness, diarrhea, history of diabetes not on any medications. -blood sugars were > 1400 with and gap metabolic acidosis -adequately fluid-resuscitated, was started insulin infusion -this morning anion gap has closed, patient was transitioned to long-acting insulin and sliding scale insulin -will discontinue insulin infusion per protocol, -will start diabetic diet -hemoglobin A1c >14.0 (5.5 in October 2021) -dietitian and assistant health educator to evaluate the patient (2) Acute renal failure: Code(s): N17.9 - Acute kidney failure, unspecified Status: Acute Assessment and Plan: Patient presented with acute renal failure likely related to hypovolemia from polyuria and diarrhea secondary to hyperglycemia -elevated BUN and creatinine, likely related to hypovolemia/dehydration -patient was adequately fluid resuscitated -Anne catheter in place -low urine output -renal ultrasound is pending, will check urine lytes, CK level and urine eosinophils -nephrology has been consulted 06/28/2022 CT scan of the abdomen and pelvis on admission: Large hiatal hernia. No acute abdominopelvic process. Multiple indeterminate density right renal lesions, may represent hemorrhagic cysts but a solid renal mass cannot be excluded with this examination (3) Acidosis, lactic: Code(s): E87.2 - Acidosis Status: Acute Assessment and Plan: Lactic acidosis could be secondary to hypovolemia, decreased end organ perfusion, could be related to decreased clearance secondary to acute kidney injury -patient has been adequately fluid-resuscitated, blood pressures have been stable -will repeat lactic acid this morning (4) Generalized weakness: Code(s): R53.1 - Weakness Status: Acute Assessment and Plan: Patient states his weakness is improving -will have PT/OT evaluate the patient (5) Diarrhea: Code(s): R19.7 - Diarrhea, unspecified Status: Acute Assessment and Plan: Resolved per patient -could be related to hyperglycemia and hyperosmolar nonketotic state Plan Transition insulin infusion to long-acting insulin sliding scale insulin PT/OT has been ordered Consult assistant health educator and dietitian Check lactic acid Nephrology has been consulted Additional Plan DVT prophylaxis: Lovenox, renally dosed Nutrition, diabetic diet Discussed with patient updated with his condition and plan of care. He is aware that in the insulin infusion has been stopped and patient was given long-acting insulin. Code status: Full code Critical care time spent: 47 minutes This dictation may have been done utilizing a voice recognition system. Attempts have been made to correct errors. However, there may be uncorrected grammatical, spelling, and recognition errors present. Due to a high probability of clinically significant, life threatening deterioration, the patient required my highest level of preparedness to intervene emergently and I personally spent this critical care time directly and personally managing the patient. This critical care time included obtaining a history; examining the patient; pulse oximetry; ordering and review of studies; arranging urgent treatment with development of a management plan; evaluation of patient's response to treatment; frequent reassessment; and discussions with other providers. It was exclusive of separately billable procedures and treating other patients and teaching time. Please see Assessment and Plan section and the rest of the note for further information on patient assessment and treatment Clinical Research Analyst Consult Note Consult date: 06/29/22 Reason for consult: Hyperglycemia, diabetic hyper
[2022-06-29] MEDS: ENOXAPARIN 30 MG/0.3 ML SYRINGE SUB-Q (09:05)
[2022-06-29] MEDS: CHOLECALCIFEROL 1,000 UNITS TABLET 5000 UNITS PO (09:05)
[2022-06-29] MEDS: DONEPEZIL HCL 10 MG TABLET PO ×2 (09:06→17:48)
[2022-06-29] MEDS: PRIMIDONE 50 MG TABLET PO ×3 (09:06→17:48)
[2022-06-29] MEDS: MAGNESIUM OXIDE 400 MG TABLET PO ×2 (09:06→17:48)
[2022-06-29] MEDS: ESCITALOPRAM OXALATE 10 MG TABLET 20 MG PO (09:06)
[2022-06-29 09:39] LABS: Lactic Acid Reflex 1.5 mmol/L (0.7-2.0)
[2022-06-29 09:44] LABS: Anion Gap 11 mmol/L (8-16); Blood Urea Nitrogen 41 mg/dL (9-20); Calcium 8.5 mg/dL (8.4-10.2); Carbon Dioxide 20 mmol/L (22-30); Chloride 97 mmol/L (98-107); Estimated CRCL calculation 27 ml/min; Estimated Glomerular Filt Rate 22; Glucose 169 mg/dL (65-110); Potassium 3.8 mmol/L (3.4-5.0); Sodium 128 mmol/L (137-145)
[2022-06-29 09:48] LABS: Potassium Urine Random 37.3 meq/L; Sodium Urine Random 7 meq/L
[2022-06-29 09:55] LABS: Glucose Point of Care 170 mg/dl (65-105)
[2022-06-29 10:30] LABS: Eosinophil Urine None Seen % (None Seen)
[2022-06-29] MEDS: ATORVASTATIN 10 MG TABLET PO (11:13)
[2022-06-29] MEDS: carvediloL 3.125 MG TABLET PO ×2 (11:13→17:48)
[2022-06-29 11:53] LABS: Glucose Point of Care 356 mg/dl (65-105)
[2022-06-29 12:54] LABS: Anion Gap 10 mmol/L (8-16); Blood Urea Nitrogen 42 mg/dL (9-20); Calcium 7.9 mg/dL (8.4-10.2); Carbon Dioxide 19 mmol/L (22-30); Chloride 95 mmol/L (98-107); Estimated CRCL calculation 28 ml/min; Estimated Glomerular Filt Rate 22; Glucose 363 mg/dL (65-110); Sodium 124 mmol/L (137-145)
[2022-06-29] MEDS: INSULIN ASPART (*BKC) 100 UNITS/ML SUB-Q (12:56)
[2022-06-29 12:57] LABS: Glucose Point of Care 372 mg/dl (65-105)
--- NOTE | 2022-06-29 14:07 | PC.NURSE ---
This patient, Mohamud Diaz, was transferred to [[facility] ] on 06/29/22 at 1400. Personal belongings sent with patient. Report given to [ Chen]. Appropriate documentation sent with patient.
--- NOTE | 2022-06-29 14:11 | PM.CNNEP ---
Assessment and Plan Additional Plan 1. Mohamud has chronic kidney disease. This is most likely due to diabetes and hypertension. He does only have 1 kidney, however before 2018 his creatinine was normal and he only had 1 kidney then as well. It seems like his creatinine is around 1.6 normally. He is followed by Dr. Jorgito guthrie in [place]. 2. The patient has acute kidney injury. His urine sodium is only 7. His renal ultrasound shows no hydronephrosis. His CPK is normal. Most likely this is due to dehydration because of his diarrhea. If he has some sort of a toxic or infectious diarrhea than that could play a role as well. the patient could have disorder regulation as his blood pressure was a bit soft in the ER. 3. The patient has diabetes. He is on Accu-Cheks and sliding-scale insulin. 4. Patient's blood pressure is Running between 101 60. Much of the time during the last admission is blood pressure was in the 140s to 170s. Dysautoregulation could also cause an elevation of creatinine if he is not used to these blood pressures between 100 and 120. 5. The patient has hyponatremia. He had very low sodium on admission but that was because his sugar was over a 1000. After that sugar corrected his sodium level was up to 130. Now his dropped gradually to 124. He has received a lot of fluid, however most of it has been isotonic. The acute aspect of his hyponatremia is probably from renal failure and dehydration. 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 He is also on Lexapro which can do this. Will check a TSH and cortisol level. Will also check a serum protein electrophoresis. Imaging does not demonstrate anything in his lungs or brain that would cause hyponatremia. He has no history of cancer. Will put him on fluid restriction for now and check a sodium later today. History of Present Illness Reason for Consult Consult date: 06/29/22 Chief Complaint Chief complaint: hyperosmolar hyperglycemic nonketotic sydrome,acut History of Present Illness Narrative: Mohamud is a very pleasant 71-year-old gentleman who has multiple medical problems including Parkinson's disease, diabetes, chronic foot drop, GERD, hyperlipidemia, chronic kidney disease with only one kidney on the right followed by Dr. Guthrie in [place], anxiety, BPH, diabetes, sleep apnea but does not use a CPAP machine, hypertension, GERD, depression, COPD, and chronic back pain. Apparently October the patient stopped his diabetic medications. It is unclear how his sugars have been since then. In the last few days patient has been having diarrhea. He has had a large amount every day. It is been getting worse. He does not have any nausea or vomiting or belly pain. No fevers or chills. No black or bloody stools. He lives alone. He has had no sick contacts that he knows of. He did go to a neurologist who prescribed prima done but that is his only new medication. He does take escitalopram. Review of Systems Constitutional: Constitutional: Reports no additional constitutional complaints Eyes: Eyes: Reports no additional eye complaints ENT: Reports system reviewed and no additional complaints, except as documented Cardiovascular: Cardiovascular: Reports no additional cardiovascular complaints Respiratory: Respiratory: Reports no additional respiratory complaints Gastrointestinal: Gastrointestinal: Reports no additional gastrointestinal complaints Genitourinary: Genitourinary: Reports no additional male genitourinary complaints Musculoskeletal: Musculoskeletal: Reports no additional musculoskeletal complaints Integumentary/Breasts: Skin/Breast: Reports system reviewed and no additional complaints, except as docu Neurologic: Reports system reviewed and no additional complaints, except as documented Psychiatric: Psychiatric: Reports no angela
--- NOTE | 2022-06-29 15:36 | PM.IMPN ---
Progress Note: A&P Assessment and Plan (1) Diabetic hyperosmolar non-ketotic state: Code(s): E11.00 - Type 2 diabetes mellitus with hyperosmolarity without nonketotic hyperglycemic-hyperosmolar coma ([facility]) Status: Acute Assessment and Plan: DKA resolved at this time, started on long-acting insulin, anticipate discharge tomorrow with close outpatient follow-up of his insulin dose and blood glucose levels (2) Acute renal failure: Code(s): N17.9 - Acute kidney failure, unspecified Status: Acute Assessment and Plan: renal ultrasound pending, appreciate nephrology consultation, creatinine has not trended down as expected with fluid resuscitation (3) Acidosis, lactic: Code(s): E87.2 - Acidosis Status: Acute Assessment and Plan: resolved (4) Generalized weakness: Code(s): R53.1 - Weakness Status: Acute Assessment and Plan: appreciate PT/ OT assistance, improving (5) Diarrhea: Code(s): R19.7 - Diarrhea, unspecified Status: Acute Assessment and Plan: resolved, likely secondary to DKA which is now resolved (6) Depression: Qualifiers: Depression Type: unspecified Qualified Code(s): F32.9 - Major depressive disorder, single episode, unspecified Code(s): F32.9 - Major depressive disorder, single episode, unspecified Status: Chronic (7) DAVID (obstructive sleep apnea): Code(s): G47.33 - Obstructive sleep apnea (adult) (pediatric) Status: Acute (8) Prostatic hyperplasia: Code(s): N40.0 - Benign prostatic hyperplasia without lower urinary tract symptoms Status: Chronic (9) Parkinsons: Code(s): G20 - Parkinson's disease Status: Chronic (10) Hypertension: Code(s): I10 - Essential (primary) hypertension Status: Acute (11) Gastroesophageal reflux disease: Code(s): K21.9 - Gastro-esophageal reflux disease without esophagitis Status: Acute (12) Chronic obstructive pulmonary disease: Code(s): J44.9 - Chronic obstructive pulmonary disease, unspecified Status: Acute (13) Chronic pain: Code(s): G89.29 - Other chronic pain Status: Acute (14) Anxiety: Code(s): F41.9 - Anxiety disorder, unspecified Status: Acute Plan Transition insulin infusion to long-acting insulin sliding scale insulin PT/OT has been ordered Consult ems educator and dietitian Check lactic acid Nephrology has been consulted Additional Plan DVT prophylaxis: Lovenox, renally dosed Nutrition, diabetic diet Subjective Date/time seen: 06/29/22 15:36 Interval history: Patient feels much better than yesterday. Most symptoms resolved. No overnight events noted. No chest pain or shortness of breath. No nausea, vomiting or diarrhea. No fevers or chills. Review of Systems Review of Systems: All systems reviewed & are unremarkable except as noted in HPI and below Exam Narrative: General: No acute distress, alert and oriented per baseline HEENT: Atraumatic, normocephalic, mucous membranes moist CV: Regular rate and rhythm, S1, S2 Lungs: Clear to auscultation bilaterally, no rales or crackles noted, no wheezes, good air entry Abdomen: Soft, nontender, nondistended Extremities: Normal to inspection Skin: No rashes noted, no lesions or wounds seen Psych: Euthymic, normal affect Objective Data Vital Signs Vital Signs: Vital Signs - 24 hr 06/28/22 16:00 06/28/22 16:00 06/28/22 18:00 Temperature Pulse Rate 85 79 Respiratory Rate Blood Pressure Pulse Oximetry 99 Oxygen Delivery Room Air 06/28/22 16:00 06/28/22 18:00 06/28/22 20:00 Temperature 97.9 F Pulse Rate 83 79 75 Respiratory Rate 19 18 16 Blood Pressure 113/66 101/57 L 102/57 L Pulse Oximetry 100 99 99 Oxygen Delivery 06/28/22 20:00 06/28/22 20:00 06/28/22 22:00 Temperature Pulse Rate 74 69 Respiratory Rate Blood Pr
--- NOTE | 2022-06-29 15:40 | PC.NURSE ---
This patient, Mohamud Diaz, was received from ICU on 06/29/22 at 1405. Report received from HENRY Lauren. Patient/family oriented to unit policies and routines
[2022-06-29 16:48] LABS: Glucose Point of Care 500 mg/dl (65-105)
[2022-06-29 17:29] LABS: Procalcitonin 0.3 ng/mL
[2022-06-29 17:42] LABS: Thyroid Stimulating Hormone Reflex 0.178 uIU/mL (0.465-4.68)
[2022-06-29] MEDS: INSULIN ASPART (*BKC) 100 UNITS/ML 15 UNITS SUB-Q (17:47)
[2022-06-29] MEDS: CARBIDOPA/LEVODOPA 25/100 MG CR TABLET 2 TABLET PO (17:48)
[2022-06-29] MEDS: SODIUM BICARBONATE TAB 650 MG TABLET BY MOUTH (17:48)
[2022-06-29 18:16] LABS: Free T4 Free Thyroxine Reflex 1.38 ng/dL (0.78-2.19)
[2022-06-29 19:11] LABS: Total Triiodothyronine (T3) 0.69 NG/ML (0.97-1.69)
[2022-06-29 20:36] LABS: Sodium 122 mmol/L (137-145)
[2022-06-29 21:34] LABS: Glucose Point of Care > 500 mg/dl (65-105)
[2022-06-29] MEDS: INSULIN GLARGINE (*BKC) 100 UNITS/ML 22 UNITS SUB-Q (22:06)
[2022-06-29] MEDS: SODIUM CHLORIDE 0.9% IV 1,000 ML 75 ML IV CONT (22:08)
[2022-06-29] MEDS: INSULIN ASPART (*BKC) 100 UNITS/ML 25 UNITS SUB-Q (22:35)
[2022-06-29] MEDS: SODIUM CHLORIDE 0.9% IV 250 ML BAG 500 ML IVPB (22:38)
[2022-06-30] VITALS (8 sets, daily range): BP systolic 97–99; BP diastolic 42–59; PULSE 65–90; RESP 16–20; TEMP 37.1–37.2; O2SAT 97–98; BMI 34.9
[2022-06-30 00:07] LABS: Glucose Point of Care 434 mg/dl (65-105)
[2022-06-30] MEDS: INSULIN ASPART (*BKC) 100 UNITS/ML 30 UNITS SUB-Q (01:23)
[2022-06-30 03:05] LABS: Glucose Point of Care 137 mg/dl (65-105)
[2022-06-30] MEDS: SODIUM CHLORIDE 0.9% IV 1,000 ML 75 ML IV CONT ×2 (03:08→20:56)
[2022-06-30 06:16] LABS: Glucose Point of Care 25 mg/dl (65-105)
[2022-06-30 06:16] LABS: Glucose Point of Care 106 mg/dl (65-105)
[2022-06-30 06:55] LABS: Albumin Level 3.1 g/dL (3.5-5.1); Anion Gap 13 mmol/L (8-16); Blood Urea Nitrogen 44 mg/dL (9-20); Carbon Dioxide 17 mmol/L (22-30); Chloride 101 mmol/L (98-107); Estimated CRCL calculation 31 ml/min; Estimated Glomerular Filt Rate 23; Glucose 96 mg/dL (65-110); Phosphorus 1.8 mg/dL (2.5-4.5); Potassium 3.3 mmol/L (3.4-5.0); Sodium 131 mmol/L (137-145)
[2022-06-30] MEDS: FLUTICASONE/SALMETEROL 115-21 MCG INHALER 1 PUFF 2 PUFF INHALATION ×2 (07:41→20:24)
[2022-06-30 08:11] LABS: Glucose Point of Care 101 mg/dl (65-105)
[2022-06-30] MEDS: ACETAMINOPHEN 325 MG TABLET 650 MG PO (09:06)
[2022-06-30] MEDS: MAGNESIUM OXIDE 400 MG TABLET PO ×2 (09:07→17:52)
[2022-06-30] MEDS: DONEPEZIL HCL 10 MG TABLET PO ×2 (09:07→17:52)
[2022-06-30] MEDS: CARBIDOPA/LEVODOPA 25/100 MG CR TABLET 2 TABLET PO ×2 (09:07→17:52)
[2022-06-30] MEDS: ENOXAPARIN 30 MG/0.3 ML SYRINGE SUB-Q (09:07)
[2022-06-30] MEDS: SODIUM BICARBONATE TAB 650 MG TABLET BY MOUTH ×2 (09:07→17:52)
[2022-06-30] MEDS: ESCITALOPRAM OXALATE 10 MG TABLET 20 MG PO (09:08)
[2022-06-30] MEDS: ATORVASTATIN 10 MG TABLET PO (09:08)
[2022-06-30] MEDS: CHOLECALCIFEROL 1,000 UNITS TABLET 5000 UNITS PO (09:08)
[2022-06-30] MEDS: carvediloL 3.125 MG TABLET PO ×2 (09:08→17:53)
[2022-06-30] MEDS: PRIMIDONE 50 MG TABLET PO ×3 (09:08→17:52)
[2022-06-30 11:36] LABS: Glucose Point of Care 309 mg/dl (65-105)
[2022-06-30] MEDS: INSULIN ASPART (*BKC) 100 UNITS/ML SUB-Q ×2 (12:39→17:53)
--- NOTE | 2022-06-30 15:52 | PM.PNNEP ---
Progress Note: A&P Additional Plan 1. Mohamud has chronic kidney disease. This is most likely due to diabetes and hypertension. He does only have 1 kidney; however before 2018 his creatinine was normal and he only had 1 kidney then as well. It seems like his creatinine is around 1.6 normally. He is followed by Dr. Jorgito Guthrie in [place]. 2. The patient has acute kidney injury. His urine sodium is only 7. His renal ultrasound shows no hydronephrosis. His CPK is normal. Most likely this is due to dehydration because of his diarrhea. his creatinine seems to be slowly better. 3. The patient has diabetes. He is on Accu-Cheks and sliding-scale insulin. 4. Patient's blood pressure is running between 90 to 120 for the most part. he is on a low dose of carvedilol, mostly for the heart. 5. The patient has hyponatremia. this seems to rise and fall with his sugars, but corrected sodium level is relative stable in the 128 to 131 range. The acute aspect of his hyponatremia is probably from renal failure and dehydration. 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 He is also on Lexapro which can do this. TSH is low, T4 is normal, T3 is low. ?significance? cortisol level is okay Imaging does not demonstrate anything in his lungs or brain that would cause hyponatremia. He has no history of cancer. he is uptodate with is cancer surveillance he says. continue fluid restriction. Subjective Date/time seen: 06/30/22 15:52 Interval history: home caregiver in the room. pt is feeling better. no cp or sob. Review of Systems Cardiovascular: Cardiovascular: Reports no additional cardiovascular complaints Respiratory: Respiratory: Reports no additional respiratory complaints Gastrointestinal: Gastrointestinal: Reports no additional gastrointestinal complaints Genitourinary: Genitourinary: Reports no additional male genitourinary complaints Exam Narrative: WDWN in NAD skin no rash head ncat lungs clear cor reg no rub abd BS+ nontender and soft ext 1+ edema. Objective Data Vital Signs Vital Signs: Vital Signs - 24 hr 06/29/22 22:35 06/29/22 20:00 06/30/22 06:20 Temperature 36.7 C Pulse Rate 69 69 Respiratory Rate 17 17 Blood Pressure 117/68 98/42 L Pulse Oximetry 98 98 Oxygen Delivery Room Air 06/30/22 07:44 06/30/22 09:08 06/30/22 08:00 Temperature 37.1 C Pulse Rate 87 84 84 Respiratory Rate 18 20 Blood Pressure 97/53 L Pulse Oximetry 98 Oxygen Delivery 06/30/22 08:00 Temperature Pulse Rate Respiratory Rate Blood Pressure Pulse Oximetry 98 Oxygen Delivery Room Air Intake/Output Intake/Output: Intake & Output 06/27/22 06/28/22 06/29/22 06/30/22 23:59 23:59 23:59 23:59 Intake Total 4200 2782 1000 Output Total 100 650 450 Balance 4100 2132 550 Meds/Results Medications: Active Medications Generic Name Dose Route Start Last Admin Trade Name Freq PRN Reason Stop Dose Admin Acetaminophen 650 mg 06/29/22 15:40 06/30/22 09:06 Acetaminophen 325 Mg Tablet PO 650 mg Q4-6H PRN Administration Pain 1-3 Alprazolam 0.5 mg 06/28/22 18:54 06/29/22 22:08 Alprazolam (*Crx) 0.5 Mg Tablet PO 0.5 mg PRN PRN Administration Anxiety Atorvastatin Calcium 10 mg 06/29/22 09:00 06/30/22 09:08 Atorvastatin 10 Mg Tablet PO 10 mg DAILY LAI Administration Carbidopa/Levodopa 2 tablet 06/29/22 17:00 06/30/22 09:07 Carbidopa/Levodopa 25/100 Mg Cr Tablet PO 2 tablet BID LAI Administration Carvedilol 3.125 mg 06/29/22 10:45 06/30/22 09:08 Carvedilol 3.125 Mg Tablet PO 3.125 mg BID LAI Administration Dextrose 12.5 gm 06/28/22 15:58 Dextrose 50% 25 Gm/50 Ml Syringe IV PUSH PRN PRN Hypoglycemia Protocol Donepezil HCl 10 mg 06/28/22 19:00 06/30/22 09:07 Donepezil Hcl 10 Mg Tablet
[2022-06-30 16:35] LABS: Glucose Point of Care 393 mg/dl (65-105)
[2022-06-30] MEDS: oxyCODONE HCL (*CRX) 5 MG TAB IR 10 MG PO (17:50)
[2022-06-30] MEDS: ALPRAZolam (*CRX) 0.5 MG TABLET PO (17:52)
--- NOTE | 2022-06-30 18:42 | PM.IMPN ---
Progress Note: A&P Assessment and Plan (1) Diabetic hyperosmolar non-ketotic state: Code(s): E11.00 - Type 2 diabetes mellitus with hyperosmolarity without nonketotic hyperglycemic-hyperosmolar coma ([facility]) Status: Acute Assessment and Plan: Appears resolved, now difficulty managing blood sugars, appreciate diabetic Education consult (2) Acute renal failure: Code(s): N17.9 - Acute kidney failure, unspecified Status: Acute Assessment and Plan: Appreciate nephrology consultation, concern for SIADH compounded with dehydration from DKA, currently placed on fluid restriction per Dr. Franco (3) Acidosis, lactic: Code(s): E87.2 - Acidosis Status: Acute Assessment and Plan: resolved (4) Generalized weakness: Code(s): R53.1 - Weakness Status: Acute Assessment and Plan: appreciate PT/ OT assistance, improving (5) Diarrhea: Code(s): R19.7 - Diarrhea, unspecified Status: Acute Assessment and Plan: resolved, likely secondary to DKA which is now resolved (6) Depression: Qualifiers: Depression Type: unspecified Qualified Code(s): F32.9 - Major depressive disorder, single episode, unspecified Code(s): F32.9 - Major depressive disorder, single episode, unspecified Status: Chronic (7) DAVID (obstructive sleep apnea): Code(s): G47.33 - Obstructive sleep apnea (adult) (pediatric) Status: Acute (8) Prostatic hyperplasia: Code(s): N40.0 - Benign prostatic hyperplasia without lower urinary tract symptoms Status: Chronic (9) Parkinsons: Code(s): G20 - Parkinson's disease Status: Chronic (10) Hypertension: Code(s): I10 - Essential (primary) hypertension Status: Acute (11) Gastroesophageal reflux disease: Code(s): K21.9 - Gastro-esophageal reflux disease without esophagitis Status: Acute (12) Chronic obstructive pulmonary disease: Code(s): J44.9 - Chronic obstructive pulmonary disease, unspecified Status: Acute (13) Chronic pain: Code(s): G89.29 - Other chronic pain Status: Acute (14) Anxiety: Code(s): F41.9 - Anxiety disorder, unspecified Status: Acute Plan Will add 10 units of NovoLog with meals tomorrow and continue Lantus 30 units tonight Additional Plan DVT prophylaxis: Lovenox, renally dosed Nutrition, diabetic diet Subjective Date/time seen: 06/30/22 18:42 Objective Data Vital Signs Vital Signs: Vital Signs - 24 hr 06/29/22 22:35 06/29/22 20:00 06/30/22 06:20 Temperature 98.1 F Pulse Rate 69 69 Respiratory Rate 17 17 Blood Pressure 117/68 98/42 L Pulse Oximetry 98 98 Oxygen Delivery Room Air 06/30/22 07:44 06/30/22 09:08 06/30/22 08:00 Temperature 98.7 F Pulse Rate 87 84 84 Respiratory Rate 18 20 Blood Pressure 97/53 L Pulse Oximetry 98 Oxygen Delivery 06/30/22 08:00 06/30/22 17:53 Temperature Pulse Rate 90 Respiratory Rate Blood Pressure Pulse Oximetry 98 Oxygen Delivery Room Air Intake/Output Intake/Output: Intake & Output 06/27/22 06/28/22 06/29/22 06/30/22 23:59 23:59 23:59 23:59 Intake Total 4200 2782 2590 Output Total 100 650 450 Balance 4100 2132 2140 Meds/Results Medications: Active Medications Generic Name Dose Route Start Last Admin Trade Name Freq PRN Reason Stop Dose Admin Acetaminophen 650 mg 06/29/22 15:40 06/30/22 09:06 Acetaminophen 325 Mg Tablet PO 650 mg Q4-6H PRN Administration Pain 1-3 Alprazolam 0.5 mg 06/28/22 18:54 06/30/22 17:52 Alprazolam (*Crx) 0.5 Mg Tablet PO 0.5 mg PRN PRN Administration Anxiety Atorvastatin Calcium 10 mg 06/29/22 09:00 06/30/22 09:08 Atorvastatin 10 Mg Tablet PO 10 mg DAILY LAI Administration Carbidopa/Levodopa 2 tablet 06/29/22 17:00 06/30/22 17:52 Carbidopa/Levodopa 25/100 Mg Cr Tablet PO 2 tablet BID LAI Ad
[2022-06-30] MEDS: INSULIN GLARGINE (*BKC) 100 UNITS/ML 30 UNITS SUB-Q (21:01)
[2022-06-30 21:34] LABS: Glucose Point of Care 336 mg/dl (65-105)
[2022-07-01] VITALS (11 sets, daily range): BP systolic 110–116; BP diastolic 58–71; PULSE 54–78; RESP 14–20; TEMP 36.8–37.2; O2SAT 97–100
[2022-07-01] MEDS: oxyCODONE HCL (*CRX) 5 MG TAB IR 10 MG PO ×3 (04:36→20:56)
[2022-07-01] MEDS: ALPRAZolam (*CRX) 0.5 MG TABLET PO ×2 (04:37→16:59)
[2022-07-01] MEDS: MAGNESIUM OXIDE 400 MG TABLET PO ×2 (07:45→17:00)
[2022-07-01] MEDS: CARBIDOPA/LEVODOPA 25/100 MG CR TABLET 2 TABLET PO ×2 (07:45→17:00)
[2022-07-01] MEDS: ESCITALOPRAM OXALATE 10 MG TABLET 20 MG PO (07:45)
[2022-07-01] MEDS: DONEPEZIL HCL 10 MG TABLET PO ×2 (07:45→17:00)
[2022-07-01] MEDS: CHOLECALCIFEROL 1,000 UNITS TABLET 5000 UNITS PO (07:48)
[2022-07-01] MEDS: SODIUM BICARBONATE TAB 650 MG TABLET BY MOUTH ×2 (07:48→17:02)
[2022-07-01] MEDS: ENOXAPARIN 30 MG/0.3 ML SYRINGE SUB-Q (07:48)
[2022-07-01] MEDS: PRIMIDONE 50 MG TABLET PO ×3 (07:48→17:00)
[2022-07-01] MEDS: ATORVASTATIN 10 MG TABLET PO (07:48)
[2022-07-01] MEDS: FLUTICASONE/SALMETEROL 115-21 MCG INHALER 1 PUFF 2 PUFF INHALATION ×2 (07:54→20:02)
[2022-07-01 08:01] LABS: Glucose Point of Care 280 mg/dl (65-105)
[2022-07-01] MEDS: INSULIN ASPART (*BKC) 100 UNITS/ML 10 UNITS SUB-Q ×3 (08:26→17:01)
--- NOTE | 2022-07-01 09:46 | PM.IMPN ---
Progress Note: A&P Assessment and Plan (1) Diabetic hyperosmolar non-ketotic state: Code(s): E11.00 - Type 2 diabetes mellitus with hyperosmolarity without nonketotic hyperglycemic-hyperosmolar coma ([facility]) Status: Acute Assessment and Plan: Appears resolved, now difficulty managing blood sugars, appreciate diabetic education consult Currently receiving lantus 40 units QHS + novolog 10 units WM (2) Acute renal failure: Code(s): N17.9 - Acute kidney failure, unspecified Status: Acute Assessment and Plan: Appreciate nephrology consultation, concern for SIADH compounded with dehydration from DKA, currently placed on fluid restriction per Dr. Franco (3) Acidosis, lactic: Code(s): E87.2 - Acidosis Status: Acute Assessment and Plan: resolved (4) Generalized weakness: Code(s): R53.1 - Weakness Status: Acute Assessment and Plan: appreciate PT/ OT assistance, improving (5) Diarrhea: Code(s): R19.7 - Diarrhea, unspecified Status: Acute Assessment and Plan: resolved, likely secondary to DKA which is now resolved (6) Depression: Qualifiers: Depression Type: unspecified Qualified Code(s): F32.9 - Major depressive disorder, single episode, unspecified Code(s): F32.9 - Major depressive disorder, single episode, unspecified Status: Chronic (7) DAVID (obstructive sleep apnea): Code(s): G47.33 - Obstructive sleep apnea (adult) (pediatric) Status: Acute (8) Prostatic hyperplasia: Code(s): N40.0 - Benign prostatic hyperplasia without lower urinary tract symptoms Status: Chronic (9) Parkinsons: Code(s): G20 - Parkinson's disease Status: Chronic (10) Hypertension: Code(s): I10 - Essential (primary) hypertension Status: Acute (11) Gastroesophageal reflux disease: Code(s): K21.9 - Gastro-esophageal reflux disease without esophagitis Status: Acute (12) Chronic obstructive pulmonary disease: Code(s): J44.9 - Chronic obstructive pulmonary disease, unspecified Status: Acute (13) Chronic pain: Code(s): G89.29 - Other chronic pain Status: Acute (14) Anxiety: Code(s): F41.9 - Anxiety disorder, unspecified Status: Acute Plan 06/30: Will add 10 units of NovoLog with meals tomorrow and continue Lantus 30 units tonight 07/01: BG still elevated, add additional lantus 10 units this morning in addition to the 30 units last night, will watch sugars today with mealtime coverage and higher dose of lantus, anticipate d/c tomorrow on new insulin regimen. Care coordination states there is a neighbor who can assist with BG testing and insulin administration Additional Plan DVT prophylaxis: Lovenox, renally dosed Nutrition, diabetic diet Subjective Date/time seen: 07/01/22 09:46 Interval history: No overnight events noted. No chest pain or shortness of breath. No nausea, vomiting or diarrhea. No fevers or chills. Review of Systems Review of Systems: 12 point review of systems was assessed and was negative except as noted in the HPI Exam Narrative: General: No acute distress, alert and oriented per baseline HEENT: Atraumatic, normocephalic, mucous membranes moist CV: Regular rate and rhythm, S1, S2 Lungs: Clear to auscultation bilaterally, no rales or crackles noted, no wheezes, good air entry Abdomen: Soft, nontender, nondistended Extremities: Normal to inspection Skin: No rashes noted, no lesions or wounds seen Psych: Euthymic, normal affect Objective Data Vital Signs Vital Signs: Vital Signs - 24 hr 06/30/22 17:53 06/30/22 20:20 06/30/22 20:25 Temperature Pulse Rate 90 69 69 Respiratory Rate 16 16 Blood Pressure Pulse Oximetry Oxygen Delivery 06/30/22 21:44 06/30/22 21:00 07/01/22 06:00 Temperature 98.9 F 98.9 F Pulse Rate 65 58 L Respiratory Rate 17 18 Blood Pressure 9
[2022-07-01] MEDS: carvediloL 3.125 MG TABLET PO ×2 (10:45→17:01)
[2022-07-01 11:40] LABS: Basophils Percent Auto 0.3 % (0.2-1.2); Eosinophils Absolute Auto 0.2 K/mm3 (0-0.3); Eosinophils Percent Auto 1.6 % (0-4.4); Hemoglobin 9.7 g/dL (14.0-18.0); Immature Granulocyte Percent A 0.9 % (0-0.5); Lymphocytes Absolute Auto 1.93 K/mm3 (0.9-3.2); Lymphocytes Percent Auto 17.5 % (18.3-44.2); Mean Corpuscular HGB Conc 32.3 g/dl (32-36); Mean Corpuscular Hemoglobin 26.9 pg (26-34); Mean Corpuscular Volume 83.1 fl (80-100); Mean Platelet Volume 9.8 fl (7.4-10.4); Monocytes Absolute Auto 0.9 K/mm3 (0.1-0.6); Monocytes Percent Auto 8.1 % (2.6-8.5); Neutrophils Absolute Auto 7.9 K/mm3 (1.3-6.7); Neutrophils Percent Auto 71.6 % (45.5-73.1); Platelet Count Result 243 k/mm3 (150-375); Red Blood Count 3.61 M/mm3 (4.6-6.20); Red Cell Distribution Width 14.2 % (11.5-14.5)
[2022-07-01 12:02] LABS: Alanine Aminotransferase 9 U/L (6-50); Albumin Level 2.8 g/dL (3.5-5.1); Alkaline Phosphatase 114 U/L (38-126); Anion Gap 8 mmol/L (8-16); Aspartate Amino Transferase 16 U/L (17-59); Bilirubin,Total 0.2 mg/dL (0.2-1.3); Blood Urea Nitrogen 42 mg/dL (9-20); Calcium 7.6 mg/dL (8.4-10.2); Carbon Dioxide 19 mmol/L (22-30); Chloride 100 mmol/L (98-107); Estimated CRCL calculation 35 ml/min; Estimated Glomerular Filt Rate 27; Glucose 292 mg/dL (65-110); Potassium 3.7 mmol/L (3.4-5.0); Sodium 127 mmol/L (137-145)
[2022-07-01 12:06] LABS: Glucose Point of Care 296 mg/dl (65-105)
[2022-07-01] MEDS: INSULIN ASPART (*BKC) 100 UNITS/ML SUB-Q ×2 (12:19→17:02)
[2022-07-01 16:32] LABS: Glucose Point of Care 315 mg/dl (65-105)
[2022-07-01] MEDS: SODIUM CHLORIDE 0.9% IV 1,000 ML 75 ML IV CONT (17:06)
[2022-07-01] MEDS: INSULIN GLARGINE (*BKC) 100 UNITS/ML 10 UNITS SUB-Q (20:56)
[2022-07-01 21:17] LABS: Glucose Point of Care 291 mg/dl (65-105)
[2022-07-02] VITALS (7 sets, daily range): BP systolic 90–112; BP diastolic 55–79; PULSE 65–103; RESP 18–20; TEMP 36.6–39; O2SAT 92–97
[2022-07-02] MEDS: ALPRAZolam (*CRX) 0.5 MG TABLET PO ×3 (00:27→21:09)
[2022-07-02] MEDS: ACETAMINOPHEN 325 MG TABLET 650 MG PO ×2 (05:29→21:09)
[2022-07-02 06:31] LABS: Basophils Percent Auto 0.2 % (0.2-1.2); Eosinophils Percent Auto 0.2 % (0-4.4); Hematocrit 31.9 % (42.0-52.0); Hemoglobin 10.3 g/dL (14.0-18.0); Immature Granulocyte Absolute 0.13 K/mm3 (0.00-0.031); Lymphocytes Absolute Auto 0.51 K/mm3 (0.9-3.2); Mean Corpuscular HGB Conc 32.3 g/dl (32-36); Mean Corpuscular Volume 83.7 fl (80-100); Monocytes Absolute Auto 1.2 K/mm3 (0.1-0.6); Monocytes Percent Auto 9.1 % (2.6-8.5); Neutrophils Absolute Auto 10.8 K/mm3 (1.3-6.7); Neutrophils Percent Auto 85.5 % (45.5-73.1); Platelet Count Result 242 k/mm3 (150-375); Red Blood Count 3.81 M/mm3 (4.6-6.20); Red Cell Distribution Width 14.1 % (11.5-14.5); White Blood Count 12.7 K/mm3 (4.5-10.0)
[2022-07-02 06:47] LABS: Alanine Aminotransferase 6 U/L (6-50); Albumin Level 2.9 g/dL (3.5-5.1); Alkaline Phosphatase 133 U/L (38-126); Anion Gap 7 mmol/L (8-16); Aspartate Amino Transferase 17 U/L (17-59); Bilirubin,Total 0.4 mg/dL (0.2-1.3); Blood Urea Nitrogen 37 mg/dL (9-20); Calcium 7.8 mg/dL (8.4-10.2); Carbon Dioxide 21 mmol/L (22-30); Chloride 103 mmol/L (98-107); Estimated CRCL calculation 38 ml/min; Estimated Glomerular Filt Rate 30; Glucose 239 mg/dL (65-110); Potassium 3.9 mmol/L (3.4-5.0); Sodium 131 mmol/L (137-145)
[2022-07-02 07:59] LABS: Glucose Point of Care 237 mg/dl (65-105)
[2022-07-02] MEDS: SODIUM CHLORIDE 0.9% IV 1,000 ML 75 ML IV CONT (08:59)
[2022-07-02] MEDS: INSULIN ASPART (*BKC) 100 UNITS/ML 10 UNITS SUB-Q ×3 (08:59→18:04)
[2022-07-02] MEDS: INSULIN ASPART (*BKC) 100 UNITS/ML SUB-Q ×2 (08:59→12:02)
[2022-07-02] MEDS: FLUTICASONE/SALMETEROL 115-21 MCG INHALER 1 PUFF 2 PUFF INHALATION ×2 (09:00→20:44)
[2022-07-02] MEDS: ENOXAPARIN 30 MG/0.3 ML SYRINGE SUB-Q (09:00)
[2022-07-02] MEDS: MAGNESIUM OXIDE 400 MG TABLET PO ×2 (09:00→18:03)
[2022-07-02] MEDS: PRIMIDONE 50 MG TABLET PO ×3 (09:00→18:03)
[2022-07-02] MEDS: ESCITALOPRAM OXALATE 10 MG TABLET 20 MG PO (09:00)
[2022-07-02] MEDS: SODIUM BICARBONATE TAB 650 MG TABLET BY MOUTH ×2 (09:01→18:03)
[2022-07-02] MEDS: CARBIDOPA/LEVODOPA 25/100 MG CR TABLET 2 TABLET PO ×2 (09:01→18:03)
[2022-07-02] MEDS: CHOLECALCIFEROL 1,000 UNITS TABLET 5000 UNITS PO (09:01)
[2022-07-02] MEDS: DONEPEZIL HCL 10 MG TABLET PO ×2 (09:01→18:03)
[2022-07-02] MEDS: carvediloL 3.125 MG TABLET PO ×2 (09:01→18:03)
[2022-07-02] MEDS: ATORVASTATIN 10 MG TABLET PO (09:01)
--- NOTE | 2022-07-02 11:30 | PM.PNNEP ---
Progress Note: A&P Additional Plan 1. Mohamud has chronic kidney disease. This is most likely due to diabetes and hypertension. He does only have 1 kidney; however before 2018 his creatinine was normal and he only had 1 kidney then as well. It seems like his creatinine is around 1.6 normally. He is followed by Dr. Jorgito Guthrie in [place]. 2. The patient has acute kidney injury. His urine electrolytes are pre renal. His renal ultrasound shows no hydronephrosis. His CPK is normal. Most likely this is due to dehydration because of his diarrhea. his creatinine Is down to 2.2 3. The patient has diabetes. He is on Accu-Cheks and sliding-scale insulin. 4. Patient's blood pressure is running between 90 to 120 for the most part. he is on a low dose of carvedilol, mostly for the heart. 5. The patient has hyponatremia. this seems to rise and fall with his sugars, but corrected sodium level is relative stable in the 128 to 131 range. The acute aspect of his hyponatremia is probably from renal failure and dehydration. 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 He is also on Lexapro which can do this. TSH is low, T4 is normal, T3 is low. ?significance? cortisol level is okay Imaging does not demonstrate anything in his lungs or brain that would cause hyponatremia. He has no history of cancer. he is uptodate with is cancer surveillance he says. continue fluid restriction. will increase the fluid allotment to 1500cc Subjective Date/time seen: 07/02/22 11:30 Interval history: Patient is resting comfortably in bed. No chest pain or shortness of breath. Exam Narrative: WDWN in NAD skin no rash head ncat lungs clear bilaterally cor reg no rub or gallop abd BS+ nontender and soft ext 1+ edema and no cyanosis. Objective Data Vital Signs Vital Signs: Vital Signs - 24 hr 07/01/22 17:01 07/01/22 14:00 07/01/22 20:04 Temperature 37.1 C Pulse Rate 65 65 75 Respiratory Rate 20 14 Blood Pressure 115/65 Pulse Oximetry 97 Oxygen Delivery 07/01/22 20:14 07/01/22 21:44 07/01/22 20:56 Temperature 36.8 C Pulse Rate 78 55 L Respiratory Rate 17 18 Blood Pressure 116/71 Pulse Oximetry 99 99 Oxygen Delivery Room Air 07/02/22 05:29 07/02/22 05:47 07/02/22 06:16 Temperature 39.0 C H 39.0 C H 38.6 C H Pulse Rate 103 H Respiratory Rate 18 Blood Pressure 99/59 L Pulse Oximetry 92 Oxygen Delivery Intake/Output Intake/Output: Intake & Output 06/29/22 06/30/22 07/01/22 07/02/22 23:59 23:59 23:59 23:59 Intake Total 2782 3590 1600 1240 Output Total 650 802 600 6553 Balance 2132 3140 950 240 Meds/Results Medications: Active Medications Generic Name Dose Route Start Last Admin Trade Name Freq PRN Reason Stop Dose Admin Acetaminophen 650 mg 06/29/22 15:40 07/02/22 05:29 Acetaminophen 325 Mg Tablet PO 650 mg Q4-6H PRN Administration Pain 1-3 Alprazolam 0.5 mg 06/28/22 18:54 07/02/22 00:27 Alprazolam (*Crx) 0.5 Mg Tablet PO 0.5 mg PRN PRN Administration Anxiety Atorvastatin Calcium 10 mg 06/29/22 09:00 07/02/22 09:01 Atorvastatin 10 Mg Tablet PO 10 mg DAILY LAI Administration Carbidopa/Levodopa 2 tablet 06/29/22 17:00 07/02/22 09:01 Carbidopa/Levodopa 25/100 Mg Cr Tablet PO 2 tablet BID LAI Administration Carvedilol 3.125 mg 06/29/22 10:45 07/02/22 09:01 Carvedilol 3.125 Mg Tablet PO 3.125 mg BID LAI Administration Dextrose 12.5 gm 06/28/22 15:58 Dextrose 50% 25 Gm/50 Ml Syringe IV PUSH PRN PRN Hypoglycemia Protocol Donepezil HCl 10 mg 06/28/22 19:00 07/02/22 09:01 Donepezil Hcl 10 Mg Tablet PO 10 mg BID LAI Administration Enoxaparin Sodium 30 mg 06/29/22 09:00 07/02/22 09:00 Enoxaparin 30 Mg/0.3 Ml Syringe SUB-Q 30 mg DAILY LAI Administration
[2022-07-02 11:38] LABS: Glucose Point of Care 293 mg/dl (65-105)
[2022-07-02] MEDS: oxyCODONE HCL (*CRX) 5 MG TAB IR 10 MG PO (12:01)
--- NOTE | 2022-07-02 14:45 | PM.IMPN ---
Progress Note: A&P Assessment and Plan (1) Diabetic hyperosmolar non-ketotic state: Code(s): E11.00 - Type 2 diabetes mellitus with hyperosmolarity without nonketotic hyperglycemic-hyperosmolar coma ([facility]) Status: Acute Assessment and Plan: Appears resolved, now difficulty managing blood sugars, appreciate diabetic education consult Currently receiving lantus 40 units QHS + novolog 10 units WM (2) Acute renal failure: Code(s): N17.9 - Acute kidney failure, unspecified Status: Acute Assessment and Plan: Appreciate nephrology consultation, concern for SIADH compounded with dehydration from DKA, currently placed on fluid restriction per Dr. Franco (3) Acidosis, lactic: Code(s): E87.2 - Acidosis Status: Acute Assessment and Plan: resolved (4) Generalized weakness: Code(s): R53.1 - Weakness Status: Acute Assessment and Plan: appreciate PT/ OT assistance, improving (5) Diarrhea: Code(s): R19.7 - Diarrhea, unspecified Status: Acute Assessment and Plan: resolved, likely secondary to DKA which is now resolved (6) Depression: Qualifiers: Depression Type: unspecified Qualified Code(s): F32.9 - Major depressive disorder, single episode, unspecified Code(s): F32.9 - Major depressive disorder, single episode, unspecified Status: Chronic (7) DAVID (obstructive sleep apnea): Code(s): G47.33 - Obstructive sleep apnea (adult) (pediatric) Status: Acute (8) Prostatic hyperplasia: Code(s): N40.0 - Benign prostatic hyperplasia without lower urinary tract symptoms Status: Chronic (9) Parkinsons: Code(s): G20 - Parkinson's disease Status: Chronic (10) Hypertension: Code(s): I10 - Essential (primary) hypertension Status: Acute (11) Gastroesophageal reflux disease: Code(s): K21.9 - Gastro-esophageal reflux disease without esophagitis Status: Acute (12) Chronic obstructive pulmonary disease: Code(s): J44.9 - Chronic obstructive pulmonary disease, unspecified Status: Acute (13) Chronic pain: Code(s): G89.29 - Other chronic pain Status: Acute (14) Anxiety: Code(s): F41.9 - Anxiety disorder, unspecified Status: Acute Plan 06/30: Will add 10 units of NovoLog with meals tomorrow and continue Lantus 30 units tonight 07/01: BG still elevated, add additional lantus 10 units this morning in addition to the 30 units last night, will watch sugars today with mealtime coverage and higher dose of lantus, anticipate d/c tomorrow on new insulin regimen. Care coordination states there is a neighbor who can assist with BG testing and insulin administration. 07/02: BG still elevated, looks like when the extra lantus 10 units was given, the lantus 30 units was d/c, will give 40 units this evening and assess FBG tomorrow Additional Plan DVT prophylaxis: Lovenox, renally dosed Nutrition, diabetic diet Subjective Date/time seen: 07/02/22 14:45 Interval history: Patient sitting up in chair, eating lunch. No complaints. No overnight events noted. No chest pain or shortness of breath. No nausea, vomiting or diarrhea. No fevers or chills. Review of Systems Review of Systems: 12 point review of systems was assessed and was negative except as noted in the HPI Exam Narrative: General: No acute distress, alert and oriented per baseline HEENT: Atraumatic, normocephalic, mucous membranes moist CV: Regular rate and rhythm, S1, S2 Lungs: Clear to auscultation bilaterally, no rales or crackles noted, no wheezes, good air entry Abdomen: Soft, nontender, nondistended Extremities: Normal to inspection Skin: No rashes noted, no lesions or wounds seen Psych: Euthymic, normal affect Objective Data Vital Signs Vital Signs: Vital Signs - 24 hr 07/01/22 17:01 07/01/22 20:04 07/01/22 20:14 Temperature Pulse Rate 65 75 78
[2022-07-02 17:50] LABS: Glucose Point of Care 132 mg/dl (65-105)
[2022-07-02] MEDS: INSULIN GLARGINE (*BKC) 100 UNITS/ML 40 UNITS SUB-Q (18:04)
[2022-07-02 21:22] LABS: Glucose Point of Care 223 mg/dl (65-105)
[2022-07-03] MEDS: oxyCODONE HCL (*CRX) 5 MG TAB IR 10 MG PO (02:20)
[2022-07-03 06:00] VITALS: BP 130/73; PULSE 71; RESP 17; TEMP 36.9; O2SAT 97
[2022-07-03 06:46] LABS: Basophils Percent Auto 0.3 % (0.2-1.2); Eosinophils Absolute Auto 0.2 K/mm3 (0-0.3); Eosinophils Percent Auto 2.2 % (0-4.4); Hematocrit 27.8 % (42.0-52.0); Hemoglobin 8.8 g/dL (14.0-18.0); Immature Granulocyte Absolute 0.13 K/mm3 (0.00-0.031); Immature Granulocyte Percent A 1.3 % (0-0.5); Lymphocytes Absolute Auto 1.44 K/mm3 (0.9-3.2); Lymphocytes Percent Auto 14.8 % (18.3-44.2); Mean Corpuscular HGB Conc 31.7 g/dl (32-36); Mean Corpuscular Hemoglobin 26.9 pg (26-34); Mean Platelet Volume 10.1 fl (7.4-10.4); Monocytes Absolute Auto 1.2 K/mm3 (0.1-0.6); Monocytes Percent Auto 12.7 % (2.6-8.5); Neutrophils Absolute Auto 6.7 K/mm3 (1.3-6.7); Neutrophils Percent Auto 68.7 % (45.5-73.1); Platelet Count Result 229 k/mm3 (150-375); Red Blood Count 3.27 M/mm3 (4.6-6.20); Red Cell Distribution Width 14.6 % (11.5-14.5); White Blood Count 9.8 K/mm3 (4.5-10.0)
[2022-07-03 06:52] LABS: Albumin Level 2.6 g/dL (3.5-5.1); Alkaline Phosphatase 102 U/L (38-126); Anion Gap 5 mmol/L (8-16); Aspartate Amino Transferase 15 U/L (17-59); Bilirubin,Total 0.4 mg/dL (0.2-1.3); Blood Urea Nitrogen 32 mg/dL (9-20); Calcium 7.6 mg/dL (8.4-10.2); Carbon Dioxide 22 mmol/L (22-30); Chloride 101 mmol/L (98-107); Estimated CRCL calculation 43 ml/min; Estimated Glomerular Filt Rate 35; Glucose 239 mg/dL (65-110); Phosphorus 3.1 mg/dL (2.5-4.5); Potassium 4.1 mmol/L (3.4-5.0); Sodium 128 mmol/L (137-145)
[2022-07-03 06:55] LABS: Alanine Aminotransferase < 4 U/L (6-50)
[2022-07-03 07:27] LABS: Albumin 3.1 g/dL (3.8-4.8); Alpha 1 Globulin 0.2 g/dL (0.2-0.3); Alpha 2 Globulin 0.7 g/dL (0.5-0.9); Beta 1 Globulin 0.4 g/dL (0.4-0.6); Gamma Globulin 0.7 g/dL (0.8-1.7); Interpretation Consistent with; Protein, Total 5.3 g/dL (6.1-8.1)
[2022-07-03 07:49] LABS: Glucose Point of Care 254 mg/dl (65-105)
[2022-07-03] MEDS: INSULIN ASPART (*BKC) 100 UNITS/ML SUB-Q ×2 (08:21→11:51)
[2022-07-03] MEDS: INSULIN ASPART (*BKC) 100 UNITS/ML 10 UNITS SUB-Q (08:21)
[2022-07-03 08:23] VITALS: PULSE 70
[2022-07-03] MEDS: carvediloL 3.125 MG TABLET PO (08:23)
[2022-07-03] MEDS: ALPRAZolam (*CRX) 0.5 MG TABLET PO (08:24)
[2022-07-03] MEDS: PRIMIDONE 50 MG TABLET PO ×2 (08:24→11:59)
[2022-07-03] MEDS: MAGNESIUM OXIDE 400 MG TABLET PO (08:24)
[2022-07-03] MEDS: SODIUM BICARBONATE TAB 650 MG TABLET BY MOUTH (08:24)
[2022-07-03] MEDS: ATORVASTATIN 10 MG TABLET PO (08:24)
[2022-07-03] MEDS: CHOLECALCIFEROL 1,000 UNITS TABLET 5000 UNITS PO (08:24)
[2022-07-03] MEDS: CARBIDOPA/LEVODOPA 25/100 MG CR TABLET 2 TABLET PO (08:24)
[2022-07-03] MEDS: ESCITALOPRAM OXALATE 10 MG TABLET 20 MG PO (08:24)
[2022-07-03] MEDS: DONEPEZIL HCL 10 MG TABLET PO (08:24)
[2022-07-03] MEDS: ENOXAPARIN 30 MG/0.3 ML SYRINGE SUB-Q (08:25)
[2022-07-03] MEDS: FLUTICASONE/SALMETEROL 115-21 MCG INHALER 1 PUFF 2 PUFF INHALATION (08:27)
[2022-07-03 08:29] VITALS: O2SAT 96
--- NOTE | 2022-07-03 08:51 | PM.IMPN ---
Progress Note: A&P Assessment and Plan (1) Diabetic hyperosmolar non-ketotic state: Code(s): E11.00 - Type 2 diabetes mellitus with hyperosmolarity without nonketotic hyperglycemic-hyperosmolar coma ([facility]) Status: Acute Assessment and Plan: Appears resolved, now difficulty managing blood sugars, appreciate diabetic education consult Currently receiving lantus 40 units QHS + novolog 10 units WM (2) Acute renal failure: Code(s): N17.9 - Acute kidney failure, unspecified Status: Acute Assessment and Plan: Appreciate nephrology consultation, concern for SIADH compounded with dehydration from DKA, currently placed on fluid restriction per Dr. Franco (3) Acidosis, lactic: Code(s): E87.2 - Acidosis Status: Acute Assessment and Plan: resolved (4) Generalized weakness: Code(s): R53.1 - Weakness Status: Acute Assessment and Plan: appreciate PT/ OT assistance, improving, SNF rec at d/c (5) Diarrhea: Code(s): R19.7 - Diarrhea, unspecified Status: Acute Assessment and Plan: resolved, likely secondary to DKA which is now resolved (6) Depression: Qualifiers: Depression Type: unspecified Qualified Code(s): F32.9 - Major depressive disorder, single episode, unspecified Code(s): F32.9 - Major depressive disorder, single episode, unspecified Status: Chronic Assessment and Plan: refusing medication, discussed outpatient therapy/meds, patient denies need and wants to work on it himself (7) DAVID (obstructive sleep apnea): Code(s): G47.33 - Obstructive sleep apnea (adult) (pediatric) Status: Acute (8) Prostatic hyperplasia: Code(s): N40.0 - Benign prostatic hyperplasia without lower urinary tract symptoms Status: Chronic Assessment and Plan: sneed in place, will attempt to pull today and see if he voids on his own (9) Parkinsons: Code(s): G20 - Parkinson's disease Status: Chronic (10) Hypertension: Code(s): I10 - Essential (primary) hypertension Status: Acute (11) Gastroesophageal reflux disease: Code(s): K21.9 - Gastro-esophageal reflux disease without esophagitis Status: Acute (12) Chronic obstructive pulmonary disease: Code(s): J44.9 - Chronic obstructive pulmonary disease, unspecified Status: Acute (13) Chronic pain: Code(s): G89.29 - Other chronic pain Status: Acute (14) Anxiety: Code(s): F41.9 - Anxiety disorder, unspecified Status: Acute Plan 06/30: Will add 10 units of NovoLog with meals tomorrow and continue Lantus 30 units tonight 07/01: BG still elevated, add additional lantus 10 units this morning in addition to the 30 units last night, will watch sugars today with mealtime coverage and higher dose of lantus, anticipate d/c tomorrow on new insulin regimen. Care coordination states there is a neighbor who can assist with BG testing and insulin administration. 07/02: BG still elevated, looks like when the extra lantus 10 units was given, the lantus 30 units was d/c, will give 40 units this evening and assess FBG tomorrow 07/03: BG essentially unchanged with higher dose of lantus, confirmed admin of 40 units yesterday, will add add'l 10 units now, and then start 50 units tonight before bed. increase mealtime coverage to 15 units novolog with meals. Additional Plan DVT prophylaxis: Lovenox, renally dosed Nutrition, diabetic diet Subjective Date/time seen: 07/03/22 08:51 Review of Systems Review of Systems: 12 point review of systems was assessed and was negative except as noted in the HPI Exam Narrative: General: No acute distress, alert and oriented per baseline HEENT: Atraumatic, normocephalic, mucous membranes moist CV: Regular rate and rhythm, S1, S2 Lungs: Clear to auscultation bilaterally, no rales or crackles noted, no wheezes, good air entry Abdomen: Soft, nontender, non
[2022-07-03 11:28] LABS: Glucose Point of Care 313 mg/dl (65-105)
[2022-07-03] MEDS: INSULIN GLARGINE (*BKC) 100 UNITS/ML 10 UNITS SUB-Q (11:50)
[2022-07-03] MEDS: INSULIN ASPART (*BKC) 100 UNITS/ML 15 UNITS SUB-Q (11:51)
[2022-07-03 14:00] VITALS: BP 114/55; PULSE 79; RESP 20; TEMP 37.2; O2SAT 94
--- NOTE | 2022-07-03 14:04 | PM.DS ---
DS: Admitting Diagnosis Discharge Date July 03, 2022 Admitting Diagnosis DKA DS: Discharge Diagnosis Discharge Diagnosis (1) Diabetic hyperosmolar non-ketotic state: Code(s): E11.00 - Type 2 diabetes mellitus with hyperosmolarity without nonketotic hyperglycemic-hyperosmolar coma ([facility]) Status: Acute Assessment and Plan: Appears resolved, now difficulty managing blood sugars, appreciate diabetic education consult Currently receiving lantus 40 units QHS + novolog 10 units WM (2) Acute renal failure: Code(s): N17.9 - Acute kidney failure, unspecified Status: Acute Assessment and Plan: Appreciate nephrology consultation, concern for SIADH compounded with dehydration from DKA, currently placed on fluid restriction per Dr. Franco (3) Acidosis, lactic: Code(s): E87.2 - Acidosis Status: Acute Assessment and Plan: resolved (4) Generalized weakness: Code(s): R53.1 - Weakness Status: Acute Assessment and Plan: appreciate PT/ OT assistance, improving, SNF rec at d/c (5) Diarrhea: Code(s): R19.7 - Diarrhea, unspecified Status: Acute Assessment and Plan: resolved, likely secondary to DKA which is now resolved (6) Depression: Qualifiers: Depression Type: unspecified Qualified Code(s): F32.9 - Major depressive disorder, single episode, unspecified Code(s): F32.9 - Major depressive disorder, single episode, unspecified Status: Chronic Assessment and Plan: refusing medication, discussed outpatient therapy/meds, patient denies need and wants to work on it himself (7) DAVID (obstructive sleep apnea): Code(s): G47.33 - Obstructive sleep apnea (adult) (pediatric) Status: Acute (8) Prostatic hyperplasia: Code(s): N40.0 - Benign prostatic hyperplasia without lower urinary tract symptoms Status: Chronic Assessment and Plan: sneed in place, will attempt to pull today and see if he voids on his own (9) Parkinsons: Code(s): G20 - Parkinson's disease Status: Chronic (10) Hypertension: Code(s): I10 - Essential (primary) hypertension Status: Acute (11) Gastroesophageal reflux disease: Code(s): K21.9 - Gastro-esophageal reflux disease without esophagitis Status: Acute (12) Chronic obstructive pulmonary disease: Code(s): J44.9 - Chronic obstructive pulmonary disease, unspecified Status: Acute (13) Chronic pain: Code(s): G89.29 - Other chronic pain Status: Acute (14) Anxiety: Code(s): F41.9 - Anxiety disorder, unspecified Status: Acute Plan 06/30: Will add 10 units of NovoLog with meals tomorrow and continue Lantus 30 units tonight 07/01: BG still elevated, add additional lantus 10 units this morning in addition to the 30 units last night, will watch sugars today with mealtime coverage and higher dose of lantus, anticipate d/c tomorrow on new insulin regimen. Care coordination states there is a neighbor who can assist with BG testing and insulin administration. 07/02: BG still elevated, looks like when the extra lantus 10 units was given, the lantus 30 units was d/c, will give 40 units this evening and assess FBG tomorrow 07/03: BG essentially unchanged with higher dose of lantus, confirmed admin of 40 units yesterday, will add add'l 10 units now, and then start 50 units tonight before bed. increase mealtime coverage to 15 units novolog with meals. DS: Summary Hospital Course Hospital Course: 71-year-old male with past medical history significant for Parkinson's, diabetes, chronic footdrop, lumbar spondylosis, GERD and hyperlipidemia is presenting with nausea, vomiting, fatigue and malaise and was found to be in DKA. He was admitted to the ICU on an insulin drip for he improved over time. Creatinine did bump any had pseudo hyponatremia. Lactic acidosis also noted at 5. EKG showed left axis deviation with left b
[2022-07-04 14:22] LABS: Chloride Rand Ur <20 mmol/L (32-290); Creatinine Random Urine 182 mg/dL (20-320)
== END 2022-07-03 15:45 | disposition home or self-care (01) | DRG 638 ==
LOC: ANHED 14:26 → ANHICU 14:29 → ANH3MEDSUR 06-29 14:40
PROVIDERS: Internal Medicine; Internal Medicine Nephrology; Admitting Provider Student in an Organized Health Care Education/Training Program; Emergency Provider Emergency Medicine; PCP Internal Medicine Geriatric Medicine; Visit Provider Student in an Organized Health Care Education/Training Program
DX: E11.00 Type 2 diabetes mellitus with hyperosmolarity without nonketotic hyperglycemic-hyperosmolar coma (NKHHC) (principal); N17.9 Acute kidney failure, unspecified; E87.2 Acidosis; E22.2 Syndrome of inappropriate secretion of antidiuretic hormone; Q60.0 Renal agenesis, unilateral; E86.0 Dehydration; R19.7 Diarrhea, unspecified; Z20.822 Contact with and (suspected) exposure to COVID-19; G47.33 Obstructive sleep apnea (adult) (pediatric); F32.9 Major depressive disorder, single episode, unspecified; G20 Parkinson's disease; K21.9 Gastro-esophageal reflux disease without esophagitis; G89.29 Other chronic pain; F41.9 Anxiety disorder, unspecified; M47.816 Spondylosis without myelopathy or radiculopathy, lumbar region; E78.5 Hyperlipidemia, unspecified; M21.379 Foot drop, unspecified foot; I44.0 Atrioventricular block, first degree; I44.7 Left bundle-branch block, unspecified; N40.0 Benign prostatic hyperplasia without lower urinary tract symptoms; J44.9 Chronic obstructive pulmonary disease, unspecified; I12.9 Hypertensive chronic kidney disease with stage 1 through stage 4 chronic kidney disease, or unspecified chronic kidney disease; E11.22 Type 2 diabetes mellitus with diabetic chronic kidney disease; N18.9 Chronic kidney disease, unspecified; Z90.49 Acquired absence of other specified parts of digestive tract
CPT/HCPCS: 36415; 36600; 70450; 71045; 74176; 76775; 80048; 80053; 80069; 81001; 82010; 82375; 82436; 82533; 82550; 82570; 82805; 82948; 83036; 83050; 83605; 83690; 83735; 84100; 84133; 84145; 84155; 84165; 84295; 84300; 84439; 84443; 84480; 85025; 85610; 85730; 85999; 87086; 93005; 94640; 96361; 96365; 96366; 96372; 96375; 97110; 97161; 97165; 97530; 97535; 99285; A9270; C9803; G0378; J1650; J1815; J3480; J7030; J7040; J7050; J7120; U0003; U0005

== ENCOUNTER 2023-01-23 17:31 | Inpatient (IN) | payer MEDICARE, SELFPAY ==
[2023-01-23] VITALS (8 sets, daily range): BP systolic 133–167; BP diastolic 60–110; PULSE 80–112; RESP 14–22; TEMP 36.2–36.5; O2SAT 97–100
--- NOTE | ~2023-01-23 | US_ITS ---
US renal BI 01/24/2023 10:43 Procedure: Realtime transabdominal ultrasound of the kidneys and bladder. Indication: Acute renal insufficiency. Comparison: Ultrasound dated 06/29/2022 Findings: There are multiple right renal cysts, largest measuring 9.7 cm. No solid renal masses or hy dronephrosis. No stones. Right kidney measures 15.4 cm and is hypertrophic. Left kidney is congenital ly absent. Bladder is unremarkable. Impression: 1: Hypertrophic right kidney containing multiple cysts, largest measuring 9.7 cm. Reviewed, dictated and finalized at location B. ING SYSTEM INSTALLER Impression: 1: Hypertrophic right kidney containing multiple cysts, largest measuring 9.7 c m.
--- NOTE | ~2023-01-23 | US_ITS ---
EXAMINATION:US venous doppler LE BI INDICATION:Intermittent shortness of breath TECHNIQUE: Multiple grayscale, color flow and Doppler images of the right and left lower extremity de ep venous systems were obtained and reviewed. COMPARISON:No prior studies for comparison. FINDINGS: The common femoral, superficial femoral and popliteal veins demonstrate normal respiratory variation, augmentation and compressibility. Color flow is also seen within the posterior tibial, pe roneal, greater saphenous and profunda veins. IMPRESSION: 1: No lower extremity deep venous thrombosis. Reviewed, dictated and finalized at location B. CARRIER
--- NOTE | ~2023-01-23 | XR_ITS ---
EXAMINATION: XR chest 2V Exam Date/Time: 01/23/2023 18:17 UNIFORM CAP OPERATOR HISTORY: fall, unknown down time Comparison: None available. RESULT: Lines, tubes, and devices: None. Lungs and pleura: Low lung volumes in the lateral view. Mid and lower lung reticular opacities, with indistinct vessels. Senescent changes. Streaky bibasilar scar/atelectasis. Cardiomediastinal silhouette: Stable cardiomegaly. Prominent central pulmonary arteries as can be se en with pulmonary arterial hypertension. Calcified hilar nodes. Other: No acute osseous or upper abdominal finding. IMPRESSION: Limited lateral view. Vascular congestion/mild interstitial edema. Reviewed, dictated and finalized at location K. ORM CAP OPERATOR
--- NOTE | 2023-01-23 17:40 | ECG_ITS ---
Measurements Intervals [place] Rate: 94 P: -65 [place]: 218 QRS: -37 QRSD: 173 T: 116 QT: 400 QTc: 501 Interpretive Statements SINUR OR ECTOPIC ATRIAL RHYTHM WITH FIRST DEGREE AV BLOCK LEFT AXIS DEVIATION LEFT BUNDLE BRANCH BLOCK BASELINE ARTIFACT- I, II, AVR, AVL, AVF ABNORMAL ECG COMPARED TO ECG 06/28/2022 12:21:40 NO SIGNIFICANT CHANGES Electronically Signed On 01-24-2023 6:31:31 [employer] ADVIS[employer] by Bin Awad D.O.
[2023-01-23 18:02] LABS: Basophils Percent Auto 0.3 % (0.2-1.2); Eosinophils Percent Auto 0.3 % (0-4.4); Hematocrit 27.6 % (42.0-52.0); Immature Granulocyte Absolute 0.08 K/mm3 (0.00-0.031); Immature Granulocyte Percent A 0.7 % (0-0.5); Lymphocytes Absolute Auto 0.87 K/mm3 (0.9-3.2); Lymphocytes Percent Auto 7.4 % (18.3-44.2); Mean Corpuscular HGB Conc 25.4 g/dl (32-36); Mean Corpuscular Hemoglobin 18.4 pg (26-34); Mean Corpuscular Volume 72.6 fl (80-100); Mean Platelet Volume 9.3 fl (7.4-10.4); Monocytes Absolute Auto 1.1 K/mm3 (0.1-0.6); Monocytes Percent Auto 9.7 % (2.6-8.5); Neutrophils Absolute Auto 9.6 K/mm3 (1.3-6.7); Neutrophils Percent Auto 81.6 % (45.5-73.1); Nucleated Red Blood Cells Perc 0.2 % (0.0-0.2); Platelet Count Result 373 k/mm3 (150-375); Red Cell Distribution Width 19.2 % (11.5-14.5); White Blood Count 11.8 K/mm3 (4.5-10.0)
[2023-01-23 18:11] LABS: Anisocytosis 1+ (NORMAL); Hypochromasia 1+ (NORMAL); Microcytosis 1+ (NORMAL); Ovalocytes 1+ (NORMAL); Platelet Estimate Adequate (Adequate); Schistocytes Rare (NORMAL)
[2023-01-23 18:12] LABS: Magnesium 2.9 mg/dL (1.6-2.3)
[2023-01-23 18:13] LABS: INR 1.2; Prothrombin Time 14.5 Seconds (11.1-14.7)
--- NOTE | 2023-01-23 18:13 | ED.GENADULT ---
HPI - General Adult General Chief complaint: Fall <VINOD Brice Last Filed: 01/24/23 04:12> Stated complaint: fall <VINOD Brice Last Filed: 01/24/23 04:12> Time Seen by Provider: 01/23/23 17:45 <VINOD Brice Last Filed: 01/24/23 04:12> Source: patient and old records reviewed <VINOD Brice Last Filed: 01/24/23 04:12> Mode of arrival: EMS <VINOD Brice Last Filed: 01/24/23 04:12> Limitations: no limitations <VINOD Brice Last Filed: 01/24/23 04:12> History of Present Illness HPI narrative: Patient is a 72-year-old male who presents the ED via EMS with report of weakness and a fall. Patient lives at home alone. He reports he fell last night anywhere in between dinnertime and 10 PM. He states he was feeling weak at that time, but denied feeling dizzy or lightheaded. He does remember the fall, but is unsure if he tripped on anything. Denied head injury or LOC. Denies any pain or injury from the fall. He was unable to get up off the ground until this afternoon when he used his [employer] machine to call his nurse who called 911. Patient still feels weak currently and states he required help from EMS to get up. He denies any chest pain, abdominal pain, difficulty breathing, nausea, vomiting, fevers, recent cough or cold symptoms. <VINOD Brice Last Filed: 01/24/23 04:12> Related Data Home medications: Home Medications Medication Instructions Recorded Confirmed atorvastatin 10 mg tablet 10 mg PO HS 09/21/21 01/23/23 cholecalciferol (vitamin D3) 50 5,000 unit PO DAILY 09/21/21 01/23/23 mcg (2,000 unit) capsule (Vitamin D3) donepezil 10 mg tablet 10 mg PO DAILY 09/21/21 01/23/23 escitalopram oxalate 20 mg tablet 20 mg PO DAILY 09/21/21 01/23/23 magnesium oxide 400 mg (241.3 mg 400 mg PO BID 09/21/21 01/23/23 magnesium) tablet oxybutynin chloride 10 mg 10 mg PO BID 09/21/21 01/23/23 tablet,extended release 24 hr alprazolam 0.5 mg tablet 0.5 mg PO TID PRN Anxiety 06/28/22 01/23/23 fluticasone furoate 100 1 inh inhalation DAILY 06/28/22 01/23/23 mcg-vilanterol 25 mcg/dose inhalation powder (Breo Ellipta) oxycodone 10 mg tablet 10 mg PO TID PRN Pain (Scale Score 06/28/22 01/23/23 7-10) primidone 50 mg tablet 100 mg PO TID 06/28/22 01/23/23 acetaminophen 325 mg tablet 650 mg PO Q4-6H PRN Pain, Mild 06/29/22 01/23/23 carvedilol 3.125 mg tablet 3.125 mg PO BID 06/29/22 01/23/23 sodium bicarbonate 650 mg tablet 650 mg BID 06/29/22 01/23/23 insulin aspart U-100 100 unit/mL See Rx Instructions .Route .COMPLEX 01/23/23 01/24/23 (3 mL) subcutaneous pen (Novolog FlexPen U-100 Insulin aspart) insulin glargine 100 unit/mL (3 35 unit subcut QPM 01/23/23 01/24/23 mL) subcutaneous pen (Basaglar KwikPen U-100 Insulin) <Lisa Gallagher PA-C - Last Filed: 01/24/23 04:12> Allergies/adverse reactions: Allergies Allergy/AdvReac Type Severity Reaction Status Date / Time No Known Allergies Allergy Verified 01/26/23 12:39 <Lisa Gallagher PA-C - Last Filed: 01/24/23 04:12> Review of Systems Review of Systems: CONSTITUTIONAL: Denies fever, chills, or sweats. EYES: Denies visual changes. ENT: Denies rhinorrhea, congestion, sore throat, or otalgia. CARDIOVASCULAR: Denies chest pain, palpitations, or edema. RESPIRATORY: Denies cough or dyspnea. GASTROINTESTINAL: Denies abdominal pain, nausea, vomiting, or diarrhea. GENITOURINARY: Denies dysuria or hematuria. SKIN: Denies rash or itching. MUSCULOSKELETAL: Denies back pain, joint pain, or myalgia. NEUROLOGIC: See HPI. <Lisa Gallagher PA-C - Last Filed: 01/24/23 04:12> All systems reviewed & are unremarkable except as noted in HPI and below <Lisa Gallagher PA-C - Last Filed: 01/24/23 04:12> [facility] Past Medical History Medical History: Medical History (Reviewed 01/24/23 @ 12:00
[2023-01-23 18:14] LABS: Partial Thromboplastin Time 42.5 SECONDS (22.3-36.8)
[2023-01-23] MEDS: SODIUM CHLORIDE 0.9% IV 1,000 ML 999 ML IV CONT ×2 (18:16→19:04)
[2023-01-23 18:19] LABS: Alanine Aminotransferase 17 U/L (6-50); Alkaline Phosphatase 148 U/L (38-126); Anion Gap 13 mmol/L (8-16); Aspartate Amino Transferase 64 U/L (17-59); Bilirubin,Total 0.3 mg/dL (0.2-1.3); Blood Urea Nitrogen 50 mg/dL (9-20); Calcium 8.1 mg/dL (8.4-10.2); Carbon Dioxide 18 mmol/L (22-30); Chloride 107 mmol/L (98-107); Creatine Kinase 2800 U/L (55-170); Estimated CRCL calculation 31 ml/min; Estimated Glomerular Filt Rate 22; Glucose 206 mg/dL (65-110); Sodium 138 mmol/L (137-145)
[2023-01-23 19:11] LABS: Lactic Acid Reflex 1.7 mmol/L (0.7-2.0)
[2023-01-23 19:19] LABS: Influenza A QL RT-PCR Negative (Negative); Influenza B QL RT-PCR Negative (Negative); SARS-CoV-2 RNA PCR Negative
[2023-01-23 19:20] LABS: NT Pro B Type Natriuretic Pept 6300 pg/mL (19.9-100)
--- NOTE | 2023-01-23 20:31 | ADMGEN ---
This patient, Mohamud Diaz, was admitted to IMU Room 213-01 at 2030. Patient/family oriented to hospital policies and general routines including ID bracelet, bed and alarms, visiting hours, pain management, procedures, bathroom and other care routines, personal items, smoking policy, room service/diet, and visiting hours. Information on how to activate the Rapid Response Team has been discussed. Patient/Family are encouraged to report perceived risks to care and to ask questions if they do not understand what they are told or what they should do.
--- NOTE | 2023-01-23 21:23 | PM.IMHP ---
H&P: HPI History of Present Illness Date/Time: 01/23/23 21:23 Chief Complaint: FALL Narrative: THIS IS A 72-YEAR-OLD MALE WITH PAST MEDICAL HISTORY SIGNIFICANT FOR PARKINSON'S DISEASE, CHRONIC NARCOTIC DEPENDENCE, Parkinson's dementia, insulin-dependent diabetes mellitus, cardiomyopathy, chronic back pain, chronic kidney disease, chronic obstructive pulmonary disease, congenital left kidney agenesia, gastroesophageal reflux disease, obstructive sleep apnea. Patient presents to the emergency room after had a fall after losing his balance laying there for roughly 12 hours he was eventually able to make it to close to his phone and called EMS, patient denies any loss of consciousness, has been in his usual state of health, patient is unable to give much history. Preliminary workup was significant for several abnormalities, hemoglobin of 7, hematocrit 27, BUN 50, creatinine 2.9, creatinine kinase 2800, mild elevation of troponins. A chest x-ray was reported as: IMPRESSION: Limited lateral view. Vascular congestion/mild interstitial edema. Review of Systems Review of Systems: Fall Constitutional: Constitutional: Denies chills, Denies fatigue, Denies fever(s), Denies lethargy, Denies malaise, Denies night sweats, Denies poor appetite and Reports weakness Eyes: Eyes: Denies change in vision ENT: Denies dysphagia, Denies vertigo, Denies dizziness and Denies odynophagia Cardiovascular: Cardiovascular: Denies chest pain, Denies radiating jaw, neck or arm pain, Denies palpitations and Denies dyspnea Respiratory: Respiratory: Denies chest congestion, Denies cough, Denies pain on inspiration and Denies dyspnea on exertion Gastrointestinal: Gastrointestinal: Denies abdominal pain, Denies melena, Denies hematochezia, Denies coffee ground emesis, Denies dyspepsia, Denies heartburn, Denies diarrhea, Denies nausea and Denies vomiting Genitourinary: Genitourinary: Denies dysuria Musculoskeletal: Musculoskeletal: Reports back pain Integumentary/Breasts: Skin/Breast: Denies rash Neurologic: Denies focal weakness and Denies Sensory deficit (Neuro) Psychiatric: Psychiatric: Reports no additional psychiatric complaints and Reports as per HPI Endocrine: Endocrine: Denies cold intolerance, Denies flushing, Denies heat intolerance, Denies polyphagia, Denies polydipsia and Denies palpitations Hematologic/Lymphatic: Hematologic/Lymphatic: Reports no additional hematologic/lymphatic complaints and Reports as per HPI Allergic/Immunologic: Allergic/Immunologic: Reports no additional allergic/immunologic complaints and Reports as per HPI FOR[facility]LY [facility] Past Medical History Medical History Anxiety Benign prostatic hyperplasia Borderline hyperlipidemia Cardiomyopathy Poorly documented history. Chronic back pain Chronic kidney disease Creatinine has fluctuated over the years in baseline seems to be between 1.50 and 2.10. Chronic narcotic dependence Chronic obstructive pulmonary disease Congenital absence of left kidney Dementia Depression Previous suicide attempt in 2013. Gastroesophageal reflux disease History of aspiration pneumonia Hypertension Kidney congenitally absent, left Left bundle branch block Migraine Obstructive sleep apnea The patient has tried oral apparatus and CPAP and has not been able to tolerated. Parkinsons Prostatic hyperplasia Type 2 diabetes mellitus Surgical History Surgical History History of cardiac catheterization History of cholecystectomy History of left cataract extraction History of nasal septoplasty History of open reduction and internal fixation (ORIF) procedure Gamma nail right hip fracture. History of repair of ACL Bilateral History of repair of right rotator cuff History of surgical removal of pilonidal cyst History of tonsillectomy Family History Family History (Reviewed 01/23/23 @
[2023-01-24] VITALS (16 sets, daily range): BP systolic 129–169; BP diastolic 61–90; PULSE 66–95; RESP 20; TEMP 36.2–36.7; O2SAT 92–100
--- NOTE | 2023-01-24 | ECHO_ITS ---
Patient Info Name: Mohamud Diaz Age: 72 years : 1950 Gender: Male Ht: 72 in Wt: 298 lbs BSA: 2.68 m2 HR: 76 bpm BP: 139 / 61 mmHg Heart Rhythm: Sinus Rhythm Technical Quality: Fair Exam Date: 01/24/2023 12:04 PM Exam Location: [facility] Pulmonary Exam Room: [facility] Patient Status: Outpatient Admit Date: 01/23/2023 Staff Ordering Physician: Candie Norton MD Needle Grader: Maria Esther Hoffman RDCS Attending Provider: Candie Norton MD Referring Physician: Cierra JEAN; Exam Type: CA echo dop color flow w con Study Info Indications - chf Complete two-dimensional, color flow and Doppler transthoracic echocardiogram is performed with contrast to opacify the left ventricle and to improve the deliniation of the left ventricle endocardial borders. Contrast/Agitated Saline Contrast/Ag. Saline: Definity Amount: 3.00 ml Administered By: Maria Esther Hoffman [facility] Existing IV Access: Yes IV Access Condition: patent with no signs of infiltration Summary 1. Left ventricular chamber dimension is mildly enlarged. 2. Left ventricular systolic function is normal, estimated at 55%. 3. There is mildly increased left ventricular wall thickness. 4. Left ventricular septal wall motion is abnormal with septal motion related to bundle branch block. 5. The left ventricular diastolic function is grade I diastolic dysfunction. 6. Left atrial chamber dimension is severely enlarged. 7. Right atrial chamber dimension is severely enlarged. 8. There is no aortic valve stenosis. 9. There is mild mitral valve regurgitation. 10. There is trace tricuspid valve regurgitation. 11. No pulmonary hypertension, estimated pulmonary arterial systolic pressure is 31 mmHg. Left Ventricle Left ventricular chamber dimension is mildly enlarged. Left ventricular systolic function is normal, estimated at 55%. There is mildly increased left ventricular wall thickness. Left ventricular septal wall motion is abnormal with septal motion related to bundle branch block. The left ventricular diastolic function is grade I diastolic dysfunction. Right Ventricle Right ventricular chamber dimension is normal. Right ventricular systolic function is normal. Left Atria Left atrial chamber dimension is severely enlarged. Right Atria Right atrial chamber dimension is severely enlarged. Aortic Valve The aortic valve is probable trileaflet. There is mild aortic valve sclerosis. There is no aortic valve stenosis. There is trace aortic valve regurgitation. Pulmonic Valve The pulmonic valve is not well visualized. There is trace pulmonic regurgitation. Mitral Valve The mitral valve has normal leaflets. There is mild mitral valve regurgitation. The mitral valve annulus is mildly calcified. Tricuspid Valve The tricuspid valve leaflets are normal. There is trace tricuspid valve regurgitation. No pulmonary hypertension, estimated pulmonary arterial systolic pressure is 31 mmHg. Pericardium/Pleural The pericardium appears normal. There is no pericardial effusion. Aorta The aortic root size at the sinus of Valsalva is normal. There is mild aortic atherosclerosis. Left Ventricular Outflow Tract Name Value Normal LVOT 2D
[2023-01-24 00:06] LABS: Troponin I 0.066 ng/mL (0.000-0.034)
[2023-01-24] MEDS: SODIUM CHLORIDE 0.9% IV 250 ML 30 ML IV CONT (00:33)
[2023-01-24 05:27] LABS: Appearance Urine Clear (Clear); Bacteria Urine None Seen /hpf; Bilirubin Urine Negative (Negative); Blood Urine 2+ (Negative); Color Urine Yellow (Yellow); Glucose Urine UA Negative (Negative); Ketones Urine Negative (Negative); Leukocyte Esterase Ur Negative LEU/UL (Negative); Nitrate Urine Negative (Negative); Non Pathogenic Casts 0-2; Protein Urine 3+ mg/dL (Negative); RBC Urine 0-2 /hpf (0-2); Specific Grav Ur 1.015 (1.001-1.035); Squamous Epithelial Cell Urine None seen /hpf (Few); Urobilinogen Urine 0.2 mg/dL (<2.0); WBC Urine 0-5 /hpf; pH Urine 5.5 (5.0-9.0)
[2023-01-24 05:36] LABS: Add Urine Microscopic? YES
--- NOTE | 2023-01-24 07:06 | WPDGICN ---
Assessment and Plan Assessment and plan (1) GI bleed: Qualifiers: GI bleed type/associated pathology: unspecified gastrointestinal hemorrhage type Qualified Code(s): K92.2 - Gastrointestinal hemorrhage, unspecified Code(s): K92.2 - Gastrointestinal hemorrhage, unspecified Status: Acute Assessment and Plan: he has Hemoccult-positive stool but he has not seen blood cell. His last colonoscopy was about 5 years ago at [facility]. He does not think anything significant was found at that time. He does have a history of ulcers. After he is seen by Renal I will Consider scheduling him for endoscopy. I will hold off on giving any bowel prep today. (2) Anemia: Code(s): D64.9 - Anemia, unspecified Status: Acute Assessment and Plan: hemoglobin was 12.4 in June and now is down to 7. (3) Rhabdomyolysis: Qualifiers: Rhabdomyolysis type: non-traumatic Qualified Code(s): M62.82 - Rhabdomyolysis Code(s): M62.82 - Rhabdomyolysis Status: Acute Assessment and Plan: Elevated creatine kinase. Rehydration (4) Acute kidney injury: Code(s): N17.9 - Acute kidney failure, unspecified Status: Acute Assessment and Plan: pre renal azotemia. He does also have chronic kidney disease. (5) Parkinson's disease: Code(s): G20 - Parkinson's disease Status: Acute Assessment and Plan: He manages fairly well at home. Following is not something he does often. (6) Chronic pain: Code(s): G89.29 - Other chronic pain Status: Acute Assessment and Plan: Takes oxycodone as needed for his chronic pain. GI Consult Note Consult date/time: 01/24/23 07:06 HPI: Mohamud Diaz is a 72 year old male Who presented to the emergency room yesterday having then brought there after he had fallen tripping at home and he had been able to get off the floor. He laid there for about 12 hours. He called EMS by phone. He was found to have a BUN of 50 creatinine 2.9 and elevated CPK as well as troponins. It is felt that he has rhabdomyolysis. Also his hemoglobin is 7 where as was over 12 just a few months ago. He denies seeing blood in his stools. He denies black or tarry stools. He does have chronic diarrhea since he had a cholecystectomy at [facility] 5 years ago. His appetite has been fairly good. He denies using NSAIDs because he was taken off them by his sole layer. He did have ulcers when I last saw him about 5 years ago. He has a history of having an esophageal stricture as well as a duodenal stricture but is not having any difficulty swallowing at this time. Hemoccult in the emergency room was positive. Review of Systems Review of Systems: All systems reviewed & are unremarkable except as noted in HPI and below PMFSH Past Medical History Medical History Anxiety Benign prostatic hyperplasia Borderline hyperlipidemia Cardiomyopathy Poorly documented history. Chronic back pain Chronic kidney disease Creatinine has fluctuated over the years in baseline seems to be between 1.50 and 2.10. Chronic narcotic dependence Chronic obstructive pulmonary disease Congenital absence of left kidney Dementia Depression Previous suicide attempt in 2013. Gastroesophageal reflux disease History of aspiration pneumonia Hypertension Kidney congenitally absent, left Left bundle branch block Migraine Obstructive sleep apnea The patient has tried oral apparatus and CPAP and has not been able to tolerated. Parkinsons Prostatic hyperplasia Type 2 diabetes mellitus Surgical History Surgical History History of cardiac catheterization History of cholecystectomy History of left cataract extraction History of nasal septoplasty History of open reduction and internal fixation (ORIF) procedure Ga
[2023-01-24 08:30] LABS: Glucose Point of Care 186 mg/dl (65-105)
[2023-01-24] MEDS: FUROSEMIDE INJ 40 MG/4 ML VIAL IV PUSH ×2 (08:30→16:55)
[2023-01-24] MEDS: CHOLECALCIFEROL 1,000 UNITS TABLET 5000 UNITS PO (08:30)
[2023-01-24] MEDS: carvediloL 3.125 MG TABLET PO ×2 (08:31→20:38)
[2023-01-24] MEDS: MAGNESIUM OXIDE 400 MG TABLET PO ×2 (08:31→16:55)
[2023-01-24] MEDS: ESCITALOPRAM OXALATE 10 MG TABLET 20 MG PO (08:31)
[2023-01-24] MEDS: DONEPEZIL HCL 10 MG TABLET PO (08:31)
[2023-01-24] MEDS: PRIMIDONE 50 MG TABLET 100 MG PO ×3 (08:31→16:55)
[2023-01-24] MEDS: SODIUM BICARBONATE TAB 650 MG TABLET BY MOUTH ×2 (08:31→16:55)
[2023-01-24] MEDS: oxyBUTYnin CHLORIDE XL 5 MG TAB.ER.24 10 MG PO ×2 (08:31→16:55)
[2023-01-24] MEDS: oxyCODONE HCL (*CRX) 5 MG TAB IR 10 MG PO ×2 (08:47→20:39)
[2023-01-24 09:21] LABS: Basophils Percent Auto 0.3 % (0.2-1.2); Eosinophils Absolute Auto 0.2 K/mm3 (0-0.3); Eosinophils Percent Auto 1.6 % (0-4.4); Hemoglobin 7.6 g/dL (14.0-18.0); Immature Granulocyte Absolute 0.05 K/mm3 (0.00-0.031); Immature Granulocyte Percent A 0.5 % (0-0.5); Lymphocytes Absolute Auto 0.85 K/mm3 (0.9-3.2); Lymphocytes Percent Auto 8.8 % (18.3-44.2); Mean Corpuscular HGB Conc 27.1 g/dl (32-36); Mean Corpuscular Hemoglobin 19.2 pg (26-34); Mean Corpuscular Volume 70.9 fl (80-100); Mean Platelet Volume 9.2 fl (7.4-10.4); Monocytes Absolute Auto 0.8 K/mm3 (0.1-0.6); Monocytes Percent Auto 8.7 % (2.6-8.5); Neutrophils Absolute Auto 7.7 K/mm3 (1.3-6.7); Neutrophils Percent Auto 80.1 % (45.5-73.1); Nucleated Red Blood Cells Perc 0.3 % (0.0-0.2); Platelet Count Result 361 k/mm3 (150-375); Red Blood Count 3.95 M/mm3 (4.6-6.20); Red Cell Distribution Width 20.3 % (11.5-14.5); White Blood Count 9.6 K/mm3 (4.5-10.0)
[2023-01-24] MEDS: FLUTICASONE/SALMETEROL 115-21 MCG INHALER 1 PUFF 2 PUFF INHALATION ×2 (09:32→21:02)
[2023-01-24 09:35] LABS: Alanine Aminotransferase 23 U/L (6-50); Albumin Level 3.7 g/dL (3.5-5.1); Alkaline Phosphatase 127 U/L (38-126); Anion Gap 6 mmol/L (8-16); Aspartate Amino Transferase 55 U/L (17-59); Bilirubin,Total 0.5 mg/dL (0.2-1.3); Blood Urea Nitrogen 45 mg/dL (9-20); Carbon Dioxide 23 mmol/L (22-30); Chloride 104 mmol/L (98-107); Creatine Kinase 1351 U/L (55-170); Estimated CRCL calculation 35 ml/min; Estimated Glomerular Filt Rate 26; Glucose 260 mg/dL (65-110); Potassium 3.8 mmol/L (3.4-5.0); Sodium 133 mmol/L (137-145)
[2023-01-24 09:54] LABS: Anisocytosis 2+ (NORMAL); Hypochromasia 3+ (NORMAL); Microcytosis 1+ (NORMAL); Ovalocytes 2+ (NORMAL); Platelet Estimate Adequate (Adequate); Schistocytes None Seen (NORMAL)
[2023-01-24 11:54] LABS: Glucose Point of Care 244 mg/dl (65-105)
--- NOTE | 2023-01-24 11:58 | PM.CNCAR ---
Assessment and Plan Assessment and plan (1) Elevated troponin: Code(s): R77.8 - Other specified abnormalities of plasma proteins Status: Acute Assessment and Plan: mild elevation with flat curve 0.060, 0.070, 0.066 without anginal symptoms in the setting of fall with elevated CK, acute on chronic renal failure, severe anemia consistent with a type 2 infarction not secondary to acute coronary syndrome and/or plaque rupture. He does not report anginal symptoms. On ECG, sinus with ectopic atrial rhythm with first-degree AV block and left bundle-branch block which is chronic. Will need to review prior cardiovascular records from his lockstitch collar setter when available as requested. Further recommendation to follow after review of echocardiogram. Do not anticipate ischemic evaluation is warranted but when he really prior history and echocardiogram results. DVT prophylaxis. (2) Fall: Code(s): W19.XXXA - Unspecified fall, initial encounter Status: Acute Assessment and Plan: PT OT evaluation. Patient was on the floor for prolonged period resulting concern for mild rhabdomyolysis improving with repeat CK. (3) Acute on chronic renal failure: Code(s): N17.9 - Acute kidney failure, unspecified; N18.9 - Chronic kidney disease, unspecified Status: Acute Assessment and Plan: Acute chronic renal failure creatinine 2.9 with elevated BUN consistent intravascular volume depletion and complicated by concern for rhabdomyolysis with elevated CK 2800 now improving. Continued judicious IV fluid hydration, monitor volume status. I will be very cautious with diuretic therapy and otherwise hold for now. Ob (4) Edema: Code(s): R60.9 - Edema, unspecified Status: Acute Assessment and Plan: etiology unclear. Elevated BNP complicated by anemia, acute on chronic renal failure, hypertension. Although patient has significant edema on exam he is breathing well on room air and is exam is not suggestive of pulmonary vascular congestion despite limited chest x-ray. Check lower extremity venous Dopplers to exclude DVT. (5) Anemia: Code(s): D64.9 - Anemia, unspecified Status: Acute Assessment and Plan: Follow H&H. No evidence for active bleeding. (6) Rhabdomyolysis: Qualifiers: Rhabdomyolysis type: non-traumatic Qualified Code(s): M62.82 - Rhabdomyolysis Code(s): M62.82 - Rhabdomyolysis Status: Acute Assessment and Plan: CK improving after IV fluid as his creatinine. Patient likely would benefit from additional IV fluids but need to monitor volume status. Renal function electrolytes. Nephrology consultation. (7) History of cardiomyopathy: Code(s): Z86.79 - Personal history of other diseases of the circulatory system Status: Acute Assessment and Plan: 2D echo pending. Recommendation to follow after review. EF 2018 55%. (8) HTN (hypertension): Qualifiers: Hypertension type: unspecified Qualified Code(s): I10 - Essential (primary) hypertension Code(s): I10 - Essential (primary) hypertension Status: Chronic Assessment and Plan: Patient remains hypertensive. Avoid nephrotoxic agents, continue carvedilol for now. (9) Type 2 diabetes mellitus: Code(s): E11.9 - Type 2 diabetes mellitus without complications Status: Acute Assessment and Plan: Management per primary service. History of Present Illness History of Present Illness Consult date/time: date of service:01/24/23 11:58 Consult reason: Other ( Elevated troponin, elevated BNP) Reason For Visit: Rhabdo,DEEPTHI,GIB,Weakness,Elevated Trop,CHF Narrative: patient is a 72-year-old male with a past medical history significant for Parkinson's disease, type 2 diabetes mellitus, reported history of cardiomyopathy, chronic kidney disease stage 3, COPD, GERD, DAVID, obesity, and chronic anemia who pre
[2023-01-24] MEDS: PERFLUTREN LIPID MICROSPHERES 1.5 ML VIAL DILUTED TO 10 ML TOTAL VOLUME IV PUSH (12:30)
[2023-01-24] MEDS: ALPRAZolam (*CRX) 0.5 MG TABLET PO ×2 (12:38→20:38)
--- NOTE | 2023-01-24 15:02 | PM.IMPN ---
Progress Note: A&P Assessment and Plan (1) Rhabdomyolysis: Qualifiers: Rhabdomyolysis type: non-traumatic Qualified Code(s): M62.82 - Rhabdomyolysis Code(s): M62.82 - Rhabdomyolysis Status: Acute Assessment and Plan: Likely secondary to immobilization and being down on the floor for an unspecified amount of time. he lives alone. He was on IV fluids but these have been stopped. TCK was 2800. CXR showing vascular congestion. UA showing 2+ blood but no red cells. Remains on IV Lasix. TCK better Continue to monitor creatinine kinase and renal function. Resume low volume IV fluids until Urine clear and TCK<1000. (2) Acute CHF (congestive heart failure): Qualifiers: Heart failure type: unspecified Qualified Code(s): I50.9 - Heart failure, unspecified Code(s): I50.9 - Heart failure, unspecified Status: Acute Assessment and Plan: CXR showing mild pulmonary vascular congestion. BNP 6300. Leg edema noted. Started on IV lasix. Renal function better. Echocardiogram ordered. Appreciate Cardiology input. Monitor renal function closely. Check lower extremity venous Dopplers for DVT (3) Elevated troponin: Code(s): R77.8 - Other specified abnormalities of plasma proteins Status: Acute Assessment and Plan: Troponin peaked at 0.07. EKG reviewed personally showing NSR, 1st degree AVB, ch Left BBB but no change. Related to CHF and/or rhabdomyolysis. (4) Acute kidney injury: Code(s): N17.9 - Acute kidney failure, unspecified Status: Acute Assessment and Plan: Cr 2.9 on admission. Baseline Cr probably around 2.0. Likely to be multifactorial with rhabdo. Cr trending down. Tolerating the IV lasix. Continue to follow. (5) Chronic kidney disease: Code(s): N18.9 - Chronic kidney disease, unspecified Status: Acute Assessment and Plan: As above (6) Hypochromic microcytic anemia: Code(s): D50.9 - Iron deficiency anemia, unspecified Status: Acute Assessment and Plan: Hgb noted. Check iron studies, etc. GI consulted. Continue to monitor (7) Type 2 diabetes mellitus: Code(s): E11.9 - Type 2 diabetes mellitus without complications Status: Acute Assessment and Plan: A1c >14 last year. The patient's blood glucose was reviewed on 01/24 Glucose remains poorly controlled. Continue AccuCheks covering with sliding scale. Hypoglycemia protocol available as needed. Clarify home medications. Check A1c. (8) DAVID (obstructive sleep apnea): Code(s): G47.33 - Obstructive sleep apnea (adult) (pediatric) Status: Acute Assessment and Plan: Stable. Continue CPAP at nighttime and with naps (9) Chronic obstructive pulmonary disease: Code(s): J44.9 - Chronic obstructive pulmonary disease, unspecified Status: Acute Assessment and Plan: Stable. No wheezing. Remains on room air. Follow. (10) Parkinson's disease: Code(s): G20 - Parkinson's disease Status: Acute Assessment and Plan: Stable. Continue primidone. Start PT/OT. Fall precautions (11) Obesity (BMI 30-39.9): Code(s): E66.9 - Obesity, unspecified Status: Acute Assessment and Plan: BMI 40. Carb consistent diet Subjective Date/time seen: 01/24/23 15:02 Interval history: 72yo male with Parkinson, DM, cardiomyopathy, CKD and COPD here for fall. Assuming care. Chart reviewed. Patient feeling better. He normally walks with a walker at home did not use the walker at the time of the fall. He has noted increasing leg edema for the past few months. He has has a history of DVT. No chest pain. Eating normally. No nausea or vomiting Exam Narrative: AF 97.7 151/65 89 20 100% ra Gen - NARD lying flat Chest - CTA bilaterally, nml RR CV - RRR S1/S2. Tele showing PVCs and bigeminy Abd - Soft, NT/ND, Positive BS Ext - 1-2+ pedal latasha
[2023-01-24 17:40] LABS: Glucose Point of Care 305 mg/dl (65-105)
--- NOTE | 2023-01-24 18:23 | PCRCNOTE ---
RT entered room, asked pt if he wears a BiPAP or CPAP at home and he stated no , and asked if he would like to be provided with one of ours and he refused a S9.
[2023-01-24 20:18] LABS: Glucose Point of Care 254 mg/dl (65-105)
[2023-01-24] MEDS: ATORVASTATIN 10 MG TABLET PO (20:38)
[2023-01-24] MEDS: INSULIN GLARGINE (*BKC) 100 UNITS/ML 25 UNITS SUB-Q (20:40)
[2023-01-24 23:31] LABS: Eosinophil Urine None Seen % (None Seen); Urine Eos QC 2nd Tech Confirmed
[2023-01-25] VITALS (17 sets, daily range): BP systolic 134–148; BP diastolic 67–77; PULSE 67–89; RESP 16–24; TEMP 36.3–36.6; O2SAT 98–100
[2023-01-25 05:03] LABS: Basophils Percent Auto 0.5 % (0.2-1.2); Eosinophils Absolute Auto 0.3 K/mm3 (0-0.3); Eosinophils Percent Auto 4.3 % (0-4.4); Hematocrit 26.2 % (42.0-52.0); Hemoglobin 7.1 g/dL (14.0-18.0); Immature Granulocyte Absolute 0.03 K/mm3 (0.00-0.031); Immature Granulocyte Percent A 0.4 % (0-0.5); Lymphocytes Absolute Auto 1.45 K/mm3 (0.9-3.2); Lymphocytes Percent Auto 19.5 % (18.3-44.2); Mean Corpuscular HGB Conc 27.1 g/dl (32-36); Mean Corpuscular Hemoglobin 19.4 pg (26-34); Mean Corpuscular Volume 71.6 fl (80-100); Mean Platelet Volume 9.1 fl (7.4-10.4); Monocytes Absolute Auto 0.9 K/mm3 (0.1-0.6); Monocytes Percent Auto 11.4 % (2.6-8.5); Neutrophils Absolute Auto 4.7 K/mm3 (1.3-6.7); Neutrophils Percent Auto 63.9 % (45.5-73.1); Nucleated Red Blood Cells Perc 0.5 % (0.0-0.2); Platelet Count Result 312 k/mm3 (150-375); Red Blood Count 3.66 M/mm3 (4.6-6.20); Red Cell Distribution Width 20.8 % (11.5-14.5); White Blood Count 7.4 K/mm3 (4.5-10.0)
[2023-01-25 05:24] LABS: Alanine Aminotransferase 24 U/L (6-50); Albumin Level 3.3 g/dL (3.5-5.1); Alkaline Phosphatase 125 U/L (38-126); Anion Gap 4 mmol/L (8-16); Aspartate Amino Transferase 52 U/L (17-59); Bilirubin,Total 0.4 mg/dL (0.2-1.3); Blood Urea Nitrogen 44 mg/dL (9-20); Carbon Dioxide 28 mmol/L (22-30); Chloride 102 mmol/L (98-107); Creatine Kinase 1050 U/L (55-170); Estimated CRCL calculation 33 ml/min; Estimated Glomerular Filt Rate 24; Glucose 184 mg/dL (65-110); Immunoglobulin A 223 mg/dL (70-400); Immunoglobulin G 708 mg/dL (700-1600); Immunoglobulin M 41 mg/dL (40-230); Magnesium 2.3 mg/dL (1.6-2.3); Phosphorus 3.6 mg/dL (2.5-4.5); Potassium 3.5 mmol/L (3.4-5.0); Sodium 134 mmol/L (137-145)
[2023-01-25 05:32] LABS: Platelet Estimate Adequate (Adequate)
[2023-01-25 05:33] LABS: Anisocytosis 2+ (NORMAL); Hypochromasia 2+ (NORMAL); Microcytosis 1+ (NORMAL)
[2023-01-25 05:34] LABS: Ovalocytes 1+ (NORMAL); Schistocytes 1+ (NORMAL)
[2023-01-25 05:36] LABS: Iron 13 ug/dL (49-181)
[2023-01-25 05:59] LABS: Percent Iron Saturation 3 % (20-50)
[2023-01-25 06:22] LABS: Folic Acid 3.3 ng/mL (2.76->20)
[2023-01-25] MEDS: FLUTICASONE/SALMETEROL 115-21 MCG INHALER 1 PUFF 2 PUFF INHALATION ×2 (07:25→19:35)
[2023-01-25 08:04] LABS: Glucose Point of Care 164 mg/dl (65-105)
[2023-01-25] MEDS: FUROSEMIDE INJ 40 MG/4 ML VIAL IV PUSH ×2 (08:40→17:35)
[2023-01-25] MEDS: carvediloL 3.125 MG TABLET PO ×2 (08:41→20:52)
[2023-01-25] MEDS: MAGNESIUM OXIDE 400 MG TABLET PO ×2 (08:42→17:35)
[2023-01-25] MEDS: ESCITALOPRAM OXALATE 10 MG TABLET 20 MG PO (08:42)
[2023-01-25] MEDS: CHOLECALCIFEROL 1,000 UNITS TABLET 5000 UNITS PO (08:42)
[2023-01-25] MEDS: DONEPEZIL HCL 10 MG TABLET PO (08:42)
[2023-01-25] MEDS: SODIUM BICARBONATE TAB 650 MG TABLET BY MOUTH ×2 (08:42→17:35)
[2023-01-25] MEDS: PRIMIDONE 50 MG TABLET 100 MG PO ×3 (08:42→17:35)
[2023-01-25] MEDS: oxyBUTYnin CHLORIDE XL 5 MG TAB.ER.24 10 MG PO ×2 (08:42→17:35)
[2023-01-25] MEDS: oxyCODONE HCL (*CRX) 5 MG TAB IR 10 MG PO ×3 (08:48→21:06)
[2023-01-25] MEDS: ALPRAZolam (*CRX) 0.5 MG TABLET PO ×3 (08:50→21:06)
--- NOTE | 2023-01-25 10:09 | PM.PNCARD ---
Progress Note: A&P Assessment and Plan (1) Elevated troponin: Code(s): R77.8 - Other specified abnormalities of plasma proteins Status: Acute Assessment and Plan: Mild elevation with flat curve 0.060, 0.070, 0.066 without anginal symptoms in the setting of fall with elevated CK, acute on chronic renal failure, severe anemia consistent with a type 2 infarction not secondary to acute coronary syndrome and/or plaque rupture. He does not report anginal symptoms. On ECG, sinus with ectopic atrial rhythm with first-degree AV block and left bundle-branch block which is chronic. -Echo personally reviewed and discussed from 01/24/2023. EF 55% mild LVH severe biatrial enlargement normal pulmonary pressures mild MR, trace TR. - No plans for ischemic workup this hospitalization. The patient without anginal symptoms. 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 DVT prophylaxis. (2) Acute on chronic renal failure: Code(s): N17.9 - Acute kidney failure, unspecified; N18.9 - Chronic kidney disease, unspecified Status: Acute Assessment and Plan: Slow slight improvement. Repeat urine studies per primary service. Decision with regards to additional IV fluids and or continued IV Lasix. Patient did receive least 2 L IV normal saline at presentation in the ER. CK is much improved overall. (3) Rhabdomyolysis: Qualifiers: Rhabdomyolysis type: non-traumatic Qualified Code(s): M62.82 - Rhabdomyolysis Code(s): M62.82 - Rhabdomyolysis Status: Acute Assessment and Plan: CK improving after IV fluid as his creatinine. Patient likely would benefit from additional IV fluids but need to monitor volume status. Renal function electrolytes. Nephrology consultation. (4) Edema: Code(s): R60.9 - Edema, unspecified Status: Acute Assessment and Plan: Etiology unclear, likely multifactorial possible component or DHF with R sided changes. Elevated BNP complicated by anemia, acute on chronic renal failure, hypertension. Although patient has significant edema on exam he is breathing well on room air and is exam is not suggestive of pulmonary vascular congestion despite limited chest x-ray. - may continue cautious diuresis as tolerated As above. - Lower extremity venous Dopplers negative for DVT. - positive fluid balance by 1300 cc thus far. (5) Fall: Code(s): W19.XXXA - Unspecified fall, initial encounter Status: Acute Assessment and Plan: PT OT evaluation. Patient was on the floor for prolonged period resulting concern for mild rhabdomyolysis improving with repeat CK. (6) Anemia: Code(s): D64.9 - Anemia, unspecified Status: Acute Assessment and Plan: Follow H&H. ongoing decline, plan for endoscopy tomorrow for further workup. (7) History of cardiomyopathy: Code(s): Z86.79 - Personal history of other diseases of the circulatory system Status: Acute Assessment and Plan: EF 55% by echocardiogram, paradoxical septal wall motion secondary to LBBB. EF 2018 55%. (8) HTN (hypertension): Qualifiers: Hypertension type: unspecified Qualified Code(s): I10 - Essential (primary) hypertension Code(s): I10 - Essential (primary) hypertension Status: Chronic Assessment and Plan: Patient remains hypertensive. Improved stable this morning. Avoid nephrotoxic agents, continue carvedilol for now. (9) Type 2 diabetes mellitus: Code(s): E11.9 - Type 2 diabetes mellitus without complications Status: Acute Assessment and Plan: Management per primary service. Subjective Date/time seen: Date of service: 01/25/23 10:09 Follow-up for elevated troponin, edema Patient denies shortness of breath, chest pain or palpitation. No new issues overnight. Denies abdominal pain, nausea vomiting. He is on liquid diet in preparation for end
[2023-01-25 10:30] LABS: Hemoglobin A1C 7.3 % (<5.7)
--- NOTE | 2023-01-25 10:31 | PM.IMPN ---
Progress Note: A&P Assessment and Plan (1) Rhabdomyolysis: Qualifiers: Rhabdomyolysis type: non-traumatic Qualified Code(s): M62.82 - Rhabdomyolysis Code(s): M62.82 - Rhabdomyolysis Status: Acute Assessment and Plan: Likely secondary to immobilization and being down on the floor for an unspecified amount of time. He lives alone. He was on IV fluids but these were stopped due to possible CHF exacerbation. TCK was 2800. CXR showing vascular congestion. UA showing 2+ blood but no red cells. Remains on IV Lasix. TCK better at 1000 Continue to monitor creatinine kinase and renal function. Check UA. If no RBC, then follow. Add IV fluids if still RBC in urine (2) Acute CHF (congestive heart failure): Qualifiers: Heart failure type: unspecified Qualified Code(s): I50.9 - Heart failure, unspecified Code(s): I50.9 - Heart failure, unspecified Status: Acute Assessment and Plan: CXR showing mild pulmonary vascular congestion. BNP 6300. Leg edema noted. Started on IV lasix. Renal function about the same today. Echo with EF 55% and Grade I diastolic dysfunction. Lower Extrem doppler negative for DVT. Appreciate Cardiology input. Monitor renal function closely. (3) Acute kidney injury: Code(s): N17.9 - Acute kidney failure, unspecified Status: Acute Assessment and Plan: Cr 2.9 on admission. Baseline Cr probably around 2.0. Likely to be multifactorial with rhabdo. Cr about the same. Remains on IV lasix. Continue to follow. (4) Elevated troponin: Code(s): R77.8 - Other specified abnormalities of plasma proteins Status: Acute Assessment and Plan: Troponin peaked at 0.07. EKG reviewed personally showing NSR, 1st degree AVB, ch Left BBB but no change. Related to CHF and/or rhabdomyolysis. (5) Chronic kidney disease: Code(s): N18.9 - Chronic kidney disease, unspecified Status: Acute Assessment and Plan: As above (6) Hypochromic microcytic anemia: Code(s): D50.9 - Iron deficiency anemia, unspecified Status: Acute Assessment and Plan: No clear baseline Hgb. Hgb was 7.0 on admission and about the same on recheck. Iron studies consistent with iron deficiency anemia. B12 low end of normal. GI consulted with plans for endoscopy. Replace B12. Add Protonix. Continue to monitor (7) Type 2 diabetes mellitus: Code(s): E11.9 - Type 2 diabetes mellitus without complications Status: Acute Assessment and Plan: A1c 7.3. The patient's blood glucose was reviewed on 3/2 Glucose better controlled. Continue AccuCheks covering with sliding scale. Hypoglycemia protocol available as needed. Continue current medications. Hold lantus since NPO after MN (8) DAVID (obstructive sleep apnea): Code(s): G47.33 - Obstructive sleep apnea (adult) (pediatric) Status: Acute Assessment and Plan: Stable. Not wanting to wear this. Encourage CPAP at nighttime and with naps (9) Chronic obstructive pulmonary disease: Code(s): J44.9 - Chronic obstructive pulmonary disease, unspecified Status: Acute Assessment and Plan: Stable. No wheezing. Remains on room air. Follow. (10) Parkinson's disease: Code(s): G20 - Parkinson's disease Status: Acute Assessment and Plan: Stable. Continue primidone. Continue PT/OT. Fall precautions (11) Obesity (BMI 30-39.9): Code(s): E66.9 - Obesity, unspecified Status: Acute Assessment and Plan: BMI 40. Carb consistent diet Subjective Date/time seen: 01/25/23 10:31 Interval history: 72yo male with Parkinson, DM, cardiomyopathy, CKD and COPD here for fall. Feels well. No problems overnight. No complaints of CP or SOB. Slept off and on last night. No muscle aches Exam Narrative: AF 97.8 134/74 70 20 100% ra Gen - NARD lying flat Chest - CTA bilaterally, nml RR C
[2023-01-25 12:01] LABS: Glucose Point of Care 263 mg/dl (65-105)
[2023-01-25 12:43] LABS: Appearance Urine Clear (Clear); Bacteria Urine None Seen /hpf; Bilirubin Urine Negative (Negative); Blood Urine Trace (Negative); Color Urine Yellow (Yellow); Glucose Urine UA Negative (Negative); Ketones Urine Negative (Negative); Leukocyte Esterase Ur Negative LEU/UL (NEGATIVE); Nitrate Urine Negative (Negative); Non Pathogenic Casts 0-2; Protein Urine 2+ mg/dL (Negative); RBC Urine 0-2 /hpf (0-2); Specific Grav Ur 1.008 (1.001-1.035); Squamous Epithelial Cell Urine None seen /hpf (Few); Urobilinogen Urine 0.2 mg/dL (<2.0); WBC Urine 0-5 /hpf (0-3)
[2023-01-25] MEDS: PANTOPRAZOLE SODIUM IV 40 MG VIAL IV PUSH ×2 (12:55→20:53)
[2023-01-25] MEDS: INSULIN ASPART (*BKC) 100 UNITS/ML SUB-Q ×2 (12:55→17:34)
[2023-01-25] MEDS: BISACODYL 5 MG TABLET EC 10 MG PO ×3 (12:55→21:42)
[2023-01-25] MEDS: CYANOCOBALAMIN INJ 1,000 MCG/ML VIAL 1000 MCG IM (12:55)
[2023-01-25 12:57] LABS: Add Urine Microscopic? YES
[2023-01-25] MEDS: CYANOCOBALAMIN 1,000 MCG TABLET 1000 MCG PO (14:41)
[2023-01-25] MEDS: polyethylene glycoL 3350 238 GM BOTTLE PO (14:42)
[2023-01-25 16:37] LABS: Glucose Point of Care 295 mg/dl (65-105)
[2023-01-25 20:03] LABS: Glucose Point of Care 178 mg/dl (65-105)
[2023-01-25] MEDS: ATORVASTATIN 10 MG TABLET PO (20:53)
[2023-01-26] VITALS (20 sets, daily range): BP systolic 110–162; BP diastolic 60–85; PULSE 66–89; RESP 16–22; TEMP 36.3–36.6; O2SAT 95–100
[2023-01-26 04:40] LABS: Basophils Percent Auto 0.3 % (0.2-1.2); Eosinophils Absolute Auto 0.5 K/mm3 (0-0.3); Eosinophils Percent Auto 4.9 % (0-4.4); Hematocrit 28.6 % (42.0-52.0); Hemoglobin 7.9 g/dL (14.0-18.0); Immature Granulocyte Absolute 0.04 K/mm3 (0.00-0.031); Immature Granulocyte Percent A 0.4 % (0-0.5); Lymphocytes Absolute Auto 1.88 K/mm3 (0.9-3.2); Lymphocytes Percent Auto 20.2 % (18.3-44.2); Mean Corpuscular HGB Conc 27.6 g/dl (32-36); Mean Corpuscular Hemoglobin 19.2 pg (26-34); Mean Corpuscular Volume 69.6 fl (80-100); Mean Platelet Volume 8.9 fl (7.4-10.4); Monocytes Absolute Auto 0.9 K/mm3 (0.1-0.6); Neutrophils Percent Auto 64.2 % (45.5-73.1); Platelet Count Result 335 k/mm3 (150-375); Red Blood Count 4.11 M/mm3 (4.6-6.20); Red Cell Distribution Width 21.2 % (11.5-14.5); White Blood Count 9.3 K/mm3 (4.5-10.0)
[2023-01-26 04:57] LABS: Albumin Level 3.8 g/dL (3.5-5.1); Anion Gap 7 mmol/L (8-16); Blood Urea Nitrogen 39 mg/dL (9-20); Calcium 8.5 mg/dL (8.4-10.2); Carbon Dioxide 27 mmol/L (22-30); Chloride 94 mmol/L (98-107); Creatine Kinase 563 U/L (55-170); Estimated CRCL calculation 39 ml/min; Estimated Glomerular Filt Rate 30; Glucose 158 mg/dL (65-110); Phosphorus 4.2 mg/dL (2.5-4.5); Potassium 3.5 mmol/L (3.4-5.0); Sodium 128 mmol/L (137-145)
[2023-01-26 08:03] LABS: Glucose Point of Care 160 mg/dl (65-105)
[2023-01-26] MEDS: FLUTICASONE/SALMETEROL 115-21 MCG INHALER 1 PUFF 2 PUFF INHALATION ×2 (08:06→21:58)
[2023-01-26 08:24] LABS: Platelet Estimate Adequate (Adequate)
[2023-01-26 08:25] LABS: Anisocytosis 1+ (NORMAL); Hypochromasia 2+ (NORMAL); Ovalocytes 1+ (NORMAL); Schistocytes 1+ (NORMAL); Tear Drop Cells 1+ (NORMAL)
[2023-01-26] MEDS: FUROSEMIDE INJ 40 MG/4 ML VIAL IV PUSH ×2 (09:00→17:31)
[2023-01-26] MEDS: PANTOPRAZOLE SODIUM IV 40 MG VIAL IV PUSH ×2 (09:00→21:57)
[2023-01-26] MEDS: PRIMIDONE 50 MG TABLET 100 MG PO ×3 (09:22→17:31)
[2023-01-26] MEDS: carvediloL 3.125 MG TABLET PO ×2 (09:23→21:58)
--- NOTE | 2023-01-26 11:29 | PM.IMPN ---
Progress Note: A&P Assessment and Plan (1) Rhabdomyolysis: Qualifiers: Rhabdomyolysis type: non-traumatic Qualified Code(s): M62.82 - Rhabdomyolysis Code(s): M62.82 - Rhabdomyolysis Status: Acute Assessment and Plan: Likely secondary to immobilization and being down on the floor for an unspecified amount of time. He lives alone. TCK was 2800. CXR showing vascular congestion. UA showing 2+ blood but no red cells. He was on IV fluids but these were stopped due to possible CHF exacerbation. Remains on IV Lasix. TCK better at 560 and trace RBC in the urine. Resolving (2) Acute CHF (congestive heart failure): Qualifiers: Heart failure type: unspecified Qualified Code(s): I50.9 - Heart failure, unspecified Code(s): I50.9 - Heart failure, unspecified Status: Acute Assessment and Plan: CXR showing mild pulmonary vascular congestion. BNP 6300. Leg edema noted. Started on IV lasix. Renal function better today. Echo with EF 55% and Grade I diastolic dysfunction. Lower Extrem doppler negative for DVT. Good UOP with negative fluid balance. Appreciate Cardiology input. Monitor renal function closely. (3) Acute kidney injury: Code(s): N17.9 - Acute kidney failure, unspecified Status: Acute Assessment and Plan: Cr 2.9 on admission. Baseline Cr probably around 2.0. Likely to be multifactorial with rhabdo. Cr better at 2.2. Remains on IV lasix. Continue to follow. (4) Elevated troponin: Code(s): R77.8 - Other specified abnormalities of plasma proteins Status: Acute Assessment and Plan: Troponin peaked at 0.07. EKG reviewed personally showing NSR, 1st degree AVB, ch Left BBB but no change. Elevated Trop related to CHF and/or rhabdomyolysis. (5) Chronic kidney disease: Code(s): N18.9 - Chronic kidney disease, unspecified Status: Acute Assessment and Plan: As above (6) Hypochromic microcytic anemia: Code(s): D50.9 - Iron deficiency anemia, unspecified Status: Acute Assessment and Plan: No clear baseline Hgb. Hgb was 7.0 on admission and about the same on recheck. Iron studies consistent with iron deficiency anemia. B12 low end of normal. GI consulted with plans for endoscopy today. B12 replaced. Continue Protonix. Continue to monitor (7) Type 2 diabetes mellitus: Code(s): E11.9 - Type 2 diabetes mellitus without complications Status: Acute Assessment and Plan: A1c 7.3. The patient's blood glucose was reviewed on 3/ Glucose better controlled. Continue AccuCheks covering with sliding scale. Hypoglycemia protocol available as needed. Continue current medications. Resume lantus (8) DAVID (obstructive sleep apnea): Code(s): G47.33 - Obstructive sleep apnea (adult) (pediatric) Status: Acute Assessment and Plan: Stable. Not wanting to wear this. Encourage CPAP at nighttime and with naps (9) Chronic obstructive pulmonary disease: Code(s): J44.9 - Chronic obstructive pulmonary disease, unspecified Status: Acute Assessment and Plan: Stable. No wheezing. Remains on room air. Follow. (10) Parkinson's disease: Code(s): G20 - Parkinson's disease Status: Acute Assessment and Plan: Stable. Continue primidone. Continue PT/OT. Fall precautions (11) Obesity (BMI 30-39.9): Code(s): E66.9 - Obesity, unspecified Status: Acute Assessment and Plan: BMI 40. Carb consistent diet Plan Hyponatremia - noted. Na 134 yesterday. Lab error or related to bowel prep and Lasix. Repeat Na and follow. Alondra not helpful due to diuretic therapy. Check TSH and Cortisol DVT Prophylaxis - SCDs Code Status: Full Subjective Date/time seen: 01/26/23 11:29 Interval history: 72yo male with Parkinson, DM, cardiomyopathy, CKD and COPD here for fall. Slept off/on. Tolerated bowel prep well. No C
[2023-01-26 11:54] LABS: Glucose Point of Care 187 mg/dl (65-105)
[2023-01-26 12:22] LABS: Sodium 128 mmol/L (137-145)
[2023-01-26 12:53] LABS: Glucose Point of Care 162 mg/dl (65-105)
[2023-01-26] MEDS: LACTATED RINGERS 1,000 ML 150 ML IV CONT (13:22)
--- NOTE | 2023-01-26 13:27 | WPDANESEPPF ---
Anes - Initial Pre Proc Eval Procedure: Operation Date: 01/26/23 15:00 Proposed Procedures p Esophagogastroduodenoscopy & Colonoscopy - Nic Feliz MD Date/Time: 01/26/23 13:27 Surgeon: Candie Norton MD Pre Op Diagnosis: Rhabdo,DEEPTHI,GIB,Weakness,Elevated Trop,CHF Patient Data Age: 72 Gender: M Height: 1.83 m Weight: 128 kg Last Vital Signs Temp 97.4 F L 01/26/23 12:41 Pulse 73 01/26/23 12:41 Resp 20 01/26/23 12:41 BP 162/75 H 01/26/23 12:41 Pulse Ox 100 01/26/23 12:41 O2 Del Method Room Air 01/26/23 12:41 Allergies Allergy/AdvReac Type Severity Reaction Status Date / Time No Known Allergies Allergy Verified 01/26/23 12:39 Home Medications Medication Instructions Recorded Confirmed Type atorvastatin 10 mg tablet 10 mg PO HS 09/21/21 01/23/23 History cholecalciferol (vitamin D3) 50 5,000 unit PO DAILY 09/21/21 01/23/23 History mcg (2,000 unit) capsule (Vitamin D3) donepezil 10 mg tablet 10 mg PO DAILY 09/21/21 01/23/23 History escitalopram oxalate 20 mg tablet 20 mg PO DAILY 09/21/21 01/23/23 History magnesium oxide 400 mg (241.3 mg 400 mg PO BID 09/21/21 01/23/23 History magnesium) tablet oxybutynin chloride 10 mg 10 mg PO BID 09/21/21 01/23/23 History tablet,extended release 24 hr alprazolam 0.5 mg tablet 0.5 mg PO TID PRN Anxiety 06/28/22 01/23/23 History fluticasone furoate 100 1 inh inhalation DAILY 06/28/22 01/23/23 History mcg-vilanterol 25 mcg/dose inhalation powder (Breo Ellipta) oxycodone 10 mg tablet 10 mg PO TID PRN Pain (Scale Score 06/28/22 01/23/23 History 7-10) primidone 50 mg tablet 100 mg PO TID 06/28/22 01/23/23 History acetaminophen 325 mg tablet 650 mg PO Q4-6H PRN Pain, Mild 06/29/22 01/23/23 History carvedilol 3.125 mg tablet 3.125 mg PO BID 06/29/22 01/23/23 History sodium bicarbonate 650 mg tablet 650 mg BID 06/29/22 01/23/23 History insulin aspart U-100 100 unit/mL See Rx Instructions .Route .COMPLEX 01/23/23 01/24/23 History (3 mL) subcutaneous pen (Novolog FlexPen U-100 Insulin aspart) insulin glargine 100 unit/mL (3 35 unit subcut QPM 01/23/23 01/24/23 History mL) subcutaneous pen (Basaglar KwikPen U-100 Insulin) Laboratory Tests 01/25/23 01/25/23 01/26/23 16:34 20:00 04:26 WBC 9.3 K/mm3 K/mm3 (4.5-10.0) RBC 4.11 M/mm3 L M/mm3 (4.6-6.20) Hgb 7.9 g/dL L g/dL (14.0-18.0) Hct 28.6 % L % (42.0-52.0) MCV 69.6 fl L fl (80-100) MCH 19.2 pg L pg (26-34) MCHC 27.6 g/dl L g/dl (32-36) RDW 21.2 % H % (11.5-14.5) Plt Count 335 k/mm3 k/mm3 (150-375) MPV 8.9 fl fl (7.4-10.4) Immature Gran % (Auto) 0.4 % % (0-0.5) Neut % (Auto) 64.2 % % (45.5-73.1) Lymph % (Auto) 20.2 % % (18.3-44.2) [place] % (Auto) 10.0 % H % (2.6-8.5) Eos % (Auto) 4.9 % H % (0-4.4) Baso % (Auto) 0.3 % % (0.2-1.2) Lymph # (Auto) 1.88 K/mm3 K/mm3 (0.9-3.2) [place] # (Auto) 0.9 K/mm3 H K/mm3 (0.1-0.6) Eos # (Auto) 0.5 K/mm3 H K/mm3 (0-0.3) Baso # (Auto) 0.0 K/mm3 K/mm3 (0.0-0.1) Abs Immat Gran (auto) 0.04 K/mm3 H K/mm3 (0.00-0.031) Absolute Neuts (auto) 6.0 K/mm3 K/mm3 (1.3-6.7) Absolute Nucleated RBC 0.0 K/mm3 K/mm3 (0.0-0.012) Nucleated RBC % 0.0 % % (0.0-0.2) Platelet Estimate Adequate (Adequate) Hypochromasia 2+ (NORMAL) Anisocytosis 1+ (NORMAL) Tear Drop Cells 1+ (NORMAL) Ovalocytes 1+ (NORMAL) Schistocytes 1+ (NORMAL) Sodium Potassium Chloride Carbon Dioxide Anion Gap BUN Creatinine Estim Creat Clear Calc Estimated GFR Glucose POC Capillary Glucose 295 mg/dl H
--- NOTE | 2023-01-26 14:05 | SUR.OPER ---
EGD: 1359 COLONSCOPY START: 1407
[2023-01-26 14:35] LABS: Glucose Point of Care 169 mg/dl (65-105)
[2023-01-26] MEDS: oxyCODONE HCL (*CRX) 5 MG TAB IR 10 MG PO ×2 (15:11→21:57)
[2023-01-26] MEDS: ALPRAZolam (*CRX) 0.5 MG TABLET PO ×2 (15:11→21:57)
[2023-01-26 16:31] LABS: Glucose Point of Care 188 mg/dl (65-105)
[2023-01-26] MEDS: MAGNESIUM OXIDE 400 MG TABLET PO (17:31)
[2023-01-26] MEDS: SODIUM BICARBONATE TAB 650 MG TABLET BY MOUTH (17:31)
[2023-01-26] MEDS: oxyBUTYnin CHLORIDE XL 5 MG TAB.ER.24 10 MG PO (17:33)
[2023-01-26 18:28] LABS: Sodium 126 mmol/L (137-145)
[2023-01-26 20:05] LABS: Kappa\\Lambda Light Chains 1.94 (0.26-1.65); Lambda Light Chain 34.8 mg/L (5.7-26.3)
[2023-01-26 21:10] LABS: Glucose Point of Care 278 mg/dl (65-105)
[2023-01-26] MEDS: ATORVASTATIN 10 MG TABLET PO (21:59)
[2023-01-26] MEDS: INSULIN GLARGINE (*BKC) 100 UNITS/ML 25 UNITS SUB-Q (22:00)
[2023-01-26 23:58] LABS: Sodium 131 mmol/L (137-145)
[2023-01-27] MEDS: ALPRAZolam (*CRX) 0.5 MG TABLET PO (04:35)
[2023-01-27] MEDS: oxyCODONE HCL (*CRX) 5 MG TAB IR 10 MG PO (04:35)
[2023-01-27 06:00] VITALS: BP 141/76; PULSE 81; RESP 18; TEMP 36.9; O2SAT 98
[2023-01-27 07:08] LABS: Basophils Percent Auto 0.4 % (0.2-1.2); Eosinophils Absolute Auto 0.3 K/mm3 (0-0.3); Eosinophils Percent Auto 4.1 % (0-4.4); Hemoglobin 7.5 g/dL (14.0-18.0); Immature Granulocyte Absolute 0.03 K/mm3 (0.00-0.031); Immature Granulocyte Percent A 0.4 % (0-0.5); Lymphocytes Absolute Auto 1.46 K/mm3 (0.9-3.2); Lymphocytes Percent Auto 21.3 % (18.3-44.2); Mean Corpuscular HGB Conc 27.8 g/dl (32-36); Mean Corpuscular Hemoglobin 18.8 pg (26-34); Mean Corpuscular Volume 67.8 fl (80-100); Mean Platelet Volume 8.6 fl (7.4-10.4); Neutrophils Absolute Auto 4.1 K/mm3 (1.3-6.7); Neutrophils Percent Auto 59.8 % (45.5-73.1); Platelet Count Result 309 k/mm3 (150-375); Red Blood Count 3.98 M/mm3 (4.6-6.20); Red Cell Distribution Width 21.1 % (11.5-14.5); White Blood Count 6.8 K/mm3 (4.5-10.0)
[2023-01-27 07:22] LABS: Alanine Aminotransferase 21 U/L (6-50); Albumin Level 3.5 g/dL (3.5-5.1); Alkaline Phosphatase 115 U/L (38-126); Anion Gap 5 mmol/L (8-16); Aspartate Amino Transferase 28 U/L (17-59); Bilirubin,Total 0.4 mg/dL (0.2-1.3); Blood Urea Nitrogen 40 mg/dL (9-20); Calcium 8.5 mg/dL (8.4-10.2); Carbon Dioxide 31 mmol/L (22-30); Chloride 94 mmol/L (98-107); Creatine Kinase 190 U/L (55-170); Estimated CRCL calculation 39 ml/min; Estimated Glomerular Filt Rate 30; Glucose 186 mg/dL (65-110); Potassium 3.5 mmol/L (3.4-5.0); Sodium 130 mmol/L (137-145)
[2023-01-27 07:29] LABS: Glucose Point of Care 179 mg/dl (65-105)
[2023-01-27 07:46] LABS: Anisocytosis 2+ (NORMAL); Hypochromasia 3+ (NORMAL); Microcytosis 2+ (NORMAL); Ovalocytes 2+ (NORMAL); Platelet Estimate Adequate (Adequate); Schistocytes None Seen (NORMAL); Stomatocytes 1+ (NORMAL); Tear Drop Cells 1+ (NORMAL)
[2023-01-27] MEDS: FLUTICASONE/SALMETEROL 115-21 MCG INHALER 1 PUFF 2 PUFF INHALATION (07:51)
[2023-01-27 07:52] LABS: Cortisol Random 6.76 ug/dL
[2023-01-27 07:54] VITALS: PULSE 75; RESP 16; O2SAT 95
[2023-01-27] MEDS: FUROSEMIDE INJ 40 MG/4 ML VIAL IV PUSH (10:22)
[2023-01-27] MEDS: CHOLECALCIFEROL 1,000 UNITS TABLET 5000 UNITS PO (10:22)
[2023-01-27 10:23] VITALS: PULSE 92
[2023-01-27] MEDS: carvediloL 3.125 MG TABLET PO (10:23)
[2023-01-27] MEDS: MAGNESIUM OXIDE 400 MG TABLET PO (10:23)
[2023-01-27] MEDS: CYANOCOBALAMIN 1,000 MCG TABLET 1000 MCG PO (10:23)
[2023-01-27] MEDS: PRIMIDONE 50 MG TABLET 100 MG PO ×2 (10:23→13:19)
[2023-01-27] MEDS: ESCITALOPRAM OXALATE 10 MG TABLET 20 MG PO (10:23)
[2023-01-27] MEDS: PANTOPRAZOLE 40 MG TABLET PO (10:23)
[2023-01-27] MEDS: SODIUM BICARBONATE TAB 650 MG TABLET BY MOUTH (10:23)
[2023-01-27] MEDS: DONEPEZIL HCL 10 MG TABLET PO (10:23)
[2023-01-27] MEDS: oxyBUTYnin CHLORIDE XL 5 MG TAB.ER.24 10 MG PO (10:32)
--- NOTE | 2023-01-27 10:55 | WPDGIPROGNO ---
Progress Note: A&P Assessment and Plan (1) GI bleed: Qualifiers: GI bleed type/associated pathology: unspecified gastrointestinal hemorrhage type Qualified Code(s): K92.2 - Gastrointestinal hemorrhage, unspecified Code(s): K92.2 - Gastrointestinal hemorrhage, unspecified Status: Acute Assessment and Plan: he has Hemoccult-positive stool but he has not seen blood cell. His last colonoscopy was about 5 years ago at [facility]. He does not think anything significant was found at that time. He does have a history of ulcers. After he is seen by Renal I will Consider scheduling him for endoscopy. I will hold off on giving any bowel prep today. 01/27/2023. Endoscopy did not show any evidence of gastrointestinal bleeding. Likewise, he has had no actual evidence of bleeding except that his stool was Hemoccult positive on admission. (2) Anemia: Code(s): D64.9 - Anemia, unspecified Status: Acute Assessment and Plan: hemoglobin was 12.4 in June and now is down to 7. I told that we will need to start him on iron and have placed an order for that today. Iron level is 13 with only 3% saturation. He may in fact benefit from infusion of iron. (3) Rhabdomyolysis: Qualifiers: Rhabdomyolysis type: non-traumatic Qualified Code(s): M62.82 - Rhabdomyolysis Code(s): M62.82 - Rhabdomyolysis Status: Acute Assessment and Plan: Elevated creatine kinase. Rehydration BUN has improved down to 40. Creatinine is 2.2, which seems to be little better than his baseline. (4) Acute kidney injury: Code(s): N17.9 - Acute kidney failure, unspecified Status: Acute Assessment and Plan: pre renal azotemia. He does also have chronic kidney disease. (5) Parkinson's disease: Code(s): G20 - Parkinson's disease Status: Acute Assessment and Plan: He manages fairly well at home. Following is not something he does often. (6) Chronic pain: Code(s): G89.29 - Other chronic pain Status: Acute Assessment and Plan: Takes oxycodone as needed for his chronic pain. Plan I told that from my perspective he could be discharged and followed as an outpatient probably he may need consultation at some point with Hematology but certainly will need iron replacement therapy Subjective Date/time seen: 01/27/23 10:55 he has no complaints today. He has had no evidence of blood in his stools. I reviewed with him his EGD and colonoscopy done yesterday. He had a hiatal hernia with a tiny Girish erosion, but nothing else in the upper gastrointestinal tract to explain gastrointestinal blood loss. His colonoscopy was entirely normal. His hemoglobin remained stable. 7.6 on January 24 and 7.5 yesterday. Although I thought the fact that he had some off almond late on the ground for several hours may have resulted in some blood loss in his deep tissues, I have not seen any ecchymoses on his back, hips, etc.. he is tolerating his diet. Exam Const: General: alert Orientation/consciousness: patient oriented x3 Resp: Auscultation: clear to auscultation bilaterally Cardio: Rhythm: regular rhythm GI: Inspection: normal to inspection GI Palp: No abdominal tenderness, Yes Soft to palpation and No Ascites present Auscultation: normal bowel sounds Neuro: General: patient oriented x3 Objective Data Vital Signs Vital Signs: Vital Signs - 24 hr 01/26/23 11:58 01/26/23 12:00 01/26/23 12:31 Temperature 36.6 C Pulse Rate 75 74 89 Respiratory Rate 16 Blood Pressure 144/69 H Pulse Oximetry 95 Oxygen Delivery Fraction of Inspired Oxygen 01/26/23 12:41 01/26/23 14:20 01/26/23 14:30 Temperature 36.3 C L Pulse Rate 73 76 74 Respiratory Rate 20 17 18 Blood Pressure 162/75 H 110/73 128/78 Pulse Oximetry 100 100 100 Oxygen Delivery Room Air Room Air Room Air Fraction of Inspired Oxygen 03
[2023-01-27] MEDS: FERROUS GLUCONATE 324 MG TABLET PO (11:02)
[2023-01-27 11:12] LABS: Glucose Point of Care 292 mg/dl (65-105)
--- NOTE | 2023-01-27 12:09 | PM.DS ---
DS: Admitting Diagnosis Discharge Date 01/27/23 Admitting Diagnosis Fall DS: Discharge Diagnosis Discharge Diagnosis (1) Rhabdomyolysis: Qualifiers: Rhabdomyolysis type: non-traumatic Qualified Code(s): M62.82 - Rhabdomyolysis Code(s): M62.82 - Rhabdomyolysis Status: Acute (2) Acute CHF (congestive heart failure): Qualifiers: Heart failure type: unspecified Qualified Code(s): I50.9 - Heart failure, unspecified Code(s): I50.9 - Heart failure, unspecified Status: Acute (3) Acute kidney injury: Code(s): N17.9 - Acute kidney failure, unspecified Status: Acute (4) Elevated troponin: Code(s): R77.8 - Other specified abnormalities of plasma proteins Status: Acute (5) Chronic kidney disease: Code(s): N18.9 - Chronic kidney disease, unspecified Status: Acute (6) Hypochromic microcytic anemia: Code(s): D50.9 - Iron deficiency anemia, unspecified Status: Acute (7) Type 2 diabetes mellitus: Code(s): E11.9 - Type 2 diabetes mellitus without complications Status: Acute (8) DAVID (obstructive sleep apnea): Code(s): G47.33 - Obstructive sleep apnea (adult) (pediatric) Status: Acute (9) Chronic obstructive pulmonary disease: Code(s): J44.9 - Chronic obstructive pulmonary disease, unspecified Status: Acute (10) Parkinson's disease: Code(s): G20 - Parkinson's disease Status: Acute (11) Obesity (BMI 30-39.9): Code(s): E66.9 - Obesity, unspecified Status: Acute (12) Hyponatremia: Code(s): E87.1 - Hypo-osmolality and hyponatremia Status: Acute DS: Summary Hospital Course Reason for hospitalization: 72yo male with Parkinson, DM, cardiomyopathy, CKD and COPD here for fall. Please see H&P for details. Hospital Course: Patient presents after a fall and found tohave rhabdomyolysis likely secondary to immobilization and being down on the floor for an unspecified amount of time. He lives alone. TCK was 2800. UA showing 2+ blood but no red cells. He was on IV fluids but these were stopped due to possible CHF exacerbation. CXR showing mild pulmonary vascular congestion. BNP 6300. Leg edema noted. Started on IV lasix. TCK better at 190 and trace RBC in the urine. Echo with EF 55% and Grade I diastolic dysfunction. Lower extremity venous doppler negative for DVT.? Good UOP with negative fluid balance. Appreciate Cardiology input.?Cr 2.9 on admission. Baseline Cr probably around 2.0. Cr better at 2.2. Troponin peaked at 0.07. EKG showing NSR, 1st degree AVB, ch Left BBB but no change. Elevated Trop related to CHF and/or rhabdomyolysis. No clear baseline Hgb. Hgb was 7.0 on admission and about the same on recheck. Iron studies consistent with iron deficiency anemia. B12 low end of normal. GI consulted and patient underwent endoscopy. Colonoscopy showing normal colon. EGD showing hiatal hernia and Girish lesions. B12 replaced. Iron added. A1c 7.3.? The patient's blood glucose was monitored closely with AccuCheks covering with sliding scale.? Hypoglycemia protocol was available as needed.?Has DAVID but refusing CPAP. He worked with PT and OT. They felt patient was independent. He has a LifeAlert but uses Aisha as well. He had clinical improvement and was able to be discharged home on 01/27/23. He refused home health. Status at Discharge Cognitive/behavioral status at discharge: Stable Time Spent with Patient Time attestation: Total time spent providing and/or coordinating discharge services: 35 minutes Time spent: Greater than 30 minutes Exam Narrative: AF 98.4 141/76 92 16 95% ra Gen - NARD Chest - CTA bilaterally, nml RR CV - RRR S1/S2 Abd - Soft, NT/ND, Positive BS Ext - trace pedal edema Psych - Nml mood and affect Skin - Warm and dry DS: Data Data Completed and Pending Labs on day of discharge: Labs from last 24 hours 01/27/23
[2023-01-27] MEDS: INSULIN ASPART (*BKC) 100 UNITS/ML SUB-Q (13:19)
== END 2023-01-27 15:10 | disposition home or self-care (01) | DRG 557 ==
LOC: ANHED 19:40 → ANHIMU 20:18 → ANH3MEDSUR 01-26 19:00
PROVIDERS: Internal Medicine Gastroenterology; Admitting Provider Internal Medicine; Emergency Provider Physician Assistant; PCP Internal Medicine Geriatric Medicine; Visit Provider Internal Medicine
PROC: 0DJ08ZZ Inspection of Upper Intestinal Tract, Via Natural or Artificial Opening Endoscopic (ICD-10-PCS; CPT 43235; principal; 2023-01-26 15:00)
DX: M62.82 Rhabdomyolysis (principal); I50.31 Acute diastolic (congestive) heart failure; I13.0 Hypertensive heart and chronic kidney disease with heart failure and stage 1 through stage 4 chronic kidney disease, or unspecified chronic kidney disease; N17.9 Acute kidney failure, unspecified; Q60.0 Renal agenesis, unilateral; E87.1 Hypo-osmolality and hyponatremia; I42.9 Cardiomyopathy, unspecified; I50.9 Heart failure, unspecified; E11.22 Type 2 diabetes mellitus with diabetic chronic kidney disease; N18.30 Chronic kidney disease, stage 3 unspecified; Z20.822 Contact with and (suspected) exposure to COVID-19; W19.XXXA Unspecified fall, initial encounter; N40.0 Benign prostatic hyperplasia without lower urinary tract symptoms; J44.9 Chronic obstructive pulmonary disease, unspecified; F41.9 Anxiety disorder, unspecified; K31.89 Other diseases of stomach and duodenum; K44.9 Diaphragmatic hernia without obstruction or gangrene; I44.7 Left bundle-branch block, unspecified; R19.5 Other fecal abnormalities; D50.9 Iron deficiency anemia, unspecified; G20 Parkinson's disease; F02.80 Dementia in other diseases classified elsewhere, unspecified severity, without behavioral disturbance, psychotic disturbance, mood disturbance, and anxiety; F32.A Depression, unspecified; G89.29 Other chronic pain; G47.33 Obstructive sleep apnea (adult) (pediatric); K21.9 Gastro-esophageal reflux disease without esophagitis; E66.9 Obesity, unspecified; Z68.38 Body mass index [BMI] 38.0-38.9, adult; Z90.49 Acquired absence of other specified parts of digestive tract; Z98.42 Cataract extraction status, left eye; Z98.41 Cataract extraction status, right eye
CPT/HCPCS: 36415; 36430; 71046; 76775; 80053; 80069; 81001; 82533; 82550; 82607; 82728; 82746; 82784; 82948; 83036; 83540; 83550; 83605; 83735; 83880; 83883; 84100; 84295; 84443; 84484; 85025; 85610; 85730; 85999; 86334; 86335; 86850; 86900; 86901; 86920; 87081; 87636; 93005; 93970; 94640; 96361; 96374; 96375; 96376; 97161; 97165; 99285; A9270; C8929; C9113; G0378; J1815; J1940; J3420; J7030; J7050; J7120; P9016; Q9957

== ENCOUNTER 2024-06-20 09:11 | Inpatient (IN) | payer MEDICARE, SELFPAY ==
[2024-06-20] VITALS (11 sets, daily range): BP systolic 136–164; BP diastolic 56–83; PULSE 67–103; RESP 15–20; TEMP 36.1–36.8; O2SAT 98–100; BMI 35.2
--- NOTE | ~2024-06-20 | CT_ITS ---
EXAMINATION: CT pelvis wo con DATE: 06/20/2024 09:56 INDICATION: Left hip pain post fall onto buttocks TECHNIQUE: High resolution computed tomography (CT) of the pelvis was performed without intravenous c ontrast. Additional sagittal and coronal reconstructions were performed. Automated exposure control a nd iterative reconstruction technique were employed. The dose-length product was 901.60 mGy-cm. COMPARISON: CT dated 06/28/2022 FINDINGS: Partially visualized exophytic cyst at the lower pole the right kidney visualized portion measuring u p to 8 cm diameter. Visualized portions of bowels including the appendix are normal. Bladder is wilberto l. Prostatomegaly. Small fat-containing left inguinal hernia. Old healed intertrochanteric fracture t he proximal right femur which is fixed with an incompletely visualized antegrade intramedullary uri w ith femoral neck dynamic compression screw. Unchanged chronic mild superior endplate compression frac ture at L4. No acute fractures identified. Moderate right hip and mild to moderate left hip osteoarth ritis with posterior predominant nonuniform joint space narrowing on both the left and right. No hip joint effusions. 4 mm retrolisthesis L3 on L4 which results in mild central canal stenosis at this le stevo. Severe bilateral lower lumbar facet osteoarthritis. Mild to moderate neural foraminal stenosis b ilaterally at L3-L4 and L4-L5 and mild neural from stenosis bilaterally at L5-S1. IMPRESSION: 1. No acute osseous abnormality. 2. Stable appearance of chronic posttraumatic and posterior degenerative skeletal changes as detailed above. Reviewed, dictated and finalized at location A. IMPRESSION: 1. No acute osseous abnormality. 2. Stable appearance of chronic posttraumatic and posterior degenerative skelet al changes as detailed above.
--- NOTE | ~2024-06-20 | XR_ITS ---
XR knee LT min 4V Ordering provider: Lisa Gallagher PA-C History: . fall, pain . Comparison: June 20, 2024 FINDINGS: BONES: No acute fracture or dislocation. Osteopenia of the bones. JOINT SPACES: Chondrocalcinosis. Narrowing of the medial compartment. SOFT TISSUES: Ossification of the insertion of the quadriceps tendon. IMPRESSION: No acute osseous abnormality left knee. Chondrocalcinosis. Moderate osteoarthritic changes. Consider MRI knee if there is concern for soft tissue internal derangement. Reviewed, dictated and finalized at location A.
--- NOTE | ~2024-06-20 | US_ITS ---
EXAMINATION: US venous doppler [facility] DATE: 06/23/2024 12:50 INDICATION: Lower limb swelling. TECHNIQUE: Grayscale ultrasound images without and with compression and Doppler ultrasound images of the bilateral lower extremity veins were obtained. COMPARISON: Ultrasound 01/24/2023 FINDINGS: The visualized portions of right common femoral vein, profunda (deep) femoral vein, femoral vein, pop liteal vein, peroneal veins, posterior tibial veins, and greater saphenous vein outflow are patent. The visualized portions of left common femoral vein, profunda femoral vein, femoral vein, popliteal v ein, peroneal veins, posterior tibial veins, and greater saphenous vein outflow are patent. IMPRESSION: 1. No deep venous thrombosis. Reviewed, dictated and finalized at location A.
--- NOTE | ~2024-06-20 | CT_ITS ---
CT chest abdomen wo con Ordering provider: Lisa Gallagher PA-C History: . mass lower mediastum . Comparison: June 28, 2022 Technique: CT chest without IV contrast. CT abdomen and pelvis without oral and IV contrast. Radiatio n reduction technique utilized. DLP is 1407.22 mGy-cm FINDINGS: The study is limited due to lack of IV contrast. CHEST: --VISUALIZED THORACIC INLET: Normal as visualized. --MEDIASTINUM: Aorta/coronary arteries: Mild atheromatous disease. Heart/other: The heart is slightly enlarged. Lymph nodes: No mediastinal or hilar adenopathy. Calcified right hilar lymph nodes. Large sliding hiatus hernia with the majority of the stomach in the chest. --LUNGS: No pulmonary nodules or masses. No infiltrates or effusions. No pneumothorax. --MUSCULOSKELETAL: Soft tissues: The superficial soft tissues are normal. Bones: Age appropriate degenerative changes of the spine. Healed rib fractures in the left mare-thora x. None of the fracture in the left 11th rib. Healing fracture in the right eighth ribs. ABDOMEN/PELVIS: --MUSCULOSKELETAL: Bones: Age appropriate degenerative changes of the spine. Superficial soft tissues: The superficial soft tissues are normal. --UPPER ABDOMINAL ORGANS: Liver: Normal. Gallbladder: Status post cholecystectomy. Spleen: Normal. Stomach/duodenum: Sliding hiatus hernia. Pancreas: Atrophic. Adrenals: Normal. Kidneys: Large cyst in the right kidney lower pole measuring 8.9 x 8.8 cm. Cyst is seen in the upper pole of the right kidney measuring 1.4 cm. Cyst in the midpole is seen measuring 3.6 x 2.4 cm. The left kidney is not demonstrated which may be surgically removed or congenitally absent clinical c orrelation advised --PELVIC ORGANS: The bladder is not demonstrated.. --BOWEL AND MESENTERY: Colon: No diverticulitis seen in the visualized colon. Normal appendix. Small Bowel: Normal. No obstruction. Peritoneum/mesentery: No free air or free fluid. No mesenteric lymphadenopathy. --RETROPERITONEUM: Mild atheromatous disease of the abdominal aorta. No retroperitoneal lymphadenop athy. IMPRESSION: CHEST: 1. Cardiomegaly. 2. No acute lung lesion. 3. Large Sliding hiatus hernia with the majority of the stomach in the chest. ABDOMEN/PELVIS: 1. No acute abdominal process. 2. Large right renal cyst unchanged. Right mid pole cysts with soft tissue density in the right kidn ey upper pole unchanged from previous examination most likely hemorrhagic cyst. 3. Atrophic pancreas Reviewed, dictated and finalized at location A. IMPRESSION: CHEST: 1. Cardiomegaly. 2. No acute lung lesion. 3. Large Sliding hiatus hernia with the majority of the stomach in the chest. ABDOMEN/PELVIS: 1. No acute abdominal process. 2. Large right renal cyst unchanged. Right mid pole cysts with soft tissue den sity in the right kidney upper pole unchanged from previous examination most li yash hemorrhagic cyst. 3. Atrophic pancreas
--- NOTE | ~2024-06-20 | XR_ITS ---
XR chest 2V Ordering provider: Lisa Gallagher PA-C History: 73 years Male with . weakness . Comparison: January 23, 2023 FINDINGS: MEDIASTINUM: The cardiac silhouette is slightly enlarged. Congestive veronica. Soft tissue density is pro jected over the lower mediastinum which may be sliding hiatus hernia. Further evaluation advised to e xclude a mass in the area. LUNGS: No infiltrates, effusions or pneumothorax. OTHER: No free air under the diaphragm. Degenerative changes of the spine. IMPRESSION: No acute cardiopulmonary pathology. Soft tissue density in the lower mediastinum.Further Evaluation to exclude a mass is advised. Reviewed, dictated and finalized at location A. IMPRESSION: No acute cardiopulmonary pathology. Soft tissue density in the lower mediastinum.Further Evaluation to exclude a ma ss is advised.
--- NOTE | ~2024-06-20 | XR_ITS ---
EXAMINATION: XR femur LT min 2V DATE: 06/20/2024 10:14 INDICATION: Left femoral pain post fall TECHNIQUE: Overlapping proximal and distal, AP and lateral views of the left femur were obtained. COMPARISON: None FINDINGS: Alignment is normal. No fracture. Chondrocalcinosis and tricompartmental osteoarthritis at the left knee at least mild severity of joint space narrowing can be underestimated on nonweightbearing imagin g. Large enthesophyte at the proximal pole of the patella. No left knee joint effusion. Left hip oste oarthritis, mild to moderate severity on the prior CT. Tip of the fixation screws seen at the incompl etely visualized right femoral head. Soft tissues are unremarkable. IMPRESSION: 1. No acute osseous abnormality. Reviewed, dictated and finalized at location A.
--- NOTE | ~2024-06-20 | CT_ITS ---
CT brain wo con Ordering provider: Lisa Gallagher PA-C History: 73 years Male with . fall, unknown HI, ams . Comparison: June 28, 2022 Technique: CT of the head without contrast. Radiation reduction technique utilized. DLP is 681 mGy-cm. FINDINGS: BRAIN PARENCHYMA AND CSF SPACES: Mild leukoaraiosis and diffuse cortical atrophy. Mild atheromatous d isease. No midline shift, mass effect or hemorrhage. The brain parenchyma and CSF spaces are otherwi se normal. VISUALIZED PARANASAL SINUSES: Well aerated. MASTOIDS: Well aerated. BONES: The bones appear intact. SOFT TISSUES: Visualized nasopharynx is normal. Superficial soft tissues are normal. IMPRESSION: No acute intracranial findings. Reviewed, dictated and finalized at location A.
--- NOTE | 2024-06-20 09:17 | ECG_ITS ---
Test Date: 2024-06-20 09:18:20 Measurements Intervals [place] Rate: 101 P: -81 IA: 201 QRS: -27 QRSD: 184 T: 127 QT: 447 QTc: 581 Interpretive Statements SINUS OR ECTOPIC ATRIAL TACHYCARDIA LEFT BUNDLE BRANCH BLOCK BASELINE ARTIFACT- I, II, AVR, AVF, V1-V6 ABNORMAL ECG No previous ECG available for comparison Electronically Signed On 06-20-2024 09:50:32 CDT by Bin Awad D.O.
--- NOTE | 2024-06-20 09:25 | ED.WEAKNESS ---
HPI - Weakness General Chief complaint: Weakness <VINOD Brice Last Filed: 06/20/24 12:41> Stated complaint: weakness <VINOD Brice Last Filed: 06/20/24 12:41> Time Seen by Provider: 06/20/24 09:15 <VINOD Brice Last Filed: 06/20/24 12:41> Source: patient and old records reviewed <VINOD Birce Last Filed: 06/20/24 12:41> Mode of arrival: EMS <VINOD Brice Last Filed: 06/20/24 12:41> Limitations: no limitations <VINOD Brice Last Filed: 06/20/24 12:41> History of Present Illness HPI Narrative: Patient is a 73 y/o male who presents to the ED via EMS with report of fall/weakness. Patient lives at home alone, does have home health care several times per week. Patient reports he had a fall in the middle the night around 3:00-4 a.m.. He states he uses a cardboard box to help him get in and out of bed and states the cardboard box collapse underneath of him causing him to fall. He landed on his buttocks with his legs bent backwards behind him. He was unable to get up off the ground for several hours. He was able to eventually call his home healthcare nurse to contact EMS. EMS did not find a cardboard box there. Patient complains of pain to his left hip and leg, but otherwise states he feels fairly well. Denies chest pain, shortness breath, dizziness. He denies head injury with the fall. <VINOD Brice Last Filed: 06/20/24 12:41> Related Data Home medications: Home Medications Medication Instructions Recorded Confirmed atorvastatin 10 mg tablet 10 mg PO HS 09/21/21 06/20/24 cholecalciferol (vitamin D3) 50 5,000 unit PO DAILY 09/21/21 06/20/24 mcg (2,000 unit) capsule (Vitamin D3) donepezil 10 mg tablet 10 mg PO DAILY 09/21/21 06/20/24 escitalopram oxalate 20 mg tablet 20 mg PO DAILY 09/21/21 06/20/24 magnesium oxide 400 mg (241.3 mg 400 mg PO BID 09/21/21 06/20/24 magnesium) tablet oxybutynin chloride 10 mg 10 mg PO Q12H 09/21/21 06/20/24 tablet,extended release 24 hr alprazolam 0.5 mg tablet 0.5 mg PO TID PRN Anxiety 06/28/22 06/20/24 fluticasone furoate 100 1 inh inhalation DAILY 06/28/22 06/20/24 mcg-vilanterol 25 mcg/dose inhalation powder (Breo Ellipta) primidone 50 mg tablet 100 mg PO Q8H 06/28/22 06/20/24 acetaminophen 325 mg tablet 650 mg PO Q4H PRN Pain, Mild 06/29/22 06/20/24 sodium bicarbonate 650 mg tablet 650 mg BID 06/29/22 06/20/24 insulin aspart U-100 100 unit/mL See Rx Instructions .Route .COMPLEX 01/23/23 06/20/24 (3 mL) subcutaneous pen (Novolog FlexPen U-100 Insulin aspart) insulin glargine 100 unit/mL (3 35 unit subcut QPM 01/23/23 01/24/23 mL) subcutaneous pen (Basaglar KwikPen U-100 Insulin) calcitriol 0.25 mcg capsule 0.25 mcg PO DAILY 06/20/24 06/20/24 carvedilol 6.25 mg tablet 6.25 mg PO Q12H 06/20/24 06/20/24 folic acid 1 mg tablet 1 mg PO DAILY 06/20/24 06/20/24 insulin glargine 100 unit/mL (3 35 unit subcut HS 06/20/24 06/20/24 mL) subcutaneous pen (Lantus Solostar U-100 Insulin) losartan 25 mg tablet 25 mg PO DAILY 06/20/24 06/20/24 oxycodone 10 mg tablet 10 mg PO TID PRN Pain, Severe 06/20/24 06/20/24 torsemide 20 mg tablet 20 mg PO DAILY 06/20/24 06/20/24 <Lisa Gallagher PA-C - Last Filed: 06/20/24 12:41> Allergies/Adverse reactions: Allergies Allergy/AdvReac Type Severity Reaction Status Date / Time No Known Allergies Allergy Verified 06/20/24 09:20 <Lisa Gallagher PA-C - Last Filed: 06/20/24 12:41> Review of Systems Review of Systems: CONSTITUTIONAL: Denies fever, chills, or sweats. CARDIOVASCULAR: Denies chest pain, palpitations, or edema. RESPIRATORY: Denies cough or dyspnea. GASTROINTESTINAL: Denies abdominal pain, nausea, vomiting MUSCULOSKELETAL: See HPI. NEUROLOGIC: See HPI. <Lisa Gallagher PA-C - Last Filed: 06/20/24 12:41> All systems reviewed & are unrema
[2024-06-20 09:37] LABS: Basophils Percent Auto 0.3 % (0.2-1.2); Eosinophils Percent Auto 0.3 % (0-4.4); Hemoglobin 10.6 g/dL (14.0-18.0); Immature Granulocyte Absolute 0.04 K/mm3 (0.00-0.031); Immature Granulocyte Percent A 0.3 % (0-0.5); Lymphocytes Absolute Auto 0.64 K/mm3 (0.9-3.2); Lymphocytes Percent Auto 5.1 % (18.3-44.2); Mean Corpuscular HGB Conc 31.2 g/dl (32-36); Mean Corpuscular Hemoglobin 27.6 pg (26-34); Mean Corpuscular Volume 88.5 fl (80-100); Mean Platelet Volume 9.6 fl (7.4-10.4); Monocytes Absolute Auto 0.8 K/mm3 (0.1-0.6); Monocytes Percent Auto 6.3 % (2.6-8.5); Neutrophils Absolute Auto 10.9 K/mm3 (1.3-6.7); Neutrophils Percent Auto 87.7 % (45.5-73.1); Platelet Count Result 391 k/mm3 (150-375); Red Blood Count 3.84 M/mm3 (4.6-6.20); Red Cell Distribution Width 18.4 % (11.5-14.5); White Blood Count 12.5 K/mm3 (4.5-10.0)
[2024-06-20] MEDS: SODIUM CHLORIDE 0.9% IV 1,000 ML 999 ML IV CONT ×2 (09:37→12:37)
[2024-06-20 09:45] LABS: Alanine Aminotransferase 19 U/L (6-50); Albumin Level 4.2 g/dL (3.5-5.1); Alkaline Phosphatase 128 U/L (38-126); Anion Gap 19 mmol/L (4-12); Aspartate Amino Transferase 33 U/L (17-59); Bilirubin,Total 0.4 mg/dL (0.2-1.3); Blood Urea Nitrogen 79 mg/dL (9-20); Calcium 8.9 mg/dL (8.4-10.2); Carbon Dioxide 9 mmol/L (22-30); Chloride 113 mmol/L (98-107); Estimated CRCL calculation 16 ml/min; Estimated Glomerular Filt Rate 11; Glucose 227 mg/dL (65-110); Potassium 3.8 mmol/L (3.4-5.0); Sodium 141 mmol/L (137-145)
[2024-06-20 09:46] LABS: Lactic Acid Reflex 1.2 mmol/L (0.7-2.0)
[2024-06-20 09:48] LABS: Magnesium 1.9 mg/dL (1.6-2.3)
[2024-06-20 09:49] LABS: Creatine Kinase 674 U/L (55-170)
[2024-06-20 09:55] LABS: Prothrombin Time 23.4 Seconds (11.1-14.7)
[2024-06-20 09:56] LABS: Partial Thromboplastin Time 50.7 Seconds (22.3-36.8)
[2024-06-20 10:18] LABS: Alveolar/Arterial O2 Gradient 27.1 mmHg; Base Excess ABG -16.5 mEq/l (+/-2.0); Carboxyhemoglobin 0.2 % THb (0-2.0); Fractional Inspired Oxygen 21 %; HCO3 ABG 9.6 mEq/l (22.0-26.0); Oxygen Content ABG 14.6 %vol (16.0-22.0); Oxygen Saturation ABG 95.9 % (95.0-100.0); Oxyhemoglobin 96.3 % THb (90.0-100.0); PCO2 ABG 24.2 mmHg (35.0-45.0); PO2 ABG 93.7 mmHg (80.0-100.0); PO2 FiO2 Ratio Arterial Blood 4.46 %; Reduced Hemoglobin 3.5 %THb (0-5.0); Total Hemoglobin 10.7 g/dL (12.0-18.0)
[2024-06-20 10:21] LABS: Device ROOM AIR; Modified Allen's Test Pass; Site Drawn LEFT RADIAL; pH ABG 7.218 (7.350-7.450)
[2024-06-20 10:21] LABS: Troponin I 0.102 ng/mL (0.000-0.034)
--- NOTE | 2024-06-20 10:22 | PCRCNOTE ---
ABG late due to patient was getting testing done.
[2024-06-20 10:52] LABS: Appearance Urine Clear (Clear); Bacteria Urine None Seen /hpf; Bilirubin Urine Negative (Negative); Blood Urine Trace (Negative); Color Urine Yellow (Yellow); Glucose Urine UA Negative (Negative); Ketones Urine Negative (Negative); Leukocyte Esterase Ur Negative LEU/UL (Negative); Nitrate Urine Negative (Negative); Non Pathogenic Casts 0-2; Protein Urine 2+ mg/dL (Negative); RBC Urine 0-2 /hpf (0-2); Specific Grav Ur 1.013 (1.001-1.035); Squamous Epithelial Cell Urine None Seen /hpf (Few); Urobilinogen Urine 0.2 mg/dL (<2.0); WBC Urine 0-5 /hpf (0-3)
[2024-06-20 10:54] LABS: Add Urine Microscopic? YES
--- NOTE | 2024-06-20 11:04 | PM.CNNEP ---
Assessment and Plan Assessment and plan (1) Acute on chronic renal failure: Code(s): N17.9 - Acute kidney failure, unspecified; N18.9 - Chronic kidney disease, unspecified Status: Acute Assessment and Plan: The patient has chronic kidney disease. This is most likely due to diabetes and hypertension. His baseline creatinine seems to run around 2-2.5. He sees Dr. Jorgito lauren in the office for management of this. The patient has acute kidney injury. Creatinine has risen to 5. Most likely the fall and lightheadedness in all these things are due to the high BUN creatinine plus the acidosis. Underlying cause of these things is unclear right now. His blood pressure is not low. He does not have a fever. He could be dehydrated. His last creatinine here was 2.2 in January of 2023. I suppose he could have progression of renal disease since then as well. Will try to get some records from Dr. Guthrie. (2) Metabolic acidosis: Code(s): E87.2 - Acidosis Status: Acute Assessment and Plan: The patient has a very low CO2. If we go by baselines back in 2022, his delta bicarb is about 17 and his delta anion gap is about 14. Lactate is negative. I doubt if he is DKA. Beta hydroxybutyrate is pending. Most likely this is uremic poisons causing the anion gap. He has received some bicarbonate and will get a bicarb drip as well. (3) HTN (hypertension): Qualifiers: Hypertension type: unspecified Qualified Code(s): I10 - Essential (primary) hypertension Code(s): I10 - Essential (primary) hypertension Status: Chronic Assessment and Plan: Blood pressure is a little on the high side. Will get him back on his blood pressure meds. (4) DM2 (diabetes mellitus, type 2): Qualifiers: Diabetes mellitus complication status: without complication Diabetes mellitus penitentiary insulin use: without penitentiary use Qualified Code(s): E11.9 - Type 2 diabetes mellitus without complications Code(s): E11.9 - Type 2 diabetes mellitus without complications Status: Chronic Assessment and Plan: Hospitalists to manage this (5) Gastroesophageal reflux disease: Code(s): K21.9 - Gastro-esophageal reflux disease without esophagitis Status: Acute History of Present Illness Reason for Consult Consult date: 06/21/24 Chief Complaint Chief complaint: arf,metabolic acidosis,nstemi,elev ck History of Present Illness Narrative: Mohamud is a very pleasant 71-year-old gentleman who has multiple medical problems including Parkinson's disease, diabetes, chronic foot drop, GERD, hyperlipidemia, chronic kidney disease with only one kidney on the right followed by Dr. Guthrie in [place], anxiety, BPH, diabetes, sleep apnea but does not use a CPAP machine, hypertension, GERD, depression, COPD, and chronic back pain. The patient lives at home and gets home health. The patient had been okay until the middle the night this morning when he fell because the car board box he uses to help him get out of bed collapse and he fell. He was on the ground for a few hours. Eventually EMS was able to be called and they brought him over to the hospital. He was evaluated in the emergency room. Head CT and bony x-rays were negative for bony problems. Chest x-ray was clear. CT chest abdomen is pending. His hemoglobin was okay. His creatinine which she was he runs in the mid 2s was up to 5.1 his bicarbonate level is very low. CK is 674. Troponin is a little bit high it 0.102 anion gap was high at 19. Sugars not too bad. Lactic acid is okay. He is getting some IV fluid is going to be admitted to the hospital Review of Systems Constitutional: Constitutional: Reports no additional constitutional complaints Eyes: Eyes: Reports no additional eye complaints ENT: Reports system reviewed and no additional complaints, except as documented Cardiovascular: Cardiovascular: Reports no
[2024-06-20] MEDS: SODIUM BICARBONATE 8.4% 150 MEQ in WATER, STERILE FOR INJECTION 950 ML IV CONT ×2 (11:07→21:41)
[2024-06-20] MEDS: SODIUM BICARBONATE 8.4% 50 MEQ/50 ML SYRINGE IV PUSH ×2 (11:08)
[2024-06-20 11:17] LABS: NT Pro B Type Natriuretic Pept 2570 pg/mL (19.9-100)
[2024-06-20 12:14] LABS: Creatinine Urine 114.4 mg/dL; Total Protein Urine Random 82 mg/dL; Ur Ttl Prot Creatinine Ratio 0.72 mg/mg (0-0.20); Urea Random Urine 599 MG/DL
[2024-06-20 12:15] LABS: Sodium Urine Random 44 meq/L
--- NOTE | 2024-06-20 12:15 | ECG_ITS ---
Test Date: 2024-06-20 12:20:21 Measurements Intervals [place] Rate: 95 P: 269 NJ: 197 QRS: -26 QRSD: 181 T: 126 QT: 403 QTc: 507 Interpretive Statements SINUS OR ECTOPIC ATRIAL RHYTHM LEFT BUNDLE BRANCH BLOCK BASELINE ARTIFACT- I, II, III, AVR, AVL, AVF, V1-V6 ABNORMAL ECG Compared to ECG 06/20/2024 09:18:20 HEART RATE HAS DECREASED Electronically Signed On 06-20-2024 12:45:59 CDT by Bin Awad D.O.
[2024-06-20 12:26] LABS: Glucose Point of Care 200 mg/dl (65-105)
[2024-06-20 12:44] LABS: Anion Gap 15 mmol/L (4-12); Blood Urea Nitrogen 81 mg/dL (9-20); Calcium 8.6 mg/dL (8.4-10.2); Carbon Dioxide 14 mmol/L (22-30); Chloride 113 mmol/L (98-107); Estimated CRCL calculation 17 ml/min; Estimated Glomerular Filt Rate 12; Glucose 205 mg/dL (65-110); Potassium 3.9 mmol/L (3.4-5.0); Sodium 142 mmol/L (137-145)
[2024-06-20 12:58] LABS: Troponin I 0.128 ng/mL (0.000-0.034)
--- NOTE | 2024-06-20 13:35 | ADMGEN ---
This patient, Mohamud Diaz, was admitted to IMU Room 205-01. Patient/family oriented to hospital policies and general routines including ID bracelet, bed and alarms, visiting hours, pain management, procedures, bathroom and other care routines, personal items, smoking policy, room service/diet, and visiting hours. Information on how to activate the Rapid Response Team has been discussed. Patient/Family are encouraged to report perceived risks to care and to ask questions if they do not understand what they are told or what they should do.
--- NOTE | 2024-06-20 14:06 | PM.CNCAR ---
Assessment and Plan Assessment and plan (1) Elevated troponin: Code(s): R77.8 - Other specified abnormalities of plasma proteins Status: Acute Assessment and Plan: Not an acute coronary syndrome. No anginal symptoms. Troponin elevation in setting of rhabdomylolysis, DEEPTHI on CKD, metabolic acidosis. This does not need further workup. (2) Acute on chronic renal failure: Code(s): N17.9 - Acute kidney failure, unspecified; N18.9 - Chronic kidney disease, unspecified Status: Acute Assessment and Plan: Nephrology consulted. (3) Rhabdomyolysis: Qualifiers: Rhabdomyolysis type: non-traumatic Qualified Code(s): M62.82 - Rhabdomyolysis Code(s): M62.82 - Rhabdomyolysis Status: Acute Assessment and Plan: He is receiving IVFs. (4) HTN (hypertension): Qualifiers: Hypertension type: unspecified Qualified Code(s): I10 - Essential (primary) hypertension Code(s): I10 - Essential (primary) hypertension Status: Chronic Assessment and Plan: Continue home Coreg. Would hold home Losartan due to DEEPTHI on CKD. (5) DM2 (diabetes mellitus, type 2): Qualifiers: Diabetes mellitus complication status: without complication Diabetes mellitus terminal make up operator insulin use: without fpc use Qualified Code(s): E11.9 - Type 2 diabetes mellitus without complications Code(s): E11.9 - Type 2 diabetes mellitus without complications Status: Chronic Assessment and Plan: Management as per primary team. Plan Cardiology will sign off at this time. Please call us back if needed. Patient to follow up with his primary blasting clay miner, Dr. Mario, after hospital discharge. History of Present Illness History of Present Illness Consult date/time: 06/20/24 14:06 Requesting physician: Lisa Gallagher PA-C Consult reason: Other (Elevated troponin ) Reason For Visit: arf,metabolic acidosis,nstemi,elev ck Narrative: We are consulted for elevated troponin. This is a 73 year old male with Parkinson's disease, type 2 diabetes mellitus, CKD, COPD, GERD, DAVID, obesity, chronic anemia who presented to [place] ED after a fall that occurred around 3-4AM this morning. Patient uses a cardboard box to help him get in and out of bed and states the cardboard box collapsed underneath him causing him to fall. He was unable to get off the ground for several hours. No chest pain. No syncope. Workup shows SCr of 5. Troponins are 0.102, 0.128. NT pro BNP is 2570. Beta hydroxybutyrate is positive at 1.5. EKGs from today show sinus rhythm with a chronic LBBB. Echocardiogram from January 2023 shows LVEF 55%, grade 1 diastolic dysfunction, severe biatrial enlargement, mild MR. His primary blasting clay miner is Dr. Mario with [facility]. Review of Systems Review of Systems: All systems reviewed & are unremarkable except as noted in HPI and below (HPI) [facility] Past Medical History Medical History Anxiety Benign prostatic hyperplasia Borderline hyperlipidemia Cardiomyopathy Poorly documented history. Chronic back pain Chronic kidney disease Creatinine has fluctuated over the years in baseline seems to be between 1.50 and 2.10. Chronic narcotic dependence Chronic obstructive pulmonary disease Congenital absence of left kidney Dementia Depression Previous suicide attempt in 2012. Gastroesophageal reflux disease History of aspiration pneumonia Hypertension Kidney congenitally absent, left Left bundle branch block Migraine Obstructive sleep apnea The patient has tried oral apparatus and CPAP and has not been able to tolerated. Parkinsons Prostatic hyperplasia Type 2 diabetes mellitus Surgical History Surgical History History of cardiac catheterization History of cholecystectomy History of left cataract extraction History of nasal septoplasty His
--- NOTE | 2024-06-20 15:16 | PM.IMHP ---
H&P: HPI History of Present Illness Date/Time: 06/20/24 15:16 Chief Complaint: Fall Narrative: Patient is a 73 y/o male who presents to the ED via EMS with report of fall/weakness. Patient lives at home alone, does have home health care several times per week. Patient reports he had a fall in the middle the night around 3:00-4 a.m.. He states he uses a cardboard box to help him get in and out of bed and states the cardboard box collapse underneath of him causing him to fall. He landed on his buttocks with his legs bent backwards behind him. He was unable to get up off the ground for several hours. He was able to eventually call his home healthcare nurse to contact EMS. EMS did not find a cardboard box there. Patient complains of pain to his left hip and leg, but otherwise states he feels fairly well. Denies chest pain, shortness breath, dizziness. He denies head injury with the fall. In the ED he was mildly tachycardic otherwise vitals were stable. Laboratory evaluation showed WBC count of 12.5. Hemoglobin of 10.6 CMP showed acute renal failure creatinine 5.1 baseline in 2 range per records. Bicarb was very low at 9 with high anion gap blood sugar 227. Patient uses insulin for his diabetes lactic acid was normal within normal limits. CK mildly elevated at 674. ABG showed a [place] with pH of 7.218 bicarb of 9.6. She butyrate was elevated at 1.5 however no ketone seen on urine sample. EKG with chronic left bundle branch block consistent with previous records. Troponin elevated at 0.102 S been reported. He is admitted in this setting. Review of Systems Review of Systems: - CONSTITUTIONAL: Denies weight loss, fever and chills. - HEENT: Denies changes in vision and hearing - RESPIRATORY: Denies SOB and cough. - CV: Denies palpitations and CP. - GI: Denies abdominal pain, nausea, vomiting and diarrhea. - : Denies dysuria and urinary frequency. - MSK: Denies myalgia and joint pain. - SKIN: Denies rash and pruritus. - NEUROLOGICAL: Denies headache and syncope. Reports weakness generalized reports fall - PSYCHIATRIC: Denies recent changes in mood. Denies anxiety and depression. [facility] Past Medical History Medical History Anxiety Benign prostatic hyperplasia Borderline hyperlipidemia Cardiomyopathy Poorly documented history. Chronic back pain Chronic kidney disease Creatinine has fluctuated over the years in baseline seems to be between 1.50 and 2.10. Chronic narcotic dependence Chronic obstructive pulmonary disease Congenital absence of left kidney Dementia Depression Previous suicide attempt in 2013. Gastroesophageal reflux disease History of aspiration pneumonia Hypertension Kidney congenitally absent, left Left bundle branch block Migraine Obstructive sleep apnea The patient has tried oral apparatus and CPAP and has not been able to tolerated. Parkinsons Prostatic hyperplasia Type 2 diabetes mellitus Surgical History Surgical History History of cardiac catheterization History of cholecystectomy History of left cataract extraction History of nasal septoplasty History of open reduction and internal fixation (ORIF) procedure Gamma nail right hip fracture. History of repair of ACL Bilateral History of repair of right rotator cuff History of surgical removal of pilonidal cyst History of tonsillectomy Family History Family History Father Family history of cardiovascular disease Malignant neoplasm of prostate Mother Breast cancer Family history of chronic obstructive pulmonary disease Acute myocardial infarction Chronic obstructive pulmonary disease Sibling Prostate carcinoma Social History Social History Social History: The patient is and lives in his own home in
[2024-06-20] MEDS: oxyCODONE HCL (*CRX) 5 MG TAB IR 10 MG PO (16:15)
[2024-06-20] MEDS: MAGNESIUM OXIDE 400 MG TABLET PO (16:16)
[2024-06-20] MEDS: FERROUS GLUCONATE 324 MG TABLET PO (16:16)
[2024-06-20] MEDS: PRIMIDONE 50 MG TABLET 100 MG PO ×2 (16:16→21:39)
[2024-06-20] MEDS: ALPRAZolam (*CRX) 0.5 MG TABLET PO (16:16)
[2024-06-20] MEDS: INSULIN GLARGINE (*BKC) 100 UNITS/ML 25 UNITS SUB-Q ×2 (16:17→21:40)
[2024-06-20 16:18] LABS: Glucose Point of Care 165 mg/dl (65-105)
[2024-06-20 16:48] LABS: Troponin I 0.159 ng/mL (0.000-0.034)
[2024-06-20] MEDS: PANTOPRAZOLE SODIUM IV 40 MG VIAL IV PUSH (16:57)
[2024-06-20 20:58] LABS: Glucose Point of Care 450 mg/dl (65-105)
[2024-06-20] MEDS: carvediloL 6.25 MG TABLET PO (21:39)
[2024-06-20] MEDS: ACETAMINOPHEN 325 MG TABLET 650 MG PO (21:39)
[2024-06-20] MEDS: oxyBUTYnin CHLORIDE XL 5 MG TAB.ER.24 10 MG PO (21:40)
[2024-06-20] MEDS: HEPARIN SODIUM 5,000 UNITS/ML VIAL 5000 UNITS SUB-Q (21:40)
[2024-06-20] MEDS: TOLNAFTATE 1% POWDER 45 GM BTL 1 APPLIC TOPICAL (21:41)
[2024-06-20] MEDS: INSULIN HUMAN REGULAR (*BKC) 100 UNITS/ML 12 UNITS SUB-Q (22:15)
[2024-06-20 23:35] LABS: Glucose Point of Care 130 mg/dl (65-105)
[2024-06-21] VITALS (20 sets, daily range): BP systolic 137–170; BP diastolic 60–72; PULSE 59–76; RESP 18–22; TEMP 36.3–36.9; O2SAT 97–100
[2024-06-21] MEDS: SODIUM BICARBONATE 8.4% 150 MEQ in WATER, STERILE FOR INJECTION 950 ML IV CONT ×2 (04:44→12:14)
[2024-06-21] MEDS: oxyCODONE HCL (*CRX) 5 MG TAB IR 10 MG PO ×3 (04:45→17:09)
[2024-06-21 04:46] LABS: Basophils Percent Auto 0.5 % (0.2-1.2); Eosinophils Absolute Auto 0.2 K/mm3 (0-0.3); Eosinophils Percent Auto 2.5 % (0-4.4); Hematocrit 26.3 % (42.0-52.0); Hemoglobin 8.5 g/dL (14.0-18.0); Immature Granulocyte Absolute 0.03 K/mm3 (0.00-0.031); Immature Granulocyte Percent A 0.3 % (0-0.5); Lymphocytes Absolute Auto 1.24 K/mm3 (0.9-3.2); Lymphocytes Percent Auto 14.4 % (18.3-44.2); Mean Corpuscular HGB Conc 32.3 g/dl (32-36); Mean Corpuscular Hemoglobin 27.9 pg (26-34); Mean Corpuscular Volume 86.2 fl (80-100); Mean Platelet Volume 9.5 fl (7.4-10.4); Monocytes Percent Auto 11.3 % (2.6-8.5); Neutrophils Absolute Auto 6.1 K/mm3 (1.3-6.7); Platelet Count Result 333 k/mm3 (150-375); Red Blood Count 3.05 M/mm3 (4.6-6.20); Red Cell Distribution Width 18.5 % (11.5-14.5); White Blood Count 8.6 K/mm3 (4.5-10.0)
[2024-06-21 05:24] LABS: Glucose Point of Care 88 mg/dl (65-105)
[2024-06-21] MEDS: PRIMIDONE 50 MG TABLET 100 MG PO ×3 (06:28→21:12)
[2024-06-21 06:37] LABS: Glucose Point of Care 67 mg/dl (65-105)
[2024-06-21 07:44] LABS: Alanine Aminotransferase 16 U/L (6-50); Albumin Level 3.4 g/dL (3.5-5.1); Alkaline Phosphatase 92 U/L (38-126); Anion Gap 13 mmol/L (4-12); Aspartate Amino Transferase 43 U/L (17-59); Bilirubin,Total 0.3 mg/dL (0.2-1.3); Blood Urea Nitrogen 74 mg/dL (9-20); Calcium 7.9 mg/dL (8.4-10.2); Carbon Dioxide 21 mmol/L (22-30); Chloride 110 mmol/L (98-107); Estimated CRCL calculation 20 ml/min; Estimated Glomerular Filt Rate 14; Glucose 51 mg/dL (65-110); Magnesium 1.7 mg/dL (1.6-2.3); Phosphorus 5.1 mg/dL (2.5-4.5); Potassium 2.8 mmol/L (3.4-5.0); Sodium 144 mmol/L (137-145)
[2024-06-21] MEDS: FLUTICASONE/SALMETEROL 115-21 MCG INHALER 1 PUFF 2 PUFF INHALATION ×2 (08:03→20:42)
[2024-06-21 08:28] LABS: Glucose Point of Care 99 mg/dl (65-105)
[2024-06-21] MEDS: FERROUS GLUCONATE 324 MG TABLET PO ×2 (08:55→16:52)
[2024-06-21] MEDS: ESCITALOPRAM OXALATE 10 MG TABLET 20 MG PO (08:56)
[2024-06-21] MEDS: MAGNESIUM OXIDE 400 MG TABLET PO ×2 (08:56→16:51)
[2024-06-21] MEDS: CHOLECALCIFEROL 5,000 UNITS TABLET 5000 UNITS PO (08:56)
[2024-06-21] MEDS: POTASSIUM CHLORIDE 20 MEQ ER TABLET 40 MEQ PO ×2 (08:56→16:51)
[2024-06-21] MEDS: calcitrioL 0.25 MCG CAPSULE PO (08:56)
[2024-06-21] MEDS: oxyBUTYnin CHLORIDE XL 5 MG TAB.ER.24 10 MG PO ×2 (08:57→21:12)
[2024-06-21] MEDS: DONEPEZIL HCL 10 MG TABLET PO (08:57)
[2024-06-21] MEDS: carvediloL 6.25 MG TABLET PO ×2 (08:57→21:12)
[2024-06-21] MEDS: FOLIC ACID 1 MG TABLET PO (08:57)
[2024-06-21] MEDS: CYANOCOBALAMIN 1,000 MCG TABLET 1000 MCG PO (08:57)
[2024-06-21] MEDS: HEPARIN SODIUM 5,000 UNITS/ML VIAL 5000 UNITS SUB-Q ×2 (08:58→21:12)
[2024-06-21] MEDS: PANTOPRAZOLE SODIUM IV 40 MG VIAL IV PUSH (08:58)
[2024-06-21] MEDS: ALPRAZolam (*CRX) 0.5 MG TABLET PO ×3 (09:04→21:12)
[2024-06-21] MEDS: TOLNAFTATE 1% POWDER 45 GM BTL 1 APPLIC TOPICAL ×2 (10:00→21:12)
--- NOTE | 2024-06-21 11:47 | PM.PNNEP ---
Progress Note: A&P Assessment and Plan (1) Acute on chronic renal failure: Code(s): N17.9 - Acute kidney failure, unspecified; N18.9 - Chronic kidney disease, unspecified Status: Acute Assessment and Plan: The patient has chronic kidney disease. This is most likely due to diabetes and hypertension. His baseline creatinine seems to run around 2-2.5. He sees Dr. Jorgito lauren in the office for management of this. The patient has acute kidney injury. Creatinine had risen to 5 by the time of admission. U 'lytes nonprerenal but FeUrea IS prerenal and pt was on diuretics. Most likely the fall and lightheadedness were due to dehydration and possibly the uremic toxins. creatinine has improved with the fluids from over 5 to 3.7. Will continue IVFs. His last creatinine here was 2.2 in January of 2023. I suppose he could have progression of renal disease since then as well. Await records from Dr. Guthrie. (2) Metabolic acidosis: Code(s): E87.2 - Acidosis Status: Acute Assessment and Plan: The patient has a very low CO2. If we go by baselines back in 2022, his delta bicarb is about 17 and his delta anion gap is about 14. Lactate is negative. I doubt if he is DKA. Beta hydroxybutyrate is mildly high, not enough to account for the acidosis. probably starvation ketosis rather than DKA Most likely this is uremic poisons causing the anion gap. Bicarb is better and anion gap is better. (3) HTN (hypertension): Qualifiers: Hypertension type: unspecified Qualified Code(s): I10 - Essential (primary) hypertension Code(s): I10 - Essential (primary) hypertension Status: Chronic Assessment and Plan: Blood pressure is better, systolic 130s to 150s for the most part (4) DM2 (diabetes mellitus, type 2): Qualifiers: Diabetes mellitus complication status: without complication Diabetes mellitus assisted insulin use: without assisted use Qualified Code(s): E11.9 - Type 2 diabetes mellitus without complications Code(s): E11.9 - Type 2 diabetes mellitus without complications Status: Chronic Assessment and Plan: Hospitalists to manage this (5) Gastroesophageal reflux disease: Code(s): K21.9 - Gastro-esophageal reflux disease without esophagitis Status: Acute Subjective Date/time seen: 06/21/24 11:47 Interval history: pt is feeling better. he says he n ow remembers that he was gradually weaker over the last 4 4 to 7 days. no other symptoms led up to the fall. today he denies sob, cp or belly issues. Review of Systems Cardiovascular: Cardiovascular: Reports no additional cardiovascular complaints Respiratory: Respiratory: Reports no additional respiratory complaints Gastrointestinal: Gastrointestinal: Reports no additional gastrointestinal complaints Genitourinary: Genitourinary: Reports no additional male genitourinary complaints Exam Narrative: WDWN in NAD skin no rash head ncat lungs clear cor reg no rub abd BS+ nontender and soft ext no edema. Objective Data Vital Signs Vital Signs: Vital Signs - 24 hr 06/20/24 12:29 06/20/24 14:10 06/20/24 14:00 Temperature 97.0 F L Pulse Rate 94 97 86 Respiratory Rate 15 20 Blood Pressure 155/83 H 160/71 H Pulse Oximetry 100 100 Oxygen Delivery 06/20/24 15:56 06/20/24 16:00 06/20/24 14:00 Temperature 97.0 F L Pulse Rate 90 Respiratory Rate 16 Blood Pressure 136/56 L Pulse Oximetry 100 Oxygen Delivery Room Air Room Air 06/20/24 16:00 06/20/24 18:00 06/20/24 19:58 Temperature 97.6 F Pulse Rate 88 80 72 Respiratory Rate 19 Blood Pressure 149/66 H Pulse Oximetry 100 Oxygen Delivery 06/20/24 23:40 06/20/24 20:00 06/20/24 22:00 Temperature 97.6 F Pulse Rate 67 82 84 Respiratory Rate 19 Blood Pressure 136/65 Pulse Oximetry 98 Oxygen Delivery 06/21/24 00:00 06/21/24 02:00 06/21/24
[2024-06-21 12:13] LABS: Glucose Point of Care 106 mg/dl (65-105)
--- NOTE | 2024-06-21 12:36 | PM.IMPN ---
Progress Note: A&P Assessment and Plan (1) Weakness: Code(s): R53.1 - Weakness Status: Acute (2) Acute on chronic renal failure: Code(s): N17.9 - Acute kidney failure, unspecified; N18.9 - Chronic kidney disease, unspecified Status: Acute (3) DM2 (diabetes mellitus, type 2): Qualifiers: Diabetes mellitus intermodal dispatcher insulin use: without alf use Diabetes mellitus complication status: without complication Qualified Code(s): E11.9 - Type 2 diabetes mellitus without complications Code(s): E11.9 - Type 2 diabetes mellitus without complications Status: Chronic (4) Chronic narcotic dependence: Code(s): F11.20 - Opioid dependence, uncomplicated Status: Chronic (5) Parkinsons: Code(s): G20 - Parkinson's disease Status: Chronic (6) DAVID (obstructive sleep apnea): Code(s): G47.33 - Obstructive sleep apnea (adult) (pediatric) Status: Acute (7) Borderline hyperlipidemia: Code(s): E78.5 - Hyperlipidemia, unspecified Status: Chronic (8) HTN (hypertension): Qualifiers: Hypertension type: unspecified Qualified Code(s): I10 - Essential (primary) hypertension Code(s): I10 - Essential (primary) hypertension Status: Chronic (9) GERD (gastroesophageal reflux disease): Qualifiers: Esophagitis presence: without esophagitis Qualified Code(s): K21.9 - Gastro-esophageal reflux disease without esophagitis Code(s): K21.9 - Gastro-esophageal reflux disease without esophagitis Status: Chronic (10) Fall: Code(s): W19.XXXA - Unspecified fall, initial encounter Status: Acute (11) Gait instability: Code(s): R26.81 - Unsteadiness on feet Status: Acute Plan Patient is a 73 y/o male who presents to the ED via EMS with report of fall/weakness. Patient lives at home alone, does have home health care several times per week. Patient reports he had a fall in the middle the night around 3:00-4 a.m.. He states he uses a cardboard box to help him get in and out of bed and states the cardboard box collapse underneath of him causing him to fall. He landed on his buttocks with his legs bent backwards behind him. He was unable to get up off the ground for several hours. He was able to eventually call his home healthcare nurse to contact EMS. EMS did not find a cardboard box there. Patient complains of pain to his left hip and leg, but otherwise states he feels fairly well. Denies chest pain, shortness breath, dizziness. He denies head injury with the fall. In the ED he was mildly tachycardic otherwise vitals were stable. Laboratory evaluation showed WBC count of 12.5. Hemoglobin of 10.6 CMP showed acute renal failure creatinine 5.1 baseline in 2 range per records. Bicarb was very low at 9 with high anion gap blood sugar 227. Patient uses insulin for his diabetes lactic acid was normal within normal limits. CK mildly elevated at 674. ABG showed a [place] with pH of 7.218 bicarb of 9.6. She butyrate was elevated at 1.5 however no ketone seen on urine sample. EKG with chronic left bundle branch block consistent with previous records. Troponin elevated at 0.102 S been reported. DEEPTHI on CKD stage 3 S hold losartan and torsemide statin 2-2.5. Lactate normal question of if this is DKA related however sugar reasonable. Continue IV bicarb infusion as ordered Bicarbonate is improved today. Creatinine continues to improve as well. Will switch IV fluid to normal saline Hypokalemia replace likely due to bicarb. Fall CT head negative CT pelvis negative. X-ray acute osseous abnormality. Chest x-ray unremarkable. CT chest with hiatal hernia with no acute findings. Elevated troponin follow the trend Hypertension Type 2 diabetes hypoglycemic this a.m. received 12 units of Humalog last night for 450 likely reason. Will lower the Lantus to 18 units tonight follow the trend and adjust as needed. GERD Histo
[2024-06-21] MEDS: SODIUM CHLORIDE 0.9% IV 1,000 ML 100 ML IV CONT (14:07)
[2024-06-21 15:14] LABS: Anion Gap 11 mmol/L (4-12); Blood Urea Nitrogen 68 mg/dL (9-20); Calcium 7.3 mg/dL (8.4-10.2); Carbon Dioxide 22 mmol/L (22-30); Chloride 106 mmol/L (98-107); Estimated CRCL calculation 22 ml/min; Estimated Glomerular Filt Rate 16; Glucose 95 mg/dL (65-110); Potassium 3.1 mmol/L (3.4-5.0); Sodium 139 mmol/L (137-145)
[2024-06-21 16:09] LABS: Glucose Point of Care 85 mg/dl (65-105)
[2024-06-21] MEDS: SODIUM BICARBONATE TAB 650 MG TABLET BY MOUTH (16:51)
[2024-06-21 20:09] LABS: Glucose Point of Care 142 mg/dl (65-105)
[2024-06-21] MEDS: INSULIN GLARGINE (*BKC) 100 UNITS/ML 18 UNITS SUB-Q (21:12)
[2024-06-22] VITALS (15 sets, daily range): BP systolic 134–172; BP diastolic 53–81; PULSE 58–88; RESP 16–20; TEMP 36.4–37.7; O2SAT 96–100
[2024-06-22] MEDS: SODIUM CHLORIDE 0.9% IV 1,000 ML 100 ML IV CONT (00:01)
[2024-06-22] MEDS: oxyCODONE HCL (*CRX) 5 MG TAB IR 10 MG PO ×3 (00:01→17:53)
[2024-06-22 04:46] LABS: Basophils Percent Auto 0.3 % (0.2-1.2); Eosinophils Absolute Auto 0.3 K/mm3 (0-0.3); Eosinophils Percent Auto 3.6 % (0-4.4); Hematocrit 26.7 % (42.0-52.0); Hemoglobin 8.5 g/dL (14.0-18.0); Immature Granulocyte Absolute 0.04 K/mm3 (0.00-0.031); Immature Granulocyte Percent A 0.5 % (0-0.5); Lymphocytes Absolute Auto 1.48 K/mm3 (0.9-3.2); Lymphocytes Percent Auto 20.2 % (18.3-44.2); Mean Corpuscular HGB Conc 31.8 g/dl (32-36); Mean Corpuscular Hemoglobin 27.9 pg (26-34); Mean Corpuscular Volume 87.5 fl (80-100); Mean Platelet Volume 9.6 fl (7.4-10.4); Monocytes Absolute Auto 0.8 K/mm3 (0.1-0.6); Monocytes Percent Auto 11.4 % (2.6-8.5); Neutrophils Absolute Auto 4.7 K/mm3 (1.3-6.7); Platelet Count Result 271 k/mm3 (150-375); Red Blood Count 3.05 M/mm3 (4.6-6.20); Red Cell Distribution Width 18.3 % (11.5-14.5); White Blood Count 7.3 K/mm3 (4.5-10.0)
[2024-06-22 05:06] LABS: Alanine Aminotransferase 15 U/L (6-50); Albumin Level 2.9 g/dL (3.5-5.1); Alkaline Phosphatase 93 U/L (38-126); Anion Gap 10 mmol/L (4-12); Aspartate Amino Transferase 35 U/L (17-59); Bilirubin,Total 0.2 mg/dL (0.2-1.3); Blood Urea Nitrogen 62 mg/dL (9-20); Calcium 7.8 mg/dL (8.4-10.2); Carbon Dioxide 23 mmol/L (22-30); Chloride 106 mmol/L (98-107); Estimated CRCL calculation 22 ml/min; Estimated Glomerular Filt Rate 16; Glucose 95 mg/dL (65-110); Magnesium 1.7 mg/dL (1.6-2.3); Potassium 3.3 mmol/L (3.4-5.0); Sodium 139 mmol/L (137-145)
[2024-06-22] MEDS: PRIMIDONE 50 MG TABLET 100 MG PO ×3 (05:46→21:09)
--- NOTE | 2024-06-22 06:50 | PC.NURSE ---
This patient, Mohamud Diaz, was transferred to [facility] on 06/22/24 at 0650. Personal belongings sent with patient. Report given to HENRY Teresa. Appropriate documentation sent with patient.
[2024-06-22 08:15] LABS: Glucose Point of Care 83 mg/dl (65-105)
[2024-06-22] MEDS: FLUTICASONE/SALMETEROL 115-21 MCG INHALER 1 PUFF 2 PUFF INHALATION ×2 (08:26→20:10)
--- NOTE | 2024-06-22 09:27 | PM.PNNEP ---
Progress Note: A&P Assessment and Plan (1) Acute on chronic renal failure: Code(s): N17.9 - Acute kidney failure, unspecified; N18.9 - Chronic kidney disease, unspecified Status: Acute Assessment and Plan: The patient has chronic kidney disease. This is most likely due to diabetes and hypertension. His baseline creatinine seems to run around 2-2.5. We did receive a labs from Dr. Guthrie's office and his last creatinine in April was 2.37. This was at the end of the hospitalization at which time the creatinine started out at around 4.5 The patient has acute kidney injury. U 'lytes nonprerenal but FeUrea is prerenal and pt was on diuretics. Most likely the fall and lightheadedness were due to dehydration and possibly the uremic toxins. creatinine has improved with the fluids from over 5 to 3.7 and is 3.7 again today. Will continue IVFs for another day. The patient is worried about the swelling. I told him that since his creatinine is still high and he was dehydrated we do need to give a little bit more fluid. We can work on the swelling when the creatinine gets a little bit better or comes to a new baseline. (2) Metabolic acidosis: Code(s): E87.2 - Acidosis Status: Acute Assessment and Plan: The CO2 is much better, now 23. He is on oral bicarb. (3) HTN (hypertension): Qualifiers: Hypertension type: unspecified Qualified Code(s): I10 - Essential (primary) hypertension Code(s): I10 - Essential (primary) hypertension Status: Chronic Assessment and Plan: Blood pressure is ranging in the 130s to 170. He is on carvedilol at 6.25 b.i.d.. Will increase this to 12.5. (4) DM2 (diabetes mellitus, type 2): Qualifiers: Diabetes mellitus sales executive insulin use: without usp use Diabetes mellitus complication status: without complication Qualified Code(s): E11.9 - Type 2 diabetes mellitus without complications Code(s): E11.9 - Type 2 diabetes mellitus without complications Status: Chronic Assessment and Plan: Hospitalists to manage this (5) Gastroesophageal reflux disease: Code(s): K21.9 - Gastro-esophageal reflux disease without esophagitis Status: Acute (6) Erythropoietin deficiency anemia: Code(s): D63.1 - Anemia in chronic kidney disease Status: Acute Assessment and Plan: The patient had hemoglobin of 8.6 on admission. This fell with hydration to 8.5 yesterday. This is about the range he has been running before. Today at 8.5 again today. No signs of bleeding Will check iron saturation Subjective Date/time seen: 06/22/24 09:27 Interval history: Patient feels okay. He has some swelling still. No chest pain or shortness of breath Exam Narrative: WDWN in NAD skin no rash head ncat lungs clear cor reg no rub abd BS+ nontender and soft ext 1 to 2 + bilateral edema. Objective Data Vital Signs Vital Signs: Vital Signs - 24 hr 06/21/24 11:19 06/21/24 10:00 06/21/24 12:00 Temperature 97.9 F Pulse Rate 76 59 L Respiratory Rate 20 Blood Pressure 149/68 H Pulse Oximetry 100 Oxygen Delivery Room Air Fraction of Inspired Oxygen 06/21/24 12:00 06/21/24 14:36 06/21/24 14:00 Temperature Pulse Rate 65 70 Respiratory Rate Blood Pressure Pulse Oximetry Oxygen Delivery Room Air Fraction of Inspired Oxygen 06/21/24 15:48 06/21/24 16:00 06/21/24 16:00 Temperature 98.5 F Pulse Rate 67 65 Respiratory Rate 20 Blood Pressure 154/67 H Pulse Oximetry 100 Oxygen Delivery Room Air Fraction of Inspired Oxygen 06/21/24 18:00 06/21/24 19:56 06/21/24 20:44 Temperature 98.1 F Pulse Rate 71 66 68 Respiratory Rate 18 18 Blood Pressure 150/60 H Pulse Oximetry 97 Oxygen Delivery Fraction of Inspired Oxygen 06/21/24 21:12 06/21/24 20:00 06/21/24 20:30 Temperature Pulse Rate 70 68
[2024-06-22] MEDS: oxyBUTYnin CHLORIDE XL 5 MG TAB.ER.24 10 MG PO ×2 (09:31→21:09)
[2024-06-22] MEDS: SODIUM BICARBONATE TAB 650 MG TABLET BY MOUTH ×2 (09:31→17:52)
[2024-06-22] MEDS: MAGNESIUM OXIDE 400 MG TABLET PO ×2 (09:31→17:52)
[2024-06-22] MEDS: calcitrioL 0.25 MCG CAPSULE PO (09:31)
[2024-06-22] MEDS: FOLIC ACID 1 MG TABLET PO (09:32)
[2024-06-22] MEDS: CYANOCOBALAMIN 1,000 MCG TABLET 1000 MCG PO (09:32)
[2024-06-22] MEDS: PANTOPRAZOLE SODIUM IV 40 MG VIAL IV PUSH (09:32)
[2024-06-22] MEDS: FERROUS GLUCONATE 324 MG TABLET PO ×2 (09:32→17:52)
[2024-06-22] MEDS: POTASSIUM CHLORIDE 20 MEQ PACKET (FOR LIQUID) PO (09:32)
[2024-06-22] MEDS: HEPARIN SODIUM 5,000 UNITS/ML VIAL 5000 UNITS SUB-Q ×2 (09:32→21:10)
[2024-06-22] MEDS: DONEPEZIL HCL 10 MG TABLET PO (09:32)
[2024-06-22] MEDS: ESCITALOPRAM OXALATE 10 MG TABLET 20 MG PO (09:32)
[2024-06-22 10:03] LABS: Iron 26 ug/dL (49-181)
[2024-06-22 10:13] LABS: Percent Iron Saturation 11 % (20-50)
[2024-06-22 11:11] LABS: Folic Acid 6.1 ng/mL (2.76->20)
[2024-06-22 11:49] LABS: Glucose Point of Care 114 mg/dl (65-105)
--- NOTE | 2024-06-22 12:21 | PM.IMPN ---
Progress Note: A&P Assessment and Plan (1) Weakness: Code(s): R53.1 - Weakness Status: Acute (2) Acute on chronic renal failure: Code(s): N17.9 - Acute kidney failure, unspecified; N18.9 - Chronic kidney disease, unspecified Status: Acute (3) DM2 (diabetes mellitus, type 2): Qualifiers: Diabetes mellitus medical terminologist insulin use: without chcf use Diabetes mellitus complication status: without complication Qualified Code(s): E11.9 - Type 2 diabetes mellitus without complications Code(s): E11.9 - Type 2 diabetes mellitus without complications Status: Chronic (4) Chronic narcotic dependence: Code(s): F11.20 - Opioid dependence, uncomplicated Status: Chronic (5) Parkinsons: Code(s): G20 - Parkinson's disease Status: Chronic (6) DAVID (obstructive sleep apnea): Code(s): G47.33 - Obstructive sleep apnea (adult) (pediatric) Status: Acute (7) Borderline hyperlipidemia: Code(s): E78.5 - Hyperlipidemia, unspecified Status: Chronic (8) HTN (hypertension): Qualifiers: Hypertension type: unspecified Qualified Code(s): I10 - Essential (primary) hypertension Code(s): I10 - Essential (primary) hypertension Status: Chronic (9) GERD (gastroesophageal reflux disease): Qualifiers: Esophagitis presence: without esophagitis Qualified Code(s): K21.9 - Gastro-esophageal reflux disease without esophagitis Code(s): K21.9 - Gastro-esophageal reflux disease without esophagitis Status: Chronic (10) Fall: Code(s): W19.XXXA - Unspecified fall, initial encounter Status: Acute (11) Gait instability: Code(s): R26.81 - Unsteadiness on feet Status: Acute Plan Patient is a 73 y/o male who presents to the ED via EMS with report of fall/weakness. Patient lives at home alone, does have home health care several times per week. Patient reports he had a fall in the middle the night around 3:00-4 a.m.. He states he uses a cardboard box to help him get in and out of bed and states the cardboard box collapse underneath of him causing him to fall. He landed on his buttocks with his legs bent backwards behind him. He was unable to get up off the ground for several hours. He was able to eventually call his home healthcare nurse to contact EMS. EMS did not find a cardboard box there. Patient complains of pain to his left hip and leg, but otherwise states he feels fairly well. Denies chest pain, shortness breath, dizziness. He denies head injury with the fall. In the ED he was mildly tachycardic otherwise vitals were stable. Laboratory evaluation showed WBC count of 12.5. Hemoglobin of 10.6 CMP showed acute renal failure creatinine 5.1 baseline in 2 range per records. Bicarb was very low at 9 with high anion gap blood sugar 227. Patient uses insulin for his diabetes lactic acid was normal within normal limits. CK mildly elevated at 674. ABG showed a [place] with pH of 7.218 bicarb of 9.6. She butyrate was elevated at 1.5 however no ketone seen on urine sample. EKG with chronic left bundle branch block consistent with previous records. Troponin elevated at 0.102 S been reported. DEEPTHI on CKD stage 3 S hold losartan and torsemide statin 2-2.5. Lactate normal question of if this is DKA related however sugar reasonable. Continue IV bicarb infusion as ordered Bicarbonate is improved today. Creatinine continues to improve as well. Will switch IV fluid to normal saline we will lower the rate of fluid today. mild Swelling seen in the legs noted Hypokalemia replace likely due to bicarb. Fall CT head negative CT pelvis negative. X-ray acute osseous abnormality. Chest x-ray unremarkable. CT chest with hiatal hernia with no acute findings. Elevated troponin follow the trend Hypertension Type 2 diabetes hypoglycemic this a.m. received 12 units of Humalog last night for 450 likely reason. Will lower the
[2024-06-22] MEDS: TOLNAFTATE 1% POWDER 45 GM BTL 1 APPLIC TOPICAL ×2 (13:12→21:10)
[2024-06-22] MEDS: ALPRAZolam (*CRX) 0.5 MG TABLET PO ×2 (13:12→19:53)
[2024-06-22] MEDS: carvediloL 12.5 MG TABLET PO ×2 (13:12→21:09)
[2024-06-22] MEDS: SODIUM CHLORIDE 0.9% IV 1,000 ML 75 ML IV CONT (13:12)
[2024-06-22 16:49] LABS: Glucose Point of Care 238 mg/dl (65-105)
[2024-06-22] MEDS: INSULIN ASPART (*BKC) 100 UNITS/ML SUB-Q (17:15)
[2024-06-22 19:58] LABS: Glucose Point of Care 201 mg/dl (65-105)
[2024-06-22] MEDS: INSULIN GLARGINE (*BKC) 100 UNITS/ML 18 UNITS SUB-Q (21:10)
[2024-06-23] VITALS (14 sets, daily range): BP systolic 110–151; BP diastolic 64–72; PULSE 57–98; RESP 16–20; TEMP 36.1–36.7; O2SAT 95–100
[2024-06-23] MEDS: oxyCODONE HCL (*CRX) 5 MG TAB IR 10 MG PO ×3 (04:44→18:49)
[2024-06-23] MEDS: PRIMIDONE 50 MG TABLET 100 MG PO ×3 (04:44→22:20)
[2024-06-23 05:15] LABS: Basophils Percent Auto 0.3 % (0.2-1.2); Eosinophils Absolute Auto 0.4 K/mm3 (0-0.3); Eosinophils Percent Auto 4.6 % (0-4.4); Hematocrit 28.5 % (42.0-52.0); Hemoglobin 8.7 g/dL (14.0-18.0); Immature Granulocyte Absolute 0.03 K/mm3 (0.00-0.031); Immature Granulocyte Percent A 0.4 % (0-0.5); Lymphocytes Absolute Auto 1.46 K/mm3 (0.9-3.2); Lymphocytes Percent Auto 19.3 % (18.3-44.2); Mean Corpuscular HGB Conc 30.5 g/dl (32-36); Mean Corpuscular Volume 88.5 fl (80-100); Mean Platelet Volume 9.6 fl (7.4-10.4); Monocytes Absolute Auto 0.9 K/mm3 (0.1-0.6); Monocytes Percent Auto 11.4 % (2.6-8.5); Neutrophils Absolute Auto 4.8 K/mm3 (1.3-6.7); Platelet Count Result 277 k/mm3 (150-375); Red Blood Count 3.22 M/mm3 (4.6-6.20); Red Cell Distribution Width 17.8 % (11.5-14.5); White Blood Count 7.6 K/mm3 (4.5-10.0)
[2024-06-23 05:25] LABS: Alanine Aminotransferase 15 U/L (6-50); Alkaline Phosphatase 93 U/L (38-126); Anion Gap 8 mmol/L (4-12); Aspartate Amino Transferase 27 U/L (17-59); Bilirubin,Total 0.2 mg/dL (0.2-1.3); Blood Urea Nitrogen 58 mg/dL (9-20); Calcium 8.2 mg/dL (8.4-10.2); Carbon Dioxide 25 mmol/L (22-30); Chloride 103 mmol/L (98-107); Estimated CRCL calculation 25 ml/min; Estimated Glomerular Filt Rate 18; Glucose 122 mg/dL (65-110); Magnesium 1.7 mg/dL (1.6-2.3); Phosphorus 3.9 mg/dL (2.5-4.5); Potassium 3.9 mmol/L (3.4-5.0); Sodium 136 mmol/L (137-145)
[2024-06-23 07:49] LABS: Glucose Point of Care 110 mg/dl (65-105)
[2024-06-23] MEDS: FLUTICASONE/SALMETEROL 115-21 MCG INHALER 1 PUFF 2 PUFF INHALATION ×2 (07:49→20:20)
--- NOTE | 2024-06-23 08:28 | PCPTNOTE ---
Attempted to see patient for PT, however patient was eating breakfast.
[2024-06-23] MEDS: oxyBUTYnin CHLORIDE XL 5 MG TAB.ER.24 10 MG PO ×2 (09:53→21:43)
[2024-06-23] MEDS: FERROUS GLUCONATE 324 MG TABLET PO ×2 (09:53→17:23)
[2024-06-23] MEDS: MAGNESIUM OXIDE 400 MG TABLET PO ×2 (09:53→17:23)
[2024-06-23] MEDS: calcitrioL 0.25 MCG CAPSULE PO (09:53)
[2024-06-23] MEDS: ESCITALOPRAM OXALATE 10 MG TABLET 20 MG PO (09:53)
[2024-06-23] MEDS: CYANOCOBALAMIN 1,000 MCG TABLET 1000 MCG PO (09:53)
[2024-06-23] MEDS: SODIUM BICARBONATE TAB 650 MG TABLET BY MOUTH ×2 (09:53→17:23)
[2024-06-23] MEDS: DONEPEZIL HCL 10 MG TABLET PO (09:53)
[2024-06-23] MEDS: CHOLECALCIFEROL 5,000 UNITS TABLET 5000 UNITS PO (09:54)
[2024-06-23] MEDS: FOLIC ACID 1 MG TABLET PO (09:54)
[2024-06-23] MEDS: carvediloL 12.5 MG TABLET PO ×2 (09:56→21:43)
[2024-06-23] MEDS: TOLNAFTATE 1% POWDER 45 GM BTL 1 APPLIC TOPICAL ×2 (09:56→22:20)
[2024-06-23] MEDS: HEPARIN SODIUM 5,000 UNITS/ML VIAL 5000 UNITS SUB-Q ×2 (09:56→21:43)
[2024-06-23] MEDS: PANTOPRAZOLE SODIUM IV 40 MG VIAL IV PUSH (09:56)
[2024-06-23] MEDS: ALPRAZolam (*CRX) 0.5 MG TABLET PO ×2 (10:06→17:23)
[2024-06-23 11:48] LABS: Glucose Point of Care 125 mg/dl (65-105)
--- NOTE | 2024-06-23 12:01 | PM.IMPN ---
Progress Note: A&P Assessment and Plan (1) Weakness: Code(s): R53.1 - Weakness Status: Acute (2) Acute on chronic renal failure: Code(s): N17.9 - Acute kidney failure, unspecified; N18.9 - Chronic kidney disease, unspecified Status: Acute (3) DM2 (diabetes mellitus, type 2): Qualifiers: Diabetes mellitus terminal operator insulin use: without detention use Diabetes mellitus complication status: without complication Qualified Code(s): E11.9 - Type 2 diabetes mellitus without complications Code(s): E11.9 - Type 2 diabetes mellitus without complications Status: Chronic (4) Chronic narcotic dependence: Code(s): F11.20 - Opioid dependence, uncomplicated Status: Chronic (5) Parkinsons: Code(s): G20 - Parkinson's disease Status: Chronic (6) DAVID (obstructive sleep apnea): Code(s): G47.33 - Obstructive sleep apnea (adult) (pediatric) Status: Acute (7) Borderline hyperlipidemia: Code(s): E78.5 - Hyperlipidemia, unspecified Status: Chronic (8) HTN (hypertension): Qualifiers: Hypertension type: unspecified Qualified Code(s): I10 - Essential (primary) hypertension Code(s): I10 - Essential (primary) hypertension Status: Chronic (9) GERD (gastroesophageal reflux disease): Qualifiers: Esophagitis presence: without esophagitis Qualified Code(s): K21.9 - Gastro-esophageal reflux disease without esophagitis Code(s): K21.9 - Gastro-esophageal reflux disease without esophagitis Status: Chronic (10) Fall: Code(s): W19.XXXA - Unspecified fall, initial encounter Status: Acute (11) Gait instability: Code(s): R26.81 - Unsteadiness on feet Status: Acute Plan Patient is a 73 y/o male who presents to the ED via EMS with report of fall/weakness. Patient lives at home alone, does have home health care several times per week. Patient reports he had a fall in the middle the night around 3:00-4 a.m.. He states he uses a cardboard box to help him get in and out of bed and states the cardboard box collapse underneath of him causing him to fall. He landed on his buttocks with his legs bent backwards behind him. He was unable to get up off the ground for several hours. He was able to eventually call his home healthcare nurse to contact EMS. EMS did not find a cardboard box there. Patient complains of pain to his left hip and leg, but otherwise states he feels fairly well. Denies chest pain, shortness breath, dizziness. He denies head injury with the fall. In the ED he was mildly tachycardic otherwise vitals were stable. Laboratory evaluation showed WBC count of 12.5. Hemoglobin of 10.6 CMP showed acute renal failure creatinine 5.1 baseline in 2 range per records. Bicarb was very low at 9 with high anion gap blood sugar 227. Patient uses insulin for his diabetes lactic acid was normal within normal limits. CK mildly elevated at 674. ABG showed a [place] with pH of 7.218 bicarb of 9.6. Beta hydroxy butyrate was elevated at 1.5 however no ketone seen on urine sample. EKG with chronic left bundle branch block consistent with previous records. Troponin elevated at 0.102 been reported. DEEPTHI on CKD stage 3: hold losartan and torsemide statin 2-2.5. Lactate normal question of if this is DKA related however sugar reasonable. Continue IV bicarb infusion as ordered Bicarbonate is improved now. Creatinine continues to improve as well. IV fluids stopped Hypokalemia replace likely due to bicarb. Fall CT head negative CT pelvis negative. X-ray acute osseous abnormality. Chest x-ray unremarkable. CT chest with hiatal hernia with no acute findings. Elevated troponin follow the trend Hypertension Type 2 diabetes hypoglycemic this a.m. received 12 units of Humalog last night for 450 likely reason. Adjusted the Lantus dose to 18 units tonight follow the trend and adjust as needed. GERD History of congest
--- NOTE | 2024-06-23 13:32 | PM.PNNEP ---
Progress Note: A&P Assessment and Plan (1) Acute on chronic renal failure: Code(s): N17.9 - Acute kidney failure, unspecified; N18.9 - Chronic kidney disease, unspecified Status: Acute Assessment and Plan: The patient has chronic kidney disease. This is most likely due to diabetes and hypertension. His baseline creatinine seems to run around 2-2.5. We did receive a labs from Dr. Guthrie's office and his last creatinine in April was 2.37. This was at the end of the hospitalization at which time the creatinine started out at around 4.5 The patient has acute kidney injury. U 'lytes nonprerenal but FeUrea is prerenal and pt was on diuretics. Most likely the fall and lightheadedness were due to dehydration and possibly the uremic toxins. this is better. creatinine has improved with the fluids from over 5 to 3.7 and is 3.4 today. Will continue IVFs for another day. The patient is eating better. Can probably stop the IV fluids tomorrow. (2) Metabolic acidosis: Code(s): E87.2 - Acidosis Status: Acute Assessment and Plan: The CO2 is much better, now 25 He is on oral bicarb. (3) HTN (hypertension): Qualifiers: Hypertension type: unspecified Qualified Code(s): I10 - Essential (primary) hypertension Code(s): I10 - Essential (primary) hypertension Status: Chronic Assessment and Plan: Blood pressure is ranging in the 130s to 140s He is on carvedilol at 12.5. (4) DM2 (diabetes mellitus, type 2): Qualifiers: Diabetes mellitus complication status: without complication Diabetes mellitus press tender long goods insulin use: without press tender long goods use Qualified Code(s): E11.9 - Type 2 diabetes mellitus without complications Code(s): E11.9 - Type 2 diabetes mellitus without complications Status: Chronic Assessment and Plan: Hospitalists to manage this (5) Gastroesophageal reflux disease: Code(s): K21.9 - Gastro-esophageal reflux disease without esophagitis Status: Acute (6) Erythropoietin deficiency anemia: Code(s): D63.1 - Anemia in chronic kidney disease Status: Acute Assessment and Plan: The patient had hemoglobin of 8.6 on admission. This fell with hydration to 8.5 yesterday. This is about the range he has been running before. Today at 8.7 today. No signs of bleeding Iron saturation is only 11. Will give some Venofer Subjective Date/time seen: 06/23/24 13:32 Interval history: Mohamud is feeling better today. He still has some swelling no chest pain or shortness of breath Exam Narrative: WDWN in NAD skin no rash or nodule head ncat lungs clear bilateral cor reg no rub abd BS+ nontender and soft ext 1 to 2 + bilateral edema. Objective Data Vital Signs Vital Signs: Vital Signs - 24 hr 06/22/24 14:00 06/22/24 16:00 06/22/24 18:00 Temperature 99.0 F 98.4 F Pulse Rate 75 58 L 60 Respiratory Rate 18 18 Blood Pressure 139/53 L 153/66 H Pulse Oximetry 96 100 Oxygen Delivery Fraction of Inspired Oxygen 06/22/24 19:28 06/22/24 20:11 06/22/24 20:11 Temperature 97.6 F Pulse Rate 63 61 Respiratory Rate 18 18 Blood Pressure 143/66 H Pulse Oximetry 100 98 Oxygen Delivery Room Air Fraction of Inspired Oxygen 06/22/24 21:09 06/22/24 21:10 06/22/24 20:00 Temperature Pulse Rate 63 63 Respiratory Rate Blood Pressure Pulse Oximetry Oxygen Delivery Room Air Fraction of Inspired Oxygen 06/23/24 00:00 06/23/24 04:00 06/23/24 05:56 Temperature 96.9 F L Pulse Rate 63 61 64 Respiratory Rate 20 Blood Pressure 151/69 H Pulse Oximetry 96 Oxygen Delivery Fraction of Inspired Oxygen 06/23/24 07:50 06/23/24 07:50 06/23/24 08:00 Temperature Pulse Rate 62 62 58 L Respiratory Rate 18 18 Blood Pressure Pulse Oximetry 95 Oxygen Delivery Room Air Fraction of Inspired Oxygen
[2024-06-23] MEDS: IRON SUCROSE COMPLEX 200 MG in SODIUM CHLORIDE 0.9% IV 100 ML 220 MG IVPB (14:45)
[2024-06-23 17:12] LABS: Glucose Point of Care 174 mg/dl (65-105)
[2024-06-23 21:49] LABS: Glucose Point of Care 219 mg/dl (65-105)
[2024-06-23] MEDS: INSULIN GLARGINE (*BKC) 100 UNITS/ML 18 UNITS SUB-Q (22:03)
[2024-06-24] VITALS (15 sets, daily range): BP systolic 136–141; BP diastolic 62–68; PULSE 56–96; RESP 16–20; TEMP 36.3–36.9; O2SAT 94–99
[2024-06-24] MEDS: oxyCODONE HCL (*CRX) 5 MG TAB IR 10 MG PO ×4 (00:24→21:01)
[2024-06-24] MEDS: PRIMIDONE 50 MG TABLET 100 MG PO ×3 (05:02→21:00)
[2024-06-24 05:17] LABS: Basophils Percent Auto 0.4 % (0.2-1.2); Eosinophils Absolute Auto 0.4 K/mm3 (0-0.3); Eosinophils Percent Auto 5.3 % (0-4.4); Hematocrit 31.5 % (42.0-52.0); Hemoglobin 9.6 g/dL (14.0-18.0); Immature Granulocyte Absolute 0.04 K/mm3 (0.00-0.031); Immature Granulocyte Percent A 0.5 % (0-0.5); Lymphocytes Absolute Auto 1.54 K/mm3 (0.9-3.2); Lymphocytes Percent Auto 19.8 % (18.3-44.2); Mean Corpuscular HGB Conc 30.5 g/dl (32-36); Mean Corpuscular Hemoglobin 27.2 pg (26-34); Mean Corpuscular Volume 89.2 fl (80-100); Mean Platelet Volume 9.9 fl (7.4-10.4); Monocytes Absolute Auto 0.8 K/mm3 (0.1-0.6); Monocytes Percent Auto 10.8 % (2.6-8.5); Neutrophils Absolute Auto 4.9 K/mm3 (1.3-6.7); Neutrophils Percent Auto 63.2 % (45.5-73.1); Platelet Count Result 308 k/mm3 (150-375); Red Blood Count 3.53 M/mm3 (4.6-6.20); Red Cell Distribution Width 17.6 % (11.5-14.5); White Blood Count 7.8 K/mm3 (4.5-10.0)
[2024-06-24 05:28] LABS: Alanine Aminotransferase 16 U/L (6-50); Albumin Level 3.3 g/dL (3.5-5.1); Alkaline Phosphatase 99 U/L (38-126); Anion Gap 10 mmol/L (4-12); Aspartate Amino Transferase 25 U/L (17-59); Bilirubin,Total 0.2 mg/dL (0.2-1.3); Blood Urea Nitrogen 55 mg/dL (9-20); Calcium 8.4 mg/dL (8.4-10.2); Carbon Dioxide 25 mmol/L (22-30); Chloride 100 mmol/L (98-107); Estimated CRCL calculation 26 ml/min; Estimated Glomerular Filt Rate 19; Glucose 122 mg/dL (65-110); Magnesium 1.9 mg/dL (1.6-2.3); Phosphorus 3.6 mg/dL (2.5-4.5); Sodium 135 mmol/L (137-145)
[2024-06-24] MEDS: FLUTICASONE/SALMETEROL 115-21 MCG INHALER 1 PUFF 2 PUFF INHALATION ×2 (07:32→20:29)
[2024-06-24 08:02] LABS: Glucose Point of Care 124 mg/dl (65-105)
[2024-06-24] MEDS: oxyBUTYnin CHLORIDE XL 5 MG TAB.ER.24 10 MG PO ×2 (08:48→20:59)
[2024-06-24] MEDS: ESCITALOPRAM OXALATE 10 MG TABLET 20 MG PO (08:48)
[2024-06-24] MEDS: FOLIC ACID 1 MG TABLET PO (08:48)
[2024-06-24] MEDS: SODIUM BICARBONATE TAB 650 MG TABLET BY MOUTH ×2 (08:48→17:34)
[2024-06-24] MEDS: calcitrioL 0.25 MCG CAPSULE PO (08:48)
[2024-06-24] MEDS: CYANOCOBALAMIN 1,000 MCG TABLET 1000 MCG PO (08:49)
[2024-06-24] MEDS: DONEPEZIL HCL 10 MG TABLET PO (08:49)
[2024-06-24] MEDS: MAGNESIUM OXIDE 400 MG TABLET PO ×2 (08:49→17:33)
[2024-06-24] MEDS: carvediloL 12.5 MG TABLET PO ×2 (08:49→21:01)
[2024-06-24] MEDS: FERROUS GLUCONATE 324 MG TABLET PO ×2 (08:49→17:34)
[2024-06-24] MEDS: IRON SUCROSE COMPLEX 200 MG in SODIUM CHLORIDE 0.9% IV 100 ML 220 MG IVPB (08:49)
[2024-06-24] MEDS: CHOLECALCIFEROL 5,000 UNITS TABLET 5000 UNITS PO (08:49)
[2024-06-24] MEDS: PANTOPRAZOLE SODIUM IV 40 MG VIAL IV PUSH (08:50)
[2024-06-24] MEDS: HEPARIN SODIUM 5,000 UNITS/ML VIAL 5000 UNITS SUB-Q ×2 (08:50→20:59)
[2024-06-24] MEDS: TOLNAFTATE 1% POWDER 45 GM BTL 1 APPLIC TOPICAL ×2 (08:50→21:12)
[2024-06-24] MEDS: ALPRAZolam (*CRX) 0.5 MG TABLET PO ×2 (08:50→21:01)
--- NOTE | 2024-06-24 10:32 | PM.PNNEP ---
Progress Note: A&P Assessment and Plan (1) Acute kidney injury: Code(s): N17.9 - Acute kidney failure, unspecified Status: Acute Assessment and Plan: improvement noted suspect volume depletion/dehydration as etiology evaluation to date noted: urine electrolyte non-prerenal by FeNA but prerenal by FeUrea (he was on diuretics) CPK elevated but not enough to affect kidney function moderate proteinuria renal ultrasound with cysts in right kidney but no obstruction follow trend of repeat labs and UOP (2) Chronic kidney disease, stage IV (severe): Code(s): N18.4 - Chronic kidney disease, stage 4 (severe) Status: Chronic Assessment and Plan: baseline creatinine seems to run ~ 2.0 - 2.5mg/dl last labs in April 2024 - creatinine 2.37mg/dl presumably due to diabetes, hypertension, vascular disease, age and 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) (3) Metabolic acidosis: Code(s): E87.2 - Acidosis Status: Acute Assessment and Plan: due to DEEPTHI CO2 better with sodium bicarbonate follow trend (4) Anemia: Code(s): D64.9 - Anemia, unspecified Status: Acute Assessment and Plan: as noted since admission likely due to DEEPTHI, CKD, and acute illness evidence of iron deficiency by anemia studies on IV venofer follow trend of H/H (5) HTN (hypertension): Qualifiers: Hypertension type: unspecified Qualified Code(s): I10 - Essential (primary) hypertension Code(s): I10 - Essential (primary) hypertension Status: Chronic Assessment and Plan: reasonable control follow trend of hemodynamics (6) DM2 (diabetes mellitus, type 2): Qualifiers: Diabetes mellitus complication status: without complication Diabetes mellitus prison insulin use: without prison use Qualified Code(s): E11.9 - Type 2 diabetes mellitus without complications Code(s): E11.9 - Type 2 diabetes mellitus without complications Status: Chronic Assessment and Plan: follow accu-cheks glycemic control per hospitalists Will continue to follow. Subjective Date/time seen: 06/24/24 10:32 Interval history: Follow-up for acute kidney injury/acute renal failure on chronic kidney disease. Chart reviewed -- assuming care from Dr. Franco; slow improvement in renal function/creatinine since admission; no apparent distress voiced at the time of my visit; no issues/events overnight or earlier this morning; seems to be eating and drinking okay. Exam Narrative: General: elderly but WD/WN male in NAD Heart: normal S1 and S2; no rub Lungs: clear to auscultation Abdomen: soft, nontender, nondistended, positive bowel sounds Extremities: no cyanosis or clubbing; 1+ edema Skin: warm and dry Objective Data Vital Signs Vital Signs: Vital Signs Temp Pulse Resp BP Pulse Ox O2 Del Method 06/24/24 08:50 Room Air 06/24/24 08:00 56 L 06/24/24 08:49 70 06/24/24 08:45 70 16 139/64 97 06/24/24 07:34 78 18 06/24/24 04:00 61 06/24/24 04:08 98.5 F 61 20 136/62 94 06/24/24 00:00 63 06/23/24 20:00 67 06/23/24 21:43 70 06/23/24 20:20 80 18 06/23/24 20:20 98 Room Air 06/23/24 19:36 98.1 F 98 20 110/72 97 06/23/24 16:00 57 L 06/23/24 14:00 97.1 F L 62 18 149/64 H 100 Intake/Output Intake/Output: Intake & Output 06/21/24 06/22/24 06/23/24 06/24/24 23:59 23:59 23:59 23:59 Intake Total 3747.5 3790 1400 590 Output Total 1500 1875 1800 500 Balance 2247.5 1915 -400 90 Meds/Results Medications: Active Medications Generic Name Dose Route Start Last Admin Trade Name Frances PRN Reason Stop Dose Admin Acetaminophen 650 mg 06/20/24 15:27 06/20/24 21:39 Acetaminophen 325 Mg Tablet PO 650 mg Q4H PRN Administration Pain, Mild Alprazolam 0.5 mg 06/20/24 15:27
--- NOTE | 2024-06-24 10:32 | P.PNNP_ITS ---
Progress Note: A&P Assessment and Plan (1) Acute kidney injury: Code(s): N17.9 - Acute kidney failure, unspecified Status: Acute Assessment and Plan: * improvement noted * suspect volume depletion/dehydration as etiology * evaluation to date noted: * urine electrolyte non-prerenal by FeNA but prerenal by FeUrea (he was on diuretics) * CPK elevated but not enough to affect kidney function * moderate proteinuria * renal ultrasound with cysts in right kidney but no obstruction * follow trend of repeat labs and UOP (2) Chronic kidney disease, stage IV (severe): Code(s): N18.4 - Chronic kidney disease, stage 4 (severe) Status: Chronic Assessment and Plan: * baseline creatinine seems to run ~ 2.0 - 2.5mg/dl * last labs in April 2024 - creatinine 2.37mg/dl * presumably due to diabetes, hypertension, vascular disease, age and 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) (3) Metabolic acidosis: Code(s): E87.2 - Acidosis Status: Acute Assessment and Plan: * due to DEEPTHI * CO2 better with sodium bicarbonate * follow trend (4) Anemia: Code(s): D64.9 - Anemia, unspecified Status: Acute Assessment and Plan: * as noted since admission * likely due to DEEPTHI, CKD, and acute illness * evidence of iron deficiency by anemia studies * on IV venofer * follow trend of H/H (5) HTN (hypertension): Qualifiers: Hypertension type: unspecified Qualified Code(s): I10 - Essential (primary) hypertension Code(s): I10 - Essential (primary) hypertension Status: Chronic Assessment and Plan: * reasonable control * follow trend of hemodynamics (6) DM2 (diabetes mellitus, type 2): Qualifiers: Diabetes mellitus complication status: without complication Diabetes mellitus skilled nursing insulin use: without skilled nursing use Qualified Code(s): E11.9 - Type 2 diabetes mellitus without complications Code(s): E11.9 - Type 2 diabetes mellitus without complications Status: Chronic Assessment and Plan: * follow accu-cheks * glycemic control per hospitalists Will continue to follow. Subjective Date/time seen: 06/24/24 10:32 Interval history: Follow-up for acute kidney injury/acute renal failure on chronic kidney disease. Chart reviewed -- assuming care from Dr. Franco; slow improvement in renal function/creatinine since admission; no apparent distress voiced at the time of my visit; no issues/events overnight or earlier this morning; seems to be eating and drinking okay. Exam Narrative: General: elderly but WD/WN male in NAD Heart: normal S1 and S2; no rub Lungs: clear to auscultation Abdomen: soft, nontender, nondistended, positive bowel sounds Extremities: no cyanosis or clubbing; 1+ edema Skin: warm and dry Objective Data Vital Signs Vital Signs: Vital Signs Temp Pulse Resp BP Pulse Ox O2 Del Method 06/24/24 08:50 Room Air 06/24/24 08:00 56 L 06/24/24 08:49 70 06/24/24 08:45 70 16 139/64 97 06/24/24 07:34 78 18 06/24/24 04:00 61 06/24/24 04:08 98.5 F 61 20 136/62 94 06/24/24 00:00 63 06/23/24 20:00 67 06/23/24 21:43 70 06/23/24 20:20 80 18 06/23/24 20:20
[2024-06-24 11:51] LABS: Glucose Point of Care 147 mg/dl (65-105)
--- NOTE | 2024-06-24 12:35 | PM.IMPN ---
Progress Note: A&P Assessment and Plan (1) Weakness: Code(s): R53.1 - Weakness Status: Acute (2) Acute on chronic renal failure: Code(s): N17.9 - Acute kidney failure, unspecified; N18.9 - Chronic kidney disease, unspecified Status: Acute (3) DM2 (diabetes mellitus, type 2): Qualifiers: Diabetes mellitus rodent exterminator insulin use: without fdc use Diabetes mellitus complication status: without complication Qualified Code(s): E11.9 - Type 2 diabetes mellitus without complications Code(s): E11.9 - Type 2 diabetes mellitus without complications Status: Chronic (4) Chronic narcotic dependence: Code(s): F11.20 - Opioid dependence, uncomplicated Status: Chronic (5) Parkinsons: Code(s): G20 - Parkinson's disease Status: Chronic (6) DAVID (obstructive sleep apnea): Code(s): G47.33 - Obstructive sleep apnea (adult) (pediatric) Status: Acute (7) Borderline hyperlipidemia: Code(s): E78.5 - Hyperlipidemia, unspecified Status: Chronic (8) HTN (hypertension): Qualifiers: Hypertension type: unspecified Qualified Code(s): I10 - Essential (primary) hypertension Code(s): I10 - Essential (primary) hypertension Status: Chronic (9) GERD (gastroesophageal reflux disease): Qualifiers: Esophagitis presence: without esophagitis Qualified Code(s): K21.9 - Gastro-esophageal reflux disease without esophagitis Code(s): K21.9 - Gastro-esophageal reflux disease without esophagitis Status: Chronic (10) Fall: Code(s): W19.XXXA - Unspecified fall, initial encounter Status: Acute (11) Gait instability: Code(s): R26.81 - Unsteadiness on feet Status: Acute Plan Patient is a 73 y/o male who presents to the ED via EMS with report of fall/weakness. Patient lives at home alone, does have home health care several times per week. Patient reports he had a fall in the middle the night around 3:00-4 a.m.. He states he uses a cardboard box to help him get in and out of bed and states the cardboard box collapse underneath of him causing him to fall. He landed on his buttocks with his legs bent backwards behind him. He was unable to get up off the ground for several hours. He was able to eventually call his home healthcare nurse to contact EMS. EMS did not find a cardboard box there. Patient complains of pain to his left hip and leg, but otherwise states he feels fairly well. Denies chest pain, shortness breath, dizziness. He denies head injury with the fall. In the ED he was mildly tachycardic otherwise vitals were stable. Laboratory evaluation showed WBC count of 12.5. Hemoglobin of 10.6 CMP showed acute renal failure creatinine 5.1 baseline in 2 range per records. Bicarb was very low at 9 with high anion gap blood sugar 227. Patient uses insulin for his diabetes lactic acid was normal within normal limits. CK mildly elevated at 674. ABG showed a [place] with pH of 7.218 bicarb of 9.6. Beta hydroxy butyrate was elevated at 1.5 however no ketone seen on urine sample. EKG with chronic left bundle branch block consistent with previous records. Troponin elevated at 0.102 been reported. DEEPTHI on CKD stage 3: hold losartan and torsemide statin. Slowly improving baseline creatinine 2-2.5. Admission creatinine of 5.1. Continues to improve slowly. Metabolic acidosis: Lactate normal question of if this is DKA related however sugar reasonable. Initially was treated with IV bicarb. Bicarbonate is improved now. Creatinine continues to improve as well. IV fluids stopped now Hypokalemia replace likely due to bicarb. Fall CT head negative CT pelvis negative. X-ray acute osseous abnormality. Chest x-ray unremarkable. CT chest with hiatal hernia with no acute findings. Elevated troponin follow the trend and remains flat. Cardiology was consulted during the hospital stay. No further workup suggested Hyper
[2024-06-24 16:58] LABS: Glucose Point of Care 152 mg/dl (65-105)
[2024-06-24 20:30] LABS: Glucose Point of Care 183 mg/dl (65-105)
[2024-06-24] MEDS: INSULIN GLARGINE (*BKC) 100 UNITS/ML 18 UNITS SUB-Q (21:05)
[2024-06-25] VITALS (7 sets, daily range): BP systolic 126; BP diastolic 56; PULSE 55–62; RESP 18; TEMP 36.2; O2SAT 96
[2024-06-25 04:37] LABS: Basophils Percent Auto 0.4 % (0.2-1.2); Eosinophils Absolute Auto 0.4 K/mm3 (0-0.3); Eosinophils Percent Auto 5.6 % (0-4.4); Hematocrit 27.5 % (42.0-52.0); Hemoglobin 8.5 g/dL (14.0-18.0); Immature Granulocyte Absolute 0.04 K/mm3 (0.00-0.031); Immature Granulocyte Percent A 0.6 % (0-0.5); Lymphocytes Absolute Auto 1.52 K/mm3 (0.9-3.2); Lymphocytes Percent Auto 21.7 % (18.3-44.2); Mean Corpuscular HGB Conc 30.9 g/dl (32-36); Mean Corpuscular Hemoglobin 27.9 pg (26-34); Mean Corpuscular Volume 90.2 fl (80-100); Mean Platelet Volume 9.9 fl (7.4-10.4); Monocytes Absolute Auto 0.9 K/mm3 (0.1-0.6); Monocytes Percent Auto 12.7 % (2.6-8.5); Neutrophils Absolute Auto 4.1 K/mm3 (1.3-6.7); Platelet Count Result 257 k/mm3 (150-375); Red Blood Count 3.05 M/mm3 (4.6-6.20); Red Cell Distribution Width 17.3 % (11.5-14.5)
[2024-06-25 04:50] LABS: Anion Gap 7 mmol/L (4-12); Blood Urea Nitrogen 51 mg/dL (9-20); Calcium 8.4 mg/dL (8.4-10.2); Carbon Dioxide 26 mmol/L (22-30); Chloride 99 mmol/L (98-107); Estimated CRCL calculation 28 ml/min; Estimated Glomerular Filt Rate 20; Glucose 116 mg/dL (65-110); Potassium 4.1 mmol/L (3.4-5.0); Sodium 132 mmol/L (137-145)
[2024-06-25] MEDS: PRIMIDONE 50 MG TABLET 100 MG PO ×2 (05:13→13:52)
[2024-06-25] MEDS: FLUTICASONE/SALMETEROL 115-21 MCG INHALER 1 PUFF 2 PUFF INHALATION (07:26)
[2024-06-25 08:10] LABS: Glucose Point of Care 109 mg/dl (65-105)
[2024-06-25] MEDS: PANTOPRAZOLE SODIUM IV 40 MG VIAL IV PUSH (08:26)
[2024-06-25] MEDS: carvediloL 12.5 MG TABLET PO (08:26)
[2024-06-25] MEDS: MAGNESIUM OXIDE 400 MG TABLET PO (08:27)
[2024-06-25] MEDS: ESCITALOPRAM OXALATE 10 MG TABLET 20 MG PO (08:27)
[2024-06-25] MEDS: HEPARIN SODIUM 5,000 UNITS/ML VIAL 5000 UNITS SUB-Q (08:27)
[2024-06-25] MEDS: DONEPEZIL HCL 10 MG TABLET PO (08:27)
[2024-06-25] MEDS: CYANOCOBALAMIN 1,000 MCG TABLET 1000 MCG PO (08:27)
[2024-06-25] MEDS: oxyBUTYnin CHLORIDE XL 5 MG TAB.ER.24 10 MG PO (08:27)
[2024-06-25] MEDS: calcitrioL 0.25 MCG CAPSULE PO (08:27)
[2024-06-25] MEDS: FOLIC ACID 1 MG TABLET PO (08:27)
[2024-06-25] MEDS: SODIUM BICARBONATE TAB 650 MG TABLET BY MOUTH (08:27)
[2024-06-25] MEDS: CHOLECALCIFEROL 5,000 UNITS TABLET 5000 UNITS PO (08:28)
[2024-06-25] MEDS: TOLNAFTATE 1% POWDER 45 GM BTL 1 APPLIC TOPICAL (08:28)
[2024-06-25] MEDS: IRON SUCROSE COMPLEX 200 MG in SODIUM CHLORIDE 0.9% IV 100 ML 220 MG IVPB (08:28)
[2024-06-25] MEDS: FERROUS GLUCONATE 324 MG TABLET PO (08:28)
[2024-06-25] MEDS: ALPRAZolam (*CRX) 0.5 MG TABLET PO ×2 (08:37→13:52)
[2024-06-25] MEDS: oxyCODONE HCL (*CRX) 5 MG TAB IR 10 MG PO (08:37)
[2024-06-25 12:14] LABS: Glucose Point of Care 122 mg/dl (65-105)
--- NOTE | 2024-06-25 12:37 | PM.DS ---
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 mellitus termite inspector insulin use: without termite inspector use Qualified Code(s): E11.9 - Type 2 diabetes mellitus without complications Code(s): E11.9 - Type 2 diabetes mellitus without complications Status: Chronic (4) Chronic narcotic dependence: Code(s): F11.20 - Opioid dependence, uncomplicated Status: Chronic (5) Parkinsons: Code(s): G20 - Parkinson's disease Status: Chronic (6) DAVID (obstructive sleep apnea): Code(s): G47.33 - Obstructive sleep apnea (adult) (pediatric) Status: Acute (7) Borderline hyperlipidemia: Code(s): E78.5 - Hyperlipidemia, unspecified Status: Chronic (8) HTN (hypertension): Qualifiers: Hypertension type: unspecified Qualified Code(s): I10 - Essential (primary) hypertension Code(s): I10 - Essential (primary) hypertension Status: Chronic (9) GERD (gastroesophageal reflux disease): Qualifiers: Esophagitis presence: without esophagitis Qualified Code(s): K21.9 - Gastro-esophageal reflux disease without esophagitis Code(s): K21.9 - Gastro-esophageal reflux disease without esophagitis Status: Chronic (10) Fall: Code(s): W19.XXXA - Unspecified fall, initial encounter Status: Acute (11) Gait instability: Code(s): R26.81 - Unsteadiness on feet Status: Acute DS: Summary Hospital Course Reason for hospitalization: 73yo male with CKD, DAVID, DM and COPD here for weakness and fall. Please see H&P for details. Hospital Course: In the ED he was mildly tachycardic otherwise vital signs were stable. Laboratory evaluation showed WBC count of 12.5. Hemoglobin was 10.6. CMP showed acute renal failure with creatinine 5.1 (baseline Cr 2.4). ABG 7.22/24/94 with bicarb of 9.6 on RA. Serum bicarb 9 (AG 19). Potassium normal. Lactic normal. Blood sugar 227. BHOP 1.5 but no urine ketones; not felt to have DKA. Total CK mildly elevated at 674 but not repeated. UA clear except for 2+ protein. Trace blood and no RBCs. EKG with chronic left bundle branch block consistent with previous records (no change on repeat). Troponin elevated to 0.159. Cardiology consulted for Troponin elevation in setting of DEEPTHI on CKD, metabolic acidosis. They did not feel this needed further workup. His losartan and torsemide were held. IV fluids with bicarb started. Nephrology consulted. Diabetes treated appropriately. A1c 7.3%. CT head showed no acute intracranial findings. Pelvic CT showing no acute osseous abnormalities. Stable appearance of chronic posttraumatic and posterior degenerative skeletal changes. Left knee xray showing no acute osseous abnormalities but with chondrocalcinosis. CXR showing no acute cardiopulmonary pathology but possible mediastinal mass. CT chest and abdomen showing cardiomegaly and large sliding hiatal hernia but no acute lung lesions. No acute abdominal process noted. Left femur negative for acute process. Bilateral LE venous doppler negative for DVT. Hgb dropped to 8-9 range but stable. INR 2.0 but not repeated; possibly related to poor nutrition. B12/foalte normal. Iron low at 26 with TIBC 233 and percent sat 11%. Ferritin 28. IV iron started. [place] studies consistent with non-prerenal DEEPTHI but FeUrea is prerenal and pt was on diuretics. Most likely the fall and lightheadedness were due to dehydration and possibly the uremic toxins. He worked with PT/OT. His renal function trended down. He is eating and drinking
== END 2024-06-25 14:46 | disposition home health service (06) | DRG 683 ==
LOC: ANHED 11:27 → ANHIMU 13:02 → ANH2MED 06-23 16:01 → ANHIMU 06-26 09:39
PROVIDERS: Internal Medicine Nephrology; Admitting Provider Internal Medicine; Emergency Provider Physician Assistant; PCP Internal Medicine Geriatric Medicine; Visit Provider Internal Medicine
DX: N17.9 Acute kidney failure, unspecified (principal); E87.20 Acidosis, unspecified; I13.0 Hypertensive heart and chronic kidney disease with heart failure and stage 1 through stage 4 chronic kidney disease, or unspecified chronic kidney disease; M62.82 Rhabdomyolysis; E86.0 Dehydration; D63.1 Anemia in chronic kidney disease; E11.22 Type 2 diabetes mellitus with diabetic chronic kidney disease; N18.4 Chronic kidney disease, stage 4 (severe); I50.9 Heart failure, unspecified; E78.5 Hyperlipidemia, unspecified; I44.7 Left bundle-branch block, unspecified; G20.A1 Parkinson's disease without dyskinesia, without mention of fluctuations; G47.33 Obstructive sleep apnea (adult) (pediatric); J44.9 Chronic obstructive pulmonary disease, unspecified; K44.9 Diaphragmatic hernia without obstruction or gangrene; K21.9 Gastro-esophageal reflux disease without esophagitis; W19.XXXA Unspecified fall, initial encounter; Z79.4 Long term (current) use of insulin
CPT/HCPCS: 36415; 36600; 70450; 71046; 71250; 72192; 73552; 73564; 74150; 80048; 80053; 80069; 81001; 82010; 82375; 82550; 82570; 82607; 82728; 82746; 82805; 82948; 83050; 83540; 83550; 83605; 83735; 83880; 84100; 84156; 84300; 84484; 84540; 85025; 85610; 85730; 93005; 93970; 94640; 96361; 96374; 97110; 97116; 97161; 97166; 97530; 97535; 99285; A9270; G0378; J1644; J1756; J1815; J2470; J7030

== ENCOUNTER 2025-07-24 09:13 | Outpatient (CLI) | payer MEDICARE, SELFPAY ==
--- OUTSIDE RECORDS SUMMARY | 2009-12-29 04:00 | XMS_ITS | Continuity of Care Document ---
Author Organization [facility] Address [id number] Phone Care Team Providers Care Assistant Commissioner Name Role Phone Bebakatharine Claysanjuana Unavailable Unavailable Procedures Procedure Date Office/outpatient Visit, Est Dilated Macular Exam Performed 10 Counseling For Antioxidant Supplements F Dilated Retinal Exam W Interpretation Fe Post-op Follow-up Visit Refraction Post-op Follow-up Visit Refraction Post-op Follow-up Visit Remove Cataract, Insert Lens PreOp Assessment Performed Office/outpatient Visit, Est Dilated Macular Exam Performed 09 Counseling For Antioxidant Supplements J Dilated Retinal Exam W Interpretation Ju Script Printed/Phoned Pt Requ Or Pharm N ot Availab IOLMaster Cataract Kit SEC MV Tax - Medical Eye Exam & Treatment Refraction Eye Exam Established Pt Dilated Macular Exam Performed 08 Dilated Retinal Exam W Interpretation Ma Advance Directives Directive Yes / No Effective Date File Name No Information Encounters Encounter Description Practice Location Reason(s) For Visit Diagnoses Date Provider Providers Copied on Encounter Office/outpat ient Visit, Est [facility], [address], , [id number], [place] tel:[phone] [facility] No Information 3-201 0 Doisy Edward. [address], [address], [place], [address], [place]. tel:[phone] Referring Provider: Yaron Asencio, [address], [place], [address]. tel:[phone] [facility], [address], , [id number], [place] tel:[phone] [facility] No Information 0200 9 Doisy Edward. [address], [place], [address], [place]. tel:[phone] Referring Provider: Loy Ceballos, [address] [place] [address], [facility]. tel:[phone] [facility], [address], , [id number], [place] tel:[phone] [facility] No Information 200 9 Doisy Edsanjuana. [address] , [address], [place], [address], [place]. tel:[phone] Referring Provider: Loy Ceballos, [address] [place] [address], [facility]. tel:[phone] [facility], [address], , [id number], [place] tel:[phone] [facility] No Information 1 0-200 9 Doisy Edward. [address], [place], [address], [place]. tel:[phone] Referring Provider: Loy Ceballos, [address] [place] [address], [facility]. tel:[phone] [facility], [address], , [id number], [place] tel:[phone] [facility] No Information Apr-0 9-200 9 Doisy Edward. [address], [place], [facility], . tel:[phone] Referring Provider: Loy Ceballos, [address] [place] [address], [facility]. tel:[phone] Office/outpat ient Visit, Est [facility], [address] [place] [address] [address], , [id number], tel:[phone] [place] [address] No Information Steven-0 3-200 9 Doisy Edward. [address], [place], [facility], [place]. tel:[phone] Referring Provider: Miguel Santacruz OD A, [facility] [address], [place], [facility]. tel:[phone] [facility], [id number] [place] [address] [address], , [id number], tel:[phone] [place] [address] No Information May-0 1-200 9 Santacruz OD Miguel. [facility] [address], [place], [facility], [place]. tel:[phone] Referring Provider: Loy Ceballos, [address] [place] [address], [facility]. tel:[phone] [facility], [address] [place] [address] [address], , [id number], tel:[phone] [place] [address] No Information Jan-1 4-200 8 Santacruz OD Miguel. [address], [place], [facility], [place]. tel:[phone] Referring Provider: Loy Ceballos [address] [place] [address], [facility]. tel:[phone] Family History Family Member Type Diagnosis Age At Onset No Information Payers Payer name Insurance type Covered constitution party ID Authoriza tion(s) [place] [id number] [facility] [id number] Social History Type Description Quantity Date Captured Comments Sex Male Smoking Status No Information Chief Complaint And Reason For Visit No Information Reason For Referral Reason For Referral No Information History Of Present Illness Encounter Date Complaint History Of Prese nt Illness No Information Functional Status Date Functional Assessmen t No Information Instructions Date Instruction Additional Infor mation No Information Assessments Type Assessment Date No Information Patient Care Teams Name Effective Dates (start - stop) Status Members No Information
--- NOTE | ~2025-07-24 | XR_ITS ---
EXAM/ PROCEDURE: XR hip BI 2V w AP pelvis - 07/24/2025 9:40 CDT HISTORY: 74 years old Male with Pelvic pain COMPARISON: None available TECHNIQUE: Three view(s) FINDINGS/ IMPRESSION: There are no fractures or dislocations.Joint space narrowing, subchondral sclerosis, subchondral cyst formation and osteophyte formation, compatible with mild osteoarthritis. Status post ORIF of right proximal femur with intact hardware and no loosening. Reviewed, dictated and finalized at location N.
--- OUTSIDE RECORDS SUMMARY | 2025-07-24 09:22 | XMS_ITS | Clinical Summary ---
Author Organization [facility] Facility Address [address] [place] [id number] Care Team Providers Care Hand Candle Dipper Name Role Phone Gurinder Thompson MD Primary Care Provider [phone] Allergies Active Allergy Reactions Criticality Noted Date Comments Buspirone Itching 01/17/2022 Medications atorvastatin (LIPITOR) 10 MG tablet TAKE 1/2 TABLET BY MOUTH EVERY NIGHT AT BEDTIME 45 tablet Active Additional Information Patient taking differently: 5 mg Oral Daily, Reported on 01/10/2022 donepezil (ARICEPT) 10 MG tablet Take 10 mg by mouth in the morning and 10 mg in the evening. Active escitalopram (LEXAPRO) 20 MG tablet Take 20 mg by mouth 1 (one) time each day Active carbidopa-levodo pa (SINEMET) 25-100 MG per tablet Take 2 tablets by mouth in the morning and 2 tablets in the evening. Active Fluticasone Furoate-Vilanter ol (Breo Ellipta) 100-25 MCG/INH aerosol powder Inhale Active acetaminophen (TYLENOL 8 HOUR) 650 MG 8 hr tablet Take 650 mg by mouth every 8 (eight) hours if needed for mild pain Do not crush, chew, or split. Active HYDROcodone-acet aminophen (NORCO) 5-325 MG per tablet Take 1 tablet by mouth every 6 (six) hours if needed for moderate pain Active busPIRone (BUSPAR) 5 MG tablet Take 1 tablet (5 mg total) by mouth 2 (two) times a day if needed (anxiety) 60 tablet 3 2 Active hydrOXYzine (ATARAX) 25 MG tablet Take 1 tablet (25 mg total) by mouth 2 (two) times a day if needed for anxiety 60 tablet 1 2 Active cholecalciferol (VITAMIN D-3) 50 MCG (1999 UT) capsule TAKE ONE CAPSULE BY MOUTH EVERY MORNING 90 capsule 2 Active carvedilol (COREG) 6.25 MG tablet Take 1 tablet (6.25 mg total) by mouth in the morning and 1 tablet (6.25 mg total) in the evening. Take with meals. 180 tablet 1 4 Active torsemide (DEMADEX) 20 MG tablet Take 1 tablet (20 mg total) by mouth 1 (one) time each day in the morning 90 tablet 1 4 Active oxybutynin XL (DITROPAN-XL) 10 MG 24 hr tablet Take 1 tablet (10 mg total) by mouth 1 (one) time each day 90 tablet 1 4 Active folic acid (FOLVITE) 1 MG tablet Take 1 tablet (1 mg total) by mouth 1 (one) time each day 90 tablet 1 4 Active Empagliflozin (Jardiance) 25 MG tablet Take 25 mg by mouth 1 (one) time each day in the morning 30 tablet 3 4 Active doxycycline (ADOXA) 100 MG tablet Take 1 tablet (100 mg total) by mouth in the morning and 1 tablet (100 mg total) in the evening. Take with a full glass of water and do not lie down for at least 30 minutes after.. 20 tablet 4 Active cyancobalamine (VITAMIN B-12) 500 MCG tablet Take 1 tablet (500 mcg total) by mouth 1 (one) time each day 90 tablet 1 4 Active calcitriol (ROCALTROL) 0.25 MCG capsule Take 3 capsules (0.75 mcg total) by mouth 1 (one) time each day 275 capsule 1 5 Active sodium bicarbonate 650 MG tablet Take 1 tablet (650 mg total) by mouth in the morning and 1 tablet (650 mg total) in the evening. 180 tablet 1 5 Active ferrous sulfate 325 (65 Fe) MG tablet Take 1 tablet (325 mg total) by mouth 2 (two) times a week 24 tablet 1 5 04/23/20 26 Active losartan (COZAAR) 25 MG tablet Take 1 Tablet (25 mg) by mouth daily at bedtime. 90 tablet 1 5 Active Active Problems Problem Noted Date Diagnosed Date Essential hypertension 04/08/2025 Encounters Date Type Department Care Team Description 06/05/2025 Orders Only [facility], [address] [address] Jorgito Guthrie DO from Last 3 Months Social History Tobacco Use Types Packs/Day Years Used Date Smoking Tobacco: Never Alcohol Use Standard Drinks/Week Comments No 0 (1 standard drink = 0.6 oz pur e alcohol) Sex and Gender Information Value Date Recorded Sex Assigned at Not on file Legal Sex Male 2:50 PM EDT Gender Identity Not on file Sexual Orientation Not on file Last Filed Vital Signs Vital Sign Reading Time Taken Comments Blood Pressure 125/66 04/21/2025 2:19 PM CDT Pulse 63 04/21/2025 2:19 PM CDT Temperature 36.1 C (97 F) 12/30/2024 3:04 PM [employer]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 [employer] 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 Respiratory Rate 20 04/21/2025 2:19 PM CDT Oxygen Saturation 98% 02/17/2025 12:26 PM CDT Inhaled Oxygen Concentration - - Weight 105 kg (231 lb) 04/21/2025 2:19 PM CDT Height 182.9 cm (6') 04/21/2025 2:19 PM CDT Body Mass Index 31.33 04/21/2025 2:19 PM CDT Plan of Treatment Health Maintenance Due Date Last Done Comments Colorectal Cancer Screening: Annual FOBT 2000 Colorectal Cancer Screening: Sigmoidoscopy 2000 Hepatitis B Vaccine (1 of 3 - Risk 3-dose series) 2011 Pneumococcal Vaccine: 50+ Ye ars (2 of 2 - PPSV23, PCV20, or PCV21) 03/29/2019 02/01/2019, 08/26/2016 Diabetes: Ophthalmology Exam 07/26/2021 Diabetes: Pedal Pulse Checked 07/26/2021 Diabetes: Sensory Foot Exam 07/26/2021 Diabetes: Visual Foot Exam 07/26/2021 Diabetes: Hemoglobin A1C 02/16/2025 12/24/2 024, 10/06/2024, 05/06/2024, Additional history exists Influenza Vaccine (#1) 2025 02/01/2020, 2017 Colorectal Cancer Screening: Colonoscopy 02/14/2032 02/13/2022 Procedures Procedure Name Priority Date/Time Associated Diagnosis Comments SPECIMEN STATUS REPORT Routine 06/05/2025 11:57 AM CDT FERRITIN Routine 06/05/2025 11:57 AM CDT MAGNESIUM Routine 06/05/2025 11:57 AM CDT CYSTATIN C WITH EGFR Routine 06/05/2025 11:57 AM CDT URINE ALBUMIN / CREATININE RATIO Routine 06/05/2025 11:57 AM CDT IRON PANEL (FE, TIBC, TSAT) Routine 06/05/2025 11:57 AM CDT RENAL FUNCTION PANEL Routine 06/05/2025 11:57 AM CDT CBC DIFF AMBIGUOUS DEFAULT - DO NOT USE Routine 06/05/2025 11:57 AM CDT HEMOGLOBIN A1C Routine 11/18/2024 10:45 AM [employer] ATTENDANT from Last 3 Months or Most Recently Relevant to Health Maintenance Results * (ABNORMAL) Cystatin C w/GFR (06/05/2025 11:57 AM CDT) Cystatin C 2.37(H) 0.78 - 1.15 mg/L [facility] eGFR by Cystatin C 23(L) >59 mL/min/1.7 3 [facility] 06/05/2025 11:5 7 AM CDT 06/04/2025 11:00 PM CDT Jorgito Guthrie DO LAB BLOOD ORDERABLES Final R esult Performing Organization Address City/[facility]/ZIP Co de Phone Number [facility] [address] [place] [address] * SPECIMEN STATUS REPORT (06/05/2025 11:57 AM CDT) Specimen Status Comment [facility] Comment: Ambig Abbrev RP10 Default Ambig Abbrev RP10 Default A hand-written panel/profile was received from your office. In accordance with the [facility] Ambiguous Test Code Policy dated May 2003, we have completed your order by using the closest currently or formerly recognized AMA panel. We have assigned Renal Panel (10), Test Code #900346 to this request. If this is not the testing you wished to receive on this specimen, please contact the [facility] Client Inquiry/Technical Services Department to clarify the test order. We appreciate your business. 06/05/2025 11:5 7 AM CDT 06/04/2025 11:00 PM CDT Jorgito Guthrie DO LAB BLOOD ORDERABLES Final R esult Performing Organization Address City/[facility]/ZIP Co de Phone Number [facility] [address] [place] [address] * (ABNORMAL) CBC Diff Ambiguous Default (06/05/2025 11:57 AM CDT) WBC 9.6 3.4 - 10.8 x10E3/uL [facility] RBC 3.56(L) 4.14 - 5.80 x10E6/uL [facility] Hemoglobin 11.2(L) 13.0 - 17.7 g/dL [facility] Hematocrit 35.9(L) 37.5 - 51.0 % [facility] MCV 101(H) 79 - 97 fL [facility] MCH 31.5 26.6 - 33.0 pg [facility] MCHC 31.2(L) 31.5 - 35.7 g/dL [facility] RDW 12.7 11.6 - 15.4 % [facility] Platelets 338 150 - 450 x10E3/uL [facility] Neutrophils Relative 73 Not Estab. % [facility] Lymphocytes Relative 13 Not Estab. % [facility] Monocytes 6 Not Estab. % [facility] Eosinophils Relative 7 Not Estab. % [facility] Basophils Relative 1 Not Estab. % [facility] Neutrophils Absolute 7.0 1.4 - 7.0 x10E3/uL [facility] Lymphocytes Absolute 1.2 0.7 - 3.1 x10E3/uL [facility] Monocytes Absolute 0.6 0.1 - 0.9 x10E3/uL [facility] Eosinophils Absolute 0.7(H) 0.0 - 0.4 x10E3/uL [facility] Basophils Absolute 0.1 0.0 - 0.2 x10E3/uL [facility] Immature Granulocytes 0 Not Estab. % [facility] Immature Grans (Absolute) 0.0 0.0 - 0.1 x10E3/uL [facility] Comment: A hand-written panel/profile was received from your office. In accordance with the [facility] dated May 2003, we have assigned CBC with Differential/Platelet, Test Code #[id number] to this request. If this is not the testing you wished to receive on this specimen, please contact the [facility] Services Department to clarify the test order. We appreciate your business. 06/05/2025 11:5 7 AM CDT 06/04/2025 11:00 PM CDT Jorgito Guthrie DO LAB BLOOD ORDERABLES Final R esult Performing Organization Address City/[facility]/ZIP Co de Phone Number [facility] [place] [address] [place] [address] * (ABNORMAL) Iron Panel (Fe, TIBC, TSAT) (06/05/2025 11:57 AM CDT) TIBC 248(L) 250 - 450 ug/dL [facility] UIBC 176 111 - 343 ug/dL [facility] Iron 72 38 - 169 ug/dL [facility] Iron Saturation (TSat) 29 15 - 55 % [facility] 06/05/2025 11:5 7 AM CDT 06/04/2025 11:00 PM CDT Jorgito Guthrie DO LAB BLOOD ORDERABLES Final R esult Performing Organization Address City/[facility]/ZIP Co de Phone Number [facility] [place] [address] [place] [address] * (ABNORMAL) Urine Albumin / Creatinine Ratio (06/05/2025 11:57 AM CDT) Creatinine, Ur 102.3 Not Estab. mg/dL [facility] Albumin, Urine 150.4 Not Estab. ug/mL [facility] Albumin/Creatin ine Ratio 147(H) 0 - 29 mg/g creat [facility] Comment: Normal: 0 - 29 Moderately increased: 30 - 300 Severely increased: >300 06/05/2025 11:5 7 AM CDT 06/04/2025 11:00 PM CDT Jorgito Guthrie DO LAB URINE ORDERABLES Final R esult [facility] [place] [address] [place] [address] * Magnesium (06/05/2025 11:57 AM CDT) Magnesium 1.7 1.6 - 2.3 mg/dL [facility] 06/05/2025 11:5 7 AM CDT 06/04/2025 11:00 PM CDT Jorgito Guthrie DO LAB BLOOD ORDERABLES Final R esult Performing Organization Address City/[facility] Co de Phone Number [facility] [address] [place] [address] * Ferritin (06/05/2025 11:57 AM CDT) Ferritin 43 30 - 400 ng/mL [facility] 06/05/2025 11:5 7 AM CDT 06/04/2025 11:00 PM CDT Jorgito Guthrie DO LAB BLOOD ORDERABLES Final R esult Performing Organization Address City/[facility]/ZIP Co de Phone Number [facility] [address] [place] [address] * (ABNORMAL) Renal Function Panel (06/05/2025 11:57 AM CDT) Glucose 192(H) 70 - 99 mg/dL [facility] BUN 51(H) 8 - 27 mg/dL [facility] Creatinine 3.48(H) 0.76 - 1.27 mg/dL [facility] eGFR CKD-EPI CR 2020 18(L) >59 mL/min/1.7 3 [facility] BUN/Creatinine Ratio 15 10 - 24 [facility] Sodium 137 134 - 144 mmol/L [facility] Potassium 5.5(H) 3.5 - 5.2 mmol/L [facility] Chloride 106 96 - 106 mmol/L [facility] Bicarbonate (CO2) 14(L) 20 - 29 mmol/L [facility] Comment:Verified by repeat analysis Calcium 9.2 8.6 - 10.2 mg/dL [facility] Phosphorus 3.6 2.8 - 4.1 mg/dL [facility] Albumin 3.8 3.8 - 4.8 g/dL [facility] 06/05/2025 11:5 7 AM CDT 06/04/2025 11:00 PM CDT Jorgito Guthrie DO LAB BLOOD ORDERABLES Final R esult [facility] [address] [place] [address] * (ABNORMAL) Hemoglobin A1c (11/18/2024 10:45 AM [employer] ATTENDANT) Hemoglobin A1C 6.3(H) 4.8 - 5.6 % [facility] Comment: Prediabetes: 5.7 - 6.4 Diabetes: >6.4 Glycemic control for adults with diabetes: <7.0 11/18/2024 10:4 5 AM [employer] ATTENDANT 11/17/2024 11:00 PM [employer]PED [employer] ATTENDANT Jorgito Guthrie DO LAB BLOOD ORDERABLES Final R esult [facility] [address] [place] [address] from Last 3 Months or Most Recently Relevant to Health Maintenance Insurance [employer] MCR Adv PPO ([id number]) Care Teams Hand Candle Dipper Relationship Specialty [place] [address] [phone] PCP - General Geriatric Medicine 03/06/23
--- OUTSIDE RECORDS SUMMARY | 2025-07-24 09:22 | XMS_ITS | Encounter Summary ---
Author Organization [facility] , [facility] Address [address] [place] [phone] Phone Care Team Providers Care Produce Service Team Member Name Role Phone Gurinder Thompson MD Primary Care Provider [phone] Encounter Details Date Type Department Care Team (Late st Contact Info) Description 05/28/2021 Orders Only [facility], [address] [address] Jorgito Guthrie DO [address] [place] [phone] Social History Tobacco Use Types Packs/Day Years Used Date Smoking Tobacco: Never Alcohol Use Standard Drinks/Week Comments No 0 (1 standard drink = 0.6 oz pur e alcohol) Sex and Gender Information Value Date Recorded Sex Assigned at Not on file Legal Sex Male 2:50 PM EDT Gender Identity Not on file Sexual Orientation Not on file documented as of this encounter Plan of Treatment Not on file documented as of this encounter Visit Diagnoses Not on filedocumented in this encounter Care Teams Produce Service Team Member Relationship Specialty [place] [id number] [facility], [address] [place], [place] [id number] PCP - General Geriatric Medicine 03/06/23 documented as of this encounter
--- OUTSIDE RECORDS SUMMARY | 2025-07-24 09:22 | XMS_ITS | Clinical Summary ---
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 Name Role Phone Lisa Graff [employer] CONSULTANT Unavailable [phone] Gurinder Burrows MD Primary Care Provider + Allergies Active Allergy Reactions Criticality Noted Date Comments Chlorhexidine Gluconate Rash Medium 05/12/2024 Buspirone Itching Low 01/17/2022 Fentanyl Itching Low 09/19/2018 Itching at the IV site Meperidine Unknown 09/19/2018 Midazolam Itching Low 09/19/2018 Itching at the IV site Omeprazole Other (See comments) Low 03/01/2022 Medications atorvastatin (LIPITOR) 10 mg tabletIndications :hyperlipidemia Take 1 tablet by mouth daily Active ALPRAZolam (XANAX) 0.5 mg tabletIndications :Anxiety with Depression Take 1 tablet by mouth 3 (three) times a day as needed for anxiety Active fluticasone-vilan terol (BREO ELLIPTA) 100-25 mcg/dose diskus inhalerIndication s:Bronchospasm Prevention with COPD Inhale 1 puff daily Rinse mouth with water after use to reduce aftertaste and incidence of candidiasis. Do not swallow. Active escitalopram (LEXAPRO) 20 mg tabletIndications :Anxiety with Depression Take 1 tablet by mouth daily Active insulin lispro (HumaLOG, ADMELOG) 100 unit/mL pen for injectionIndicati ons:Diabetes Mellitus (plus blood glucose mg/dL 150-199: 1 unit, 200-249: 2 units, 250-299: 3 units, 300-349: 4 units, 350 or greater: 5 units. Notify provider for blood glucose greater than 299 mg/dL. Refer to After Visit Summary for Sliding Scale Insulin Instructions. 15 mL 1 4 Active oxyBUTYnin XL (DITROPAN-XL) 5 mg 24 hr tabletIndications :Bladder Hyperactivity Take 1 tablet (5 mg total) by mouth daily 30 tablet 06/08/20 28 Active primidone (MYSOLINE) 50 mg tabletIndications :Essential Tremor Take 2 tablets (100 mg total) by mouth 3 (three) times a day 180 tablet 06/08/20 28 Active amLODIPine (NORVASC) 10 mg tabletIndications :hypertension Take 1 tablet (10 mg total) by mouth daily 30 tablet 10/11/20 25 Active aspirin 81 mg chewable tabletIndications :prevention of thrombosis Take 1 tablet (81 mg total) by mouth daily 30 tablet 10/11/20 25 Active torsemide (DEMADEX) 20 mg tabletIndications :Edema Take 1 tablet (20 mg total) by mouth daily 30 tablet 10/11/20 25 Active insulin glargine 100 unit/mL (3 mL) pen for injectionIndicati ons:DM2 Inject 20 Units under the skin nightly Active oxyCODONE (ROXICODONE) 10 mg tabletIndications :Pain Take 1 tablet by mouth every 6 (six) hours as needed for pain 5 Active albuterol HFA (PROVENTIL HFA,VENTOLIN HFA,PROAIR HFA) 90 mcg/actuation inhalerIndication s:Bronchospasm Prevention Inhale 2 puffs every 6 (six) hours as needed for wheezing or shortness of breath Active calcitRIOL (ROCALTROL) 0.25 mcg capsuleIndication s:Vitamin D Deficiency Take 1 capsule (0.25 mcg total) by mouth daily 90 capsule 3 5 06/16/20 26 Active pancrelipase (CREON) 12,000 units of lipase capsuleIndication s:exocrine pancreatic insufficiency Take 1 capsule (12,000 units of lipase total) by mouth 3 (three) times a day with meals 90 capsule 06/16/20 Active sodium bicarbonate 650 mg tabletIndications :metabolic acidosis Take 1 tablet (650 mg total) by mouth 2 (two) times a day 60 tablet 06/16/20 Active Active Problems Problem Noted Date Diagnosed Date Fall, initial encounter 06/08/2025 Weakness 06/08/2025 Chronic kidney disease, stage IV (severe) 2024 Iron deficiency anemia, unspecified 11/28/2024 Diabetic ketoacidosis withou t coma associated with diabetes mellitus due to underlying condition 10/06/2024 DEEPTHI (acute kidney injury) 10/05/2024 Acute renal failure superimp osed on stage 4 chronic kidney disease, unspecified acute renal failure type 05/05/2024 Shortness of breath 08/27/2023 Alzheimer's disease, unspecified 03/01/2022 Hepatic abscess 10/30/2018 Overview (12/11/2018): Hx of DM2, HTN, cholecystectomy and choledocholithiasis s/p biliary stent placement. Presented to [facility] from OSH for management of liver abscess. According to patient he has had mild abdominal pain since ERCP 09/20/18 but it worsened beginning 1 week prior to arrival to [facility] on 10/26/18. He also reportedly was having fever, chills, fatigue, and loss of appetite. At OSH he was found to have 6.7 x 6.5 x 6.4 complex liver mass concerning for abscess on CT. He was given broad spectrum abx then transferred to [facility] for further care. He underwent IR drainage on 10/28 with removal of 20 cc of purulent drainage. 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 Underwent ERCP on 10/30 where he was found to have a partially occluded stent, which was removed. He underwent balloon spincteroplasty and balloon extraction of stones/sludge. A new plastic stent was placed. Cultures for abscess grew E coli and E faecalis. He was initially placed on linezolid/zosyn/micafungin. He was switched to Unasyn on 10/30. Unasyn switched to Augmentin on 10/31 given adequate source control and improvement in symptoms. Plan to treat for 4 weeks with follow up imaging for IR drain. Admitted to [facility] ICU on 11/08/18 due to pneumonia and hepatic drain removed while inpatient after CT scan showed minimal collection remaining and there was no output from drain. Assessment & Plan (12/12/2018 10:45 AM RAMP ATTENDANT): Recommendations: - Hepatic drain recently removed and he continues on Augmentin. He denies new signs/symptoms since drain removal but continues to complaint of fatigue and generalized weakness. Continues to have upper abdominal pain but reports it has significantly improved since hospitalized at [facility]. - Will request CT report and images from [facility] in [place], [place] to assess abscess. - Continue antibiotic therapy Augmentin 875-125 mg PO BID. Once recent CT images and report have be reviewed we will reassess need for antibiotic therapy. - Repeat labs: CBC and CMP today in clinic. - Discussed rationale for treatment, culture results, treatment plan, length of therapy, risk of recurrent infection, as well as signs/symptoms of recurrent infection (including but not limited to fevers/chills/night sweats, worsening pain/erythema/edema, changes to bowel habits or color of stools, weight loss, decreased appetite, worsening fatigue, etc) and to contact ID with any concerns - F/u with ID as needed if concerns for recurrent infection. If it is determined that patient needs to remain on antibiotic therapy after CT scan images are reviewed patient should be contacted for follow up appointment. Assessment & Plan (11/01/2018 3:07 PM RAMP ATTENDANT): Cont drain; drain check in 2 weeks ID follow up- clinic will arrange Switch to augmentin Oxy for pain Assessment & Plan (10/31/2018 2:29 PM RAMP ATTENDANT): Cont unasyn Cont drain ID: Duration, can we switch to augmentin? Assessment & Plan (10/31/2018 5:55 PM RAMP ATTENDANT): 68-year-old male with diabetes, recent choledocholithiasis status post ERCP 09/20/2018, who presented with abdominal pain and fevers. Patient presented septic with evidence of liver abscess on imaging. He underwent drainage on 10/28 an ERCP on 10/30, where he was found to have a partially occluded stent. Abscess culture is growing E coli (wolfe-S) and E faecalis (amp-S). Patient has defervesced since 10/29 and his white count has down trended significantly. Overall, the patient is doing well. The patient is currently only on Unasyn for the past 2 days and is doing fine. Likely source of liver abscess was cholangitis. -Since the patient has improved dramatically after source control procedures (drainage and stent placement) and the patient is doing well on Unasyn alone, could switch to Augmentin 875mg PO BID -anticipate a duration of 2-4 weeks depending on adequacy of source control. Exact duration to be determined in clinic Assessment & Plan (10/30/2018 4:56 PM RAMP ATTENDANT): Drain in place E coli is wolfe sensitive but for the time being will continue anaerobic coverage (can switch to unasyn) Was on linezolid. That was discontinued. Abscess is growing enterococcus. Given multiple drug interactions I'm going to start dapto. I am stopping is ssri because I don't know what this regimen is going to end up looking like. Consulting ID [place]. Pancreatic mass 10/30/2018 Assessment & Plan (11/01/2018 3:05 PM RAMP ATTENDANT): Biliary will arrange serial imaging Assessment & Plan (10/31/2018 2:28 PM RAMP ATTENDANT): Between 10 and 30 mm without any acute obstructing symptoms and cw a side branch lesion. It doesn't have high risk features. FNA EUS v.s. Serial monitoring; based on appearance and scenario biliary recommended interval scan.s Assessment & Plan (10/30/2018 4:46 PM RAMP ATTENDANT): Ercp today Biliary obstruction 10/30/2018 Assessment & Plan (11/01/2018 3:07 PM RAMP ATTENDANT): Stent exchanged 10/30 Will need exchange as OP Assessment & Plan (10/31/2018 2:29 PM RAMP ATTENDANT): Stent exchanged 10/30 Assessment & Plan (10/30/2018 4:57 PM RAMP ATTENDANT): Has stent Biliary following Acute gastric ulcer 09/30/2018 Overview (09/30/2018): Added automatically from request for surgery [id number] Encounter for removal of biliary stent 8 Overview (09/30/2018): Added automatically from request for surgery [id number] Common bile duct stone 09/30/2018 Overview (09/30/2018): Added automatically from request for surgery [id number] Gastric ulcer 09/22/2018 Assessment & Plan (09/23/2018 5:46 PM CDT): EGD showed clean based ulcer in gastric antrum. Biopsied. Path pending. - will follow up on pathology - please continue PPI daily Parkinson's disease 09/19/2018 Assessment & Plan (09/23/2018 5:48 PM CDT): Unchanged from baseline -Continue on Sinemet-carbidopa Choledocholithiasis with obstruction 09/19/2018 Assessment & Plan (09/23/2018 5:47 PM CDT): S/p cholecystectomy on 09/17, ERCP on 09/20, treated with biliary sphincterotomy, balloon sweep with removal of stone fragments, and placement of a plastic stent. The patient continues to endorse pain similar to that with which he presented. Slowly advancing diet, as tolerated by pain. - continue Percocet 10-650 b.i.d. P.r.n. For 3 days after discharge - follow-up with PCP for further management of pain - avoid NSAIDs for 10-14 days. OK to take ASA if indicated for cardiovascular disease - discharge, GI biliary to manage follow-up Hx of cholecystectomy 09/19/2018 Narcotic drug use 09/19/2018 Type 2 diabetes mellitus, wi thout long-term current use of insulin 09/19/2018 Assessment & Plan (11/01/2018 3:04 PM RAMP ATTENDANT): ssi Assessment & Plan (10/31/2018 2:27 PM RAMP ATTENDANT): ssi Assessment & Plan (10/30/2018 4:46 PM RAMP ATTENDANT): ssi Assessment & Plan (09/23/2018 5:48 PM CDT): A1c 6.1, well controlled during his hospitalization - restart home medication regimen on discharge Depressed 09/19/2018 Hyperlipidemia 09/19/2018 Essential hypertension 09/19/2018 DAVID (obstructive sleep apnea) 09/19/2018 Assessment & Plan (11/01/2018 3:05 PM RAMP ATTENDANT): cpap Assessment & Plan (10/31/2018 2:28 PM RAMP ATTENDANT): cpap Assessment & Plan (10/30/2018 4:46 PM RAMP ATTENDANT): cpap Kidney congenitally absent, 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 Calculus of bile duct withou t cholecystitis with obstruction 09/19/2018 Overview (09/20/2018): Added automatically from request for surgery [id number] Encounters Date Type Department Care Team Description 07/09/2025 11:15 AM CDT Home Care Visit [address] [place] [address] Margo Reaves, PT PT OASIS DISCHARGE 07/06/2025 11:00 AM CDT Home Care Visit [address] [place] [address] Kirsten Avila, ROTARY DRIER FEEDER PT HOME VISIT 07/06/2025 Home Care Visit [address] [place] [address] iKrsten Avila, ROTARY DRIER FEEDER TELEPHONE ENCOUNTER 07/02/2025 12:00 PM CDT Home Care Visit [address] [place] [address] Kirsten Avila, ROTARY DRIER FEEDER PT HOME VISIT 06/29/2025 11:00 AM CDT Home Care Visit [address] [place] [address] Kirsten Avila, ROTARY DRIER FEEDER PT HOME VISIT 06/26/2025 10:00 AM CDT Home Care Visit [address] [place] [address] Kirsten Avila, ROTARY DRIER FEEDER PT HOME VISIT 06/26/2025 9:00 AM CDT Home Care Visit [address] [place] [address] Yesika Wade, OT OT DISCIPLINE DISCHARGE 06/26/2025 Home Care Visit [address] [place] [address] Yesika Wade, OT CASE COMMUNICATION 06/23/2025 Home Care Visit [address] [place] [address] Margo Reaves, PT CARE CONFERENCE 06/22/2025 11:00 AM CDT Home Care Visit [address] [place] [address] Kirsten Avila, ROTARY DRIER FEEDER PT HOME VISIT 06/22/2025 Home Care Visit [address] [place] [address] Geovani Mccrary, ANIMAL CARE TAKER CASE COMMUNICATION 06/18/2025 2:00 PM CDT Home Care Visit [address] [place] [address] Yesika Wade, OT OT INITIAL EVALUATION 06/18/2025 Home Care Visit [address] [place] [address] Yesika Wade, OT CASE COMMUNICATION 06/18/2025 Home Care Visit [address] [place] [address] Maude Max, HENRY NURSE MED RECON FOR THERAPY 06/17/2025 3:15 PM CDT Home Care Visit [address] [place] [address] Margo Reaves, PT PT OASIS START OF CARE 06/17/2025 Plan of Care Documentation [address] [address] [address] [place] [address] 06/16/2025 Telephone [facility] [address] [place] [address] Rashel Lanier MA 06/07/2025 7:20 PM CDT - 06/16/2025 6:44 PM CDT Hospital Encounter [facility] [address] [place] [address] Thuan Combs MD Heilmann, MD Markos Baez, Gurinder Christian MD Closed displaced fracture of right pubis, initial encounter ([facility]) (Primary Dx); Fall, initial encounter; Unsteady gait Discharge Disposition: Discharge to home, home health skilled care from Last 3 Months Immunizations Immunization Administration Dates Next Due Influenza, Quadrivalent, Hig h Dose, Preservative Free, Intrr 07/12/2021,07/31/2020 Influenza, Quadrivalent, Spl it, Preservative Free, Intramuscular 07/25/2018 Influenza, Trivalent, High D ose, Split, Preservative Free, Intramuscular 02/01/2020 Influenza, Trivalent, IM (MDV) 07/29/2014 Pneumococcal Conjugate PCV 13 02/01/2019 Surgical History Surgery Date Site/Laterality Comments HERNIA REPAIR CATARACT EXTRACTION Right CHOLECYSTECTOMY UPPER GASTROINTESTINAL ENDOSCOPY IMAGE GUIDED DRAINAGE VISCER AL FLUID COLLECTION 10/28/2018 N/A ERCP KNEE ARTHROPLASTY SHOULDER ARTHROPLASTY COLONOSCOPY 11/26/2011 - 11/25/2012 COLONOSCOPY 02/13/2022 Medical History Medical History Date Comments Type 2 diabetes mellitus Hypertension Hyperlipidemia Parkinson's disease (HCC) GERD (gastroesophageal reflux disease) Cataract Liver abscess Pancreatitis Cardiomyopathy Asthma Thyroid goiter Kidney cysts right side Anemia of chronic renal failure, stage 3 (modera te) (HCC) Depression Awareness under anesthesia COPD (chronic obstructive pulmonary disease) Weakness Fall Alzheimer's disease, unspecified (CODE) CHF (congestive heart failure) (HCC) NSTEMI (non-ST elevated myocardial infarction) ( HCC) Family History Medical History Relation Name Comments Cancer Brother Hypertension Father COPD Mother Hypertension Mother Relation Name Status Comments Brother Father Mother Social History Tobacco Use Types Packs/Day Years Used Date Smoking Tobacco: Never Smokeless Tobacco: Never Tobacco Cessation:Counseling Given: Not Answered Alcohol Use Standard Drinks/Week Comments No 0 (1 standard drink = 0.6 oz pur e alcohol) OASIS D0700: Social Isolation Answer Da te Recorded Frequency of experiencing loneliness or isolatio n Never 07/09/2025 OASIS A1250: Transportation Answer Date Recorded Lack of Transportation (Medical) No 07/09/2025 Lack of Transportation (Non-Medical) No 07/09/2025 Patient Unable or Declines to Respond No 07/09/2025 OASIS B1300: Health Literacy Answer Arturo e Recorded Frequency of needing help to read materials from doctor or pharmacy Sometimes 07/09/2025 [facility] Utilities Answer Date Recorded In the past 12 months has e [employer], gas, oil, or water [employer] threatened to shut off services in your home? No 06/09/2025 Social Connection and Isolation Panel Answer Date Recorded In a typical week, how many times do you talk on the phone with family, friends, or neighbors? More than three times a week 06/09/2025 How often do you get togethe r with friends or relatives? Once a week 06/09/2025 How often do you attend [facility] or synagogue services? Never 06/09/2025 Do you belong to any clubs o r organizations such as hoahaoism groups, unions, fraternal or athletic groups, or school groups? No 06/09/2025 How often do you attend meet ings of the clubs or organizations you belong to? Never 06/09/2025 Are you , , di vorced, , never , or living with a partner? 06/09/2025 AUDIT-C Answer Date Recorded Q1: How often do you have a drink containing alcohol? Never 08/28/2023 Q2: How many drinks containi ng alcohol do you have on a typical day when you are drinking? Patient does not drink 10/03/202 3 Q3: How often do you have si x or more drinks on one occasion? Never 08/28/2023 Overall Financial Resource Strain (CARDIA) Answe r Date Recorded How hard is it for you to pa y for the very basics like food, housing, medical care, and heating? Not hard at all 06/09/2025 Hunger Vital Sign Answer Date Recorded Within the past 12 months, y ou worried that your food would run out before you got the money to buy more. Never true 06/09/20 25 Within the past 12 months, t he food you bought just didn't last and you didn't have money to get more. Never true 06/09/2025 PRAPARE - Transportation Answer Date Re corded In the past 12 months, has l ack of transportation kept you from medical appointments or from getting medications? No 05/26 In the past 12 months, has l ack of transportation kept you from meetings, work, or from getting things needed for daily living? No 06/09/2025 Housing Stability Vital Sign Answer Arturo e Recorded In the last 12 months, was t here a time when you were not able to pay the mortgage or rent on time? No 08/28/2023 In the last 12 months, how many places have you lived? 1 08/28/2023 In the last 12 months, was t here a time when you did not have a steady place to sleep or slept in a usp (including now)? No 08/28/2023 Housing Stability Vital Sign Answer Arturo e Recorded In the last 12 months, was t here a time when you were not able to pay the mortgage or rent on time? No 06/09/2025 In the past 12 months, how m any times have you moved where you were living? 1 06/09/2025 At any time in the past 12 m [facility], were you homeless or living in a usp (including now)? No 06/09/2025 Personal Safety Answer Date Recorded Have you ever been in or are you currently in a harmful physical or emotional relationship or is someone making you feel afraid or unsafe? Denies 06/09/2025 Sex and Gender Information Value Date Recorded Sex Assigned at Not on file Legal Sex Male 2:44 AM RAMP ATTENDANT Gender Identity Not on file Sexual Orientation Not on file Obstetrics History Last Filed Vital Signs Vital Sign Reading Time Taken Comments Blood Pressure 128/62 07/09/2025 11:55 AM CDT Pulse 68 07/09/2025 11:55 AM CDT Temperature 36.1 C (97 F) 07/09/2025 11:55 AM CDT Respiratory Rate 18 07/09/2025 11:55 AM CDT Oxygen Saturation 99% 07/09/2025 11:55 AM CDT Inhaled Oxygen Concentration - - Weight 100.2 kg (221 lb) 06/09/2025 1:35 AM CDT Height 182.9 cm (6') 06/09/2025 1:35 AM CDT Body Mass Index 29.97 06/09/2025 1:35 AM CDT Plan of Treatment Health Maintenance Due Date Last Done Comments Depression Screening 1950 Hepatitis C Screening 1950 Dilated Eye Exam 1950 Foot Exam 1950 DTaP/Tdap/Td Vaccine (1 - Tdap) 1962 Hepatitis B Screening 1969 Zoster Vaccine (1 of 2) 2001 Well Visit 65+ 2016 Pneumococcal vaccine 65+ (2 of 2 - PPSV23, PCV20, or PCV21) 03/29/2019 02/01/2019 Covid-19 Vaccine (4 - 2023-2 5 season) 2024 08/15/2021, 01/27/2021, 12/30/2020 Hemoglobin A1C 04/05/2025 10/06/2024, 04/26, 05/15/2023, Additional history exists Albumin Creatinine Ratio, Urine 05/06/2025 Influenza Vaccine (#1) 2025 , 07/31/2020, 02/01/2020, Additional history exists Lipid Panel 10/05/2025 10/05/2024, 01/25, 05/15/2023, Additional history exists eGFR 06/07/2026 06/07/2025, 09/26, 10/09/2024, Additional history exists Fall Risk Assessment 06/16/2026 06/16/2025 Colon Cancer Screening-Colonoscopy 02/14/2032 02/13/2022 Colon Cancer Screening-CT Colonography Discontinued 02/13/2022 Colon Cancer Screening-DNA Stool Discontinued 02/14/20 Colon Cancer Screening-FIT Discontinued 02/13/2022 Colon Cancer Screening-Sigmoidoscopy Discontinued 02/13/2022 Medical Devices Explanted Type Area Digital Research Analyst Device Identifier Shelf Expiration Date Model / Serial / Lot [employer] [id number] Cotton-Jean 10fr 7cm Taper Tip Guidewire Proximal Distal Flap - [id number] Implanted:Qty: 1 on 09/20/2018 by Jerome Merino MD at [facility] Explanted:Qty: 1 on 10/30/2018 at [facility] Stent [employer] 06/28/2021 [id number] / / [id number] [employer] [id number] C-Flex 10fr 10cm Gastrointestine 2 Pigtail Curve Stent Biliary - [id number] Implanted:Qty: 1 on 10/30/2018 at [facility] Explanted:Qty: 1 on 12/31/2018 by Jerome Merino MD at [facility] [employer] 08/20/2021 [id number] / [id number] Procedures Procedure Name Priority Date/Time Associated Diagnosis Comments POCT GLUCOSE DEVICE Routine 06/16/2025 5 :16 PM CDT INFECTION PREVENTION VITA AURIS PCR, SURVEILLANCE Routine 06/16/2025 2:58 PM CDT POCT GLUCOSE DEVICE Routine 06/16/2025 1 2:58 PM CDT POCT GLUCOSE DEVICE Routine 06/16/2025 6 :04 AM CDT POCT GLUCOSE DEVICE Routine 06/15/2025 9 :19 PM CDT POCT GLUCOSE DEVICE Routine 06/15/2025 5 :52 PM CDT POCT GLUCOSE DEVICE Routine 06/15/2025 1 2:32 PM CDT POCT GLUCOSE DEVICE Routine 06/15/2025 7 :44 AM CDT POCT GLUCOSE DEVICE Routine 06/14/2025 9 :04 PM CDT POCT GLUCOSE DEVICE Routine 06/14/2025 5 :06 PM CDT POCT GLUCOSE DEVICE Routine 06/14/2025 6 :27 AM CDT POCT GLUCOSE DEVICE Routine 06/13/2025 9 :14 PM CDT POCT GLUCOSE DEVICE Routine 06/13/2025 5 :03 PM CDT POCT GLUCOSE DEVICE Routine 06/13/2025 1 1:21 AM CDT POCT GLUCOSE DEVICE Routine 06/13/2025 6 :05 AM CDT POCT GLUCOSE DEVICE Routine 06/12/2025 7 :51 PM CDT POCT GLUCOSE DEVICE Routine 06/12/2025 4 :40 PM CDT POCT GLUCOSE DEVICE Routine 06/12/2025 1 1:58 AM CDT POCT GLUCOSE DEVICE Routine 06/12/2025 6 :06 AM CDT POCT GLUCOSE DEVICE Routine 06/11/2025 1 1:49 PM CDT POCT GLUCOSE DEVICE Routine 06/11/2025 7 :55 PM CDT POCT GLUCOSE DEVICE Routine 06/11/2025 5 :05 PM CDT POCT GLUCOSE DEVICE Routine 06/11/2025 1 2:09 PM CDT POCT GLUCOSE DEVICE Routine 06/11/2025 6 :18 AM CDT POCT GLUCOSE DEVICE Routine 06/10/2025 1 1:34 PM CDT POCT GLUCOSE DEVICE Routine 06/10/2025 7 :53 PM CDT POCT GLUCOSE DEVICE Routine 06/10/2025 4 :59 PM CDT POCT GLUCOSE DEVICE Routine 06/10/2025 1 2:58 PM CDT POCT GLUCOSE DEVICE Routine 06/10/2025 6 :48 AM CDT POCT GLUCOSE DEVICE Routine 06/09/2025 8 :41 PM CDT POCT GLUCOSE DEVICE Routine 06/09/2025 5 :25 PM CDT INFECTION PREVENTION VITA AURIS PCR, SURVEILLANCE Routine 06/09/2025 1:30 PM CDT POCT GLUCOSE DEVICE Routine 06/09/2025 1 1:31 AM CDT POCT GLUCOSE DEVICE Routine 06/09/2025 6 :13 AM CDT POCT GLUCOSE DEVICE Routine 06/08/2025 9 :02 PM CDT POCT GLUCOSE DEVICE Routine 06/08/2025 2 :[address] HIP RIGHT WO CONTRAST IP Routine 06/08/2025 10:10 AM CDT POCT GLUCOSE DEVICE Routine 06/08/2025 8 :17 AM CDT POCT GLUCOSE DEVICE Routine 06/08/2025 3 :32 AM CDT TROPONIN T HIGH-SENSITIVITY 4-HR Timed 06/08/2025 12:[address] HEAD WO CONTRAST ED 06/07/2025 1 0:28 PM CDT URINALYSIS, MICROSCOPIC ONLY STAT 06/07/2025 9:29 PM CDT URINALYSIS AND REFLEX TO MICROSCOPIC STAT 06/07/2025 9:29 PM CDT XR CHEST 1 VIEW ED 06/07/2025 8:49 PM CDT XR PELVIS 1 OR 2 VIEWS ED 06/07/2025 8:48 PM CDT EGFR STAT 06/07/2025 8:01 PM CDT DIFFERENTIAL AUTO STAT 06/07/2025 8:0 1 PM CDT TROPONIN T HIGH-SENSITIVITY SERIES (BASELINE, 2HR, 4HR, 6HR) STAT 06/07/2025 8:01 PM CDT CREATINE KINASE (CK), TOTAL STAT 06/07/2025 8:01 PM CDT COMPREHENSIVE METABOLIC PANEL STAT 06/07/2025 8:01 PM CDT CBC WITH AUTO DIFFERENTIAL STAT 06/07/2025 8:01 PM CDT POCT GLUCOSE DEVICE Routine 06/07/2025 7 :47 PM CDT ECG 12-LEAD STAT 06/07/2025 7:43 PM CDT HEMOGLOBIN A1C Routine 10/06/2024 11:14 AM RAMP ATTENDANT LIPID PANEL Timed 10/05/2024 3:50 PM RAMP ATTENDANT ALBUMIN CREATININE RATIO, URINE Routine 05/06/2024 11:49 AM CDT COLONOSCOPY 02/13/2022 11:35 AM CDT from Last 3 Months or Most Recently Relevant to Health Maintenance Results * POCT glucose (06/16/2025 5:16 PM CDT) Glucose, POC 151 70 - 199 mg/dL POC Performer [id number] [facility] Blood 06/16/2025 5:16 PM CDT 06/16/2025 5:16 PM CDT Gurinder Burrows MD LAB POCT ORDERABLES - DE VICE Final Result Performing Organization Address City/[facility]/ZIP Co de Phone Number ZEHRA RODRIGUEZ [address] [place] [address] * Infection Prevention Vita auris PCR, surveillance Axilla/Groin (06/16/2025 2:58 PM CDT) [facility] Vita auris DNA Not Detected Not Detected [facility] Comment: Interpretive Data Testing performed by [facility] using the Elizabeth sean 6800 Vita auris assay. This assay detects DNA from Vita auris using Real-Time PCR. This assay is laboratory developed and is not cleared by the [facility] Food and Drug Administration. The performance characteristics have been verified by the [facility]. Testing performed by: [facility], [address] [facility], [place]., [address] Axilla/Groin 06/16/2025 2:58 PM CDT 06/16/2025 7:54 PM CDT Narrative [facility] - 06/17/2025 1:13 PM CDT Order placed by [facility] due to ring surveillance. us Instant Order Generic Provider LAB MICROBIOLOGY - GENERAL ORDERABLES Final Result ZEHRA RODRIGUEZ [address] [place] [address] [facility] * POCT glucose (06/16/2025 12:58 PM CDT) Pathologist [facility] Glucose, POC 178 70 - 199 mg/dL POC Performer [id number] [facility] Blood 06/16/2025 12:5 8 PM CDT 06/16/2025 12:58 PM CDT us Gurinder Burrows MD LAB POCT ORDERABLES - DE VICE Final Result Performing Organization Address [facility] Co de Phone Number ZEHRA RODRIGUEZ [address] [facility] [place] [address] * POCT glucose (06/16/2025 6:04 AM CDT) Glucose, POC 154 70 - 199 mg/dL POC Performer [id number] [facility] Blood 06/16/2025 6:04 AM CDT 06/16/2025 6:04 AM CDT us Gurinder Burrows MD LAB POCT ORDERABLES - DE VICE Final Result Performing Organization Address [facility] de Phone Number ZEHRA RODRIGUEZ [address] [facility] [place] [address] * POCT glucose (06/15/2025 9:19 PM CDT) Glucose, POC 152 70 - 199 mg/dL POC Performer [id number] [facility] Blood 06/15/2025 9:19 PM CDT 06/15/2025 9:19 PM CDT us Gurinder Burrows MD LAB POCT ORDERABLES - DE VICE Final Result Performing Organization Address [facility] de Phone Number ZEHRA RODRIGUEZ [address] [facility] [place] [address] * POCT glucose (06/15/2025 5:52 PM CDT) Glucose, POC 139 70 - 199 mg/dL POC Performer [id number] [facility] Blood 06/15/2025 5:52 PM CDT 06/15/2025 5:52 PM CDT us Gurinder Burrows MD LAB POCT ORDERABLES - DE VICE Final Result Performing Organization Address [facility]/ZIP Co de Phone Number ZEHRA RODRIGUEZ [phone] [facility] [place] [address] * POCT glucose (06/15/2025 12:32 PM CDT) Glucose, POC 180 70 - 199 mg/dL POC Performer [id number] [facility] Blood 06/15/2025 12:3 2 PM CDT 06/15/2025 12:32 PM CDT us Gurinder Burrows MD LAB POCT ORDERABLES - DE VICE Final Result Performing Organization Address [facility] Co de Phone Number ZEHRA RODRIGUEZ [address] [facility] [place] [address] * POCT glucose (06/15/2025 7:44 AM CDT) Glucose, POC 148 70 - 199 mg/dL POC Performer [id number] [facility] Blood 06/15/2025 7:44 AM CDT 06/15/2025 7:44 AM CDT us Gurinder Burrows MD LAB POCT ORDERABLES - DE VICE Final Result Performing Organization Address [facility] Co de Phone Number ALLENYESENIA RODRIGUEZ [address] [address] [facility] [place] [address] * POCT glucose (06/14/2025 9:04 PM CDT) Glucose, POC 173 70 - 199 mg/dL POC Performer [id number] [facility] Blood 06/14/2025 9:04 PM CDT 06/14/2025 9:04 PM CDT us Gurinder Burrows MD LAB POCT ORDERABLES - DE VICE Final Result Performing Organization Address [facility] Co de Phone Number ZEHRA RODRIGUEZ [address] [facility] [place] [address] * (ABNORMAL) POCT glucose (06/14/2025 5:06 PM CDT) Glucose, POC 236(H) 70 - 199 mg/dL POC Performer [id number] [facility] Blood 06/14/2025 5:06 PM CDT 06/14/2025 5:06 PM CDT us Gurinder Burrows MD LAB POCT ORDERABLES - DE VICE Final Result Performing Organization Address [facility] Co de Phone Number ZEHRA RODRIGUEZ [phone] [facility] [employer] [place], [place] [address] * POCT glucose (06/14/2025 6:27 AM CDT) Glucose, POC 187 70 - 199 mg/dL POC Performer [id number] [facility] Blood 06/14/2025 6:27 AM CDT 06/14/2025 6:27 AM CDT us Gurinder Burrows MD LAB POCT ORDERABLES - DE VICE Final Result Performing Organization Address [facility] Co me Phone Number ALLENYESENIA RODRIGUEZ [phone] [facility] [employer] [place], [place] [address] * POCT glucose (06/13/2025 9:14 PM CDT) Glucose, POC 194 70 - 199 mg/dL POC Performer [id number] [facility] Blood 06/13/2025 9:14 PM CDT 06/13/2025 9:14 PM CDT us Gurinder Burrows MD LAB POCT ORDERABLES - DE VICE Final Result Performing Organization Address [facility] Co de Phone Number ZEHRA RODRIGUEZ [phone] [facility] [place] [address] * POCT glucose (06/13/2025 5:03 PM CDT) Glucose, POC 167 70 - 199 mg/dL POC Performer [id number] [facility] Blood 06/13/2025 5:03 PM CDT 06/13/2025 5:03 PM CDT Gurinder Burrows MD LAB POCT ORDERABLES - DE VICE Final Result Performing Organization Address [facility] Co de Phone Number ZEHRA RODRIGUEZ [address] [facility] [place] [address] * POCT glucose (06/13/2025 11:21 AM CDT) Glucose, POC 143 70 - 199 mg/dL POC Performer [id number] [facility] Blood 06/13/2025 11:2 1 AM CDT 06/13/2025 11:21 AM CDT us Gruinder Burrows MD LAB POCT ORDERABLES - DE VICE Final Result Performing Organization Address [facility] Co de Phone Number ZEHRA RODRIGUEZ [address] [facility] [place] [address] * POCT glucose (06/13/2025 6:05 AM CDT) Glucose, POC 139 70 - 199 mg/dL POC Performer [id number] [facility] Blood 06/13/2025 6:05 AM CDT 06/13/2025 6:05 AM CDT us Gurinder Burrows MD LAB POCT ORDERABLES - DE VICE Final Result Performing Organization Address [facility] Co de Phone Number ZEHRA RODRIGUEZ [address] [facility] [place] [address] * POCT glucose (06/12/2025 7:51 PM CDT) Glucose, POC 188 70 - 199 mg/dL POC Performer [id number] [facility] Blood 06/12/2025 7:51 PM CDT 06/12/2025 7:51 PM CDT us Gurinder Burrows MD LAB POCT ORDERABLES - DE VICE Final Result Performing Organization Address [facility] Co de Phone Number ZEHRA RODRIGUEZ [address] [facility] [place] [address] * (ABNORMAL) POCT glucose (06/12/2025 4:40 PM CDT) Glucose, POC 206(H) 70 - 199 mg/dL POC Performer [id number] [facility] Blood 06/12/2025 4:40 PM CDT 06/12/2025 4:40 PM CDT us Gurinder Burrows MD LAB POCT ORDERABLES - DE VICE Final Result Performing Organization Address [facility] de Phone Number ZEHRA RODRIGUEZ [address] [address] [facility] [place] [address] * POCT glucose (06/12/2025 11:58 AM CDT) Glucose, POC 147 70 - 199 mg/dL POC Performer [id number] [facility] Blood 06/12/2025 11:5 8 AM CDT 06/12/2025 11:58 AM CDT us Gurinder Burrows MD LAB POCT ORDERABLES - DE VICE Final Result Performing Organization Address [facility] de Phone Number ZEHRA RODRIGUEZ [address] [address] [facility] [place] [address] * POCT glucose (06/12/2025 6:06 AM CDT) Glucose, POC 138 70 - 199 mg/dL POC Performer [id number] [facility] Blood 06/12/2025 6:06 AM CDT 06/12/2025 6:06 AM CDT us Gurinder Burrows MD LAB POCT ORDERABLES - DE VICE Final Result Performing Organization Address [facility]/ZIP Co de Phone Number ZEHRA RODRIGUEZ [address] [facility] [place] [address] * POCT glucose (06/11/2025 11:49 PM CDT) Glucose, POC 158 70 - 199 mg/dL POC Performer [id number] [facility] Blood 06/11/2025 11:4 9 PM CDT 06/11/2025 11:49 PM CDT us Gurinder Burrows MD LAB POCT ORDERABLES - DE VICE Final Result Performing Organization Address [facility] Co de Phone Number ZEHRA RODRIGUEZ [address] [address] [facility] [place] [address] * POCT glucose (06/11/2025 7:55 PM CDT) Glucose, POC 149 70 - 199 mg/dL POC Performer [id number] [facility] Blood 06/11/2025 7:55 PM CDT 06/11/2025 7:55 PM CDT us Gurinder Burrows MD LAB POCT ORDERABLES - DE VICE Final Result Performing Organization Address [facility] Co de Phone Number ZEHRA MICHAEL [address] [address] [facility] [place] [address] * POCT glucose (06/11/2025 5:05 PM CDT) Glucose, POC 150 70 - 199 mg/dL POC Performer [id number] [facility] Blood 06/11/2025 5:05 PM CDT 06/11/2025 5:05 PM CDT us Gurinder Burrows MD LAB POCT ORDERABLES - DE VICE Final Result Performing Organization Address [facility] Co de Phone Number ALLENYESENIA RODRIGUEZ [phone] [address] [facility] [place] [address] * POCT glucose (06/11/2025 12:09 PM CDT) Glucose, POC 124 70 - 199 mg/dL POC Performer [id number] [facility] Blood 06/11/2025 12:0 9 PM CDT 06/11/2025 12:09 PM CDT us Gurinder Burrows MD LAB POCT ORDERABLES - DE VICE Final Result Performing Organization Address [facility] Co de Phone Number ZEHRA [phone] [address] [facility] [place] [address] * POCT glucose (06/11/2025 6:18 AM CDT) Glucose, POC 147 70 - 199 mg/dL POC Performer [id number] [facility] Blood 06/11/2025 6:18 AM CDT 06/11/2025 6:18 AM CDT us Gurinder Burrows MD LAB POCT ORDERABLES - DE VICE Final Result Performing Organization Address [facility] Co de Phone Number ZEHRA RODRIGUEZ [address] [address] [facility] [place] [address] * POCT glucose (06/10/2025 11:34 PM CDT) Glucose, POC 167 70 - 199 mg/dL POC Performer [id number] [facility] Blood 06/10/2025 11:3 4 PM CDT 06/10/2025 11:34 PM CDT Gurinder Burrows MD LAB POCT ORDERABLES - DE VICE Final Result Performing Organization Address [facility] Co de Phone Number ZEHRA RODRIGUEZ [address] [address] [facility] [place] [address] * POCT glucose (06/10/2025 7:53 PM CDT) Glucose, POC 150 70 - 199 mg/dL POC Performer [id number] [facility] Blood 06/10/2025 7:53 PM CDT 06/10/2025 7:53 PM CDT us Gurinder Burrows MD LAB POCT ORDERABLES - DE VICE Final Result Performing Organization Address [facility] Co de Phone Number ZEHRA RODRIGUEZ [address] [address] [facility] [place] [address] * POCT glucose (06/10/2025 4:59 PM CDT) Glucose, POC 195 70 - 199 mg/dL POC Performer [id number] [facility] Blood 06/10/2025 4:59 PM CDT 06/10/2025 4:59 PM CDT us Gurinder Burrows MD LAB POCT ORDERABLES - DE VICE Final Result Performing Organization Address [facility] Co de Phone Number ZEHRA RODRIGUEZ [address] [address] [facility] [place] [address] * POCT glucose (06/10/2025 12:58 PM CDT) Glucose, POC 184 70 - 199 mg/dL POC Performer [id number] [facility] Blood 06/10/2025 12:5 8 PM CDT 06/10/2025 12:58 PM CDT us Gurinder Burrows MD LAB POCT ORDERABLES - DE VICE Final Result Performing Organization Address [facility] Co de Phone Number ZEHRA RODRIGUEZ [address] [address] [facility] [place] [address] * POCT glucose (06/10/2025 6:48 AM CDT) Glucose, POC 127 70 - 199 mg/dL POC Performer [id number] [facility] Blood 06/10/2025 6:48 AM CDT 06/10/2025 6:48 AM CDT us Gurinder Burrows MD LAB POCT ORDERABLES - DE VICE Final Result Performing Organization Address [facility] Co de Phone Number ZEHRA RODRIGUEZ [address] [address] [facility] [place] [address] * POCT glucose (06/09/2025 8:41 PM CDT) Glucose, POC 112 70 - 199 mg/dL POC Performer [id number] [facility] Blood 06/09/2025 8:41 PM CDT 06/09/2025 8:41 PM CDT us Gurinder Burrows MD LAB POCT ORDERABLES - DE VICE Final Result Performing Organization Address [facility] Co me Phone Number ZEHRA RODRIGUEZ [address] [address] [facility] [place] [address] * POCT glucose (06/09/2025 5:25 PM CDT) Glucose, POC 133 70 - 199 mg/dL POC Performer [id number] [facility] Blood 06/09/2025 5:25 PM CDT 06/09/2025 5:25 PM CDT us Gurinder Burrows MD LAB POCT ORDERABLES - DE VICE Final Result Performing Organization Address [facility] Co me Phone Number ZEHRA RODRIGUEZ [address] [facility] [place] [address] * Infection Prevention Vita auris PCR, surveillance Axilla/Groin (06/09/2025 1:30 PM CDT) Vita auris DNA Not Detected Not Detected [facility] Comment: Interpretive Data Testing performed by [facility] using the Elizabeth sean 6800 Vita auris assay. This assay detects DNA from Vita auris using Real-Time PCR. This assay is laboratory developed and is not cleared by the [place] Food and Drug Administration. The performance characteristics have been verified by the [facility]. Testing performed by: [facility], [address] [place]., [address] Axilla/Groin 06/09/2025 1:30 PM CDT 06/09/2025 5:07 PM CDT Narrative [facility] - 06/10/2025 10:28 AM CDT Order placed by [facility] due to ring surveillance. us Instant Order Generic Provider LAB MICROBIOLOGY - GENERAL ORDERABLES Final Result Performing Organization Address [facility]/ZIP Co de Phone Number ALLENYESENIA RODRIGUEZ [phone] [address] [place] [address] [facility] * POCT glucose (06/09/2025 11:31 AM CDT) Glucose, POC 129 70 - 199 mg/dL POC Performer [id number] [facility] Blood 06/09/2025 11:3 1 AM CDT 06/09/2025 11:31 AM CDT us Gurinder Burrows MD LAB POCT ORDERABLES - DE VICE Final Result Performing Organization Address [facility]/ZIP Co de Phone Number ALLENYESENIA RODRIGUEZ [address] [address] [place] [address] * POCT glucose (06/09/2025 6:13 AM CDT) Glucose, POC 131 70 - 199 mg/dL POC Performer [id number] [facility] Blood 06/09/2025 6:13 AM CDT 06/09/2025 6:13 AM CDT us Gurinder Burrows MD LAB POCT ORDERABLES - DE VICE Final Result Performing Organization Address [facility]/ZIP Co de Phone Number ALLENYESENIA RODRIGUEZ [phone] [address] [place] [address] * POCT glucose (06/08/2025 9:02 PM CDT) Glucose, POC 119 70 - 199 mg/dL POC Performer [id number] [facility] Blood 06/08/2025 9:02 PM CDT 06/08/2025 9:02 PM CDT Gurinder Burrows MD LAB POCT ORDERABLES - DE VICE Final Result Performing Organization Address [facility] Co de Phone Number ZEHRA RODRIGUEZ [address] [place] [address] * POCT glucose (06/08/2025 2:09 PM CDT) Glucose, POC 126 70 - 199 mg/dL POC Performer [id number] [facility] Blood 06/08/2025 2:09 PM CDT 06/08/2025 2:09 PM CDT us Gurinder Burrows MD LAB POCT ORDERABLES - DE VICE Final Result Performing Organization Address [facility] Co me Phone Number ZEHRA [phone] [address] [facility] [place] [address] * CT Hip Right WO Contrast (06/08/2025 10:10 AM CDT) Anatomical Region Laterality Modality Lower Extremities Right Computed Tomog daniel 06/08/2025 11:0 4 AM CDT Impressions 06/08/2025 11:04 AM CDT Comminuted displaced right pubic rami fractures. Internal fixation of the right hip without evidence for stress fracture. Colonic diverticulosis with distended partial fluid filled rectum. Moderate prostatomegaly. Electronically signed by: Shahana Luis M.D. Narrative 06/08/2025 11:04 AM CDT Examination: CT HIP RIGHT WO CONTRAST Date: 06/08/2025 9:45 AM Clinical History: Hip pain, stress fracture suspected, neg xray Technique: Noncontrast CT right hip with multiplanar reformatted views was obtained. Comparison:CT abdomen pelvis 10/05/2024. Findings: A comminuted mildly displaced right superior pubic rim is fracture is noted extending to the symphysis pubis. Mildly displaced inferior pubic ramus fracture is also present. The SI joints are symmetric. Open reduction and internal fixation of the right hip with intramedullary uri, proximal cannulated partially threaded in and distal interlocking screw. Heterotopic ossification noted at the right greater trochanter. The left hip is intact. Mild chronic L4 superior endplate concave deformity again seen. Colonic diverticulosis with mild distended partial fluid-filled rectum is present. No distended pelvic small bowel or free fluid is noted. Partially distended urinary bladder and enlarged 5.7 cm prostate is seen. There is partial imaged large right renal cyst. Procedure Note Shahana Luis MD - 06/08/2025 Examination: CT HIP RIGHT WO CONTRAST Date: 06/08/2025 9:45 AM Clinical History: Hip pain, stress fracture suspected, neg xray Technique: Noncontrast CT right hip with multiplanar reformatted views was obtained. Comparison:CT abdomen pelvis 10/05/2024. Findings: A comminuted mildly displaced right superior pubic rim is fracture is noted extending to the symphysis pubis. Mildly displaced inferior pubic ramus fracture is also present. The SI joints are symmetric. Open reduction and internal fixation of the right hip with intramedullary uri, proximal cannulated partially threaded in and distal interlocking screw. Heterotopic ossification noted at the right greater trochanter. The left hip is intact. Mild chronic L4 superior endplate concave deformity again seen. Colonic diverticulosis with mild distended partial fluid-filled rectum is present. No distended pelvic small bowel or free fluid is noted. Partially distended urinary bladder and enlarged 5.7 cm prostate is seen. There is partial imaged large right renal cyst. IMPRESSION: Comminuted displaced right pubic rami fractures. Internal fixation of the right hip without evidence for stress fracture. Colonic diverticulosis with distended partial fluid filled rectum. Moderate prostatomegaly. Electronically signed by: Shahana Luis M.D. Gurinder Burrows MD IMG CT PROCEDURES Final Result * POCT glucose (06/08/2025 8:17 AM CDT) Glucose, POC 117 70 - 199 mg/dL POC Performer [id number] [facility] Blood 06/08/2025 8:17 AM CDT 06/08/2025 8:17 AM CDT us Gurinder Burrows MD LAB POCT ORDERABLES - DE VICE Final Result Performing Organization Address [facility] Co de Phone Number ZEHRA [address] [place] [address] * POCT glucose (06/08/2025 3:32 AM CDT) Glucose, POC 135 70 - 199 mg/dL POC Performer [id number] [facility] Blood 06/08/2025 3:32 AM CDT 06/08/2025 3:32 AM CDT us Colby Lee MD LAB POCT ORDERABLES - DEV ICE Final Result Performing Organization Address [facility] Phone Number [facility] [address] [place] [address] * (ABNORMAL) Troponin T high-sensitivity 4-hour (06/08/2025 12:37 AM CDT) Trop T hs 46(H) <=22 ng/L Comment: Interpretive Data For further hscTnT resources including the diagnostic algorithm and an aid in interpretation, copy and paste this link: [email or web address] Current Interpretive Data last revised 2020. Trop T hs delta 8 ng/L [facility] Trop T hs interp Equivocal [facility] Blood 06/08/2025 12:3 7 AM CDT 06/08/2025 12:37 AM CDT us Thuan Combs MD LAB BLOOD ORDERABLES Final Resul t Performing Organization Address City/[facility]/ZIP Co de Phone Number ZEHRA RODRIGUEZ [address] Department [place] [address] * CT Head WO Contrast (06/07/2025 10:28 PM CDT) Anatomical Region Laterality Modality Head and Neck N/A Computed Tomogra phy 06/07/2025 10:2 3 PM CDT Impressions 06/07/2025 11:40 PM CDT 1. Acute nasal bone fractures as noted. 2. No acute intracranial abnormality. Stat report by [facility] Electronically signed by: Raul Lazo M.D. Narrative 06/07/2025 11:40 PM CDT EXAMINATION: CT head without contrast HISTORY: Polytrauma, blunt TECHNIQUE: Noncontrast CT of the brain was performed with images acquired from skull base to vertex. COMPARISON: 10/05/2024 COMPARISON: CT HEAD WO CONTRAST 10/05/2024 FINDINGS: Brain: There is no evidence of intracranial hemorrhage. There is no evidence of an acute ischemic event. There are chronic ischemic White matter changes. There is mild diffuse cerebral atrophy present, consistent with this patient's age. Cerebral ventricles: No ventriculomegaly. Paranasal sinuses: Visualized sinuses are unremarkable. No fluid levels. Mastoid air cells: Visualized mastoid air cells are well aerated. Bones: There are acute minimally displaced bilateral nasal bone fractures with mild associated soft tissue edema Procedure Note Raul Lazo MD - 06/07/2025 EXAMINATION: CT head without contrast HISTORY: Polytrauma, blunt TECHNIQUE: Noncontrast CT of the brain was performed with images acquired from skull base to vertex. COMPARISON: 10/05/2024 COMPARISON: CT HEAD WO CONTRAST 10/05/2024 FINDINGS: Brain: There is no evidence of intracranial hemorrhage. There is no evidence of an acute ischemic event. There are chronic ischemic White matter changes. There is mild diffuse cerebral atrophy present, consistent with this patient's age. Cerebral ventricles: No ventriculomegaly. Paranasal sinuses: Visualized sinuses are unremarkable. No fluid levels. Mastoid air cells: Visualized mastoid air cells are well aerated. Bones: There are acute minimally displaced bilateral nasal bone fractures with mild associated soft tissue edema IMPRESSION: 1. Acute nasal bone fractures as noted. 2. No acute intracranial abnormality. Stat report by [facility] Electronically signed by: Raul Lazo M.D. Thuan Combs MD IMG CT PROCEDURES Final Result * (ABNORMAL) Urinalysis reflex to microscopic (06/07/2025 9:29 PM CDT) Color, ur Yellow Yellow Clarity, ur Clear Clear [facility] Specific gravity, ur 1.015 1.003 - 1.030 [facility] pH, urine 5.5 [facility] Comment: Interpretive Data U rine pH is affected by diet, medications, systemic acid-base disturbances, and renal tubular function. pH may affect urinary stone formation. For example, urine pH below 6.0 may help reduce the tendency for calcium phosphate stones and pH greater than 6.0 may reduce the tendency for uric acid stone formation. Source: [facility] [employer] Current Interpretive Data was last revised on 2017 Protein, ur ql 1+(A) Negative [facility] Glucose, ur ql Negative Negative [facility] Ketones, ur Negative Negative [facility] Bilirubin, ur Negative Negative [facility] Blood, ur Negative Negative [facility] Urobilinogen, ur <2.0 <2.0 mg/dL [facility] Nitrite, ur Negative Negative [facility] Leukocyte esterase, ur Negative Negative [facility] UA reflex comment Reflex to microscopic UA will be performed. [facility] Urine 06/07/2025 9:29 PM CDT 06/07/2025 9:45 PM CDT Thuan Combs MD LAB URINE ORDERABLES Final Resul t [facility]ER [address] Department [place] [address] * (ABNORMAL) Urinalysis, microscopic only (06/07/2025 9:29 PM CDT) WBC, ur 0-5 0 - 5 /HPF RBC, ur 0-2 0 - 2 /HPF [facility] Epithelial cells, squamous, ur 1-5 0 - 5 /HPF [facility] Bacteria, ur Trace(A) [facility] Urine 06/07/2025 9:29 PM CDT 06/07/2025 9:45 PM CDT us Thuan Combs MD LAB URINE ORDERABLES Final Resul t Z[facility]RA RODRIGUEZ [address] [facility] Department [place] [address] * XR Chest 1 Vw Portable (06/07/2025 8:49 PM CDT) Anatomical Region Laterality Modality Body, Chest N/A Computed Radiogr aphy 06/07/2025 10:1 6 PM CDT Impressions 06/07/2025 10:16 PM CDT Mild vascular congestion. Electronically signed by: Cuba Tripp M.D. Narrative 06/07/2025 10:16 PM CDT EXAMINATION: XR CHEST 1 VIEW HISTORY: The patient is a 74-year-old male who sustained trauma. Comparison made with the previous study dated 09/14/2024. TECHNIQUE: AP portable view of the chest. FINDINGS: Cardiomegaly with aortic atherosclerosis. Mild degree of vascular congestion. No focal infiltrate. Procedure Note Cuba Tripp MD - 06/07/2025 EXAMINATION: XR CHEST 1 VIEW HISTORY: The patient is a 74-year-old male who sustained trauma. Comparison made with the previous study dated 09/14/2024. TECHNIQUE: AP portable view of the chest. FINDINGS: Cardiomegaly with aortic atherosclerosis. Mild degree of vascular congestion. No focal infiltrate. IMPRESSION: Mild vascular congestion. Electronically signed by: Cuba Tripp M.D. us Thuan Combs MD IMG XR PROCEDURES Final Result * XR Pelvis 1 or 2 Views (06/07/2025 8:48 PM CDT) Anatomical Region Laterality Modality Body, Pelvis N/A Computed Radiogr aphy 06/08/2025 8:10 AM CDT Impressions 06/08/2025 8:10 AM CDT Moderate bilateral hip joint arthrosis. This procedure changes in the right femur. Multilevel intervertebral disc disease most significant at L4-L5 and L5-S1. No fracture. Electronically signed by: Wild Blount II, D.O. Narrative 06/08/2025 8:10 AM CDT EXAMINATION: XR PELVIS 1 OR 2 VIEWS DATE: 06/07/2025 8:45 PM HISTORY: Pelvic radiographs. COMPARISON: 05/05/2024. Procedure Note Wild Blount II, - 06/08/2025 EXAMINATION: XR PELVIS 1 OR 2 VIEWS DATE: 06/07/2025 8:45 PM HISTORY: Pelvic radiographs. COMPARISON: 05/05/2024. IMPRESSION: Moderate bilateral hip joint arthrosis. This procedure changes in the right femur. Multilevel intervertebral disc disease most significant at L4-L5 and L5-S1. No fracture. Electronically signed by: Wild Blount II, D.O. Thuan Combs MD IMG XR PROCEDURES Final Result * (ABNORMAL) Troponin T high-sensitivity series (baseline, 2hr, 4hr, 6hr) (06/07/2025 8:01 PM CDT) Trop T hs 38(H) <=22 ng/L Comment: Interpretive Data For further hscTnT resources including the diagnostic algorithm and an aid in interpretation, copy and paste this link: [email or web address] Current Interpretive Data last revised 2020. Blood 06/07/2025 8:01 PM CDT 06/07/2025 8:01 PM CDT us Thuan Combs MD LAB BLOOD ORDERABLES Final Resul t ZEHRA [address] Department [place] [address] * (ABNORMAL) eGFR (06/07/2025 8:01 PM CDT) eGFR 28(L) >=60 mL/min/1. 73 m2 Comment: Interpretive Data Reference Interval Normal >/= 90 mL/min/1.73m2 Mildly decreased* 60 - 89 mL/min/1.73m2 Mildly to moderately decreased 45 - 59 mL/min/1.73m2 Moderately to severely decreased 30 - 44 mL/min/1.73m2 Severely decreased 15 - 29 mL/min/1.73m2 Kidney Failure < 15 mL/min/1.73m2 *Relative to young adult level Estimated glomerular filtration rate is determined by the 2020 CKD-EPI equation recommended by the National Kidney Foundation (A Unifying Approach to GFR Estimation: Recommendations of the NKF-ASK Task Force on Reassessing the Inclusion of Race in Diagnosing Kidney Disease, JASN 202). The CKD-EPI equation should not be used for patients with unstable renal function and has not been validated in children and those over 70. Current interpretive data was last reviewed 2021. Blood 06/07/2025 8:01 PM CDT 06/07/2025 8:01 PM CDT Thuan Combs MD LAB BLOOD ORDERABLES Final Resul t [facility] [address] Department [place] [address] * (ABNORMAL) Differential, auto (06/07/2025 8:01 PM CDT) Neutrophil abs 15.24(H) 1.50 - 6.50 K/cumm Imm gran abs 0.10 0.00 - 0.10 K/cumm [facility] Lymphocyte abs 0.91 0.80 - 3.30 K/cumm [facility] Monocyte abs 0.92(H) 0.20 - 0.80 K/cumm [facility] Eosinophil abs 0.04 0.00 - 0.50 K/cumm [facility] Basophil abs 0.05 0.00 - 0.10 K/cumm [facility] Neutrophil pct 88.3 % [facility] Comment: Interpretive Data Percent cell count reference ranges are not reported, since discordance with absolute values may lead to misinterpretation of CBC data. Current Interpretive Data was last revised on 2018. Imm gran pct 0.6 % [facility] Comment: Interpretive Data Percent cell count reference ranges are not reported, since discordance with absolute values may lead to misinterpretation of CBC data. Current Interpretive Data was last revised on 2018. Lymphocyte pct 5.3 % [facility] Comment: Interpretive Data Percent cell count reference ranges are not reported, since discordance with absolute values may lead to misinterpretation of CBC data. Current Interpretive Data was last revised on 2018. Monocyte pct 5.3 % [facility] Comment: Interpretive Data Percent cell count reference ranges are not reported, since discordance with absolute values may lead to misinterpretation of CBC data. Current Interpretive Data was last revised on 2018. Eosinophil pct 0.2 % [facility] Comment: Interpretive Data Percent cell count reference ranges are not reported, since discordance with absolute values may lead to misinterpretation of CBC data. Current Interpretive Data was last revised on 2018. Basophil pct 0.3 % [facility] Comment: Interpretive Data Percent cell count reference ranges are not reported, since discordance with absolute values may lead to misinterpretation of CBC data. Current Interpretive Data was last revised on 2018. Blood 06/07/2025 8:01 PM CDT 06/07/2025 8:01 PM CDT us Thuan Combs MD LAB BLOOD ORDERABLES Final Resul t [facility] [address] Department [place] [address] * (ABNORMAL) CBC with auto differential (06/07/2025 8:01 PM CDT) WBC 17.26(H) 3.80 - 9.90 K/cumm Hgb 11.4(L) 13.0 - 17.5 g/dL [facility] Hct 36.5(L) 38.9 - 50.3 % [facility] Plt 366 150 - 400 K/cumm [facility] MPV 9.7 9.1 - 12.3 fL [facility] RBC 3.60(L) 4.30 - 5.80 M/cumm [facility] MCV 101.4(H) 81.3 - 96.4 fL [facility] MCH 31.7 27.1 - 33.3 pg [facility] MCHC 31.2(L) 32.3 - 35.7 g/dL [facility] RDW CV 14.0 11.1 - 14.9 % [facility] RDW SD 52.5(H) 35.7 - 48.1 fL [facility] NRBC abs 0.00 0.00 - 0.01 K/cumm [facility] Blood 06/07/2025 8:01 PM CDT 06/07/2025 8:01 PM CDT Thuan Combs MD LAB BLOOD ORDERABLES Final Resul t Performing Organization Address City/[facility] Co de Phone Number [facility] [id number] [place] [address] * Creatine kinase (CK), total (06/07/2025 8:01 PM CDT) [facility] CK 154 40 - 300 Units/L Blood 06/07/2025 8:01 PM CDT 06/07/2025 8:01 PM CDT Thuan Combs MD LAB BLOOD ORDERABLES Final Resul t Performing Organization Address [facility] de Phone Number [facility] [address] [place] [address] * (ABNORMAL) Comprehensive metabolic panel (06/07/2025 8:01 PM CDT) Pathologist [facility] Sodium 140 135 - 145 mmol/L Potassium, pl 4.3 3.3 - 4.9 mmol/L [facility] Chloride 113(H) 97 - 110 mmol/L [facility] CH CO2 14(L) 22 - 32 mmol/L [facility] CH Anion gap 13 2 - 15 mmol/L [facility] BUN 42(H) 6 - 25 mg/dL [facility] Creatinine 2.39(H) 0.80 - 1.30 mg/dL [facility] Glucose 155 70 - 199 mg/dL [facility] Comment: Interpretive Data Fasting glucose >/= 126 mg/dl is diagnostic for diabetes. Fasting is defined as no caloric intake for at least 8 hours. Fasting glucose between 100 mg/dl to 125 mg/dl is diagnostic of prediabetes. In a patient with classic symptoms of hyperglycemia or hyperglycemic crisis, a random glucose >/= 200 mg/dl is diagnostic for diabetes. In the absence of unequivocal hyperglycemia, results should be confirmed by repeat testing. The classification and Diagnosis of Diabetes Diabetes Care 2021; 46: S19-S40. Current interpretive data was last revised 2022. Calcium 9.1 8.5 - 10.3 mg/dL [facility] Bilirubin, total 0.3 0.1 - 1.2 mg/dL [facility] Protein, pl 6.4(L) 6.5 - 8.5 g/dL [facility] Albumin 3.8 3.5 - 5.0 g/dL [facility] Alk phos 90 40 - 130 Units/L [facility] ALT 17 7 - 55 Units/L [facility] AST 19 10 - 50 Units/L [facility] Blood 06/07/2025 8:01 PM CDT 06/07/2025 8:01 PM CDT us Thuan Combs MD LAB BLOOD ORDERABLES Final Resul t Performing Organization Address City/[facility]/ZIP Co de Phone Number ZEHRA RODRIGUEZ [address] [place] [address] * POCT glucose (06/07/2025 7:47 PM CDT) Glucose, POC 145 70 - 199 mg/dL POC Performer [id number] [facility] Blood 06/07/2025 7:47 PM CDT 06/07/2025 7:47 PM CDT Thuan Combs MD LAB POCT ORDERABLES - DEVICE Fin al Result Performing Organization Address City/[facility] Co de Phone Number ZEHRA RODRIGUEZ [address] [place] [address] * ECG 12 lead (06/07/2025 7:43 PM CDT) 06/07/2025 7:43 PM CDT Narrative [facility] - 06/08/2025 6:43 AM CDT Vent Rate: 95 bpm RR Interval: 626 msec MA Interval: 228 msec QRS Duration: 170 msec QT Interval: 391 msec QTC Interval: 444 msec P-R-T [place]: -48 - 208 - 66 degrees IMPRESSION: SINUS RHYTHM WITH FIRST DEGREE AV BLOCK RIGHT AXIS DEVIATION LEFT BUNDLE BRANCH BLOCK ABNORMAL ECG NO CHANGE FROM PREVIOUS TRACING NOTED Electronically Signed By: Joseph Lindsay MD Thuan Combs MD ECG ORDERABLES Final Result Performing Organization Address [facility] de Phone Number [facility] [employer] [facility] * (ABNORMAL) Hemoglobin A1c (10/06/2024 11:14 AM RAMP ATTENDANT) Hgb A1C 5.7(H) 4.0 - 5.6 % Estimated Average Glucose 117 mg/dL [facility] RODRIGUE[facility] Comment: The ADA recommends reporting an estimated Average Glucose (eAG) with all Hemoglobin A1c results using the equation derived from a study of 507 normal and diabetic adults. Minority populations were underrepresented and children were not included. (Diabetes Care 31:7677-1938, 2008). The eAG is not equivalent to a fasting glucose. Blood 10/06/2024 11:1 4 AM RAMP ATTENDANT 10/06/2024 11:20 AM RAMP ATTENDANT Rosemarie Littlejohn NP LAB BLOOD ORDERABLES Fin al Result Performing Organization Address City/[facility] Co de Phone Number [facility] [address] Department [place] [address] * Lipid panel (10/05/2024 3:50 PM RAMP ATTENDANT) Cholesterol 137 30 - 199 mg/dL Comment: Interpretive Data Ages < or = 19 years Acceptable: <170 mg/dL Borderline high: 170-199 mg/dL High: >or= 200 mg/dL Ages > or = 20 years Desirable: <200 mg/dL Borderline high: 200-239 mg/dL High: >or= 240 mg/dL Literature References: 1. Expert Panel on Integrated Guidelines for Cardiovascular Health and Risk Reduction in Children and Adolescents. Pediatrics 2011;128:S213 2. NCEP Expert Panel. Circulation 2004;110:227 Current Interpretive Data was last revised on 2018. Triglycerides 124 <=149 mg/dL [facility] Comment: Interpretive Data Ages < or = 9 years Acceptable: <75 mg/dL Borderline high: 75-99 mg/dL High: >or= 100 mg/dL Ages 10 to 20 years Acceptable: <90 mg/dL Borderline high: 90-129 mg/dL High: >or= 130 mg/dL Ages > or = 20 years Desirable: <150 mg/dL Borderline high: 150-199 mg/dL High: 200-499 mg/dL Very high: >or= 499 mg/dL Literature References: 1. Expert Panel on Integrated Guidelines for Cardiovascular Health and Risk Reduction in Children and Adolescents. Pediatrics 2011;128:S213 2. NCEP Expert Panel. Circulation 2004;110:227 Current Interpretive Data was last revised on 2018. HDL 40 >=40 mg/dL [facility] Comment: Interpretive Data Ages < or = 19 years Acceptable: >45 mg/dL Borderline low: 40-45 mg/dL Low: <40 mg/dL Ages > or = 20 years Desirable: >or= 60 mg/dL Low: <40 mg/dL Literature References: 1. Expert Panel on Integrated Guidelines for Cardiovascular Health and Risk Reduction in Children and Adolescents. Pediatrics 2011;128:S213 2. NCEP Expert Panel. Circulation 2004;110:227 Current Interpretive Data was last revised on 2018. LDL, calculated 75 <=129 mg/dL [facility] Comment: Interpretive Data Ages < or = 19 years Acceptable: <110 mg/dL Borderline high: 110-129 mg/dL High: >or= 130 mg/dL Ages > or = 20 years Optimal: <100 mg/dL Near optimal: 100-129 mg/dL Borderline high: 130-159 mg/dL High: >160 mg/dL Calculated using the Noam LDL-C estimating equation. This equation was implemented on 2024. Prior to this date LDL-C was estimated using the Friedewald equation. Literature References: 1. Expert Panel on Integrated Guidelines for Cardiovascular Health and Risk Reduction in Children and Adolescents. Pediatrics 2011;128:S213 2. NCEP Expert Panel. Circulation 2004;110:227 3. Noam Finney et al. YRIS Cardiol. 2020 March 26;5(5):540-548. doi: [email or web address] Current Interpretive Data was last revised on 2024. Non-HDL Cholesterol 97 mg/dL [facility] Comment: Interpretive Data Ages < or = 19 years Acceptable: <120 mg/dL Borderline high: 120-144 mg/dL High: >145 mg/dL Ages > or = 20 years When triglycerides are >200 mg/dL, Non-HDL cholesterol is a secondary target of therapy with treatment goals that are 30 mg/dL greater than the LDL cholesterol target. Literature References: 1. Expert Panel on Integrated Guidelines for Cardiovascular Health and Risk Reduction in Children and Adolescents. Pediatrics 2011;128:S213 2. NCEP Expert Panel. Circulation 2004;110:227 Current Interpretive Data was last revised on 2018. Chol/HDL ratio 3 [facility] Blood 10/05/2024 3:50 PM RAMP ATTENDANT 10/05/2024 3:50 PM RAMP ATTENDANT [facility]ative [facility] 4:44 PM RAMP ATTENDANT This lipid panel was automatically ordered due to a significant change in Troponin. The dietary status of the patient at the collection time should be correlated with the lipid results. us Navid Medrano DO LAB BLOOD ORDERABLES Final Res ult [facility] [address] Department [place] [address] * (ABNORMAL) Albumin Creatinine Ratio, Urine (05/06/2024 11:49 AM CDT) Albumin Ur 203.3 mg/L Comment: Interpretive Data No reference range established. Current interpretive data was last revised 2019. Creatinine Ur 100.3 mg/dL [facility] Comment: Interpretive Data No reference range established. Current interpretive data was last revised 2019. Albumin Creatinine Ratio, Ur 200(H) 1 - 29 mg/g [facility] Urine 05/06/2024 11:4 9 AM CDT 05/06/2024 12:05 PM CDT us Jorgito Guthrie DO LAB URINE ORDERABLES Final Result Performing Organization Address City/State/ZIP [facility] Phone Number ZEHRA [address] [facility] Department of Laboratories [place], [place] [id number] * COLONOSCOPY (02/13/2022 11:35 AM CDT) Anatomical Region Laterality Modality Other Narrative Procedure Note Endy Lin MD - 02/13/2022 11:35 AM CDT [facility] Endoscopy Lab Patient Name: Mohamud Diaz Procedure Date: 02/13/2022 11:35 AM Date of : 1950 Admit Type: Outpatient Age: 71 Gender: Male Note Status: Finalized Attending MD: Endy Lin M.D. Procedure Date: 02/13/2022 Procedure: Colonoscopy Indications: Screening for colorectal malignant neoplasm, Thisis the patient's first colonoscopy Providers: Endy Lin M.D., Ronda Knight [facility] Alek Ruiz RN, Jane Thomson RN, Reid, Camera Prototyping Engineer Referring MD: Gurinder Burrows M.D. Medicines: Monitored Anesthesia Care Complications: No immediate complications. Estimated Blood Loss: Estimated blood loss: none. Procedure: Pre-Anesthesia Assessment: - Airway Examination: small/crowded oropharyngeal airway. - Respiratory Examination: clear to auscultation. - ASA Grade Assessment: III - A patient with severe systemic disease. - After reviewing the risks and benefits, thepatient was deemed in satisfactory condition to undergo the procedure. - The risks and benefits of the procedure and the sedation options and risks were discussed with the patient. All questions were answered and informed consent was obtained. After I obtained informed consent, the scope was passed under direct vision. Throughout theprocedure, the patient's blood pressure, pulse, and oxygen saturations were monitored continuously. The scopewas passed under direct vision. The Colonoscope was introduced through the anus and advanced to the the cecum, identified by the appendiceal orifice, ileocecal valve and palpation. The colonoscopy was performed with ease. The patient tolerated the procedure well. The quality of the bowelpreparation was good. The quality of the bowel preparation was evaluated using the BBPS ([place]incoln Bowel Preparation Scale) with scores of: Right Colon = 2 (minoramount of residual staining, small fragments of stooland/or opaque liquid, but mucosa seen well), TransverseColon = 2 (minor amount of residual staining, small fragments of stool and/or opaque liquid, but mucosa seen well) and Left Colon = 2 (minor amount of residual staining, small fragments of stool and/or opaque liquid, but mucosa seen well). The totalBBPS score equals 6. The quality of the bowelpreparation was good. The bowel preparation used was GoLYTELYvia split dose instruction. Findings: The perianal and digital rectal examinations were normal. The colon (entire examined portion) appeared normal. The retroflexed view of the distal rectum and anal verge was normaland showed no anal or rectal abnormalities. Impression: - The entire examined colon is normal. - The distal rectum and anal verge are normal on retroflexion view. - No specimens collected. Recommendation: - Discharge patient to home (ambulatory). - Repeat colonoscopy is not recommended. Procedure Code(s): --- Professional --- G0121, Colorectal cancer screening; colonoscopy on individual not meeting criteria for high risk Diagnosis Code(s): --- Professional --- Z12.11, Encounter for screening for malignantneoplasm of colon CPT copyright 2020 [employer]. All rights reserved. The codes documented in this report are preliminary and upon animal skinner reviewmay be revised to meet current compliance requirements. Electronically signed by Endy Lin MD Endy iLn M.D. 02/13/2022 12:43:29 PM Number of Addenda: 0 Note Initiated On: 02/13/2022 11:35 AM Endy Lin MD ENDOSCOPY PROCEDURES Final Resul t from Last 3 Months or Most Recently Relevant to Health Maintenance Insurance AETNA MEDICARE AETNA MEDICARE [facility] Address: [address] [place] [address] UHC MEDICARE ADVANTAGE [facility] MED[facility] Address: [address] [address] [place] [address] AETNA MEDICARE [facility] Address: [address] [place] [address] Advance Directives For more information, please contact: [phone] * Full Code (Latest Code Status on File) Date Activated Date Inactivated Comments 06/08/2025 5:13 AM 06/16/2025 10:44 PM * Full Code Date Activated Date Inactivated Comments 10/05/2024 5:59 PM 10/10/2024 8:15 PM * Full Code Date Activated Date Inactivated Comments 10/05/2024 3:31 PM 10/05/2024 5:59 PM * Full Code Date Activated Date Inactivated Comments 05/05/2024 5:49 PM 05/15/2024 6:50 PM * Full Code Date Activated Date Inactivated Comments 08/27/2023 9:32 PM 08/31/2023 11:24 PM Care Teams Treating Plant Pumper Relationship Specialty [place] [id number] [facility] [address] [place] [address] PCP - General Internal Medicine 08/23/23 Lisa Graff NP Nurse Practitioner Infectious Diseases 01/03/19
--- OUTSIDE RECORDS SUMMARY | 2025-07-24 09:22 | XMS_ITS | Clinical Summary ---
Author Organization [facility] Address [address] [place]: Epic Prelude ADT [place]ATE[place] [id number] Care Team Providers Care Taste Tester Name Role Phone Unavailable Primary Care Provider Unavailabl e Allergies No known active allergies Medications primidone (MYSOLINE) 50 mg tablet TAKE ONE TABLET BY MOUTH THREE TIMES A DAY 90 Tablet 05/01/20 22 11:07 AM CDT Active Blood-Glucose Meter,Continuou s (Dexcom G6 Employment Attorney) Use as directed 1 Each Active Blood-Glucose Meter Use as directed to test blood sugar. 1 Each Active doxycycline monohydrate 100 mg Tablet Take 1 Tablet (100 mg) by mouth 2 times daily for 10 days. 20 Tablet 07/05/20 22 12:40 PM CDT Active flash glucose sensor (FreeStyle Cyril 2 Sensor) Kit Change sensor every 14 days as directed. 2 Kit Active flash glucose scanning reader (FreeStyle Cyril 2 [place]) [facility] Use as directed to monitor blood sugar. 1 Each Active apixaban (Eliquis) 5 mg tablet Take 2 tablets by mouth twice a day for 10 days, then reduce dose to 1 tablet (5mg) twice a day for treatment of DVT 180 Tablet 1 09/26/20 22 8:32 AM CDT Active Insulin [place], Disposable, (Unifine Pentips Plus) 31 gauge x 5/16 Needle Use as directed to inject insulin 300 Each 3 11/02/20 23 10:07 AM ORTHOTIC FINISH GRINDING TECHNICIAN 022 Active azithromycin (ZITHROMAX) 250 mg tablet Take 2 tablets by mouth today, then take 1 tablet by mouth daily thereafter until finished. 6 Tablet 11/24/20 22 2:56 PM ORTHOTIC FINISH GRINDING TECHNICIAN 022 Active insulin lispro (HumaLOG KwikPen Insulin) 100 unit/mL pen syringe Inject 15 Units by subcutaneous injection 3 times daily. 15 mL 5 11/02/20 23 10:07 AM ORTHOTIC FINISH GRINDING TECHNICIAN 023 Active torsemide (DEMADEX) 20 mg tablet Take 1 tablet (20 mg total) by mouth daily in the morning 90 Tablet 1 05/21/20 23 10:19 AM CDT 023 Active ferrous gluconate 324 mg (38 mg iron) tablet Take 1 Tablet (324 mg) by mouth 2 times daily with meals. 60 Tablet 2 07/02/20 23 11:53 AM CDT 023 Active cholecalciferol , Vitamin D3, 125 mcg (5,000 unit) Capsule Take 1 Capsule (5,000 Units) by mouth daily. 90 Capsule 3 02/27/20 24 8:58 AM CDT 023 Active empagliflozin (Jardiance) 25 mg tablet Take 1 Tablet (25 mg) by mouth daily in the morning. 30 Tablet 3 08/28/20 23 10:34 AM CDT 023 Active miconazole nitrate (AntifungaL, miconazole,) 2 % Powder APPLY TO THE AFFECTED AREA OF THE ABDOMEN AND GROIN TWICE DAILY NEEDED 85 Gram 2 023 Active insulin glargine (Lantus Solostar U-100 Insulin) 100 unit/mL pen syringe Inject 50 units subcutaneously every evening. 15 mL 5 03/25/20 24 3:21 PM CDT 023 Active clindamycin HCL (Cleocin HCL) 300 mg Capsule Take 1 capsule by mouth twice a day 14 Capsule 11/28/19 24 3:55 PM ORTHOTIC FINISH GRINDING TECHNICIAN 024 Active silver sulfADIAZINE (Silvadene) 1 % Cream Apply to affected area(s) 2 times daily. 60 Gram 12/06/19 24 11:48 AM ORTHOTIC FINISH GRINDING TECHNICIAN 024 Active oxyCODONE (ROXICODONE) 5 mg tablet Take 2 Tablets (10 mg) by mouth 3 times daily as needed. Max Daily Amount: 30 mg 180 Tablet 12/17/19 24 4:16 PM ORTHOTIC FINISH GRINDING TECHNICIAN 024 Active collagenase (SantyL) 250 unit/gram Ointment APPLY DAILY DIRECTED. 30 Gram 12/27/19 24 10:34 AM ORTHOTIC FINISH GRINDING TECHNICIAN 024 Active oxyBUTYnin (DITROPAN XL) 10 mg Extended Release 24 hour tablet Take 1 Tablet (10 mg) by mouth daily. 90 Tablet 1 02/07/20 24 10:07 AM CDT 024 Active folic acid (FOLVITE) 1 mg tablet Take 1 Tablet (1 mg) by mouth daily. 90 Tablet 1 07/15/20 24 3:27 PM CDT 024 Active empagliflozin (Jardiance) 10 mg tablet Take 1 Tablet (10 mg) by mouth daily in the morning. 30 Tablet 3 02/27/20 24 8:58 AM CDT 024 Active losartan (COZAAR) 25 mg tablet Take 1 Tablet (25 mg) by mouth daily at bedtime. 90 Tablet 1 05/25/20 24 10:38 AM CDT 024 Active cyanocobalamin 1,000 mcg Tablet Take 1 Tablet (1,000 mcg) by mouth daily in the morning. 30 Tablet 11 04/16/20 24 2:58 PM CDT 024 Active doxycycline monohydrate 100 mg Tablet Take 1 tablet (100 mg total) by mouth in the morning and 1 tablet (100 mg total) in the evening. Take with a full glass of water and do not lie down for at least 30 minutes after.. 20 Tablet 03/25/20 24 3:21 PM CDT 024 Active ferrous sulfate 325 mg (65 mg iron) tablet Take 1 tablet (325 mg total) by mouth every afternoon 90 Tablet 1 03/25/20 24 3:21 PM CDT 024 Active empagliflozin (Jardiance) 25 mg tablet Take 1 Tablet (25 mg) by mouth daily in the morning. 30 Tablet 3 03/25/20 24 3:21 PM CDT 024 Active ALPRAZolam (XANAX) 0.5 mg tablet Take 1 Tablet (0.5 mg) by mouth 3 times daily as needed. 90 Tablet 5 08/24/20 24 10:19 AM CDT 024 Active cyclobenzaprine (FLEXERIL) 10 mg tablet Take 1 Tablet (10 mg) by mouth 3 times daily as needed. 30 Tablet 1 04/27/20 24 10:19 AM CDT Active sodium bicarbonate 650 mg tablet Take 1 tablet (650 mg total) by mouth in the morning and 1 tablet (650 mg total) in the evening. 180 Tablet 1 09/21/20 24 10:39 AM T Active cyanocobalamin (VITAMIN B-12) 500 mcg tablet Take 1 tablet (500 mcg total) by mouth 1 (one) time each day 90 Tablet 1 09/03/20 24 9:49 AM T Active oxyCODONE (ROXICODONE) 5 mg tablet Take 2 Tablets (10 mg) by mouth 3 times daily as needed. Max Daily Amount: 30 mg 180 Tablet 05/01/20 24 2:25 PM T Active primidone (MYSOLINE) 50 mg tablet Take 2 Tablets (100 mg total) by mouth 3 times daily. 180 Tablet 11 Active insulin lispro (HumaLOG,ADMELO G) 100 unit/mL pen syringe Use as directed per sliding scale. Blood glucose of 150-199: 1 unit, BG of 200-249: 2 units, BG 250-299: 3 units, 300-349: 4 units, 350 or greater: 5 units. Notify provider for blood glucose greater than 299 mg/dL. 15 mL 1 05/25/20 24 10:38 AM T 024 Active chlorthalidone (HYGROTON) 25 mg tablet Take 1 Tablet (25 mg) by mouth daily. 30 Tablet 11 05/28/20 24 4:26 PM T 024 Active insulin glargine (LANTUS) 100 unit/mL pen syringe Inject 19 Units by subcutaneous injection late in the day. 15 mL 1 08/24/20 24 10:19 AM T 024 Active insulin lispro (Admelog SoloStar U-100 Insulin) 100 unit/mL pen syringe use as directed 15 mL 024 Active fluticasone furoate-vilante roL (Breo Ellipta) 100-25 mcg/dose Disk with Device Inhale 1 puff by mouth once daily. Rinse mouth with water and spit after use. 60 Each 05/29/20 24 12:07 PM CDT Active calcitRIOL (ROCALTROL) 0.25 mcg capsule TAKE 1 CAPSULE BY MOUTH ONCE DAILY 14 Capsule Active chlorthalidone (HYGROTON) 25 mg tablet TAKE 1 TABLET BY MOUTH ONCE DAILY 14 Tablet Active escitalopram oxalate (LEXAPRO) 20 mg tablet Take 1 Tablet (20 mg) by mouth daily. 14 Tablet Active insulin lispro (HumaLOG KwikPen Insulin) 100 unit/mL pen syringe INJECT SUBCUTANEOUSLY THREE TIMES DAILY PER SLIDING SCALE: 150-199: 1 UNIT, 200-249: 2 UNITS, 250-299: 3 UNITS, 300-349: 4 UNITS, 350-400: 5 UNITS, <70 OR >401 CALL MD. ROTATE SITES. 15 mL Active insulin glargine (LANTUS) 100 unit/mL pen syringe INJECT 19 UNITS SUBCUTANEOUSLY ONCE DAILY. ROTATE SITES. EXPIRES 28 DAYS AFTER OPENING. 15 mL Active oxyBUTYnin (DITROPAN XL) 5 mg Extended Release 24 hour tablet TAKE ONE TABLET BY MOUTH ONCE DAILY 14 Tablet Active oxyCODONE (ROXICODONE) 10 mg tablet TAKE 1 TABLET BY MOUTH FOUR TIMES DAILY NEEDED FOR PAIN 56 Tablet 05/29/20 24 12:07 PM CDT Active primidone (MYSOLINE) 50 mg tablet TAKE 2 TABLET BY MOUTH THREE TIMES DAILY 84 Tablet Active acetaminophen (TylenoL) 325 mg tablet TAKE 2 TABLETS BY MOUTH EVERY 8 HOURS NEEDED FOR PAIN. DO NOT EXCEED 3 GRAMS PER DAY. 84 Tablet Active atorvastatin (LIPITOR) 10 mg tablet TAKE 1 TABLET BY MOUTH DAILY 14 Tablet Active pen needle,diabetic dual safty (BD AutoShield Duo Pen Needle) 30 gauge x 3/16 Needle USE DIRECTED NEEDED 14 Each Active carvediloL (COREG) 12.5 mg tablet Take 1 Tablet (12.5 mg) by mouth every 12 hours. 60 Tablet 1 06/27/20 24 9:06 AM CDT Active ferrous sulfate 325 mg (65 mg iron) tablet Take 1 Tablet (325 mg) by mouth daily. 30 Tablet 06/27/20 24 9:06 AM CDT Active tolnaftate (TINACTIN) 1 % Powder Apply to affected areas of bilateral groin and buttock every 12 hours until rash is clear. 45 Gram 06/27/20 9:06 AM T Active magnesium oxide (MAG-OX) 400 mg (241.3 mg magnesium) tablet TAKE ONE TABLET BY MOUTH TWICE A DAY 60 Tablet 08/24/20 10:19 AM T 2024 Active calcitRIOL (ROCALTROL) 0.25 mcg capsule Take 1 Capsule (0.25 mcg) by mouth daily. 90 Capsule 08/24/20 10:19 AM T Active lancets (UniQure Delica Plus Lancet) 30 gauge Use to test blood sugar 4 times daily or as directed by physician. 100 Each 10/31/20 24 12:10 PM [facility] Active ferrous sulfate 325 mg (65 mg iron) tablet Take 1 tablet (325 mg total) by mouth every afternoon 90 Tablet 1 10/01/20 24 9:13 AM [facility] Active insulin glargine (LANTUS) 100 unit/mL pen syringe Inject 25 units under the skin nightly 22.5 mL 3 01/29/20 25 10:31 AM [facility] Active amLODIPine (NORVASC) 10 mg tablet Take 1 tablet (10 mg total) by mouth daily 30 Tablet 05/19/20 25 4:[address] [facility] Active aspirin (BELIA CHEWABLE) 81 mg Tablet, Chewable Take 1 tablet (81 mg total) by mouth daily 30 Tablet 10/11/20 24 11:49 AM [facility] Active ergocalciferol (VITAMIN D2) 50,000 unit capsule Take 1 capsule (50,000 Units total) by mouth once a week 4 Capsule 06/01/20 25 6:[address] [facility] Active amLODIPine (NORVASC) 10 mg tablet TAKE 1 TABLET BY MOUTH EVERY DAY 90 Tablet 1 Active blood sugar diagnostic (UniQure Verio test strips) Strip Use to test blood sugar 4 times daily or as directed by physician. 100 Each 10/31/20 24 12:10 PM ORTHOTIC FINISH GRINDING TECHNICIAN 024 Active miconazole nitrate (REMEDY-AF,ZEAS ORB-AF) 2 % Powder APPLY TO AFFECTED AREAS OF SKIN 3 TIMES DAILY NEEDED. 85 Gram 4 03/08/20 1:45 PM CDT 024 Active calcitRIOL (ROCALTROL) 0.5 mcg capsule Take 1 capsule (0.5 mcg total) by mouth 1 (one) time each day 90 Capsule 1 11/27/19 10:19 AM [facility] 024 Active ferrous sulfate 325 mg (65 mg iron) tablet Take 1 tablet (325 mg total) by mouth every afternoon 90 Tablet 1 01/19/20 12:15 PM [facility] 025 Active calcitRIOL (ROCALTROL) 0.25 mcg capsule Take 3 Capsules (0.75 mcg) by mouth daily. 275 Capsule 1 05/19/20 4:34 PM CDT 025 Active ALPRAZolam (XANAX) 0.5 mg tablet TAKE 1 TABLET BY MOUTH THREE TIMES DAILY NEEDED 90 Tablet 5 07/16/20 8:42 AM T 025 Active ferrous sulfate 325 mg (65 mg iron) tablet Take 1 Tablet (325 mg) by mouth two times weekly. 24 Tablet 1 04/23/20 11:30 AM T 025 Active sodium bicarbonate 650 mg tablet Take 1 Tablet (650 mg) by mouth 2 times daily (once in the morning and once in the evening). 180 Tablet 1 04/23/20 11:30 AM T 025 Active primidone (MYSOLINE) 50 mg tablet Take 2 Tablets (100 mg) by mouth 3 times daily. 180 Tablet 3 07/06/20 2:49 PM CDT 025 Active losartan (COZAAR) 25 mg tablet Take 1 Tablet (25 mg) by mouth daily at bedtime. 90 Tablet 1 04/23/20 11:30 AM T 025 Active escitalopram oxalate (LEXAPRO) 20 mg tablet Take 1 Tablet (20 mg) by mouth daily. 90 Tablet 3 05/01/20 4:48 PM CDT 025 Active oxyBUTYnin (DITROPAN XL) 5 mg Extended Release 24 hour tablet Take 1 Tablet (5 mg) by mouth daily. 30 Tablet 05/01/20 4:48 PM CDT 025 Active atorvastatin (LIPITOR) 10 mg tablet Take 1 Tablet (10 mg) by mouth daily. 90 Tablet 3 05/19/20 4:34 PM CDT 025 Active calcitRIOL (ROCALTROL) 0.25 mcg capsule Take 1 Capsule (0.25 mcg) by mouth daily. 90 Capsule 025 Active sodium bicarbonate 650 mg tablet Take 1 Tablet (650 mg) by mouth 2 times daily. 60 Tablet 06/17/20 6:35 PM CDT 025 Active lipase-protease -amylase DR (Creon) 12,000-38,000-6 0,000 unit capsule Take 1 capsule by mouth three times daily with meals 90 Capsule 06/18/20 2:38 PM CDT 025 Active oxyCODONE (ROXICODONE) 10 mg tablet Take 1 Tablet (10 mg) by mouth 3 times daily as needed. Max Daily Amount: 30 mg 90 Tablet 06/18/20 2:38 PM CDT 025 Active albuterol sulfate HFA 90 mcg/actuation aerosol inhaler Take 2 Puffs by inhalation every 4 hours as needed. 8.5 Gram 06/24/20 4:31 PM CDT 025 Active oxyCODONE (ROXICODONE) 10 mg tablet Take 1 Tablet (10 mg) by mouth 4 times daily. Max Daily Amount: 4 tablets 120 Tablet 07/06/20 2:49 PM CDT 025 Active torsemide (DEMADEX) 20 mg tablet Take 1 Tablet (20 mg) by mouth daily in the morning. 90 Tablet 1 07/13/20 6:08 PM CDT 025 Active torsemide (DEMADEX) 20 mg tablet Take 1 Tablet (20 mg) by mouth daily in the morning. 90 Tablet 1 05/25/20 10:38 AM CDT 024 2024 Discontinued Social History Tobacco Use Types Packs/Day Years Used Date Smoking Tobacco: Never Assessed Sex and Gender Information Value Date Recorded Sex Assigned at Not on file Legal Sex Male 3:27 PM CDT Gender Identity Not on file Sexual Orientation Not on file Plan of Treatment Health Maintenance Due Date Last Done Comments DTAP/TDAP/TD VACCINES (1 - Tdap) 1970 COLORECTAL SCREENING 1996 Colorectal Cancer Screening 1996 FIT-DNA Q 3 years 1996 FIT/FOBT Q 1 year 1996 Flex Sig/CT Colonography Q 5 years 1996 PNEUMOCOCCAL VACCINE 50+ YEARS (1 of 1 - PCV) 09/06/20 ZOSTER VACCINE (1 of 2) 2001 RSV VACCINE (60+ or ) (1 - Risk 60-74 years 1-dose series) 2011 INFLUENZA VACCINE (#1) 2025 Insurance RX [employer] Medicare Part D RX [employer]ANS (INTERNAL) [facility] RX [employer] DATA Medicare Part B
== END 2025-07-24 09:14 | disposition home or self-care (01) ==
PROVIDERS: PCP Internal Medicine Geriatric Medicine; Visit Provider Internal Medicine Geriatric Medicine
DX: M84.45 Pathological fracture, femur and pelvis (principal); Z98.890 Other specified postprocedural states
CPT/HCPCS: 73521